=== PATIENT | female | born 1960 | race Caucasian/White ===

== ENCOUNTER 2017-02-28 20:16 | Emergency (ER) | payer OTHER ==
[~2017-02-28] VITALS: Ht 160 cm; Wt 78.0 kg
[2017-02-28 20:20] VITALS: Ht 160 cm; Wt 78.0 kg
--- NOTE | 2017-02-28 20:38 | ERD ---
ER Documentation Chief Complaint Date/Time DATE: 02/28/17 TIME: 20:37 Chief Complaint sudden back pain since last night HPI 56-year-old female presents here in emergency department for complaints of left lower back pains and left hip pain started last night. Patient is currently being treated for breast cancer, on radiation therapy. Patient denies any trauma and affected area. Patient has a history of right hip replacement, is usually on a walker, patient states that she was walking without it the past couple of days. Patient discussed the pain as throbbing pain, 6/10 scale, is worse upon movement. Patient denies any numbness or tingling. At this time, patient denies any pain, patient states that the pain is on and off intermittent. Patient denies any fever or chills. ROS All systems reviewed and are negative except as per history of present illness. Medications Home Meds Reported Medications [none] Unknown Strength No Conflict Check 02/28/17 Allergies Allergies: Coded Allergies: No Known Allergy (Unverified , 02/28/17) PMhx/Soc History of Surgery: Yes (right hip) Anesthesia Reaction: No Hx Neurological Disorder: No Hx Respiratory Disorders: Yes (asthma) Hx Cardiac Disorders: Yes Hx Psychiatric Problems: No Hx Miscellaneous Medical Probl: Yes (breast CA) Hx Alcohol Use: No Hx Substance Use: No Hx Tobacco Use: No Smoking Status: Never smoker FmHx Family History: No coronary disease, No diabetes, No other Physical Exam Vitals Vital Signs Date Time Temp Pulse Resp B/P Pulse Ox O2 Delivery O2 Flow Rate FiO2 02/28/17 20:20 97.3 78 20 142/67 99 Physical Exam GENERAL: The patient is well developed and appropriate for usual state of health, in no apparent distress. CHEST: Clear to auscultation bilaterally. There are no rales, wheezes or rhonchi. HEART: Regular rate and rhythm. No murmurs, clicks, rubs or gallops. No S3 or S4. ABDOMEN: Soft, nontender and nondistended. Good bowel sounds. No rebound or guarding. No gross peritonitis. No gross organomegaly or masses. No Nelson sign or McBurney point tenderness. BACK: No midline or flank tenderness. No tenderness on palpation on the left lower back, positive straight leg test. Muscle spasms noted in the left paraspinal aspect of the lumbar spine. EXTREMITIES: Equal pulses bilaterally. There is no peripheral clubbing, cyanosis or edema. No focal swelling or erythema. Full range of motion. Grossly neurovascularly intact. NEURO: Alert and oriented. Cranial nerves 2-12 intact. Motor strength in all 4 extremities with 5/5 strength. Sensation grossly intact. Normal speech and gait. SKIN: There is no apparent rash or petechia. The skin is warm and dry. HEMATOLOGIC AND LYMPHATIC: There is no evidence of excessive bruising or lymphedema. No gross cervical, axillary, or inguinal lymphadenopathy. Results 24 hrs PROCEDURE: CT Lumbar Spine without contrast. CLINICAL INDICATION: Left low back pain. History of breast cancer. TECHNIQUE: CT of the lumbar spine without contrast was performed. Axial images were obtained through the lumbar spine and reformatted at 2.5 mm slice thickness. Coronal and sagittal images were reformatted. The CTDIvol = 22.06 mGy and DLP = 587.60 mGy-cm. COMPARISON: Bone scan 08/29/2016 FINDINGS: Vertebral bodies: Multiple lytic lesions are present within the vertebral bodies at every level, most conspicuous at L3, the largest lesion on the left in the L3 vertebral body measuring approximately 2.2 cm. There is no evidence of pathologic fracture, stature is preserved at every level. The lordosis is intact. A mixed blastic and lytic lesion in the L2 vertebral body on the right is present, a similar smaller lesion in the inferior anterior L5 vertebral body. Conus medularis region: Normal in attenuation and location estimated at the L1 level. T12-L1: No discogenic abnormality of significance is seen. There is no facet arthropathy. The central canal is patent. There is no evidence for foraminal stenosis. L1-L2: No discogenic abnormality of significance is seen. There is no facet arthropathy. The ligamentum flava are normal in thickness. The central canal is patent. There is no evidence for foraminal stenosis. L2-L3: No discogenic abnormality of significance is seen. There is no facet arthropathy. The ligamentum flava are normal in thickness. The central canal is patent. There is no evidence for foraminal stenosis. L3-L4:No discogenic abnormality of significance is seen. There is no facet arthropathy. The ligamentum flava are normal in thickness. The central canal is patent. There is no evidence for foraminal stenosis. L4-L5: No discogenic abnormality of significance is seen. There is no facet arthropathy. The ligamentum flava are normal in thickness. The central canal is patent. There is no evidence for foraminal stenosis. L5-S1: No discogenic abnormality of significance is seen. There is no facet arthropathy. The ligamentum flava are normal in thickness. The central canal is patent. There is no evidence for foraminal stenosis. Sacrum and sacroiliac joints: Lytic lesion involving the S1 level to the left is present. Additional lytic lesions of the visualized iliac bones near the sacroiliac joint are present. None spine related findings: Visualized liver demonstrates multiple hypodensities consistent with extensive metastatic disease. RPTAT:HJJR IMPRESSION: 1. Multiple lytic metastatic foci of the lumbar vertebral bodies, sacrum and visualized iliac bones. 2. No evidence of pathologic fracture or compromise of the central canal at any level, no discogenic abnormalities significance is seen. 3. Visualized liver demonstrates multiple hypodense masses consistent with additional foci of metastatic disease. Physician Daniela Date Time Electronically viewed and signed by Physician Daniela on 02/28/2017 21:20 JR/ CC: CHATO COYLE NP PROCEDURE: CT of the lower extremity without contrast CLINICAL INDICATION: Left hip pain. History of breast cancer. TECHNIQUE: CT of the left lower extremity is performed from the anterior superior iliac spine through the distal femoral shaft at 2.5 mm sections. Coronal and sagittal reformatted images are submitted. CTDI = 13.83 mGy; DLP = 4 /43.04 mGy-cm COMPARISON: Pelvis x-ray 08/31/2016 FINDINGS: Osseous structures: Increased 5 lytic areas within the left iliac bone are present the largest is in the center of the iliac bone, the finding measuring 3.2 cm in greatest dimension. There is no evidence of pathologic fracture. There is a mixed sclerotic and lytic lesion involving the left superior pubic bone near the pubic symphysis without pathologic fracture. The left femoral head is normal in contour and position without fracture or dislocation. There is no evidence of osteoarthrosis of the left hip joint. The visualize left femur is unremarkable for additional metastatic foci. Soft tissues: No soft tissue masses are identified. No muscular or subcutaneous tissue abnormalities are seen. There is no evidence of joint effusion. The visualized intrapelvic structures show diverticular disease of the colon. There is no obvious adenopathy. RPTAT:HJJR IMPRESSION: 1. Multiple lytic metastatic foci of the left iliac bone with a mixed sclerotic and lytic focus of metastasis involving the superior left pubic ramus near the symphysis. 2. No evidence of pathologic fracture. 3. Visualize left femur is unremarkable. 4. No soft tissue abnormalities are present. 5. Incidental diverticular disease of the visible colon. Physician Daniela Date Time Electronically viewed and signed by Physician Daniela on 02/28/2017 21:25 JR/ CC: CHATO COYLE PRODUCT DEVELOPMENT SCIENTIST I discussed this case with my attending physician, Dr. Ellison, discussed the incidental finding of possible diverticular disease in colon noted in the CT scan of the lower extremity, she recommended treating patient's back pain considering patient does not have any fever, nausea vomiting abdominal pain, low suspicion for diverticulitis, patient has an appointment with oncology technician tomorrow. No symptoms of sepsis at this time. Procedures/MDM Medical Decision Making: Patient's pain is nonspecific at this time, can be from the lytic lesions, possible metastatic disease, can be also musculoskeletal pain, back strain, hip strain. There is no suspicion for neurovascular compromise. Patient has intact sensation and circulation of the affected extremity. There is low suspicion for septic arthritis. Patient does not have any fever. Radiology exams of the affected area does not show any fracture or dislocation. Disposition: Home. Patient is given prescription for Percocet for severe pain. Patient was advised to rest, talk to oncologist regarding CT scan report. Patient was advised that if symptoms are worse, numbness, tingling, high fever, unable to move joint, worsening symptoms, to return to emergency department immediately. Otherwise, patient is advised to follow up with the primary care doctor/oncologist tomorrow , brings results of CT scan report and discuss options. Departure Diagnosis: Primary Impression: Back pain Back pain location: low back pain Chronicity: acute Back pain laterality: left Sciatica presence: without sciatica Qualified Code: M54.5 - Acute left- sided low back pain without sciatica Additional Impressions: Metastatic cancer Hip pain Laterality: left Qualified Code: M25.552 - Pain of left hip joint Condition: Stable Patient Instructions: Back Pain (Acute Or Chronic) Additional Instructions: Patient is given prescription for ibuprofen for pain, [place] for severe pain. Patient was advised to rest, talk to oncologist regarding CT scan report. Patient was advised that if symptoms are worse, numbness, tingling, high fever, unable to move joint, worsening symptoms, to return to emergency department immediately. Otherwise, patient is advised to follow up with the primary care doctor in 5-7 days for reevaluation of symptoms. CHATO COYLE NP February 28, 2017 20:38
--- NOTE | 2017-02-28 21:20 | RADRPT ---
PROCEDURE: CT Lumbar Spine without contrast. CLINICAL INDICATION: Left low back pain. History of breast cancer. TECHNIQUE: CT of the lumbar spine without contrast was performed. Axial images were obtained thro [facility] the lumbar spine and reformatted at 2.5 mm slice thickness. Coronal and sagittal images were ref ormatted. The CTDIvol = 22.06 mGy and DLP = 587.60 mGy-cm. COMPARISON: Bone scan 08/29/2016 FINDINGS: Vertebral bodies: Multiple lytic lesions are present within the vertebral bodies at every level, mos t conspicuous at L3, the largest lesion on the left in the L3 vertebral body measuring approximately 2.2 cm. There is no evidence of pathologic fracture, stature is preserved at every level. The mateo dosis is intact. A mixed blastic and lytic lesion in the L2 vertebral body on the right is present, a similar smaller lesion in the inferior anterior L5 vertebral body. Conus medularis region: Normal in attenuation and location estimated at the L1 level. T12-L1: No discogenic abnormality of significance is seen. There is no facet arthropathy. The centr al canal is patent. There is no evidence for foraminal stenosis. L1-L2: No discogenic abnormality of significance is seen. There is no facet arthropathy. The ligamen mega flava are normal in thickness. The central canal is patent. There is no evidence for foraminal stenosis. L2-L3: No discogenic abnormality of significance is seen. There is no facet arthropathy. The ligamen mega flava are normal in thickness. The central canal is patent. There is no evidence for foraminal stenosis. L3-L4:No discogenic abnormality of significance is seen. There is no facet arthropathy. The ligament um flava are normal in thickness. The central canal is patent. There is no evidence for foraminal stenosis. L4-L5: No discogenic abnormality of significance is seen. There is no facet arthropathy. The ligamen mega flava are normal in thickness. The central canal is patent. There is no evidence for foraminal stenosis. L5-S1: No discogenic abnormality of significance is seen. There is no facet arthropathy. The ligamen mega flava are normal in thickness. The central canal is patent. There is no evidence for foraminal stenosis. Sacrum and sacroiliac joints: Lytic lesion involving the S1 level to the left is present. Additiona l lytic lesions of the visualized iliac bones near the sacroiliac joint are present. None spine related findings: Visualized liver demonstrates multiple hypodensities consistent with ex tensive metastatic disease. RPTAT:HJJR IMPRESSION: 1. Multiple lytic metastatic foci of the lumbar vertebral bodies, sacrum and visualized iliac bones . 2. No evidence of pathologic fracture or compromise of the central canal at any level, no discogeni c abnormalities significance is seen. 3. Visualized liver demonstrates multiple hypodense masses consistent with additional foci of metas tatic disease. Physician Daniela Date Time Electronically viewed and signed by Physician Daniela on 02/28/2017 21:20 /
--- NOTE | 2017-02-28 21:25 | RADRPT ---
PROCEDURE: CT of the lower extremity without contrast CLINICAL INDICATION: Left hip pain. History of breast cancer. TECHNIQUE: CT of the left lower extremity is performed from the anterior superior iliac spine thro ugh the distal femoral shaft at 2.5 mm sections. Coronal and sagittal reformatted images are submit norbert. CTDI = 13.83 mGy; DLP = 4/43.04 mGy-cm COMPARISON: Pelvis x-ray 08/31/2016 FINDINGS: Osseous structures: Increased 5 lytic areas within the left iliac bone are present the largest is i n the center of the iliac bone, the finding measuring 3.2 cm in greatest dimension. There is no milli dence of pathologic fracture. There is a mixed sclerotic and lytic lesion involving the left superi or pubic bone near the pubic symphysis without pathologic fracture. The left femoral head is normal in contour and position without fracture or dislocation. There is no evidence of osteoarthrosis of the left hip joint. The visualize left femur is unremarkable for additional metastatic foci. Soft tissues: No soft tissue masses are identified. No muscular or subcutaneous tissue abnormaliti es are seen. There is no evidence of joint effusion. The visualized intrapelvic structures show di verticular disease of the colon. There is no obvious adenopathy. RPTAT:HJJR IMPRESSION: 1. Multiple lytic metastatic foci of the left iliac bone with a mixed sclerotic and lytic focus of m etastasis involving the superior left pubic ramus near the symphysis. 2. No evidence of pathologic fracture. 3. Visualize left femur is unremarkable. 4. No soft tissue abnormalities are present. 5. Incidental diverticular disease of the visible colon. Physician Daniela Date Time Electronically viewed and signed by Physician Daniela on 02/28/2017 21:25 /
[2017-02-28] MEDS ORDERED: OXYC-279 PO (21:43)
== END 2017-02-28 21:52 | disposition home or self-care (01) ==
LOC: FTE 20:16
DX: M54.5 Low back pain (principal); M25.552 Pain in left hip; C79.81 Secondary malignant neoplasm of breast; J45.909 Unspecified asthma, uncomplicated
CPT/HCPCS: 72131; 73700; Z7502

== ENCOUNTER 2017-04-04 19:14 | Inpatient (IN) | payer OTHER ==
[~2017-04-04] VITALS: Ht 157.5 cm; Wt 57.8 kg
[~2017-04-04 19:14] MED LIST: OXYC-279 PO
[2017-04-04] MEDS ORDERED: HYDROmorphONE 1 MG/ML SYG IV STA (19:57)
[2017-04-04] MEDS ORDERED: SOD CHLORIDE 0.9% 1,000 ML IV STA ×2 (19:57→21:14)
[2017-04-04] MEDS ORDERED: HYDR-906 PO (19:59)
[2017-04-04] MEDS ORDERED: ANAS1TAB PO (19:59)
[2017-04-04] MEDS ORDERED: ONDANSETRON 4 MG INJ IV STA (20:21)
[2017-04-04 20:23] LABS: ADD SCAN DIFF NO
[2017-04-04 20:25] LABS: BASOPHILS % 0.1 % (0.0-2.0); EOSINOPHILS % 0.1 % (0.0-7.0); HEMOGLOBIN 11.3 g/dl (12.0-16.0); LYMPHOCYTES # 1.3 10^3/ul (0.8-2.9); MEAN CORPUSCULAR HEMOGLOBIN 25.5 pg (29.0-33.0); MEAN CORPUSCULAR HGB CONC 33.2 g/dl (32.0-37.0); MEAN CORPUSCULAR VOLUME 76.6 fl (82.0-101.0); MEAN PLATELET VOLUME 9.8 fl (7.4-10.4); MONOCYTE # 0.7 10^3/ul (0.3-0.9); MONOCYTES % 6.8 % (0.0-11.0); NEUTROPHIL # 7.7 10^3/ul (1.6-7.5); NEUTROPHILS % 79.4 % (39.0-77.0); PLATELET COUNT 263 10^3/UL (140-415); RED BLOOD COUNT 4.44 10^6/ul (4.20-5.40); RED CELL DISTRIBUTION WIDTH 14.7 % (11.5-14.5); WHITE BLOOD COUNT 9.7 10^3/ul (4.8-10.8)
[2017-04-04 20:38] LABS: ADD UMIC YES; UR BILIRUBIN (Dip) NEGATIVE (NEGATIVE); UR BLOOD (Dip) 2+ (NEGATIVE); UR CLARITY SLIGHTLY CLOUDY (CLEAR); UR COLOR LT. YELLOW (YELLOW); UR GLUCOSE (Dip) NEGATIVE (NEGATIVE); UR KETONES (Dip) NEGATIVE (NEGATIVE); UR LEUKOCYTE ESTERASE (Dip) 3+ (NEGATIVE); UR NITRITE (Dip) NEGATIVE (NEGATIVE); UR TOTAL PROTEIN (Dip) TRACE (NEGATIVE); UR UROBILINOGEN (Dip) 0.2 E.U./dL (0.1-1.0)
[2017-04-04 20:40] LABS: INR 0.93; PROTIME 12.5 Sec (12.2-14.2)
[2017-04-04 20:41] LABS: PARTIAL THROMBOPLASTIN TIME 24.1 Sec (25.0-35.0)
[2017-04-04 20:46] LABS: ALBUMIN 3.8 g/dl (3.3-4.9); ALBUMIN/GLOBULIN RATIO 1.08; BILIRUBIN,INDIRECT 0.3 mg/dl (0-1.1); BILIRUBIN,TOTAL 0.3 mg/dl (0.2-1.3); CREATININE 1.44 mg/dl (0.44-1.00); TOTAL PROTEIN 7.3 g/dl (6.1-8.1)
--- NOTE | 2017-04-04 20:47 | RADRPT ---
PROCEDURE: XR Chest. CLINICAL INDICATION: Altered Mental Status TECHNIQUE: Single frontal view of the chest COMPARISON: CT examination of the chest dated 08/27/2016. FINDINGS: Cardiomegaly. Large right pleural effusion with atelectasis versus airspace disease in right mid tash ng and lung base. Mild left lung base atelectasis. No signs of pleural fluid or pneumothorax are se en. The osseous structures and soft tissues are unremarkable. Edema in the right breast. IMPRESSION: Large right pleural effusion, with atelectasis versus airspace disease in right mid lung and lung ba se. RPTAT: [facility] Physician Prakash Date Time Electronically viewed and signed by Physician Prakash on 04/04/2017 20:46 RS/
[2017-04-04 20:56] LABS: TROPONIN-I 0.046 ng/ml (0.00-0.12)
[2017-04-04 21:08] LABS: BARBITURATES NEGATIVE (NEGATIVE); BENZODIAZEPINES NEGATIVE (NEGATIVE)
[2017-04-04 21:09] LABS: CANNABINOIDS NEGATIVE (NEGATIVE); COCAINE NEGATIVE (NEGATIVE); OPIATES NEGATIVE (NEGATIVE)
[2017-04-04 21:12] LABS: UR BACTERIA MODERATE; UR RENAL EPITHELIAL CELL FEW
[2017-04-04] MEDS ORDERED: D5W-0.45 NACL + KCL 20 MEQ 1,000 ML IV STA ×2 (21:14→22:44)
[2017-04-04] MEDS ORDERED: POTASSIUM CHLORIDE (SR) 20 MEQ TAB PO STA (21:14)
[2017-04-04] MEDS ORDERED: CEFTRIAXONE 1 GM/50 ML (PMX) 50 ML IVPB ONE (21:30)
--- NOTE | 2017-04-04 22:16 | ERA ---
ER Documentation Chief Complaint Date/Time DATE: 04/04/17 TIME: 22:08 Chief Complaint pain r/t cancer w/ bone mets; pain uncontrolled HPI 57-year-old female with a history of metastatic breast cancer with bony metastases presenting to the ER for generalized weakness, decreased appetite, and confusion per her daughter. Per her daughter, she has been worsening over the past week with increasing confusion and difficulty getting out of bed. She has also had some constipation. No fevers, chills, dysuria, chest pain, shortness of breath, headache, or dizziness. She complains of uncontrolled generalized pain. Daughter states that she is unable to take care of her in this condition. Her oncologist is Dr. Navas. She is reportedly scheduled for mastectomy next week. ROS All systems reviewed and are negative except as per history of present illness. Medications Home Meds Active Scripts Oxycodone HCl/Acetaminophen (Percocet 5-325 mg Tablet) 1 Each Tablet, 1 EACH PO Q6, #20 TAB Prov:CHATO COYLE SUPERVISOR CORRESPONDENCE SECTION 02/28/17 Reported Medications Hydrocodone/Acetaminophen ([place] 5-325 Tablet) 1 Each Tablet, 1 EACH PO TID, TAB 04/04/17 Anastrozole* (Arimidex*) 1 Mg Tablet, 1 MG PO DAILY, #30 TAB 04/04/17 Discontinued Reported Medications [none] Unknown Strength No Conflict Check 02/28/17 Allergies Allergies: Coded Allergies: No Known Allergy (Unverified , 04/04/17) PMhx/Soc History of Surgery: Yes (right hip) Anesthesia Reaction: No Hx Neurological Disorder: No Hx Respiratory Disorders: Yes (asthma) Hx Cardiac Disorders: Yes Hx Psychiatric Problems: No Hx Miscellaneous Medical Probl: Yes (breast CA) Hx Alcohol Use: No Hx Substance Use: No Hx Tobacco Use: No Smoking Status: Never smoker FmHx Family History: No diabetes Physical Exam Vitals Vital Signs Date Time Temp Pulse Resp B/P Pulse Ox O2 Delivery O2 Flow Rate FiO2 04/04/17 20:00 Nasal Cannula 2 04/04/17 19:18 98.8 100 20 169/87 95 Physical Exam Const: Ill-appearing, nontoxic Head: Atraumatic Eyes: Normal Conjunctiva ENT: Dry mucous membranes, no lesions Neck: Full range of motion..~ No meningismus. Resp: Clear to auscultation bilaterally Cardio: Regular rate and rhythm, no murmurs. 2+ distal pulses Abd: Soft, non tender, non distended. Normal bowel sounds Skin: No petechiae or rashes Back: No midline or flank tenderness Ext: No cyanosis, or edema Neur: Awake, alert, oriented 3, cranial nerves are intact, strength and sensations are intact in all 4 extremities. Unable to test gait secondary to severe back pain Psych: Depressed mood and Affect Result Diagram: 04/04/17200904/04/172009 Results 24 hrs Laboratory Tests Test 04/04/17 20:10 04/04/17 20:30 White Blood Count 9.710^3/ul Red Blood Count 4.4410^6/ul Hemoglobin 11.3g/dl Hematocrit 34.0% Mean Corpuscular Volume 76.6fl Mean Corpuscular Hemoglobin 25.5pg Mean Corpuscular Hemoglobin Concent 33.2g/dl Red Cell Distribution Width 14.7% Platelet Count 39531^3/UL Mean Platelet Volume 9.8fl Neutrophils % 79.4% Lymphocytes % 13.0% Monocytes % 6.8% Eosinophils % 0.1% Basophils % 0.1% Nucleated Red Blood Cells % 0.0/100WBC Neutrophils # 7.710^3/ul Lymphocytes # 1.310^3/ul Monocytes # 0.710^3/ul Eosinophils # 0.010^3/ul Basophils # 0.010^3/ul Nucleated Red Blood Cells # 0.010^3/ul Prothrombin Time 12.5Sec Prothrombin Time Ratio 1.0 INR International Normalized Ratio 0.93 Activated Partial Thromboplast Time 24.1Sec Sodium Level 130mmol/L Potassium Level 3.0mmol/L Chloride Level 94mmol/L Carbon Dioxide Level 29mmol/L Anion Gap 10 Blood Urea Nitrogen 43mg/dl Creatinine 1.44mg/dl Glucose Level 107mg/dl Calcium Level 17.3mg/dl Total Bilirubin 0.3mg/dl Direct Bilirubin 0.00mg/dl Indirect Bilirubin 0.3mg/dl Aspartate Amino Transf (AST/SGOT) 426IU/L Alanine Aminotransferase (ALT/SGPT) 89IU/L Alkaline Phosphatase 778IU/L Ammonia 19umol/l Troponin I 0.046ng/ml Total Protein 7.3g/dl Albumin 3.8g/dl Globulin 3.50g/dl Albumin/Globulin Ratio 1.08 Urine Color LT. YELLOW Urine Clarity SLIGHTLY CLOUDY Urine pH 7.0 Urine Specific [place] 1.010 Urine Ketones NEGATIVE Urine Nitrite NEGATIVE Urine Bilirubin NEGATIVE Urine Urobilinogen 0.2 E.U./dL Urine Leukocyte Esterase 3+ Urine Microscopic RBC 2-5/HPF Urine WBC Clumps MODERATE Urine Microscopic WBC >50/HPF Urine Renal Epithelial Cells FEW Urine Bacteria MODERATE Urine Hemoglobin 2+ Urine Glucose NEGATIVE% Urine Total Protein TRACE Urine Opiates Screen NEGATIVE Urine Barbiturates NEGATIVE Urine Amphetamines Screen NEGATIVE Urine Benzodiazepines Screen NEGATIVE Urine Cocaine Screen NEGATIVE Urine Cannabinoids NEGATIVE Current Medications Medications (Trade) Dose Ordered Sig/Chanel Route PRN Reason Start Time Stop Time Status Last Admin Dose Admin Sodium Chloride (NS) 1,000 ml @ 1,000 mls/hr Q1H STAT IV 04/04/17 19:57 04/04/17 20:56 DC 04/04/17 20:12 Hydromorphone HCl (Dilaudid) 1 mg ONCE STAT IV 04/04/17 19:57 04/04/17 19:59 DC 04/04/17 20:12 Ondansetron HCl 4 mg 4 mg ONCE STAT IV 04/04/17 20:21 04/04/17 20:22 DC 04/04/17 20:33 Ceftriaxone Sodium (Rocephin) 50 ml @ 100 mls/hr ONCE ONCE IVPB 04/04/17 21:30 04/04/17 21:59 DC 04/04/17 21:36 Potassium Chloride 40 meq 40 meq ONCE STAT PO 04/04/17 21:14 04/04/17 21:16 DC 04/04/17 21:36 Sodium Chloride 1,000 ml @ 1,000 mls/hr Q1H STAT IV 04/04/17 21:14 04/04/17 22:13 DC 04/04/17 21:36 Potassium Chloride/Dextrose/ Sod Cl (D5-1/2ns + KCl 20 Meq) 1,000 ml @ 125 mls/hr Q8H STAT IV 04/04/17 21:14 04/04/17 22:45 DC Ondansetron HCl (Zofran Inj) 4 mg BRIDGE ORDER PRN IV NAUSEA AND/OR VOMITING 04/04/17 22:30 04/05/17 22:29 Calcitonin [place] 300 units 300 units BID ONCE SC 04/04/17 22:30 04/04/17 22:31 DC 04/04/17 23:15 Potassium Chloride/Dextrose/ Sod Cl (D5-1/2ns + KCl 20 Meq) 1,000 ml @ 125 mls/hr Q8H STAT IV 04/04/17 22:44 04/05/17 06:43 04/04/17 23:12 Procedures/MDM EKG: Rate/Rhythm: Normal sinus rhythm, QRS, ST, T-waves: No changes consistent w/ acute ischemia, V2 with nonspecific T-wave abnormality, QTC 484 Impression: No evidence of ischemia or arrhythmia Chest x-ray: No acute abnormalities CT head shows no acute abnormalities Labs: Urinalysis shows UTI, BMP shows prerenal azotemia, hypokalemia, hyponatremia, hypercalcemia MDM: Patient is presenting with generalized weakness and pain. Vitals are stable and she is afebrile. Labs were notable for UTI for which she was given Rocephin. There is no evidence of sepsis at this time. IV fluids were started for prerenal azotemia and hypercalcemia. Potassium supplementation was given for her hypokalemia. Dilaudid was given for pain with improvement in her pain. Patient's presentation is likely secondary to her metastatic cancer and her hypercalcemia is likely secondary to her bony metastases. On my exam, there is no evidence of cord compression so repeat imaging of her spine was not done. I suspect her EKG changes are secondary to hypercalcemia. IV fluid 2 L boluses were given and she was started on maintenance fluids. Calcitonin subcutaneously was given as well. Patient will be admitted for further workup and treatment. Critical Care Time: 35 minutes Treatments/Evaluations: Close monitoring and treatment of unstable vital signs, cardiorespiratory, and neurologic status, while maintaining tight balance of fluid, respiratory, and cardiac interventions. This time includes discussing the case with the patient and the patients family. This time does not include all procedures stated elsewhere in this record. This time also includes reviewing old records, labs and radiological studies. This time includes examining and re-examining the patient. Additionally, this time also includes arranging care with admitting and consulting physicians. Accepting Care Team: Current data and ongoing care discussed. Time: Time of admission Primary Provider: Johnathon Consulting: none Outstanding Data: none Departure Diagnosis: Primary Impression: Prerenal azotemia Additional Impressions: Dehydration with hyponatremia Hypokalemia Chronic generalized pain Transaminitis Metastatic breast cancer Condition: Critical JOHN VERMA MD Apr 04, 2017 22:16
[2017-04-04 22:17] LABS: CALCIUM 17.3 mg/dl (8.4-10.2)
[2017-04-04] MEDS ORDERED: CALCITONIN SALMON 400 UNITS INJ SC ONE (22:30)
[2017-04-04] MEDS ORDERED: ONDANSETRON 4 MG INJ IV PRN (22:30)
--- NOTE | 2017-04-04 23:10 | RADRPT ---
PROCEDURE: CT head, without contrast. CLINICAL INDICATION: Altered level of consciousness. TECHNIQUE: Noncontrast CT examination of the head, with axial, sagittal and coronal reformatted im ages. Automated dose exposure control was employed. CTDI: 41.59 and DLP: 720.23. COMPARISON: None. FINDINGS: Chronic changes of atrophy and small vessel disease white matter. No acute hemorrhage. Subarachnoid spaces are substantially preserved and symmetric. Ventricles ar e unremarkable. No mass effect. Hernandez-white matter distinction is preserved without evident decreased attenuation t o suggest acute or recent infarct. Sinuses and osseous structures are unremarkable. IMPRESSION: 1. Chronic changes of atrophy and small vessel disease white matter are greater than expected for p atient age. 2. Otherwise, no acute process in the head. RPTAT: [facility] Physician Prakash Date Time Electronically viewed and signed by Physician Prakash on 04/04/2017 23:10 RS/
[2017-04-05] VITALS (12 sets, daily range): BP systolic 134–165; BP diastolic 62–82; PULSE 69–94; RESP 16–18; Ht 157.5 cm; Wt 57.8 kg
[2017-04-05] MEDS ORDERED: NACL 0.9% 3 ML SYG IV SCH (02:30)
[2017-04-05] MEDS ORDERED: LORAZEPAM 2 MG INJ IV PRN (02:30)
[2017-04-05] MEDS: SOD CHLORIDE 0.9% 1,000 ML IV SCH ×2 (05:16→14:46)
[2017-04-05] MEDS: PANTOPRAZOLE 40 MG INJ IV SCH (05:16)
--- NOTE | 2017-04-05 05:32 | HP ---
Date/Time of Note Date/Time of Note DATE: 04/05/17 TIME: 05:15 Assessment/Plan VTE Prophylaxis VTE Prophylaxis Intervention: LMWH Lines/Catheters IV C[facility]ter Type ([facility] Peripheral IV Urinary Cath still in place: No Assessment/Plan Chief Complaint/Hosp Course This is a 57-year-old female being admitted to the telemetry floor for: #1 Failure to thrive: Is likely secondary to multifactorial causes such as underlying metastatic breast cancer as well as underlying infectious etiology. Patient is not tolerating p.o. at this time. Will treat the underlying infection with antibiotics. Patient also has hypercalcemia with a level of 17. Will provide aggressive fluid hydration as well as calcitonin. Goals of care were discussed with the patient the daughter Liudmila with the power of sustainability executive director and at the current time she does wish to keep the patient on full code. Daughter is also requesting patient's Dr. Vásquez be also consulted. #2 severe hypercalcemia: Calcium level of 17. Will provide aggressive IV fluid hydration with normal saline at 200 cc an hour, calcitonin. Will consider pamidronate. Consult hematology. Recheck calcium. #3 urinary tract infection: IV antibiotics #4 acute kidney injury: Likely secondary to dehydration. Will provide IV fluid hydration at this time. #5anemia: Hemoglobin currently 7. This likely secondary to patient's underlying clinical condition or cancer. Will continue to monitor H&H. #6: Large right pleural effusion: Patient currently sating at 90% on 2 L nasal cannula. Will continue to monitor this and consider therapeutic thoracentesis when patient is improving with her clinical status and mental status.. This likely is secondary to patient underlying malignancy. #7 Transaminitis: Likely secondary to patient's underlying metastatic breast cancer. Daughter does state that they are aware of the metastasis to liver. Will defer any further imaging or studies to regarding the liver to hematology. #8 Metastatic breast cancer: followed by dr. vásquez her breast surgeon, consult placed. Will also consult hematology for further recommendations. #9 DVT and GI prophylaxis: Lovenox, Protonix Further treatment strategy will be implemented as per the clinical course. Problems: HPI/ROS Admit Date/Time Admit Date/Time Apr 04, 2017 at 22:07 Hx of Present Illness Chief complaint: Generalized weakness decreased appetite and confusion 57-year-old female with a history of metastatic breast cancer with bony metastases presenting to the ER for generalized weakness, decreased appetite, and confusion per her daughter. Per her daughter, she has been worsening over the past week with increasing confusion and difficulty getting out of bed. She has also had some constipation. No fevers, chills, dysuria, chest pain, shortness of breath, headache, or dizziness. She complains of uncontrolled generalized pain. Daughter states that she is unable to take care of her in this condition. Her oncologist is Dr. Vásquez. She is reportedly scheduled for mastectomy next week. As per the daughter patient was diagnosed with breast cancer approximately 7 months ago. She has received radiation therapy. Allergies: NKDA Medications: See MAR ROS Subjective hx not possible: other (Secondary to clinical condition, confusion) PMH/Family/Social Past Medical History Breast cancer Past Surgical History Right hip surgery Family History Significant Family History: diabetes, hypertension (Family) Social History Alcohol Use: none Smoking Status: Never smoker Drug Use: none Exam/Review of Systems Vital Signs Vitals Vital Signs Date Time Temp Pulse Resp B/P Pulse Ox O2 Delivery O2 Flow Rate FiO2 04/05/17 04:24 69 04/05/17 04:04 97.6 18 165/77 96 04/05/17 03:00 Nasal Cannula 2.0 Exam Exam General: Patient is awake and alert, denies any current pain slightly confused. No acute distress. HEENT: Atraumatic, normocephalic. The pupils are equal, round and reactive. Extraocular motor are intact Neck: Supple with full range of motion. No rigidity or meningismus Chest: Nontender Lungs: Clear to auscultation bilaterally no crackles rales or wheezing Heart: Normal S1-S2, Regular rhythm and rate. Abdomen: Soft, nondistended, mild tenderness to palpation of the right upper quadrant.(chronic) Extremities: Normal to inspection, no edema no cyanosis Neurologic: Awake and alert, patient is slightly confused. Unable to complete neurological exam secondary to patient's clinical status. Additional Comments EKG: Rate/Rhythm: Normal sinus rhythm, QRS, ST, T-waves: No changes consistent w/ acute ischemia, V2 with nonspecific T-wave abnormality, QTC 484 As per ED physician documentation PROCEDURE: CT head, without contrast. CLINICAL INDICATION: Altered level of consciousness. TECHNIQUE: Noncontrast CT examination of the head, with axial, sagittal and coronal reformatted images. Automated dose exposure control was employed. CTDI: 41.59 and DLP: 720.23. COMPARISON: None. FINDINGS: Chronic changes of atrophy and small vessel disease white matter. No acute hemorrhage. Subarachnoid spaces are substantially preserved and symmetric. Ventricles are unremarkable. No mass effect. Hernandez-white matter distinction is preserved without evident decreased attenuation to suggest acute or recent infarct. Sinuses and osseous structures are unremarkable. IMPRESSION: 1. Chronic changes of atrophy and small vessel disease white matter are greater than expected for patient age. 2. Otherwise, no acute process in the head. RPTAT: [facility]U Physician Prakash Date Time Electronically viewed and signed by Physician Prakash on 04/04/2017 23:10 PROCEDURE: XR Chest. CLINICAL INDICATION: Altered Mental Status TECHNIQUE: Single frontal view of the chest COMPARISON: CT examination of the chest dated 08/27/2016. FINDINGS: Cardiomegaly. Large right pleural effusion with atelectasis versus airspace disease in right mid lung and lung base. Mild left lung base atelectasis. No signs of pleural fluid or pneumothorax are seen. The osseous structures and soft tissues are unremarkable. Edema in the right breast. IMPRESSION: Large right pleural effusion, with atelectasis versus airspace disease in right mid lung and lung base. RPTAT: [facility]U Physician Prakash Date Time Electronically viewed and signed by Physician Prakash on 04/04/2017 20:46 Labs Result Diagram: 04/04/17200904/04/172009 Medications Medications Current Medications Sodium Chloride (NS) 1,000 ml @ 80 mls/hr [id number] IV ; Start 04/05/17 at 02:16 Lorazepam (Ativan) 0.5 mg Q6H PRN IV ANXIETY; Start 04/05/17 at 02:30 Morphine Sulfate (morphine) 2 mg Q4H PRN IV PAIN LEVEL 7-10; Start 04/05/17 at 02:30 Pantoprazole (Protonix Iv) 40 mg DAILY@06 IV ; Start 04/05/17 at 06:00 Enoxaparin Sodium (Lovenox) 40 mg DAILY SC ; Start 04/05/17 at 09:00 Anastrozole (Arimidex) 1 mg DAILY PO ; Start 04/05/17 at 09:00 BETTY MEDRANO Apr 05, 2017 05:26
[2017-04-05] MEDS: ENOXAPARIN 40 MG/0.4 ML SYG SC SCH (09:37)
[2017-04-05] MEDS: ANASTROZOLE 1 MG TAB PO SCH (10:14)
[2017-04-05] MEDS: morphine 2 MG INJ IV PRN ×2 (11:22→22:56)
--- NOTE | 2017-04-05 11:25 | RADRPT ---
PROCEDURE: US Abdomen CLINICAL INDICATION: elevated lfts, history of metatastatic ca//READY @ 1000 TECHNIQUE: Multiple real-time images were acquired of the patient's abdomen and retroperitoneum ut ilizing a high resolution transducer. COMPARISON: None FINDINGS: The liver measures 20.4 cm and demonstrates increased echogenicity and coarsened echotexture. There is no intrahepatic biliary ductal dilatation. The extrahepatic common bile duct measures 3 mm. The m ain portal vein is patent with proper directional flow. Innumerable likely metastatic lesions are identified in the liver measuring up to 2.7 cm in the righ t lobe and 6.6 cm in the left lobe. These are largely hypoechoic with foci of hyper echogenicity wi thin the. There is trace perihepatic ascites. A right pleural effusion is incidentally noted. No shadowing calculi are identified. Echogenic material without posterior acoustic shadowing are id entified in the gallbladder which is likely due to 6 sludge. The gallbladder wall is thickened to 7 mm although this is likely at least in part reactive to the ascites. No pericholecystic fluid is i dentified. The visualized pancreas is unremarkable. The right kidney measures 11.2 x 4.2 x 5.1 cm. There are no renal calculi or hydronephrosis. The visualized abdominal aorta and IVC are grossly unremarkable. IMPRESSION: The liver is enlarged and contains numerous and confluent lesions, likely metastases, measuring up t o 6.6 cm in the left lobe. The liver demonstrates increased echogenicity and coarsened echotexture which are nonspecific and suggest fatty infiltration as well as early chronic liver disease. The ma in portal vein is patent with proper directional flow. Trace perihepatic ascites. The gallbladder wall is thickened which is likely at least in part reactive to the ascites. No chol elithiasis or definite acute cholecystitis is identified. If clinical suspicion for acute cholecyst itis persists, a HIDA scan or MRCP can be obtained for further evaluation. Normal CBD. Incidentally noted right pleural effusion. RPTAT: EE Physician Latanya Date Time Electronically viewed and signed by Elmo Vo Physician on 04/05/2017 11:25 RA/
[2017-04-05] MEDS: CEFTRIAXONE 2 GM/50 ML (PMX) 50 ML IVPB SCH ×2 (12:30→14:35)
[2017-04-05 14:39] LABS: ALBUMIN 3.6 g/dl (3.3-4.9); ALBUMIN/GLOBULIN RATIO 1.09; BILIRUBIN,INDIRECT 0.2 mg/dl (0-1.1); BILIRUBIN,TOTAL 0.2 mg/dl (0.2-1.3); CREATININE 1.19 mg/dl (0.44-1.00); MAGNESIUM 1.7 mg/dl (1.7-2.5); POTASSIUM 3.3 mmol/L (3.5-5.1); TOTAL PROTEIN 6.9 g/dl (6.1-8.1)
[2017-04-05 14:54] LABS: CALCIUM 13.8 mg/dl (8.4-10.2)
--- NOTE | 2017-04-05 16:05 | CONS ---
Date/Time of Note Date/Time of Note DATE: 04/05/17 TIME: 15:47 Assessment/Plan Assessment/Plan Chief Complaint/Hosp Course The patient is a 57 year old female with a history of right breast cancer who had previously been seen by Dr. Vásquez and planned for surgery but was lost to follow-up 6-8 months ago, now presenting to the ER for generalized weakness, decreased appetite, and confusion per her daughter and found to have hypercalcemia with calcium of 17, acute renal failure, and elevated liver enzymes with US concerning for liver metastases, as well as failure to thrive and UTI. # Metastatic breast cancer. Dr. áVsquez had previously seen and planned for right mastectomy but was lost to follow-up and is now scheduled for right mastectomy next week, but found to have probable liver mets on ultrasound. - US liver shows that the liver is enlarged and contains numerous and confluent lesions, likely metastases, measuring up to 6.6 cm in the left lobe. The liver demonstrates increased echogenicity and coarsened echotexture which are nonspecific and suggest fatty infiltration as well as early chronic liver disease. The main portal vein is patent with proper directional flow. Trace perihepatic ascites. - CXR shows large right pleural effusion, likely malignant, consider diagnostic and therapeutic thoracentesis if symptomatic - Awaiting path report and records from Dr. Vásquez regarding receptor status - Will obtain CT CAP with contrast once renal function improves - Will discuss further with Dr. Vásquez, however mastectomy unlikely to be beneficial at this point - Will send CA 27-29 and CA 15-3 # Severe hypercalcemia, with calcium level of 17.3, improved to 13.8 - s/p calcitonin, aggressive hydration - will give pamidronate 60 mg IV - likely related to breast cancer, will send PTH and PTHrP, Vit D level # Confusion and constipation, likely related to hypercalcemia, CT non-contrast head negative. # Acute renal failure, likely related to dehydration and hypercalcemia, improved with IV fluids. # Anemia, microcytic, Hgb 11.3 with MCV 76.6, will send iron panel, ferritin, B12/folate, TSH, LDH, haptoglobin, reticulocyte count Problems: Consultation Date/Type/Reason Admit Date/Time Apr 04, 2017 at 22:07 Date of Consultation: Apr 05, 2017 Type of Consultation: Oncology Reason for Consultation Metastatic breast cancer Hx of Present Illness The patient is a 57 year old female with a history of right breast cancer who had previously been seen by Dr. Vásquez and planned for surgery but was lost to follow-up 6-8 months ago, now presenting to the ER for generalized weakness, decreased appetite, and confusion per her daughter. Per chart review, she has been worsening over the past week with increasing confusion and difficulty getting out of bed. She has also had some constipation. No fevers, chills, dysuria, chest pain, shortness of breath, headache, or dizziness. She complains of uncontrolled generalized pain. She is reportedly scheduled for mastectomy next week. Further records are being requested from Dr. Vásquez' office. The patient states that she does not feel well and complains of abdominal pain and constipation. Past Medical History Breast cancer Past Surgical History Right hip surgery Family History Significant Family History: no pertinent family hx Social History Alcohol Use: none Smoking Status: Never smoker Drug Use: none Exam/Review of Systems Vital Signs Vitals Vital Signs Date Time Temp Pulse Resp B/P Pulse Ox O2 Delivery O2 Flow Rate FiO2 04/05/17 15:23 98.5 92 18 144/65 96 04/05/17 08:00 Nasal Cannula 2.0 Intake and Output 04/04/17 04/04/17 04/05/17 15:00 23:00 07:00 Intake Total 1000 ml Output Total 400 ml Balance 600 ml Exam Constitutional: oriented Psych: no complaints Head: normocephalic Eyes: nl conjunctiva Neck: supple Respiratory: clear to auscultation Cardiovascular: regular rate and rhythm Gastrointestinal: non-tender, soft Musculoskeletal: nl extremities to inspection Neurological: [employer] COLLECTION SPECIALIST II-XII intact Results Result Diagram: 04/04/17200904/05/17 1350 Results 24 hrs Laboratory Tests Test 04/04/17 20:10 04/04/17 20:30 04/05/17 13:50 White Blood Count 9.7 # Red Blood Count 4.44 # Hemoglobin 11.3 #L Hematocrit 34.0 #L Mean Corpuscular Volume 76.6 L Mean Corpuscular Hemoglobin 25.5 L Mean Corpuscular Hemoglobin Concent 33.2 Red Cell Distribution Width 14.7 H Platelet Count 263 Mean Platelet Volume 9.8 # Neutrophils % 79.4 H Lymphocytes % 13.0 L Monocytes % 6.8 Eosinophils % 0.1 Basophils % 0.1 Nucleated Red Blood Cells % 0.0 Neutrophils # 7.7 H Lymphocytes # 1.3 Monocytes # 0.7 Eosinophils # 0.0 Basophils # 0.0 Nucleated Red Blood Cells # 0.0 Prothrombin Time 12.5 Prothrombin Time Ratio 1.0 INR International Normalized Ratio 0.93 Activated Partial Thromboplast Time 24.1 L Sodium Level 130 L 136 Potassium Level 3.0 L 3.3 L Chloride Level 94 L 105 # Carbon Dioxide Level 29 27 Anion Gap 10 7 L Blood Urea Nitrogen 43 H 31 #H Creatinine 1.44 H 1.19 H Glucose Level 107 106 Calcium Level 17.3 *H 13.8 #*H Total Bilirubin 0.3 0.2 Direct Bilirubin 0.00 0.00 Indirect Bilirubin 0.3 0.2 Aspartate Amino Transf (AST/SGOT) 426 H 347 H Alanine Aminotransferase (ALT/SGPT) 89 H 84 H Alkaline Phosphatase 778 H 657 H Ammonia 19 Troponin I 0.046 Total Protein 7.3 6.9 Albumin 3.8 3.6 Globulin 3.50 H 3.30 H Albumin/Globulin Ratio 1.08 1.09 Urine Color LT. YELLOW Urine Clarity SLIGHTLY CLOUDY Urine pH 7.0 Urine Specific [place] 1.010 Urine Ketones NEGATIVE Urine Nitrite NEGATIVE Urine Bilirubin NEGATIVE Urine Urobilinogen 0.2 E.U./dL Urine Leukocyte Esterase 3+ H Urine Microscopic RBC 2-5 Urine WBC Clumps MODERATE Urine Microscopic WBC >50 Urine Renal Epithelial Cells FEW Urine Bacteria MODERATE Urine Hemoglobin 2+ H Urine Glucose NEGATIVE Urine Total Protein TRACE Urine Opiates Screen NEGATIVE Urine Barbiturates NEGATIVE Urine Amphetamines Screen NEGATIVE Urine Benzodiazepines Screen NEGATIVE Urine Cocaine Screen NEGATIVE Urine Cannabinoids NEGATIVE Magnesium Level 1.7 Lactate Dehydrogenase 4509 H Medications Medications Current Medications Sodium Chloride (NS) 1,000 ml @ 80 mls/hr [id number] IV Last administered on 04/05 05:16; Admin Dose 80 MLS/HR; Start 04/05/17 at 02:16 Lorazepam (Ativan) 0.5 mg Q6H PRN IV ANXIETY; Start 04/05/17 at 02:30 Morphine Sulfate (morphine) 2 mg Q4H PRN IV PAIN LEVEL 7-10 Last administered on 04/05/17 11:22; Admin Dose 2 MG; Start 04/05/17 at 02:30 Pantoprazole (Protonix Iv) 40 mg DAILY@06 IV Last administered on 04/05/17 05: 16; Admin Dose 40 MG; Start 04/05/17 at 06:00 Enoxaparin Sodium (Lovenox) 40 mg DAILY SC Last administered on 04/05/17 09:37 ; Admin Dose 40 MG; Start 04/05/17 at 09:00 Anastrozole 1 mg 1 mg DAILY PO Last administered on 04/05/17 10:14; Admin Dose 1 MG; Start 04/05/17 at 09:00 Ceftriaxone Sodium 50 ml @ 100 mls/hr Q24H IVPB Last administered on 14:35; Admin Dose 100 MLS/HR; Start 04/05/17 at 12:00 Pamidronate Disodium/Sodium Chloride ([place]/NS) 520 ml @ 83.333 mls/ hr Q6H15M ONCE IV ; Start 04/05/17 at 17:00; Stop 04/05/17 at 23:14 TOJUAN MD Apr 05, 2017 15:57
[2017-04-05] MEDS ORDERED: PAMIDRONATE 60 MG in SOD CHLORIDE 0.9% 500 ML IV ONE (17:00)
[2017-04-05] MEDS ORDERED: POTASSIUM CHLORIDE (SR) 10 MEQ TAB PO ONE (17:00)
[2017-04-06] VITALS (11 sets, daily range): BP systolic 154–175; BP diastolic 76–86; PULSE 90–110; RESP 16–20
[2017-04-06] MEDS: SOD CHLORIDE 0.9% 1,000 ML IV SCH ×3 (01:32→17:54)
[2017-04-06 06:02] LABS: ADD SCAN DIFF NO
[2017-04-06 06:12] LABS: RETICULOCYTE COUNT % 2.7 % (0.5-1.5)
[2017-04-06 06:13] LABS: BASOPHILS % 0.1 % (0.0-2.0); EOSINOPHILS % 0.2 % (0.0-7.0); HEMATOCRIT 33.3 % (37.0-47.0); LYMPHOCYTES % 10.4 % (15.0-51.0); MEAN CORPUSCULAR HEMOGLOBIN 25.9 pg (29.0-33.0); MEAN CORPUSCULAR VOLUME 78.4 fl (82.0-101.0); MEAN PLATELET VOLUME 9.7 fl (7.4-10.4); MONOCYTE # 0.5 10^3/ul (0.3-0.9); MONOCYTES % 4.7 % (0.0-11.0); NEUTROPHIL # 8.2 10^3/ul (1.6-7.5); PLATELET COUNT 270 10^3/UL (140-415); RED BLOOD COUNT 4.25 10^6/ul (4.20-5.40); RED CELL DISTRIBUTION WIDTH 15.5 % (11.5-14.5); WHITE BLOOD COUNT 9.8 10^3/ul (4.8-10.8)
[2017-04-06] MEDS: PANTOPRAZOLE 40 MG INJ IV SCH (06:24)
[2017-04-06 06:45] LABS: ALBUMIN 3.7 g/dl (3.3-4.9); ALBUMIN/GLOBULIN RATIO 1.15; BILIRUBIN,INDIRECT 0.2 mg/dl (0-1.1); BILIRUBIN,TOTAL 0.2 mg/dl (0.2-1.3); CREATININE 1.19 mg/dl (0.44-1.00); POTASSIUM 3.2 mmol/L (3.5-5.1); TOTAL PROTEIN 6.9 g/dl (6.1-8.1)
[2017-04-06 06:53] LABS: IRON 42 ug/dl (35-150)
[2017-04-06 06:56] LABS: CHOL/HDL RATIO 4.2 RATIO
[2017-04-06 06:57] LABS: MAGNESIUM 1.6 mg/dl (1.7-2.5); PHOSPHORUS 2.7 mg/dl (2.5-4.9)
[2017-04-06 07:03] LABS: TOTAL IRON BINDING CAPACITY 211 ug/dl (241-421)
--- NOTE | 2017-04-06 09:18 | CONS ---
Date/Time of Note Date/Time of Note DATE: 04/06/17 TIME: : Assessment/Plan Assessment/Plan Chief Complaint/Hosp Course The patient is a 57 year old female with a history of right breast cancer who had previously been seen by Dr. Vásquez and planned for surgery but was lost to follow-up 6-8 months ago, now presenting to the ER for generalized weakness, decreased appetite, and confusion per her daughter and found to have hypercalcemia with calcium of 17, acute renal failure, and elevated liver enzymes with US concerning for liver metastases, as well as failure to thrive and UTI. # Metastatic breast cancer. Dr. Vásquez had previously seen and planned for right mastectomy but was lost to follow-up and is now scheduled for right mastectomy next week, but found to have probable liver mets on ultrasound. - US liver shows that the liver is enlarged and contains numerous and confluent lesions, likely metastases, measuring up to 6.6 cm in the left lobe. The liver demonstrates increased echogenicity and coarsened echotexture which are nonspecific and suggest fatty infiltration as well as early chronic liver disease. The main portal vein is patent with proper directional flow. Trace perihepatic ascites. - CXR shows large right pleural effusion, likely malignant, consider diagnostic and therapeutic thoracentesis if symptomatic - Awaiting path report and records from Dr. Vásquez regarding receptor status - Will obtain CT CAP with contrast once renal function improves - Will discuss further with Dr. Vásquez, however mastectomy unlikely to be beneficial at this point - Will send CA 27-29 and CA 15-3, pending - Awaiting call back from patient's daughter Liudmila # Severe hypercalcemia, with calcium level of 17.3, improved to 13.8. Calcium pending from today. - s/p calcitonin, aggressive hydration - s/p pamidronate 60 mg IV - likely related to breast cancer, will send PTH and PTHrP, Vit D level - pending # Confusion and constipation, likely related to hypercalcemia, CT non-contrast head negative. # Acute renal failure, likely related to dehydration and hypercalcemia, improved with IV fluids. Cr now 1.19. # Anemia, microcytic, Hgb 11.3 with MCV 76.6, will send ferritin, B12/folate, TSH, LDH, haptoglobin - pending. Iron panel suggests AOCD, pending ferritin. Retic 116K which is inappropriately low. Problems: Consultation Date/Type/Reason Admit Date/Time Apr 04, 2017 at 22:07 Initial Consult Date 04/05/17 Type of Consultation: Oncology 24 HR Interval Summary Free Text/Dictation The patient complaints of constipation and wants to go home. Exam/Review of Systems Vital Signs Vitals Vital Signs Date Time Temp Pulse Resp B/P Pulse Ox O2 Delivery O2 Flow Rate FiO2 04/06/17 09:09 95 04/06/17 07:37 98.0 20 166/76 96 04/05/17 20:00 Nasal Cannula 2.0 Intake and Output 04/05/17 04/05/17 04/06/17 15:00 23:00 07:00 Intake Total 1300 ml 1240 ml Output Total 400 ml 2 ml 3 ml Balance -400 ml 1298 ml 1237 ml Exam Constitutional: oriented Psych: no complaints Head: normocephalic Eyes: nl conjunctiva Neck: supple Respiratory: clear to auscultation Cardiovascular: regular rate and rhythm Gastrointestinal: non-tender, soft Musculoskeletal: nl extremities to inspection Neurological: RIVETER HELPER II-XII intact Results Result Diagram: 04/06/17 0537 04/06/17 0537 Results 24 hrs Laboratory Tests Test 04/05/17 13:50 04/06/17 05:37 Sodium Level 136 143 Potassium Level 3.3 L 3.2 L Chloride Level 105 # 110 Carbon Dioxide Level 27 26 Anion Gap 7 L 10 Blood Urea Nitrogen 31 #H 29 H Creatinine 1.19 H 1.19 H Glucose Level 106 96 Hemoglobin A1c 5.6 Calcium Level 13.8 #*H Ionized Calcium (Measured) 2.0 H Magnesium Level 1.7 1.6 L Total Bilirubin 0.2 0.2 Direct Bilirubin 0.00 0.00 Indirect Bilirubin 0.2 0.2 Aspartate Amino Transf (AST/SGOT) 347 H 336 H Alanine Aminotransferase (ALT/SGPT) 84 H 76 H Alkaline Phosphatase 657 H 624 H Lactate Dehydrogenase 4509 H Total Protein 6.9 6.9 Albumin 3.6 3.7 Globulin 3.30 H 3.20 Albumin/Globulin Ratio 1.09 1.15 Parathyroid Hormone (Intact) White Blood Count 9.8 Red Blood Count 4.25 Hemoglobin 11.0 L Hematocrit 33.3 L Mean Corpuscular Volume 78.4 L Mean Corpuscular Hemoglobin 25.9 L Mean Corpuscular Hemoglobin Concent 33.0 Red Cell Distribution Width 15.5 H Platelet Count 270 Mean Platelet Volume 9.7 Neutrophils % 84.0 H Lymphocytes % 10.4 L Monocytes % 4.7 Eosinophils % 0.2 Basophils % 0.1 Nucleated Red Blood Cells % 0.0 Neutrophils # 8.2 H Lymphocytes # 1.0 Monocytes # 0.5 Eosinophils # 0.0 Basophils # 0.0 Nucleated Red Blood Cells # 0.0 Absolute Reticulocyte Count 0.116 H Percent Reticulocyte Count 2.7 H Phosphorus Level 2.7 Iron Level 42 Total Iron Binding Capacity 211 L Percent Iron Saturation 20 L Triglycerides Level 155 H Cholesterol Level 152 LDL Cholesterol, Calculated 85 HDL Cholesterol 36 L Cholesterol/HDL Ratio 4.2 Medications Medications Current Medications Sodium Chloride (NS) 1,000 ml @ 80 mls/hr [id number] IV Last administered on 04/06 01:32; Admin Dose 80 MLS/HR; Start 04/05/17 at 02:16 Lorazepam (Ativan) 0.5 mg Q6H PRN IV ANXIETY; Start 04/05/17 at 02:30 Morphine Sulfate (morphine) 2 mg Q4H PRN IV PAIN LEVEL 7-10 Last administered on 04/05/17 22:56; Admin Dose 2 MG; Start 04/05/17 at 02:30 Pantoprazole (Protonix Iv) 40 mg DAILY@06 IV Last administered on 04/06/17 06: 24; Admin Dose 40 MG; Start 04/05/17 at 06:00 Enoxaparin Sodium (Lovenox) 40 mg DAILY SC Last administered on 04/05/17 09:37 ; Admin Dose 40 MG; Start 04/05/17 at 09:00 Anastrozole 1 mg 1 mg DAILY PO Last administered on 04/05/17 10:14; Admin Dose 1 MG; Start 04/05/17 at 09:00 Ceftriaxone Sodium (Rocephin) 50 ml @ 100 mls/hr Q24H IVPB Last administered on 04/05/17 14:35; Admin Dose 100 MLS/HR; Start 04/05/17 at 12:00 JUAN SHETH MD Apr 06, 2017 09:18
[2017-04-06] MEDS: ANASTROZOLE 1 MG TAB PO SCH (09:37)
[2017-04-06] MEDS: ENOXAPARIN 40 MG/0.4 ML SYG SC SCH (09:37)
[2017-04-06 10:17] LABS: CALCIUM 14.3 mg/dl (8.4-10.2)
[2017-04-06] MEDS: CEFTRIAXONE 2 GM/50 ML (PMX) 50 ML IVPB SCH (12:18)
[2017-04-06 13:32] LABS: FOLATE 5.2 ng/ml (2.8-20.0)
[2017-04-06 15:06] LABS: LACTATE DEHYDROGENASE 4616 IU/L (313-618)
[2017-04-06] MEDS ORDERED: POTASSIUM CHLORIDE (SR) 20 MEQ TAB PO STA (15:07)
[2017-04-06] MEDS ORDERED: MAGNESIUM SULFATE 2 GM/50 ML 50 ML IVPB ONE (15:30)
[2017-04-06] MEDS: morphine 2 MG INJ IV PRN ×2 (15:54→20:56)
[2017-04-06] MEDS ORDERED: hydrALAzine 20 MG INJ IV PRN (17:30)
--- NOTE | 2017-04-06 18:19 | PN ---
DATE: 04/06/2017 SUBJECTIVE DATA: The patient denies any pain. The patient has periods of confusion. OBJECTIVE DATA: VITAL SIGNS: Temperature 98.4, pulse rate 102, respiratory rate 18, blood pressure 164/78, oxygen saturation 94% on room air. GENERAL: This is a 57-year-old female patient lying in bed in no apparent distress. HEENT: Head normocephalic and atraumatic. Eyes: Anicteric sclerae. Conjunctivae clear. ENT: Nasal septum is midline. Oral mucosa is dry. NECK: Supple. No JVD noticed. RESPIRATORY: Bilaterally diminished breath sounds. No adventitious breath sounds heard. No use of accessory muscles of respiration. CARDIAC: Regular rate and rhythm. S1, S2 heard. ABDOMEN: Soft, nontender and nondistended. Bowel sounds positive in all 4 quadrants. GENITOURINARY: Deferred. EXTREMITIES: Minimal pretibial edema. Peripheral pulses are palpable. NEUROLOGIC: The patient is awake, alert, oriented x2 to 3. LABORATORY AND DIAGNOSTIC DATA: WBC 9.8, hemoglobin 11.0, hematocrit 33.3, platelet count 270. Sodium 143, potassium 3.2, chloride 110, carbon dioxide 26 , anion gap 10, BUN 29 and creatinine 1.19, glucose 96, calcium 14.3. Phosphorus 2.7, magnesium 1.6. AST 336, ALT 76, alkaline phosphatase 624. ASSESSMENT AND PLAN: 1. Metastatic breast cancer. Evidence of metastases to the liver and bones. The patient is being followed by oncology and breast surgery. Plan for a right radical mastectomy. Continue pain control. 2. Severe hypercalcemia. Most probably secondary to #1. Status post 1 dose of IV bisphosphonates. Continue telemetry monitoring. 3. Large right pleural effusion. 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 We will continue to monitor. If the patient has worsening respiratory distress , will consider right thoracentesis. 4. Essential hypertension. The patient was noticed to have elevated blood pressure. The patient was never diagnosed with any hypertension prior to this hospitalization. The patient will be started on routine antihypertensives. She will also be started on p.r.n. antihypertensives for any systolic blood pressure readings greater than 160 mmHg. 5. Microcytic hypochromic anemia. Most probably anemia secondary to underlying malignancy. Iron panel showing low TIBC and low iron saturation with a high ferritin level. 6. Acute encephalopathy. Most probably metabolic in origin. Brain CT scan negative for any acute changes. 7. Acute nonoliguric kidney injury. Etiology unclear. The patient will be adequately hydrated. Nephrotoxic drugs will be used with caution. 8. Fluid, electrolytes and nutrition. Regular diet as tolerated. 9. Deep venous thrombosis prophylaxis. Subcutaneous Lovenox. 10. Gastrointestinal prophylaxis. Proton pump inhibitors. PLAN: Continue management as per oncology and surgical oncology. Will obtain a nephrology consultation to optimize electrolyte levels. Case discussed with Dr. Augustine. SIDRA AUGUSTINE MD, AM/JORJE Conf#: [id number] DID#: [id number] MTDD
[2017-04-06] MEDS ORDERED: ZOLEDRONIC ACID IVPB ONE (18:30)
[2017-04-06] MEDS ORDERED: SOD CHLORIDE 0.9% IVPB ONE (18:30)
--- NOTE | 2017-04-06 18:51 | CONS ---
DATE OF ADMISSION: 04/04/2017 DATE OF CONSULTATION: 04/06/2017 TYPE OF CONSULTATION: Nephrology. REASON FOR CONSULTATION: Severe hypercalcemia. HISTORY OF PRESENT ILLNESS: This is a 57-year-old female has a past medical history of metastatic b reast cancer who presented with a complaint of failure to thrive noted to have severe hypercalcemia with calcium level up to 17. She also had a urinary tract infection and acute kidney injury seconda ry to prerenal azotemia. The patient is noted to have a large right-sided pleural effusion for whic h she had a recommendation to get a thoracentesis, but she continues to have hypercalcemia with the calcium remains up to 14.2. Initially, her calcium improved to 13.8, but then again it bumped up to 14.3, so the renal has been consulted for severe hypercalcemia, acute kidney injury secondary to pr erenal azotemia. REVIEW OF SYSTEMS: Positive for bone pain, back pain and shortness of breath. Other review of syst ems has been obtained and is negative except what is mentioned in the history of present illness. PAST MEDICAL HISTORY: History of metastatic breast cancer. PAST SURGICAL HISTORY: History of right hip surgery. FAMILY HISTORY: Positive for diabetes, hypertension. SOCIAL HISTORY: No smoking, alcohol or recreational drug use. PHYSICAL EXAMINATION: VITAL SIGNS: Temperature 97.6, heart rate 69, respiration 18, blood pressure 165/77, saturation is 96% on 2 liters nasal cannula. GENERAL: The patient is awake, alert. Denies any current pain, slightly confused, in no acute dist ress. HEENT: Atraumatic, normocephalic. Pupils equal, round, reactive to light and accommodation. Extra ocular muscles are intact. NECK: Supple, no JVD, no lymphadenopathy. LUNGS: Clear to auscultation. Decreased breath sounds at the right middle lobe and right lower lob e. HEART: S1, S2, with regular rhythm, no murmur. ABDOMEN: Soft, nontender, nondistended. Bowel sounds are present. EXTREMITIES: No clubbing, cyanosis, or edema. NEUROLOGICAL: Awake, alert, slightly confused. LABORATORY DATA/DIAGNOSTIC IMAGING: Sodium 143, potassium 3.2, chloride 110, bicarbonate 26, BUN 29 , creatinine 1.19, which improved from 1.44 on admission, calcium 14.3, magnesium 1.6, phosphorus 2. 7. Ferritin 5390, iron saturation 20%. WBC 9.8, hemoglobin 11, platelet count 270. Urinalysis p ositive for 3+ leukocyte esterase, 2+ hemoglobin. Urine toxicology is negative. IMPRESSION: This is a 57-year-old female who has been getting admitted for shortness of breath and right-sided pleural effusion. She is noted to have metastatic breast cancer with severe hypercalcem ia and acute kidney injury. Renal has been consulted for: 1. Severe hypercalcemia with calcium level of 17.3 on admission. 2. Acute kidney injury secondary to prerenal azotemia. 3. History of metastatic breast cancer, possible plan to do breast surgery tomorrow. 4. Hypokalemia. 5. Hypomagnesemia. PLAN: The patient is currently seen in the telemetry unit. The patient is currently getting IV flu ids at a rate of 75 mL per hour. I will increase the IV fluid rate to 100 mL per hour. The patient 's calcium has been improved from 17.3 on admission to 13.8, but again today bumped up to 14.7. The re is very limited IV fluid hydration due to the patient's moderate right-sided pleural effusions. The patient has hypokalemia for which she already received oral potassium replacement and she receiv ed IV magnesium replacement for hypomagnesemia. Due to the nature of her metastatic breast cancer an d severe hyperkalemia, to optimize her calcium. The patient is scheduled for surgery tomorrow. I w ill give the patient pamidronate 60 g IV x1 and will continue to monitor the patient's IV fluids and calcium level. Intravenous pamidronate is not available and it is okay to switch it to Zometa IV x1 dose and we ashley l monitor her calcium in a.m. labs. The patient is currently seen in the telemetry floor and she wi ll be followed up along with her course in the hospital. Once again, thank you for this consultation and I will continue to follow this patient along with kaden argueta. Hematology/Oncology is already on the case. Dictated By: HANNA KIRKLAND MD, KP/JORJE Conf#: [id number] DID#: [id number]
[2017-04-06] MEDS ORDERED: PAMIDRONATE 30 MG in SOD CHLORIDE 0.9% 500 ML IV ONE (20:00)
[2017-04-06] MEDS: METOPROLOL 25 MG TAB PO SCH (20:56)
[2017-04-07] VITALS (10 sets, daily range): BP systolic 122–156; BP diastolic 61–77; PULSE 75–101; RESP 16–22
[2017-04-07] MEDS: morphine 2 MG INJ IV PRN ×2 (02:17→05:30)
--- NOTE | 2017-04-07 03:23 | RADRPT ---
PROCEDURE: MR thoracic spine with and without contrast. CLINICAL INDICATION: Back pain, metastatic cancer. TECHNIQUE: The study was performed utilizing Signa HDxt 3 Jesika magnet. The following pulse seque nces were obtained: Axial T1, axial T2, sagittal T1, sagittal T2 and sagittal inversion recovery im ages. After the administration of 10 cc Magnevist intravenous contrast, axial and sagittal T1-weight ed images with fat saturation were obtained. Images were reviewed on a PACS workstation. COMPARISON: None. FINDINGS: There are innumerable osseous metastasis throughout the bony skeleton. There is extraosse ous soft tissue extension especially on the right from the levels of T3 through T10. There is a mil d pathologic compression fracture of the T8 vertebral body with up to 30% loss in vertebral body hei ght and a mild 3 mm AP diameter bony retropulsion. Thoracic vertebral body alignment remains within normal limits. The disk height and signals are within normal limits. There is no disk protrusion o r extrusion. There is no central canal stenosis. There is severe right-sided neural foraminal steno sis at T5-T6 and T6-T7 secondary to extraosseous soft tissue extension. The thoracic spinal cord is of normal caliber and signal. There are multiple ossific metastases within bilateral ribs with bony expansion and extraosseous sof t tissue extension. There is a large right-sided pleural effusion. IMPRESSION: Extensive osseous metastasis throughout the thoracic spine and bilateral ribs. There is extraosseous soft tissue extension especially on the right from T3 through T10. Mild pathologic compression fracture T8 with mild bony retropulsion. Large right-sided pleural effusion. .Jeremi Paz MD, MD Date Time Electronically viewed and signed by .Jeremi Paz MD, MD on 04/07/2017 03:23 .T/
--- NOTE | 2017-04-07 03:32 | RADRPT ---
AMENDMENT: 04/07/2017 3:42:46 AM Jeremi Paz M.D Correlation is made with the CT lumbar spine done 02/28/2017. Multiple osseous metastases are incre ased compared with the prior study and pathologic fractures at L1 and L2 are new compared with the p rior study. PROCEDURE: MR lumbar spine without and with contrast. CLINICAL INDICATION: Low back pain, metastatic cancer. TECHNIQUE: The study was performed utilizing Signa HDxt 3 Jesika magnet. The following pulse seque nces were obtained: Axial T1, axial T2, sagittal T1 and sagittal T2 with and without fat saturation images. After the administration of 10 cc Magnevist intravenous contrast, sagittal T1-weighted imag es with fat saturation and axial T1-weighted images without fat saturation were obtained. Images we re reviewed on a PACS workstation. COMPARISON: None. FINDINGS: The vertebral bodies were counted from the C2 level and the L5 level was determined to be sacralized. There are innumerable osseous metastasis throughout the bony skeleton. There is a mild pathologic compression fracture of the L1 with up to 20% loss in vertebral body height and mild 3 m m AP diameter bony retropulsion. There is a moderate to severe pathologic compression fracture of L2 with up to 80% loss in vertebral body height and moderate 4.5 mm AP diameter bony retropulsion with resultant moderate central canal stenosis. The disk heights and signals are within normal limits. T here is no neural foraminal stenosis. Lumbar vertebral body alignment remains within normal limits. The conus is at T12-L1, within normal limits. IMPRESSION: Extensive osseous metastases throughout the lumbar spine. Mild pathologic compression fracture of the L1 with mild bony retropulsion. Moderate to severe pathologic compression fracture of L2 with moderate bony retropulsion and resulta nt moderate central canal stenosis. Sacralized L5 vertebral body. .Jeremi Paz MD, MD Date Time Electronically viewed and signed by .Jeremi Paz MD, MD on 04/07/2017 03:42 .T/
--- NOTE | 2017-04-07 03:41 | RADRPT ---
PROCEDURE: MRI Brain with and without contrast. CLINICAL INDICATION: Headache, metastatic breast cancer. TECHNIQUE: An MRI of the brain was performed on a Signa HDxt 3 laura scanner utilizing the followi ng sequences: Axial T2 FLAIR, axial T2 PROP, coronal T2 gradient echo, sagittal T1 FLAIR, and axial diffusion-weighted (EPI technique, y=1014A) with ADC mapping. After the administration of 10 cc Mag nevist intravenous contrast, coronal and axial T1-weighted images with fat saturation were obtained. Images were viewed on a PACS workstation. COMPARISON: Correlation is made with the CT done 04/04/2017. FINDINGS: The ventricles and cortical sulci are prominent consistent with mild age-related volume loss. There are multiple small foci of increased T2/FLAIR signal intensity within the periventricular and subco rtical white matter consistent with mild chronic ischemic changes secondary to small vessel disease. There is a small focus of restricted diffusion within the central casi. There is no mass effect o r midline shift. There is no abnormal leptomeningeal or parenchymal enhancement. There is no acute intracranial hemorrhage or abnormal extra-axial collection. Normal signal voids are seen within th e bilateral cavernous carotids. Visualized paranasal sinuses and mastoid air cells are clear. There are multiple foci of abnormal si gnal and increased enhancement throughout the calvarium compatible with metastatic disease. There i s a focus of abnormal marrow signal and enhancement within the mid to left clivus measuring approxim ately 1.5 cm AP by 1.6 cm transverse by 1.8 cm sagittal. IMPRESSION: Multiple osseous metastases with the largest within the mid to left clivus. Small, acute lacunar infarct within the central casi. Mild age related volume loss and chronic ischemic white matter disease. .Jeremi Paz MD, MD Date Time Electronically viewed and signed by .Jeremi Paz MD, MD on 04/07/2017 03:40 .T/
[2017-04-07] MEDS: PANTOPRAZOLE (EC) 40 MG TAB PO SCH ×2 (05:33→09:20)
[2017-04-07 07:12] LABS: ADD SCAN DIFF NO
[2017-04-07 07:17] LABS: BASOPHILS % 0.3 % (0.0-2.0); EOSINOPHILS % 0.3 % (0.0-7.0); HEMOGLOBIN 10.2 g/dl (12.0-16.0); LYMPHOCYTES # 0.7 10^3/ul (0.8-2.9); LYMPHOCYTES % 10.3 % (15.0-51.0); MEAN CORPUSCULAR HEMOGLOBIN 25.4 pg (29.0-33.0); MEAN CORPUSCULAR HGB CONC 31.9 g/dl (32.0-37.0); MEAN CORPUSCULAR VOLUME 79.8 fl (82.0-101.0); MEAN PLATELET VOLUME 10.8 fl (7.4-10.4); MONOCYTE # 0.3 10^3/ul (0.3-0.9); MONOCYTES % 4.8 % (0.0-11.0); NEUTROPHIL # 5.9 10^3/ul (1.6-7.5); NEUTROPHILS % 83.2 % (39.0-77.0); PLATELET COUNT 215 10^3/UL (140-415); RED BLOOD COUNT 4.01 10^6/ul (4.20-5.40); WHITE BLOOD COUNT 7.1 10^3/ul (4.8-10.8)
--- NOTE | 2017-04-07 07:21 | PN ---
DATE: 04/06/2017 FOLLOWUP PROGRESS NOTE TIME: 5:20 p.m. I saw the patient along with Dr. Vásquez. The chart was again reviewed and the patient was complaining of right breast pain as well and there was obviously one of these metastases to the skin. It appears that the tumor is not attached to the chest wall inferiorly, though appears that it is occupying the whole breast completely. Dr. Vásquez decided to proceed with a modified radical mastectomy and axillary dissection. They are has going to keep the patient n.p.o. after midnight tonight, probably proceeding tomorrow if can be cleared from a medical point of view by other colleagues and primary care physician. I talked to Eugene, the nurse practitioner who follows the patient and he is going to correct_as needed for sodium, potassium and optimize the patient and tune her up for operation, possibly done tomorrow. As I understand she is supposed to have tomorrow also liver biopsy. If that interferes, we may have to postpone the operation for another day. Dictated By: DELLA REINOSO/NTS Conf#: [id number] DID#: [id number] MTDD
--- NOTE | 2017-04-07 07:27 | CONS ---
DATE OF ADMISSION: 04/04/2017 DATE OF CONSULTATION: 04/06/2017 TYPE OF CONSULTATION: Surgical. REQUESTING PHYSICIAN: Dr. Lundy This consultation was requested actually from Dr. Vásquez, and I am seeing this patient for Dr. Vásquez in consultation. Actually, this patient presented to the emergency room on 04/04/2017 in the evening because of generalized weakness, decreased appetite and some confusion, per her daughter. According to the emergency room physician's notes, she has been worsening over the past week, with increasing confusion and inability to get out of bed. She also has had some constipation. No fever, no chills, no dysuria, no chest pain, no shortness of breath, no headache, no dizziness. Also has been complaining of uncontrolled generalized pain. So in the emergency room the patient was evaluated and was found to have a WBC of 9,700, with 79% segmented, hemoglobin of 11.3, hematocrit of 34.0. Chemistry revealed sodium 130, potassium of 130, low. BUN of 23, high, creatinine was 1.44. Calcium was actually 17.3, very high. Liver enzymes: AST 426, ALT 89, alkaline phosphatase 778. Chest x-ray in the emergency room which revealed a large right pleural effusion with atelectasis versus air space disease, right mid lung and lung base. Due to confusion and agitation they did a brain CT scan that did show chronic changes of atrophy and small vessel disease, white matter increased for the patient's age. Otherwise no acute pathology. So after a complete evaluation of the patient in the emergency room, the patient was admitted with the following diagnoses: Severe hypercalcemia with calcium more than 17. This was caused due to, of course, metastatic cancer of the breast which is known for the patient to have . Urinary tract infection, acute kidney injury. Anemia, large right pleural effusion, increased liver enzymes, metastatic breast cancer. HISTORY OF PRESENT ILLNESS: Actually this patient first was diagnosed with cancer of the right breast in March of 2016, was seen by Dr. Vásquez in his office and planned for an operation, but the patient never showed up, apparently due to some insurance problem, but eventually on 08/26/2016 the patient presented to the emergency room because of right hip pain and inability to walk and at that time they found that the patient had a right hip fracture and right hip metastasis and some metastasis to the right femoris and also pelvic metastasis and so with a diagnosis of metastatic liver and right cancer of the breast, the patient was admitted, was seen by multiple specialists, including Dr. Lim, the orthopedic surgeon, who actually planned for an operation and did operate on the patient by excision of the metastatic cancer from the right femoral neck and by doing a hemiarthroplasty and postoperatively the patient gradually was mobilized and was able to walk with a walker. Meanwhile, the patient was seen by Dr. Akers, plumber cub, and she recommended chemotherapy considering positive HER-2, no further breast tissue, and also positive estrogen and positive progesterone, she recommended consultation with radiotherapists, oncologists and Dr. Paola Nielsen saw the patient and she recommended after surgery for the hip, the patient to be treated with radiation localized to the hip area and after that the oncologist recommended after the radiotherapy was finished to have the patient receive chemotherapy for the advanced metastatic breast cancer. I am not sure what happened after that. The patient was discharged to a SNF on 09/07/2016 and was supposed to be followed by all other facilities and drink and also get chemotherapy. Right now the patient does not know. She admits at least that she received some pills through some chemotherapies, but she does not know who they are and I have not found the family to explain to me who gave the chemotherapy. Also, I saw this patient myself on the 08/29/2016 with metastatic cancer of the breast, and at that time I found that the patient had an enlarged liver. There was metastasis to the liver on CT scan and the patient has a very large tumor almost occupying the whole area of the right breast and axillary area. Also this was positive and we are awaiting the recommendation of the oncologist to see if they recommend removal of the right breast as well, but there was no such recommendation made. They only recommended chemotherapy at that time. Eventually, as was mentioned, the patient was discharged on 09/07/2017 after having her fracture of the hip fixed and being able to ambulate. The patient is back because of the complication of the metastasis, mainly severe hypercalcemia and consequences secondary to dehydration and prerenal azotemia. PAST MEDICAL HISTORY: As mentioned in the history of present illness, a history of breast cancer since last year. PAST SURGICAL HISTORY: Right hip surgery, hemiarthroplasty due to pathologic fracture. FAMILY HISTORY: Positive for diabetes and hypertension in the family. SOCIAL HISTORY: The patient does not drink alcohol. No smoking, alcohol or drugs. PHYSICAL EXAMINATION: GENERAL: Today, 04/06/2017, I examined the patient in room 522. The patient is awake and alert, slightly confused. She is not well oriented to date and time. She states that she feels slightly better. One of her friends came in and we asked questions and she said she feels better. She is concerned if she can walk again or not. In any case: VITAL SIGNS: Temperature is 98.3, heart rate 97, respirations 20, blood pressure 154/78, saturations 98% on 2 liters nasal cannula. Labs today: Sodium is 143, normal electrolytes. Potassium is 303.2, BUN decreased to 29, creatinine decreased to 1.1, elevated. Calcium has decreased down to 14.3, still is high._AST is 336, ALT 76, alkaline phosphatase 624, the same. Iron is 42. HEAD: Normocephalic. EYES: Pupils equally round, reactive to light and accommodation. Extraocular muscles, full range of motion. NECK: Trachea is midline. No thyroid enlargement. No adenopathy in the neck area. CHEST: Symmetrical expansion of hemithoraces. Right side the breast shows what appears to be metastatic breast cancer to the skin of the chest wall on the right side anteriorly. The whole breast is occupied by the tumor, which is mainly centrally, and appears to be adherent to the chest wall. The right axilla shows matted lymph nodes. ABDOMEN: Examination shows evidence of an enlarged liver below the right costal margin. EXTREMITIES: Legs, there is no pitting edema. The scar of previous right hip operation has healed properly. The patient can use all the lower extremities and upper extremities. IMPRESSION: This is a 57-year-old female who presented to the emergency room 2 days ago because of generalized weakness, confusion and dehydration, and was found to have severe hypercalcemia, acute prerenal azotemia and dehydration. The patient was admitted, started on IV hydration and management for the hypercalcemia. Chest x-ray has shown a right pleural effusion. Consultation has been requested from Dr. Annalee Kraus, oncologist as well. At this time we know that this patient has extensive metastases to the liver, and a possibility to the right lung because of the pleural effusion and also into the left lobe of the liver and the breast examination shows locally very advanced breast cancer. I have to know what kind of chemotherapy, if any, the patient has received. The history is vague and nobody knows about it. I will talk to Dr. Vásquez about the plan of operation, if he has any plan. We will examine the patient again today with Dr. Vásquez. in August of 2016, the patient was supposed to receive chemotherapy, considering the estrogen positive progesterone and HER positive status of the main breast tissue at that time, but I am not sure if anybody has given the patient chemotherapy or not. I have to fid out about this matter as well, because it appears the patient has been followed by some physicians, But she does not know who.. In any case there is need for consultation with Haemotologist/Oncologist, and further work up at this stage before make a decision for treating the breast itself.. Dictated By: DELLA ALVAREZ MD PS/NTS Conf#: [id number] DID#: [id number] MTDD
[2017-04-07 07:33] LABS: INR 0.98
[2017-04-07 07:34] LABS: PARTIAL THROMBOPLASTIN TIME 34.5 Sec (25.0-35.0)
[2017-04-07 07:47] LABS: ALBUMIN 3.3 g/dl (3.3-4.9); BILIRUBIN,INDIRECT 0.1 mg/dl (0-1.1); BILIRUBIN,TOTAL 0.1 mg/dl (0.2-1.3); CREATININE 1.15 mg/dl (0.44-1.00); POTASSIUM 3.4 mmol/L (3.5-5.1); TOTAL PROTEIN 6.6 g/dl (6.1-8.1)
[2017-04-07 07:53] LABS: MAGNESIUM 2.2 mg/dl (1.7-2.5); PHOSPHORUS 2.8 mg/dl (2.5-4.9)
[2017-04-07] MEDS: METOPROLOL 25 MG TAB PO SCH ×2 (09:20→21:03)
[2017-04-07] MEDS: ANASTROZOLE 1 MG TAB PO SCH (09:25)
--- NOTE | 2017-04-07 10:29 | RADRPT ---
PROCEDURE: XR Chest 1 View. CLINICAL INDICATION: Shortness of breath. TECHNIQUE: AP view of the chest was obtained. COMPARISON: April 04, 2017 FINDINGS: The heart size is within normal limits. Calcified atherosclerosis is noted in the aorta. Patchy inf iltrates throughout the right lung combined with moderate pleural effusion are unchanged. Diffuse m ild interstitial prominence in both lungs appears stable. Atelectasis is noted in the left lower lo be. Fractures of the posterior lateral right fifth through seventh ribs are grossly unchanged. Part ially visualized proximal right humerus fracture is seen. Diffuse osteopenia is noted. IMPRESSION: Calcified atherosclerosis in the aorta. Stable patchy infiltrates throughout the right lung, combined with moderate pleural effusion. Stable diffuse interstitial prominence in both lungs. Interstitial prominence could be chronic. Subsegmental atelectasis in the left lower lobe. Stable right-sided rib fractures. Partially visualized proximal right humerus fracture. If further characterization is needed a dedic ated right humerus series is recommended. RPTAT: AA .Jarrell Valencia MD, Date Time Electronically viewed and signed by .Jarrell Valencia MD, on 04/07/2017 10:28 .P/
--- NOTE | 2017-04-07 11:30 | CONS ---
Date/Time of Note Date/Time of Note DATE: 04/07/17 TIME: 11:26 Assessment/Plan Assessment/Plan Chief Complaint/Hosp Course The patient is a 57 year old female with a history of right breast cancer who had previously been seen by Dr. Vásquez and planned for surgery but was lost to follow-up 6-8 months ago, now presenting to the ER for generalized weakness, decreased appetite, and confusion per her daughter and found to have hypercalcemia with calcium of 17, acute renal failure, and elevated liver enzymes with US concerning for liver metastases, as well as failure to thrive and UTI. Records reviewed from Dr. Vásquez' office. Patient had been seen by Dr. Vásquez in March 2016 and also on 06/21/16 and at that time had an approximately 8 month history of a large right breast mass. Biopsy of both the mass and her axilla revealed invasive cancer, ER positive 99%, RI positive 4%, HER2/gail positive by IHC 3+ based on 04/13/17 right breast mass biopsy at 9 o' clock, but right enlarged axillary lymph node was 99% ER, 25% RI, HER2 equivocal by IHC 2+ and equicoval by FISH but negative by equivocal panel. Per Aniket Whittington, patient was lost to follow-up since then and needed right MRM, which was finally scheduled as of 03/22/17. Case discussed with patient's daughter Liudmila [phone], patient had been seen by Dr. Mickey Akers in August 2016 in the hospital when she was admitted but per the patient was unable to be seen as an outpatient due to insurance reasons. At that time, patient was admitted after a fall and severe pain in the right hip. Imaging demonstrated a pathologic fracture of the right hip. An MRI of the hip showed acute displaced and angulated basicervical/ intertrochanteric fracture of the right proximal femur, likely a pathologic fracture as there was a concern for a 2.7 x 2.3 cm bone lesion at this location , and several other scattered sub centimeter lesions throughout the pelvis and right femur concerning for additional, potentially metastatic bone lesions. During her admission, a CT of the chest showed the right breast mass, axillary, hilar and mediastinal adenopathy, multiple hepatic masses and pathologic right femoral neck fracture, consistent with metastatic cancer. On 09/01/2016 she underwent excision of metastatic cancer from femoral neck and intertrochanteric area of the right hip and hemiarthroplasty of the right hip. She was seen by Dr. Paola Nielsen for post-op radiation to the right hip which the patient states that she received for 2 weeks. Path from 09/01/16 right hip surgery showed metastatic breast carcinoma, ER positive, RI negative, HER2 positive disease by IHC and FISH. She was started on arimidex 1 mg daily but per patient, only received 1 month worth of medication and then was unable to follow-up with Dr. Akers due to insurance reasons. The plan was for systemic chemo including trastuzumab plus taxane plus pertuzumab after local radiation, however it does not appear that patient had oncologic follow up per her daughter. Per her daughter, she did see a surgeon in [facility] to her knowledge. She lives with her daughter, who is her caregiver and her son, however the patient was in charge of her own appointments until a recent decline. She has become forgetful, weak, and recently stopped walking as of late February, within the last 2 weeks. # Metastatic breast cancer. - US liver shows that the liver is enlarged and contains numerous and confluent lesions, likely metastases, measuring up to 6.6 cm in the left lobe. The liver demonstrates increased echogenicity and coarsened echotexture which are nonspecific and suggest fatty infiltration as well as early chronic liver disease. The main portal vein is patent with proper directional flow. Trace perihepatic ascites. - CXR shows large right pleural effusion, likely malignant, consider diagnostic and therapeutic thoracentesis if symptomatic - Will obtain CT CAP with contrast once renal function improves further, consider bone scan or outpatient PET/CT. - Will send CA 27-29 and CA 15-3, pending - CT of the lumbar spine from 02/28/17 showed multiple lytic metastatic foci of the lumbar vertebral bodies, sacrum and visualized iliac bones. MRI C/T/L spine was ordered to r/o cord compression given her new onset weakness and inability to walk of 2 weeks duration, as well as MRI brain given HER2 positive status. - MRI brain 04/06/17 showed multiple osseous metastases with the largest within the mid to left clivus. Small, acute lacunar infarct within the central casi. Mild age related volume loss and chronic ischemic white matter disease. - MRI spine 04/06/17 showed extensive osseous metastases throughout the lumbar spine. Mild pathologic compression fracture of the L1 with mild bony retropulsion. Moderate to severe pathologic compression fracture of L2 with moderate bony retropulsion and resultant moderate central canal stenosis. Sacralized L5 vertebral body. Extensive osseous metastasis throughout the thoracic spine and bilateral ribs. There is extraosseous soft tissue extension especially on the right from T3 through T10. Mild pathologic compression fracture T8 with mild bony retropulsion. Large right-sided pleural effusion. Pending call-back from radiologist, but does not appear to have evidence of cord compression. Consider palliative radiation or kyphoplasty if patient is symptomatic with back pain. She currently complains of right shoulder intermittent pain but no back pain. - Discussed with Dr. Vásquez, he had discussed possible palliative mastectomy with the patient, however at this point we think that chemotherapy is of utmost importance and that we would not want to delay due to wound healing after mastectomy. Chemotherapy may also help with pain. Patient currently NPO for port placement today, prophylactic lovenox held today (ok to restart tomorrow after port placement or if procedure not able to be performed today). Chemo orders to be written for taxotere plus herceptin and pertuzumab. Patient needs to be transferred to fourth floor oncology [facility] for chemo. - MUGA ordered for baseline Ef due to herceptin/pertuzumab Chemo regimen Docetaxel 75 mg/m2 x 0.75 = 56 mg/m2 IV over 1 hour (25% dose reduction due to elevated LFTs) Trastuzumab 8 mg/kg IV over 90 minutes cycle 1 Pertuzumab 840 mg IV over 60 minutes cycle 1 - Case management order placed to arrange for auth for follow-up with me or Dr. Argenis Cruz upon discharge # Severe hypercalcemia, with calcium level of 17.3, improved to 13.8. Calcium pending from today. - s/p calcitonin, aggressive hydration - s/p pamidronate 60 mg IV - likely related to breast cancer, will send PTH and PTHrP, Vit D level - pending - appreciate nephrology recs # Confusion and constipation, likely related to hypercalcemia, CT non-contrast head negative. MRI brain 04/06/17 showed multiple osseous metastases with the largest within the mid to left clivus. Small, acute lacunar infarct within the central casi. Mild age related volume loss and chronic ischemic white matter disease. Mental status now much improved. # Acute renal failure, likely related to dehydration and hypercalcemia, improved with IV fluids. Cr now 1.15. Appreciate nephrology recs. # Anemia, microcytic, Hgb 11.3 with MCV 76.6, iron panel consistent with anemia of chronic inflammation with low TIBC and ferritin 5390, B12/folate within normal limits, TSH 2.490, LDH elevated but may be related to disease, but retic inappropriately low, haptoglobin - pending. Problems: Consultation Date/Type/Reason Admit Date/Time Apr 04, 2017 at 22:07 Initial Consult Date 04/05/17 Type of Consultation: Oncology 24 HR Interval Summary Free Text/Dictation Patient improved today, more alert and lucid. Complaining of right lower arm pain and right axillary pain, no pain in her breast. Exam/Review of Systems Vital Signs Vitals Vital Signs Date Time Temp Pulse Resp B/P Pulse Ox O2 Delivery O2 Flow Rate FiO2 04/07/17 11:16 98.2 74 18 122/68 95 04/07/17 04:00 Nasal Cannula 04/06/17 20:00 2.0 Intake and Output 04/06/17 04/06/17 04/07/17 15:00 23:00 07:00 Intake Total 1310 ml 120 ml Output Total 7 ml Balance 1303 ml 120 ml Exam Constitutional: alert, oriented Psych: no complaints Head: normocephalic Neck: supple Respiratory: clear to auscultation Cardiovascular: regular rate and rhythm Gastrointestinal: non-tender, soft Musculoskeletal: nl extremities to inspection Neurological: POLYSOMNOGRAPHER II-XII intact, other (generalized weakness but no focal deficits, no saddle anesthesia) Lymph: other (tender right axillary lymph node, and multiple right breast masses) Results Result Diagram: 04/07/17 0604/07/17 0605 Results 24 hrs Laboratory Tests Test 04/07/17 06:05 White Blood Count 7.1 # Red Blood Count 4.01 L Hemoglobin 10.2 L Hematocrit 32.0 L Mean Corpuscular Volume 79.8 L Mean Corpuscular Hemoglobin 25.4 L Mean Corpuscular Hemoglobin Concent 31.9 L Red Cell Distribution Width 16.0 H Platelet Count 215 # Mean Platelet Volume 10.8 H Neutrophils % 83.2 H Lymphocytes % 10.3 L Monocytes % 4.8 Eosinophils % 0.3 Basophils % 0.3 Nucleated Red Blood Cells % 0.0 Neutrophils # 5.9 Lymphocytes # 0.7 L Monocytes # 0.3 Eosinophils # 0.0 Basophils # 0.0 Nucleated Red Blood Cells # 0.0 Prothrombin Time 13.0 Prothrombin Time Ratio 1.0 INR International Normalized Ratio 0.98 Activated Partial Thromboplast Time 34.5 Sodium Level 142 Potassium Level 3.4 L Chloride Level 111 H Carbon Dioxide Level 22 Anion Gap 12 Blood Urea Nitrogen 28 H Creatinine 1.15 H Glucose Level 104 Calcium Level Phosphorus Level 2.8 Magnesium Level 2.2 Total Bilirubin 0.1 L Direct Bilirubin 0.00 Indirect Bilirubin 0.1 Aspartate Amino Transf (AST/SGOT) 319 H Alanine Aminotransferase (ALT/SGPT) 76 H Alkaline Phosphatase 583 H Total Protein 6.6 Albumin 3.3 Globulin 3.30 H Albumin/Globulin Ratio 1.00 Medications Medications Current Medications Sodium Chloride (NS) 1,000 ml @ 125 mls/hr Q8H IV Last administered on 17:54; Admin Dose 125 MLS/HR; Start 04/05/17 at 02:16 Morphine Sulfate (morphine) 2 mg Q4H PRN IV PAIN LEVEL 7-10 Last administered on 04/07/17 05:30; Admin Dose 2 MG; Start 04/05/17 at 02:30 Anastrozole 1 mg 1 mg DAILY PO Last administered on 04/07/17 09:25; Admin Dose 1 MG; Start 04/05/17 at 09:00 Ceftriaxone Sodium (Rocephin) 50 ml @ 100 mls/hr Q24H IVPB Last administered on 04/06/17 12:18; Admin Dose 100 MLS/HR; Start 04/05/17 at 12:00 Pantoprazole (Protonix Tab) 40 mg DAILY@06 PO Last administered on 04/07/17 09 :20; Admin Dose 40 MG; Start 04/07/17 at 06:00 Lorazepam (Ativan) 0.5 mg Q6H PRN PO ANXIETY; Start 04/06/17 at 16:00 Metoprolol Tartrate (Lopressor) 25 mg BID PO Last administered on 04/07/17 09: 20; Admin Dose 25 MG; Start 04/06/17 at 21:00 Hydralazine HCl (Apresoline) 10 mg Q6H PRN IV SBP>160; Start 04/06/17 at 17:30 JUAN SHETH MD Apr 07, 2017 11:30
--- NOTE | 2017-04-07 11:34 | RADRPT ---
PROCEDURE: MR Cervical Spine with and without contrast. CLINICAL INDICATION: Breast cancer. Metastases. TECHNIQUE: Multiplanar multisequence MRI of the cervical spine was performed before and following t he intravenous administration of 10 cc of Magnevist. COMPARISON: There are no similar studies submitted for comparison. FINDINGS: There are multilevel osseous metastases with associated bone marrow edema as well as enhancement. T here is a mild associated pathologic compression fracture of the C6 vertebral body. There is also a mild T1 vertebral body pathologic compression fracture. There is mild to moderate right lateral ep idural and right subarticular tumor within this region without spinal canal stenosis. This mildly e xtends into the right C7-T1 foramen with moderate right foraminal effacement. There is also minimal left T1 ventral epidural tumor. There is a right C2 facet epidural extension of tumor moderately effacing the right C2-C3 foramina. There is minimal left ventral epidural tumor at the C4 level. There is normal cervical lordosis. There is normal alignment. There is disk desiccation from C2-C3 to C6-C7. The spinal cord is normal in caliber. The spinal cord is normal in signal. There is no abnormal spin al cord enhancement. C2-C3 : There is mild disk space narrowing. There is a 1 mm circumferential disk osteophyte complex without spinal canal stenosis. There is no left spinal canal stenosis. There is moderate right for aminal effacement from epidural tumor. C3-C4 : There is mild disk space narrowing. There is a 1 mm circumferential disk osteophyte complex without spinal canal stenosis. There is no bilateral foraminal stenosis. C4-C5 : There is a 1 mm circumferential disk osteophyte complex without spinal canal stenosis. Ther e is no bilateral foraminal stenosis. C5-C6 : There is a 2 mm right paracentral disk/osteophyte protrusion without spinal canal stenosis. There is mild left facet arthropathy and bilateral uncovertebral hypertrophy with mild right withou t left foraminal stenosis. C6-C7 : There is a 1 mm circumferential disk osteophyte complex without spinal canal stenosis. Ther e is no left foraminal stenosis. There is right-sided uncovertebral hypertrophy as well as right-si ded C7 facet tumor causing severe right foraminal effacement. This likely affects the exiting right C7 nerve root. C7-T1 : There is no disc herniation, spinal canal, or foraminal stenosis. There is mild left facet a rthropathy. The paravertebral musculature are within normal limits. There is a right pleural effusion incomplete ly imaged. IMPRESSION: 1. Multilevel osseous metastases. 2. Mild pathologic compression fracture of the C6 vertebral body without epidural extension of tumo r. 3. Mild pathologic T1 vertebral body compression fracture with mild to moderate right lateral epidu ral and right subarticular tumor and minimal left ventral epidural tumor without spinal canal stenos is. This mildly extends into the right C7-T1 foramen with moderate right foraminal effacement. 4. Mild left ventral epidural tumor at the C4 level without spinal canal stenosis. 5. Right C2 facet tumor causing moderate right C2-C3 foraminal effacement. 6. Right C7 facet tumor causing severe right C6-C7 foraminal effacement affecting the exiting right C7 nerve root. 7. No abnormal spinal cord enhancement. 8. Multilevel degenerative changes as detailed above. 9. Right pleural effusion. Further findings as detailed above. RPTAT: PP .Dante Dillard MD, MD Date Time Electronically viewed and signed by .Dante Dillard MD, MD on 04/07/2017 11:34 .F/
[2017-04-07 12:07] LABS: CALCIUM 13.9 mg/dl (8.4-10.2)
--- NOTE | 2017-04-07 13:22 | PN ---
DATE: 04/07/2017 SUBJECTIVE: No new complaints. OBJECTIVE: VITAL SIGNS: Temperature 98.2, heart rate 74, respirations 18, blood pressure 122/68, saturation 95% room air. The patient also complaining of pain in the right arm, she cannot raise her right arm without help from the left hand. Acutely on the MRI of the brain, they have seen partially fracture of the right humerus, so we are requesting complete humeral x-ray today to assess the fracture of the right humerus. MRIs of the cervical spine, thoracic spine and lumbar spine have revealed multiple metastases to different levels and especially in the lumbar area has shown moderate to severe pathologic compression fracture of L2 with moderate bony retropulsion and resultant moderate central canal stenosis. Also, there is mild pathologic compression fracture of L1 with mild bony retropulsion. Extensive osseous metastases throughout the lumbar spine. According to Dr. Genevieve Kraus, the weeder thinner/oncologist, it is better to hold on operation for right mastectomy because they want to start the patient as soon as possible on chemotherapy before her operation for the breast cancer. We will continue to follow up the patient along with other colleagues. Dictated By: DELLA ALVAREZ MD PS/NTS Conf#: [id number] DID#: [id number] QAMAR
[2017-04-07] MEDS: CEFTRIAXONE 2 GM/50 ML (PMX) 50 ML IVPB SCH (13:31)
[2017-04-07] MEDS: SOD CHLORIDE 0.9% 1,000 ML IV SCH ×2 (13:32→18:59)
--- NOTE | 2017-04-07 14:33 | RADRPT ---
Vent Rate: 88 bpm RR Interval: 0 msec [place] Interval: 130 msec QRS Duration: 90 msec QT Interval: 298 msec QTC Interval: 360 msec P-R-T [place]: 25 - 1 - 41 degrees Normal sinus rhythm Nonspecific T wave abnormality Abnormal ECG Electronically Signed By: Gregor Cuveas [id number]
--- NOTE | 2017-04-07 16:08 | RADRPT ---
PROCEDURE: MUGA scan CLINICAL INDICATION: 57 -year-old patient with breast cancer, for the evaluation of the left ventr icle ejection fraction. TECHNIQUE: Following the intravenous injection of 20.4 mCi of Tc-99m labeled red blood cells, rest ing gaited blood pool cardiac scintigraphic study was obtained. COMPARISON: No prior MUGA scans. FINDINGS: Resting gaited blood pool cardiac scintigraphic study demonstrates a normal ejection fraction of the left ventricle calculated to be 69 % (normal is greater than 50%). There is no evidence of wall motion abnormalities. IMPRESSION: 1. Normal ejection fraction of the left ventricle of 69 %. 2. No wall motion abnormalities. RPTAT: HH .Deneen Solitario MD, Date Time Electronically viewed and signed by .Deneen Solitario MD, on 04/07/2017 16:08 .L/
--- NOTE | 2017-04-07 16:35 | RADRPT ---
PROCEDURE: XR Right Humerus. CLINICAL INDICATION: Right arm pain. History of metastatic breast cancer. TECHNIQUE: AP and lateral views of the right humerus were performed. COMPARISON: None. FINDINGS: There is a large lytic lesion in the proximal shaft of the right humerus measuring approximately 4.5 x 2.7 cm. There is associated pathologic fracture at this site. There is no other fracture or lyt ic lesion. There is mild soft tissue swelling overlying the lytic lesion in the proximal shaft of the right hum erus. Articular surfaces are intact. There is no lytic or blastic lesion. There is no radiopaque foreign body. IMPRESSION: 1. Large lytic lesion of the proximal shaft of the right humerus with associated pathologic fractur e. 2. Otherwise unremarkable study. RPTAT: QQ .Levar Henriquez MD, Date Time Electronically viewed and signed by .Levar Henriquez MD, on 04/07/2017 16:35 .R/
--- NOTE | 2017-04-07 17:51 | PN ---
Date/Time of Note Date/Time of Note DATE: 04/07/17 TIME: 17:47 Assessment/Plan VTE Prophylaxis VTE Prophylaxis Intervention: LMWH Lines/Catheters IV [facility]ter Type (from [facility]): Peripheral IV Urinary Cath still in place: No Assessment/Plan Chief Complaint/Hosp Course 1. Metastatic breast cancer. Evidence of metastases to the liver and bones. The patient is being followed by oncology and breast surgery. Plan is to start the patient on chemotherapy after placement of a Port-A-Cath. 2. Severe hypercalcemia. Most probably secondary to #1. Continue bisphosphonates as per oncology. Continue telemetry monitoring. 3. Large right pleural effusion. 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 We will continue to monitor. If the patient has worsening respiratory distress , will consider right thoracentesis. 4. Essential hypertension. Continue antihypertensives. 5. Microcytic hypochromic anemia. Most probably anemia secondary to underlying malignancy. Iron panel showing low TIBC and low iron saturation with a high ferritin level. 6. Acute encephalopathy. Most probably metabolic in origin. Brain CT scan negative for any acute changes. Patient is more awake and alert today. Brain MRI showing small, acute lacunar infarct within the central casi with multiple bone metastases. 7. Acute nonoliguric kidney injury. Etiology unclear. The patient will be adequately hydrated. Nephrotoxic drugs will be used with caution. The patient being followed by nephrology. 8. MRI spine showing soft tissue component at the T6 level causing moderate narrowing of the spinal canal. Neurosurgery consult has been obtained. 9. Fluid, electrolytes and nutrition. Regular diet as tolerated. 10. Deep venous thrombosis prophylaxis. Subcutaneous Lovenox. 11. Gastrointestinal prophylaxis. Proton pump inhibitors. 12. Plan. Continue pain control. Continue IV hydration. Call neurosurgery consult. Await Port-A-Cath placement. The patient to be moved to oncology floor. Case discussed with . Problems: Subjective 24 Hr Interval Summary Free Text/Dictation The patient more awake and alert today. Exam/Review of Systems Vital Signs Vitals Vital Signs Date Time Temp Pulse Resp B/P Pulse Ox O2 Delivery O2 Flow Rate FiO2 04/07/17 17:08 88 04/07/17 15:29 99.3 18 139/74 94 04/07/17 08:00 Nasal Cannula 2.0 Intake and Output 04/06/17 04/06/17 04/07/17 15:00 23:00 07:00 Intake Total 1310 ml 120 ml Output Total 7 ml Balance 1303 ml 120 ml Exam GENERAL: This is a 57-year-old female patient lying in bed in no apparent distress. HEENT: Head normocephalic and atraumatic. Eyes: Anicteric sclerae. Conjunctivae clear. ENT: Nasal septum is midline. Oral mucosa is dry. NECK: Supple. No JVD noticed. RESPIRATORY: Bilaterally diminished breath sounds. No adventitious breath sounds heard. No use of accessory muscles of respiration. CARDIAC: Regular rate and rhythm. S1, S2 heard. ABDOMEN: Soft, nontender and nondistended. Bowel sounds positive in all 4 quadrants. GENITOURINARY: Deferred. EXTREMITIES: Minimal pretibial edema. Peripheral pulses are palpable. NEUROLOGIC: The patient is awake, alert, oriented x2 to 3. Results Result Diagram: 04/07/17 0605 04/07/17 0605 Results 24 hrs Laboratory Tests Test 04/07/17 06:05 04/07/17 10:45 White Blood Count 7.1 # Red Blood Count 4.01 L Hemoglobin 10.2 L Hematocrit 32.0 L Mean Corpuscular Volume 79.8 L Mean Corpuscular Hemoglobin 25.4 L Mean Corpuscular Hemoglobin Concent 31.9 L Red Cell Distribution Width 16.0 H Platelet Count 215 # Mean Platelet Volume 10.8 H Neutrophils % 83.2 H Lymphocytes % 10.3 L Monocytes % 4.8 Eosinophils % 0.3 Basophils % 0.3 Nucleated Red Blood Cells % 0.0 Neutrophils # 5.9 Lymphocytes # 0.7 L Monocytes # 0.3 Eosinophils # 0.0 Basophils # 0.0 Nucleated Red Blood Cells # 0.0 Prothrombin Time 13.0 Prothrombin Time Ratio 1.0 INR International Normalized Ratio 0.98 Activated Partial Thromboplast Time 34.5 Sodium Level 142 Potassium Level 3.4 L Chloride Level 111 H Carbon Dioxide Level 22 Anion Gap 12 Blood Urea Nitrogen 28 H Creatinine 1.15 H Glucose Level 104 Calcium Level 13.9 *H Phosphorus Level 2.8 Magnesium Level 2.2 Total Bilirubin 0.1 L Direct Bilirubin 0.00 Indirect Bilirubin 0.1 Aspartate Amino Transf (AST/SGOT) 319 H Alanine Aminotransferase (ALT/SGPT) 76 H Alkaline Phosphatase 583 H Total Protein 6.6 Albumin 3.3 Globulin 3.30 H Albumin/Globulin Ratio 1.00 Ionized Calcium (Measured) 1.9 H Medications Medications Current Medications Sodium Chloride (NS) 1,000 ml @ 125 mls/hr Q8H IV Last administered on 13:32; Admin Dose 125 MLS/HR; Start 04/05/17 at 02:16 Morphine Sulfate (morphine) 2 mg Q4H PRN IV PAIN LEVEL 7-10 Last administered on 04/07/17 05:30; Admin Dose 2 MG; Start 04/05/17 at 02:30 Anastrozole 1 mg 1 mg DAILY PO Last administered on 04/07/17 09:25; Admin Dose 1 MG; Start 04/05/17 at 09:00 Ceftriaxone Sodium (Rocephin) 50 ml @ 100 mls/hr Q24H IVPB Last administered on 04/07/17 13:31; Admin Dose 100 MLS/HR; Start 04/05/17 at 12:00 Pantoprazole (Protonix Tab) 40 mg DAILY@06 PO Last administered on 04/07/17 09 :20; Admin Dose 40 MG; Start 04/07/17 at 06:00 Lorazepam (Ativan) 0.5 mg Q6H PRN PO ANXIETY; Start 04/06/17 at 16:00 Metoprolol Tartrate (Lopressor) 25 mg BID PO Last administered on 04/07/17 09: 20; Admin Dose 25 MG; Start 04/06/17 at 21:00 Hydralazine HCl (Apresoline) 10 mg Q6H PRN IV SBP>160; Start 04/06/17 at 17:30 Enoxaparin Sodium (Lovenox) 40 mg DAILY SC ; Start 04/07/17 at 14:30 SIDRA NAJERA NP Apr 07, 2017 17:51
[2017-04-07] MEDS: ENOXAPARIN 40 MG/0.4 ML SYG SC SCH (19:07)
--- NOTE | 2017-04-07 19:44 | CONS ---
Date/Time of Note Date/Time of Note DATE: 04/07/17 TIME: 19:40 Assessment/Plan Assessment/Plan Additional Assessment/Plan 1. Severe hypercalcemia with calcium level of 17.3 on admission. 2. Acute kidney injury secondary to prerenal azotemia. 3. History of metastatic breast cancer, possible plan to do breast surgery tomorrow. 4. Hypokalemia. 5. Hypomagnesemia. Plan: No plan for surgery now S/p Zometa on 04/06/17 for hypercalcemia, now Ca slightly improved today Cr 1.15 BP stable will follow up Consultation Date/Type/Reason Admit Date/Time Apr 04, 2017 at 22:07 Initial Consult Date 04/06/17 Type of Consultation: NEPHROLOGY Reason for Consultation acute kidney injury, Severe hypercalemia, metastatic Referring Provider: LEISA LANGSTON 24 HR Interval Summary Free Text/Dictation Cr 1.15, Ca slightly improved to 13.9, BP stable, afebrile Exam/Review of Systems Vital Signs Vitals Vital Signs Date Time Temp Pulse Resp B/P Pulse Ox O2 Delivery O2 Flow Rate FiO2 04/07/17 17:08 88 04/07/17 15:29 99.3 18 139/74 94 04/07/17 08:00 Nasal Cannula 2.0 Intake and Output 04/06/17 04/06/17 04/07/17 15:00 23:00 07:00 Intake Total 1310 ml 120 ml Output Total 7 ml Balance 1303 ml 120 ml Exam GENERAL: The patient is awake, alert. Denies any current pain, slightly confused, in no acute distress. HEENT: Atraumatic, normocephalic. Pupils equal, round, reactive to light and accommodation. Extraocular muscles are intact. NECK: Supple, no JVD, no lymphadenopathy. LUNGS: Clear to auscultation. Decreased breath sounds at the right middle lobe and right lower lobe. HEART: S1, S2, with regular rhythm, no murmur. ABDOMEN: Soft, nontender, nondistended. Bowel sounds are present. EXTREMITIES: No clubbing, cyanosis, or edema. NEUROLOGICAL: Awake, alert, slightly confused. Results Result Diagram: 04/07/17 0605 04/07/17 0605 Results 24 hrs Laboratory Tests Test 04/07/17 06:05 04/07/17 10:45 White Blood Count 7.1 # Red Blood Count 4.01 L Hemoglobin 10.2 L Hematocrit 32.0 L Mean Corpuscular Volume 79.8 L Mean Corpuscular Hemoglobin 25.4 L Mean Corpuscular Hemoglobin Concent 31.9 L Red Cell Distribution Width 16.0 H Platelet Count 215 # Mean Platelet Volume 10.8 H Neutrophils % 83.2 H Lymphocytes % 10.3 L Monocytes % 4.8 Eosinophils % 0.3 Basophils % 0.3 Nucleated Red Blood Cells % 0.0 Neutrophils # 5.9 Lymphocytes # 0.7 L Monocytes # 0.3 Eosinophils # 0.0 Basophils # 0.0 Nucleated Red Blood Cells # 0.0 Prothrombin Time 13.0 Prothrombin Time Ratio 1.0 INR International Normalized Ratio 0.98 Activated Partial Thromboplast Time 34.5 Sodium Level 142 Potassium Level 3.4 L Chloride Level 111 H Carbon Dioxide Level 22 Anion Gap 12 Blood Urea Nitrogen 28 H Creatinine 1.15 H Glucose Level 104 Calcium Level 13.9 *H Phosphorus Level 2.8 Magnesium Level 2.2 Total Bilirubin 0.1 L Direct Bilirubin 0.00 Indirect Bilirubin 0.1 Aspartate Amino Transf (AST/SGOT) 319 H Alanine Aminotransferase (ALT/SGPT) 76 H Alkaline Phosphatase 583 H Total Protein 6.6 Albumin 3.3 Globulin 3.30 H Albumin/Globulin Ratio 1.00 Ionized Calcium (Measured) 1.9 H Medications Medications Current Medications Sodium Chloride (NS) 1,000 ml @ 125 mls/hr Q8H IV Last administered on 18:59; Admin Dose 125 MLS/HR; Start 04/05/17 at 02:16 Morphine Sulfate (morphine) 2 mg Q4H PRN IV PAIN LEVEL 7-10 Last administered on 04/07/17 05:30; Admin Dose 2 MG; Start 04/05/17 at 02:30 Anastrozole 1 mg 1 mg DAILY PO Last administered on 04/07/17 09:25; Admin Dose 1 MG; Start 04/05/17 at 09:00 Ceftriaxone Sodium (Rocephin) 50 ml @ 100 mls/hr Q24H IVPB Last administered on 04/07/17 13:31; Admin Dose 100 MLS/HR; Start 04/05/17 at 12:00 Pantoprazole (Protonix Tab) 40 mg DAILY@06 PO Last administered on 04/07/17 09 :20; Admin Dose 40 MG; Start 04/07/17 at 06:00 Lorazepam (Ativan) 0.5 mg Q6H PRN PO ANXIETY; Start 04/06/17 at 16:00 Metoprolol Tartrate (Lopressor) 25 mg BID PO Last administered on 04/07/17 09: 20; Admin Dose 25 MG; Start 04/06/17 at 21:00 Hydralazine HCl (Apresoline) 10 mg Q6H PRN IV SBP>160; Start 04/06/17 at 17:30 Enoxaparin Sodium (Lovenox) 40 mg DAILY SC Last administered on 04/07/17 19:07 ; Admin Dose 40 MG; Start 04/07/17 at 14:30 HANNA KIRKLAND MD Apr 07, 2017 19:44
--- NOTE | 2017-04-07 20:54 | CONS ---
Date/Time of Note Date/Time of Note DATE: 04/07/17 TIME: 20:47 Assessment/Plan Assessment/Plan Problems: (1) Metastatic breast cancer Status: Acute Additional Assessment/Plan The patient has widespread spinal metastases, including some with ventral epidural extension into the spinal canal. However, the patient is neurologically intact. There is no role for surgical intervention whatsoever given the widespread and diffuse nature of her metastatic disease burden. Radiation oncology consultation is recommended. Thank you. Consultation Date/Type/Reason Admit Date/Time Apr 04, 2017 at 22:07 Date of Consultation: Apr 07, 2017 Type of Consultation: neurological surgery Reason for Consultation thoracic metastasis Hx of Present Illness Patient is 57 year odl female with breast CA with widespread metastatic disease. MRI of the thoracic spine was obtained which shows diffuse metastases throughout the spine. There is from T1 to T7 some epidural extension and mass effect on thecal sac. The patient denies any weakness or numbness. She has no axial back pain. She is very confused however. Psychological: no complaints Social History Alcohol Use: none Smoking Status: Never smoker Drug Use: none Exam/Review of Systems Vital Signs Vitals Vital Signs Date Time Temp Pulse Resp B/P Pulse Ox O2 Delivery O2 Flow Rate FiO2 04/07/17 17:08 88 04/07/17 15:29 99.3 18 139/74 94 04/07/17 08:00 Nasal Cannula 2.0 Intake and Output 04/06/17 04/06/17 04/07/17 14:59 22:59 06:59 Intake Total 1310 ml 120 ml Output Total 7 ml Balance 1303 ml 120 ml Exam The patient is awake and alert and oriented to self and place. She is able to move all extremities with full power. She denies any hypoesthesia. She denies any bowel or bladder complaints. Results MRI thoracic spine: "There are innumerable osseous metastasis throughout the bony skeleton. There is extraosseous soft tissue extension especially on the right from the levels of T3 through T10. There is a mild pathologic compression fracture of the T8 vertebral body with up to 30% loss in vertebral body height and a mild 3 mm AP diameter bony retropulsion. Thoracic vertebral body alignment remains within normal limits. The disk height and signals are within normal limits. There is no disk protrusion or extrusion. There is no central canal stenosis. There is severe right-sided neural foraminal stenosis at T5-T6 and T6-T7 secondary to extraosseous soft tissue extension. The thoracic spinal cord is of normal caliber and signal. " Result Diagram: 04/07/1760404/07/17604 Results 24 hrs Laboratory Tests Test 04/07/17 06:05 04/07/17 10:45 White Blood Count 7.1 # Red Blood Count 4.01 L Hemoglobin 10.2 L Hematocrit 32.0 L Mean Corpuscular Volume 79.8 L Mean Corpuscular Hemoglobin 25.4 L Mean Corpuscular Hemoglobin Concent 31.9 L Red Cell Distribution Width 16.0 H Platelet Count 215 # Mean Platelet Volume 10.8 H Neutrophils % 83.2 H Lymphocytes % 10.3 L Monocytes % 4.8 Eosinophils % 0.3 Basophils % 0.3 Nucleated Red Blood Cells % 0.0 Neutrophils # 5.9 Lymphocytes # 0.7 L Monocytes # 0.3 Eosinophils # 0.0 Basophils # 0.0 Nucleated Red Blood Cells # 0.0 Prothrombin Time 13.0 Prothrombin Time Ratio 1.0 INR International Normalized Ratio 0.98 Activated Partial Thromboplast Time 34.5 Sodium Level 142 Potassium Level 3.4 L Chloride Level 111 H Carbon Dioxide Level 22 Anion Gap 12 Blood Urea Nitrogen 28 H Creatinine 1.15 H Glucose Level 104 Calcium Level 13.9 *H Phosphorus Level 2.8 Magnesium Level 2.2 Total Bilirubin 0.1 L Direct Bilirubin 0.00 Indirect Bilirubin 0.1 Aspartate Amino Transf (AST/SGOT) 319 H Alanine Aminotransferase (ALT/SGPT) 76 H Alkaline Phosphatase 583 H Total Protein 6.6 Albumin 3.3 Globulin 3.30 H Albumin/Globulin Ratio 1.00 Ionized Calcium (Measured) 1.9 H Medications Medications Current Medications Sodium Chloride (NS) 1,000 ml @ 125 mls/hr Q8H IV Last administered on 18:59; Admin Dose 125 MLS/HR; Start 04/05/17 at 02:16 Morphine Sulfate (morphine) 2 mg Q4H PRN IV PAIN LEVEL 7-10 Last administered on 04/07/17 05:30; Admin Dose 2 MG; Start 04/05/17 at 02:30 Anastrozole 1 mg 1 mg DAILY PO Last administered on 04/07/17 09:25; Admin Dose 1 MG; Start 04/05/17 at 09:00 Ceftriaxone Sodium (Rocephin) 50 ml @ 100 mls/hr Q24H IVPB Last administered on 04/07/17 13:31; Admin Dose 100 MLS/HR; Start 04/05/17 at 12:00 Pantoprazole (Protonix Tab) 40 mg DAILY@06 PO Last administered on 04/07/17 09 :20; Admin Dose 40 MG; Start 04/07/17 at 06:00 Lorazepam (Ativan) 0.5 mg Q6H PRN PO ANXIETY; Start 04/06/17 at 16:00 Metoprolol Tartrate (Lopressor) 25 mg BID PO Last administered on 04/07/17 09: 20; Admin Dose 25 MG; Start 04/06/17 at 21:00 Hydralazine HCl (Apresoline) 10 mg Q6H PRN IV SBP>160; Start 04/06/17 at 17:30 Enoxaparin Sodium (Lovenox) 40 mg DAILY SC Last administered on 04/07/17 19:07 ; Admin Dose 40 MG; Start 04/07/17 at 14:30 DONNA DEMARCO MD Apr 07, 2017 20:53
[2017-04-08] MEDS: SOD CHLORIDE 0.9% 1,000 ML IV SCH ×4 (00:16→21:39)
[2017-04-08] MEDS: morphine 2 MG INJ IV PRN ×2 (00:17→12:01)
[2017-04-08 06:11] LABS: ADD SCAN DIFF NO
[2017-04-08 06:14] LABS: BASOPHILS % 0.4 % (0.0-2.0); EOSINOPHILS # 0.1 10^3/ul (0.0-0.5); HEMATOCRIT 28.8 % (37.0-47.0); HEMOGLOBIN 9.3 g/dl (12.0-16.0); LYMPHOCYTES # 1.2 10^3/ul (0.8-2.9); LYMPHOCYTES % 17.9 % (15.0-51.0); MEAN CORPUSCULAR HEMOGLOBIN 25.3 pg (29.0-33.0); MEAN CORPUSCULAR HGB CONC 32.3 g/dl (32.0-37.0); MEAN CORPUSCULAR VOLUME 78.5 fl (82.0-101.0); MEAN PLATELET VOLUME 10.2 fl (7.4-10.4); MONOCYTE # 0.4 10^3/ul (0.3-0.9); MONOCYTES % 5.3 % (0.0-11.0); NEUTROPHIL # 5.2 10^3/ul (1.6-7.5); NEUTROPHILS % 74.5 % (39.0-77.0); PLATELET COUNT 195 10^3/UL (140-415); RED BLOOD COUNT 3.67 10^6/ul (4.20-5.40); RED CELL DISTRIBUTION WIDTH 15.9 % (11.5-14.5); WHITE BLOOD COUNT 6.9 10^3/ul (4.8-10.8)
[2017-04-08 07:11] LABS: CREATININE 1.09 mg/dl (0.44-1.00)
[2017-04-08 07:19] LABS: MAGNESIUM 1.8 mg/dl (1.7-2.5); PHOSPHORUS 2.1 mg/dl (2.5-4.9)
[2017-04-08 08:19] VITALS: BP 143/66; RESP 22
[2017-04-08] MEDS: METOPROLOL 25 MG TAB PO SCH ×2 (09:11→21:40)
[2017-04-08] MEDS: ANASTROZOLE 1 MG TAB PO SCH (09:15)
[2017-04-08] MEDS: ENOXAPARIN 40 MG/0.4 ML SYG SC SCH (09:21)
--- NOTE | 2017-04-08 10:12 | PN ---
Date/Time of Note Date/Time of Note DATE: 04/08/17 TIME: 10:05 Assessment/Plan VTE Prophylaxis VTE Prophylaxis Intervention: LMWH Lines/Catheters IV Catheter Type (from [facility]): Peripheral IV Urinary Cath still in place: No Assessment/Plan Chief Complaint/Hosp Course 1. Metastatic breast cancer. Evidence of metastases to the liver and bones. The patient is being followed by oncology and breast surgery. Plan is to start the patient on chemotherapy after placement of a Port-A-Cath. 2. Severe hypercalcemia. Most probably secondary to #1. Continue bisphosphonates as per oncology. Continue telemetry monitoring. 3. Large right pleural effusion. 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 We will continue to monitor. If the patient has worsening respiratory distress , will consider right thoracentesis. 4. Essential hypertension. Continue antihypertensives. 5. Microcytic hypochromic anemia. Most probably anemia secondary to underlying malignancy. Iron panel showing low TIBC and low iron saturation with a high ferritin level. 6. Acute encephalopathy. Most probably metabolic in origin. Brain CT scan negative for any acute changes. Patient is more awake and alert today. Brain MRI showing small, acute lacunar infarct within the central casi with multiple bone metastases. 7. Acute nonoliguric kidney injury. Etiology unclear. The patient will be adequately hydrated. Nephrotoxic drugs will be used with caution. The patient being followed by nephrology. 8. MRI spine showing soft tissue component at the T6 level causing moderate narrowing of the spinal canal. Neurosurgery consult has been obtained. Conservative management as per Neurosurgery. Radiation Oncology to evaluate the patient. 9. Right humerus pathology fracture. Will involve orthopedic surgery on the case. 10. Fluid, electrolytes and nutrition. Regular diet as tolerated. 11. Deep venous thrombosis prophylaxis. Subcutaneous Lovenox. 12. Gastrointestinal prophylaxis. Proton pump inhibitors. 13. Plan. Continue pain control. Continue IV hydration. Call neurosurgery consult. Await Port-A-Cath placement. Replete phosphorous and potassium. DC antibiotics as the urine culture is inconclusive and she has no evidence of infection. Call orthopedic Surgery consult. PREOPERATIVE RISK STRATIFICATION: The patient is a 57-year-old female with no significant past medical history other than recently diagnosed breast cancer. However, the patient currently has hypertension and also has a moderate right- sided pleural effusion. The patient also has some underlying renal insufficiency and electrolyte imbalances. Provided these comorbidities, the patient is at a mild to moderate risk for perioperative medical complications. Given that, the benefits of the surgery (right humerus fracture repair) could outweigh the risks of the surgery. Case discussed with . Problems: Subjective 24 Hr Interval Summary Free Text/Dictation The patient denies any pain. Exam/Review of Systems Vital Signs Vitals Vital Signs Date Time Temp Pulse Resp B/P Pulse Ox O2 Delivery O2 Flow Rate FiO2 04/08/17 08:19 98.5 93 22 143/66 93 04/07/17 08:00 Nasal Cannula 2.0 Intake and Output 04/07/17 04/07/17 04/08/17 15:00 23:00 07:00 Intake Total 1140 ml 625 ml Output Total 950 ml Balance 190 ml 625 ml Exam GENERAL: This is a 57-year-old female patient lying in bed in no apparent distress. HEENT: Head normocephalic and atraumatic. Eyes: Anicteric sclerae. Conjunctivae clear. ENT: Nasal septum is midline. Oral mucosa is dry. NECK: Supple. No JVD noticed. RESPIRATORY: Bilaterally diminished breath sounds. No adventitious breath sounds heard. No use of accessory muscles of respiration. CARDIAC: Regular rate and rhythm. S1, S2 heard. ABDOMEN: Soft, nontender and nondistended. Bowel sounds positive in all 4 quadrants. GENITOURINARY: Deferred. EXTREMITIES: Minimal pretibial edema. Peripheral pulses are palpable. NEUROLOGIC: The patient is awake, alert, oriented x2 to 3. Results Result Diagram: 04/08/17 0445 04/08/17 0445 Results 24 hrs Laboratory Tests Test 04/07/17 10:45 04/08/17 04:45 Ionized Calcium (Measured) 1.9 H White Blood Count 6.9 Red Blood Count 3.67 L Hemoglobin 9.3 L Hematocrit 28.8 L Mean Corpuscular Volume 78.5 L Mean Corpuscular Hemoglobin 25.3 L Mean Corpuscular Hemoglobin Concent 32.3 Red Cell Distribution Width 15.9 H Platelet Count 195 Mean Platelet Volume 10.2 Neutrophils % 74.5 Lymphocytes % 17.9 Monocytes % 5.3 Eosinophils % 1.0 Basophils % 0.4 Nucleated Red Blood Cells % 0.0 Neutrophils # 5.2 Lymphocytes # 1.2 Monocytes # 0.4 Eosinophils # 0.1 Basophils # 0.0 Nucleated Red Blood Cells # 0.0 Sodium Level 135 Potassium Level 3.0 L Chloride Level 107 Carbon Dioxide Level 23 Anion Gap 8 Blood Urea Nitrogen 28 H Creatinine 1.09 H Glucose Level 80 Calcium Level 12.0 H Phosphorus Level 2.1 L Magnesium Level 1.8 Medications Medications Current Medications Sodium Chloride (NS) 1,000 ml @ 125 mls/hr Q8H IV Last administered on 09:17; Admin Dose 125 MLS/HR; Start 04/05/17 at 02:16 Morphine Sulfate (morphine) 2 mg Q4H PRN IV PAIN LEVEL 7-10 Last administered on 04/08/17 00:17; Admin Dose 2 MG; Start 04/05/17 at 02:30 Anastrozole 1 mg 1 mg DAILY PO Last administered on 04/08/17 09:15; Admin Dose 1 MG; Start 04/05/17 at 09:00 Ceftriaxone Sodium (Rocephin) 50 ml @ 100 mls/hr Q24H IVPB Last administered on 04/07/17 13:31; Admin Dose 100 MLS/HR; Start 04/05/17 at 12:00 Pantoprazole (Protonix Tab) 40 mg DAILY@06 PO Last administered on 04/07/17 09 :20; Admin Dose 40 MG; Start 04/07/17 at 06:00 Lorazepam (Ativan) 0.5 mg Q6H PRN PO ANXIETY; Start 04/06/17 at 16:00 Metoprolol Tartrate (Lopressor) 25 mg BID PO Last administered on 04/08/17 09: 11; Admin Dose 25 MG; Start 04/06/17 at 21:00 Hydralazine HCl (Apresoline) 10 mg Q6H PRN IV SBP>160; Start 04/06/17 at 17:30 Enoxaparin Sodium (Lovenox) 40 mg DAILY SC Last administered on 04/08/17 09:21 ; Admin Dose 40 MG; Start 04/07/17 at 14:30 SIDRA NAJERA NP Apr 08, 2017 10:12
[2017-04-08] MEDS ORDERED: BISACODYL 10 MG SUPP PR PRN (10:30)
[2017-04-08] MEDS ORDERED: BISACODYL (EC) 5 MG TAB PO PRN (10:30)
[2017-04-08] MEDS ORDERED: POTASSIUM PHOSPHATE 30 MM in SOD CHLORIDE 0.9% 250 ML IVPB ONE (12:00)
--- NOTE | 2017-04-08 12:07 | CONS ---
Date/Time of Note Date/Time of Note DATE: 04/08/17 TIME: 12:01 Assessment/Plan Assessment/Plan Additional Assessment/Plan 1. Severe hypercalcemia with calcium level of 17.3 on admission. 2. Acute kidney injury secondary to prerenal azotemia. 3. History of metastatic breast cancer, 4. Hypokalemia with hypophosphatemia 5. Hypomagnesemia. Plan: No plan for surgery now S/p Zometa on 04/06/17 for hypercalcemia, now Ca slightly improved to 12 today Cr improved to 1.09 K and PO4 low, Potassium phosphate 30mmol IV x 1 has been ordered BP stable will follow up Consultation Date/Type/Reason Admit Date/Time Apr 04, 2017 at 22:07 Initial Consult Date Type of Consultation: NEPHROLOGY Referring Provider: LEISA LANGSTON 24 HR Interval Summary Free Text/Dictation K low, PO4 low, Ca improved to 12.0 Exam/Review of Systems Vital Signs Vitals Vital Signs Date Time Temp Pulse Resp B/P Pulse Ox O2 Delivery O2 Flow Rate FiO2 04/08/17 08:19 98.5 93 22 143/66 93 04/07/17 08:00 Nasal Cannula 2.0 Intake and Output 04/07/17 04/07/17 04/08/17 15:00 23:00 07:00 Intake Total 1140 ml 625 ml Output Total 950 ml Balance 190 ml 625 ml Exam GENERAL: The patient is awake, alert HEENT: Atraumatic, normocephalic. Pupils equal, round, reactive to light and accommodation. Extraocular muscles are intact. NECK: Supple, no JVD, no lymphadenopathy. LUNGS: Clear to auscultation. Decreased breath sounds at the right middle lobe and right lower lobe. HEART: S1, S2, with regular rhythm, no murmur. ABDOMEN: Soft, nontender, nondistended. Bowel sounds are present. EXTREMITIES: No clubbing, cyanosis, or edema. NEUROLOGICAL: Awake, alert, slightly confused. Results Result Diagram: 04/08/17 0445 04/08/17 0445 Results 24 hrs Laboratory Tests Test 04/08/17 04:45 White Blood Count 6.9 Red Blood Count 3.67 L Hemoglobin 9.3 L Hematocrit 28.8 L Mean Corpuscular Volume 78.5 L Mean Corpuscular Hemoglobin 25.3 L Mean Corpuscular Hemoglobin Concent 32.3 Red Cell Distribution Width 15.9 H Platelet Count 195 Mean Platelet Volume 10.2 Neutrophils % 74.5 Lymphocytes % 17.9 Monocytes % 5.3 Eosinophils % 1.0 Basophils % 0.4 Nucleated Red Blood Cells % 0.0 Neutrophils # 5.2 Lymphocytes # 1.2 Monocytes # 0.4 Eosinophils # 0.1 Basophils # 0.0 Nucleated Red Blood Cells # 0.0 Sodium Level 135 Potassium Level 3.0 L Chloride Level 107 Carbon Dioxide Level 23 Anion Gap 8 Blood Urea Nitrogen 28 H Creatinine 1.09 H Glucose Level 80 Calcium Level 12.0 H Phosphorus Level 2.1 L Magnesium Level 1.8 Medications Medications Current Medications Sodium Chloride (NS) 1,000 ml @ 125 mls/hr Q8H IV Last administered on 09:17; Admin Dose 125 MLS/HR; Start 04/05/17 at 02:16 Morphine Sulfate (morphine) 2 mg Q4H PRN IV PAIN LEVEL 7-10 Last administered on 04/08/17 00:17; Admin Dose 2 MG; Start 04/05/17 at 02:30 Anastrozole (Arimidex) 1 mg DAILY PO Last administered on 04/08/17 09:15; Admin Dose 1 MG; Start 04/05/17 at 09:00 Pantoprazole (Protonix Tab) 40 mg DAILY@06 PO Last administered on 04/07/17 09 :20; Admin Dose 40 MG; Start 04/07/17 at 06:00 Lorazepam (Ativan) 0.5 mg Q6H PRN PO ANXIETY; Start 04/06/17 at 16:00 Metoprolol Tartrate (Lopressor) 25 mg BID PO Last administered on 04/08/17 09: 11; Admin Dose 25 MG; Start 04/06/17 at 21:00 Hydralazine HCl (Apresoline) 10 mg Q6H PRN IV SBP>160; Start 04/06/17 at 17:30 Enoxaparin Sodium 40 mg 40 mg DAILY SC Last administered on 04/08/17 09:21; Admin Dose 40 MG; Start 04/07/17 at 14:30 Potassium Phosphate/Sodium Chloride (K Phos (Mm)/NS) 260 ml @ 65 mls/hr ONCE ONCE IVPB Last administered on 04/08/17 11:31; Admin Dose 65 MLS/HR; Start at 12:00; Stop 04/08/17 at 15:59 Polyethylene Glycol (Miralax) 17 gm BID PO ; Start 04/08/17 at 21:00 Bisacodyl (Dulcolax) 10 mg DAILY PRN PO CONSTIPATION; Start 04/08/17 at 10:30 Bisacodyl (Dulcolax Supp) 10 mg DAILY PRN [place] CONSTIPATION Last administered on 04/08/17 11:25; Admin Dose 10 MG; Start 04/08/17 at 10:30 HANNA KIRKLAND MD Apr 08, 2017 12:07
[2017-04-08 19:35] VITALS: BP 115/59; RESP 18
--- NOTE | 2017-04-08 20:45 | PN ---
Date/Time of Note Date/Time of Note DATE: 04/08/17 TIME: 17:52 Assessment/Plan VTE Prophylaxis VTE Prophylaxis Intervention: ambulation Lines/Catheters IV [facility] (from [facility] Peripheral IV Urinary Cath still in place: No Assessment/Plan Assessment/Plan 57 year old female with a history of right breast cancer admitted for generalized weakness, decreased appetite, and confusion per her daughter and found to have hypercalcemia with calcium of 17, acute renal failure, failure to thrive ER positive 99%, MI positive 4%, HER2/gail positive by IHC 3+ based on 04/13/17 right breast mass biopsy and right axillary lymph node was 99% ER, 25% MI, HER2 equivocal by IHC 2+ and equicoval by FISH but negative by equivocal panel. During her admission, a CT of the chest showed the right breast mass, axillary, hilar and mediastinal adenopathy, multiple hepatic masses and pathologic right femoral neck fracture, consistent with metastatic cancer. On 09/01/2016 she underwent excision of metastatic cancer from femoral neck and intertrochanteric area of the right hip and hemiarthroplasty of the right hip. She was seen by Dr. Paola Nielsen for post-op radiation to the right hip which she received for 2 weeks. Path from 09/01/16 right hip surgery showed metastatic breast carcinoma, ER positive, MI negative, HER2 positive disease by IHC and FISH. She was started on arimidex 1 mg daily but per patient, only received 1 month worth of medication and then was to be treated with trastuzumab taxane pertuzumab after local radiation. # Metastatic breast cancer. - US liver shows that the liver is enlarged and contains numerous and confluent lesions, likely metastases, measuring up to 6.6 cm in the left lobe. The liver demonstrates increased echogenicity and coarsened echotexture which are nonspecific and suggest fatty infiltration as well as early chronic liver disease. The main portal vein is patent with proper directional flow. Trace perihepatic ascites. - CXR shows large right pleural effusion, likely malignant, consider diagnostic and therapeutic thoracentesis if symptomatic - Will obtain CT CAP with contrast once renal function improves further, consider bone scan or outpatient PET/CT. - CA 27-29 high - CT of the lumbar spine from 02/28/17 showed multiple lytic metastatic foci of the lumbar vertebral bodies, sacrum and visualized iliac bones. MRI C/T/L spine was ordered to r/o cord compression given her new onset weakness and inability to walk of 2 weeks duration, as well as MRI brain given HER2 positive status. - MRI brain 04/06/17 showed multiple osseous metastases - MRI spine 04/06/17 showed extensive osseous metastases throughout the lumbar spine. Mild pathologic compression fracture of the L1 with mild bony retropulsion. Moderate to severe pathologic compression fracture of L2 with moderate bony retropulsion and resultant moderate central canal stenosis. Chemo orders to be written for taxotere plus herceptin and pertuzumab. - MUGA 69% wnl. Chemo regimen Docetaxel 75 mg/m2 x 0.75 = 56 mg/m2 IV over 1 hour (25% dose reduction due to elevated LFTs) Trastuzumab 8 mg/kg IV over 90 minutes cycle 1 Pertuzumab 840 mg IV over 60 minutes cycle 1 # Severe hypercalcemia, with calcium level of 17.3, improved to 12 - s/p calcitonin, aggressive hydration - s/p pamidronate 60 mg IV # Confusion and constipation, likely related to hypercalcemia, now down to 12 from 17 # Acute renal failure, likely related to dehydration and hypercalcemia, improved # Anemia: hgb low sec to malignancy with adequate b12 and ferritin Subjective 24 Hr Interval Summary Subjective hx not possible: pt critical ENT: congestion Musculoskeletal: back pain Exam/Review of Systems Vital Signs Vitals Vital Signs Date Time Temp Pulse Resp B/P Pulse Ox O2 Delivery O2 Flow Rate FiO2 04/08/17 08:19 98.5 93 22 143/66 93 04/07/17 08:00 Nasal Cannula 2.0 Intake and Output 04/07/17 04/07/17 04/08/17 15:00 23:00 07:00 Intake Total 1140 ml 625 ml Output Total 950 ml Balance 190 ml 625 ml Exam Constitutional: alert, oriented Psych: depression Eyes: nl conjunctiva Respiratory: normal air movement Musculoskeletal: nl extremities to inspection Results Result Diagram: 04/08/17 0445 04/08/17 0445 Results 24 hrs Laboratory Tests Test 04/08/17 04:45 White Blood Count 6.9 Red Blood Count 3.67 L Hemoglobin 9.3 L Hematocrit 28.8 L Mean Corpuscular Volume 78.5 L Mean Corpuscular Hemoglobin 25.3 L Mean Corpuscular Hemoglobin Concent 32.3 Red Cell Distribution Width 15.9 H Platelet Count 195 Mean Platelet Volume 10.2 Neutrophils % 74.5 Lymphocytes % 17.9 Monocytes % 5.3 Eosinophils % 1.0 Basophils % 0.4 Nucleated Red Blood Cells % 0.0 Neutrophils # 5.2 Lymphocytes # 1.2 Monocytes # 0.4 Eosinophils # 0.1 Basophils # 0.0 Nucleated Red Blood Cells # 0.0 Sodium Level 135 Potassium Level 3.0 L Chloride Level 107 Carbon Dioxide Level 23 Anion Gap 8 Blood Urea Nitrogen 28 H Creatinine 1.09 H Glucose Level 80 Calcium Level 12.0 H Phosphorus Level 2.1 L Magnesium Level 1.8 Medications Medications Current Medications Sodium Chloride (NS) 1,000 ml @ 125 mls/hr Q8H IV Last administered on 09:17; Admin Dose 125 MLS/HR; Start 04/05/17 at 02:16 Morphine Sulfate (morphine) 2 mg Q4H PRN IV PAIN LEVEL 7-10 Last administered on 04/08/17 12:01; Admin Dose 2 MG; Start 04/05/17 at 02:30 Anastrozole (Arimidex) 1 mg DAILY PO Last administered on 04/08/17 09:15; Admin Dose 1 MG; Start 04/05/17 at 09:00 Pantoprazole (Protonix Tab) 40 mg DAILY@06 PO Last administered on 04/07/17 09 :20; Admin Dose 40 MG; Start 04/07/17 at 06:00 Lorazepam (Ativan) 0.5 mg Q6H PRN PO ANXIETY; Start 04/06/17 at 16:00 Metoprolol Tartrate (Lopressor) 25 mg BID PO Last administered on 04/08/17 09: 11; Admin Dose 25 MG; Start 04/06/17 at 21:00 Hydralazine HCl (Apresoline) 10 mg Q6H PRN IV SBP>160; Start 04/06/17 at 17:30 Enoxaparin Sodium (Lovenox) 40 mg DAILY SC Last administered on 04/08/17 09:21 ; Admin Dose 40 MG; Start 04/07/17 at 14:30 Polyethylene Glycol (Miralax) 17 gm BID PO ; Start 04/08/17 at 21:00 Bisacodyl (Dulcolax) 10 mg DAILY PRN PO CONSTIPATION; Start 04/08/17 at 10:30 Bisacodyl (Dulcolax Supp) 10 mg DAILY PRN [place] CONSTIPATION Last administered on 04/08/17t 11:25; Admin Dose 10 MG; Start 04/08/17 at 10:30 MAT SALGADO MD Apr 08, 2017 18:02
[2017-04-08] MEDS: POLYETHYLENE GLYCOL 17 GM PACKET PO SCH (21:39)
[2017-04-09] MEDS: SOD CHLORIDE 0.9% 1,000 ML IV SCH ×5 (00:31→23:46)
[2017-04-09 05:08] LABS: ADD SCAN DIFF NO
[2017-04-09 05:12] LABS: BASOPHILS % 0.2 % (0.0-2.0); EOSINOPHILS # 0.1 10^3/ul (0.0-0.5); EOSINOPHILS % 0.8 % (0.0-7.0); HEMATOCRIT 28.6 % (37.0-47.0); HEMOGLOBIN 9.3 g/dl (12.0-16.0); LYMPHOCYTES # 1.3 10^3/ul (0.8-2.9); LYMPHOCYTES % 19.3 % (15.0-51.0); MEAN CORPUSCULAR HEMOGLOBIN 25.7 pg (29.0-33.0); MEAN CORPUSCULAR HGB CONC 32.5 g/dl (32.0-37.0); MONOCYTE # 0.5 10^3/ul (0.3-0.9); MONOCYTES % 7.4 % (0.0-11.0); NEUTROPHIL # 4.7 10^3/ul (1.6-7.5); NEUTROPHILS % 71.1 % (39.0-77.0); PLATELET COUNT 185 10^3/UL (140-415); RED BLOOD COUNT 3.62 10^6/ul (4.20-5.40); RED CELL DISTRIBUTION WIDTH 16.5 % (11.5-14.5); WHITE BLOOD COUNT 6.6 10^3/ul (4.8-10.8)
[2017-04-09 05:44] LABS: MAGNESIUM 1.6 mg/dl (1.7-2.5); PHOSPHORUS 2.6 mg/dl (2.5-4.9)
[2017-04-09] MEDS: PANTOPRAZOLE (EC) 40 MG TAB PO SCH (05:47)
[2017-04-09 05:53] LABS: ALBUMIN 2.8 g/dl (3.3-4.9); ALBUMIN/GLOBULIN RATIO 0.9; BILIRUBIN,INDIRECT 0.1 mg/dl (0-1.1); BILIRUBIN,TOTAL 0.1 mg/dl (0.2-1.3); CALCIUM 10.5 mg/dl (8.4-10.2); CREATININE 0.98 mg/dl (0.44-1.00); POTASSIUM 3.3 mmol/L (3.5-5.1); TOTAL PROTEIN 5.9 g/dl (6.1-8.1)
[2017-04-09 08:44] VITALS: BP 121/64; RESP 20
[2017-04-09] MEDS: METOPROLOL 25 MG TAB PO SCH ×2 (08:45→20:56)
[2017-04-09] MEDS: ANASTROZOLE 1 MG TAB PO SCH (08:46)
[2017-04-09] MEDS: ENOXAPARIN 40 MG/0.4 ML SYG SC SCH (08:47)
[2017-04-09] MEDS: POLYETHYLENE GLYCOL 17 GM PACKET PO SCH ×2 (09:00→20:56)
--- NOTE | 2017-04-09 09:19 | PN ---
Date/Time of Note Date/Time of Note DATE: 04/09/17 TIME: 09:17 Assessment/Plan VTE Prophylaxis VTE Prophylaxis Intervention: LMWH Lines/Catheters IV C[facility]ter Type (from [facility]): Peripheral IV Urinary Cath still in place: No Assessment/Plan Chief Complaint/Hosp Course 1. Metastatic breast cancer. Evidence of metastases to the liver and bones. The patient is being followed by oncology and breast surgery. Plan is to start the patient on chemotherapy after placement of a Port-A-Cath. 2. Severe hypercalcemia. Most probably secondary to #1. Continue bisphosphonates as per oncology. Continue telemetry monitoring. 3. Large right pleural effusion. 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 We will continue to monitor. If the patient has worsening respiratory distress , will consider right thoracentesis. 4. Essential hypertension. Continue antihypertensives. 5. Microcytic hypochromic anemia. Most probably anemia secondary to underlying malignancy. Iron panel showing low TIBC and low iron saturation with a high ferritin level. 6. Acute encephalopathy. Most probably metabolic in origin. Brain CT scan negative for any acute changes. Patient is more awake and alert today. Brain MRI showing small, acute lacunar infarct within the central casi with multiple bone metastases. 7. Acute nonoliguric kidney injury. Etiology unclear. The patient will be adequately hydrated. Nephrotoxic drugs will be used with caution. The patient being followed by nephrology. 8. MRI spine showing soft tissue component at the T6 level causing moderate narrowing of the spinal canal. Neurosurgery consult has been obtained. Conservative management as per Neurosurgery. Status post evaluation by Radiation Oncology. 9. Right humerus pathology fracture. Will involve orthopedic surgery on the case. 10. Fluid, electrolytes and nutrition. Regular diet as tolerated. 11. Deep venous thrombosis prophylaxis. Subcutaneous Lovenox. 12. Gastrointestinal prophylaxis. Proton pump inhibitors. 13. Plan. Continue pain control. Continue IV hydration. Await Port-A-Cath placement. Replete magnesium and potassium. Await orthopedic surgery evaluation. PREOPERATIVE RISK STRATIFICATION: The patient is a 57-year-old female with no significant past medical history other than recently diagnosed breast cancer. However, the patient currently has hypertension and also has a moderate right- sided pleural effusion. The patient also has some underlying renal insufficiency and electrolyte imbalances. Provided these comorbidities, the patient is at a mild to moderate risk for perioperative medical complications. Given that, the benefits of the surgery (right humerus fracture repair) could outweigh the risks of the surgery. Case discussed with . Problems: Subjective 24 Hr Interval Summary Free Text/Dictation Complains of right upper extremity pain. Had 3 bowel movements last night. Exam/Review of Systems Vital Signs Vitals Vital Signs Date Time Temp Pulse Resp B/P Pulse Ox O2 Delivery O2 Flow Rate FiO2 04/09/17 08:44 98.1 91 20 121/64 98 04/07/17 08:00 Nasal Cannula 2.0 Intake and Output 04/08/17 04/08/17 04/09/17 15:00 23:00 07:00 Intake Total 600 ml 1622 ml 1617 ml Output Total 600 ml Balance 0 ml 1622 ml 1617 ml Exam GENERAL: This is a 57-year-old female patient lying in bed in no apparent distress. HEENT: Head normocephalic and atraumatic. Eyes: Anicteric sclerae. Conjunctivae clear. ENT: Nasal septum is midline. Oral mucosa is dry. NECK: Supple. No JVD noticed. RESPIRATORY: Bilaterally diminished breath sounds. No adventitious breath sounds heard. No use of accessory muscles of respiration. CARDIAC: Regular rate and rhythm. S1, S2 heard. ABDOMEN: Soft, nontender and nondistended. Bowel sounds positive in all 4 quadrants. GENITOURINARY: Deferred. EXTREMITIES: Minimal pretibial edema. Peripheral pulses are palpable. NEUROLOGIC: The patient is awake, alert, oriented x2 to 3. Results Result Diagram: 04/09/17 0430 04/09/17 0430 Results 24 hrs Laboratory Tests Test 04/09/17 04:30 White Blood Count 6.6 Red Blood Count 3.62 L Hemoglobin 9.3 L Hematocrit 28.6 L Mean Corpuscular Volume 79.0 L Mean Corpuscular Hemoglobin 25.7 L Mean Corpuscular Hemoglobin Concent 32.5 Red Cell Distribution Width 16.5 H Platelet Count 185 Mean Platelet Volume 10.0 Neutrophils % 71.1 Lymphocytes % 19.3 Monocytes % 7.4 Eosinophils % 0.8 Basophils % 0.2 Nucleated Red Blood Cells % 0.0 Neutrophils # 4.7 Lymphocytes # 1.3 Monocytes # 0.5 Eosinophils # 0.1 Basophils # 0.0 Nucleated Red Blood Cells # 0.0 Sodium Level 143 Potassium Level 3.3 L Chloride Level 114 H Carbon Dioxide Level 20 L Anion Gap 12 Blood Urea Nitrogen 23 H Creatinine 0.98 Glucose Level 84 Calcium Level 10.5 H Phosphorus Level 2.6 Magnesium Level 1.6 L Total Bilirubin 0.1 L Direct Bilirubin 0.00 Indirect Bilirubin 0.1 Aspartate Amino Transf (AST/SGOT) 330 H Alanine Aminotransferase (ALT/SGPT) 80 H Alkaline Phosphatase 706 H Total Protein 5.9 L Albumin 2.8 L Globulin 3.10 Albumin/Globulin Ratio 0.90 Medications Medications Current Medications Sodium Chloride (NS) 1,000 ml @ 125 mls/hr Q8H IV Last administered on 05:47; Admin Dose 125 MLS/HR; Start 04/05/17 at 02:16 Morphine Sulfate (morphine) 2 mg Q4H PRN IV PAIN LEVEL 7-10 Last administered on 04/08/17 12:01; Admin Dose 2 MG; Start 04/05/17 at 02:30 Anastrozole (Arimidex) 1 mg DAILY PO Last administered on 04/09/17 08:46; Admin Dose 1 MG; Start 04/05/17 at 09:00 Pantoprazole (Protonix Tab) 40 mg DAILY@06 PO Last administered on 04/09/17 05 :47; Admin Dose 40 MG; Start 04/07/17 at 06:00 Lorazepam (Ativan) 0.5 mg Q6H PRN PO ANXIETY; Start 04/06/17 at 16:00 Metoprolol Tartrate (Lopressor) 25 mg BID PO Last administered on 04/09/17 08: 45; Admin Dose 25 MG; Start 04/06/17 at 21:00 Hydralazine HCl (Apresoline) 10 mg Q6H PRN IV SBP>160; Start 04/06/17 at 17:30 Enoxaparin Sodium (Lovenox) 40 mg DAILY SC Last administered on 04/09/17 08:47 ; Admin Dose 40 MG; Start 04/07/17 at 14:30 Polyethylene Glycol (Miralax) 17 gm BID PO Last administered on 04/08/17 21:39 ; Admin Dose 17 GM; Start 04/08/17 at 21:00 Bisacodyl (Dulcolax) 10 mg DAILY PRN PO CONSTIPATION; Start 04/08/17 at 10:30 Bisacodyl (Dulcolax Supp) 10 mg DAILY PRN [place] CONSTIPATION Last administered on 6/17/17at 11:25; Admin Dose 10 MG; Start 04/08/17 at 10:30 SIDRA NAJERA NP Apr 09, 2017 09:19
[2017-04-09] MEDS ORDERED: POTASSIUM CHLORIDE (SR) 10 MEQ TAB PO ONE (09:30)
[2017-04-09] MEDS ORDERED: MAGNESIUM SULFATE 2 GM/50 ML 50 ML IVPB ONE (09:30)
--- NOTE | 2017-04-09 13:56 | CONS ---
DATE OF ADMISSION: 04/04/2017 DATE OF CONSULTATION: 04/09/2017 TYPE OF CONSULTATION: Orthopedic surgical. HISTORY OF PRESENT ILLNESS: The patient is a 57-year-old female with a known history of breast canc er with known bony metastasis who was admitted on 04/04/2017 when she was brought into the emergency room by the family members because of the generalized weakness along with the decreased appetite an d mental confusion and failure to thrive. She obviously was found to have a breast cancer with bony metastases at initial evaluation at the beginning of her hospitalization, that revealed multiple pr oblems including severe hypercalcemia, probably because of the bony metastases, urinary tract infect ion, acute kidney injury, anemia, and pleural effusions and transaminitis. She already underwent radiotherapy and she was scheduled to have a mastectomy by general surgery. She was complaining of pain involving her right and x-rays of the right humerus revealed an obvious metastatic lesion involving the proximal shaft of the right humerus with the fractures and orthopedi c surgery was called in. PHYSICAL EXAMINATION: My examination revealed a 57-year-old female who was somewhat confused. Ther e was tenderness and swelling involving the upper portion of the right arm and the range of motion o f the right shoulder is somewhat limited. There was no evidence of acute neurovascular compromise i nvolving the right lower extremity. DIAGNOSTIC STUDIES: X-rays of the right arm revealed the presence of large lytic lesion involving t he proximal shaft of the right humerus with the obvious signs of pathologic fracture. DIAGNOSTIC IMPRESSION: Of the orthopedic surgical problem is metastatic fracture of the proximal sh aft of the right humerus. RECOMMENDATIONS: For management will be stabilization of the pathologic fracture involving the righ t humerus by intramedullary nailing. This intramedullary nailing can be done as soon as the patient can be medically cleared for surgery and probably it should be done prior to any breast surgery. Dictated By: YOUSIF STEVENSON/JORJE Conf#: [id number] DID#: [id number]
--- NOTE | 2017-04-09 14:55 | PN ---
DATE: 04/09/2017 SUBJECTIVE: No complaint. OBJECTIVE: VITAL SIGNS: 98.1, 91, 20, blood pressure 121/64, saturation 98% on room air. HEART: Regular. ABDOMEN: Soft. LABORATORY DATA: BUN down to 23, creatinine 0.98. Normal electrolytes. Calcium is down to 10.5. PLAN AND ASSESSMENT: A 57-year-old with metastatic cancer of the right breast with locally advanced right breast cancer as well with pathologic fracture of the shaft of the right humerus and metastasis to the liver at least. The patient has been evaluated by orthopedic surgeon, planning to do open reduction and internal fixation with intramedullary cathi on the right humerus, also the chemotherapist has seen the patient and scheduled for starting chemotherapy as soon as possible. From a general surgery point of view, we are not going to proceed with mastectomy at this time .,Other problems like fixation of fracture of the right humerus and also starting the chemotherapy as soon as possible finds priority. We will follow and we will proceed with mastectomy at earliest acceptable time. Dictated By: DELLA REINOSO/JORJE Conf#: [id number] DID#: [id number] MTDD
[2017-04-09 20:08] VITALS: BP 123/62; RESP 20
--- NOTE | 2017-04-09 20:54 | CONS ---
Date/Time of Note Date/Time of Note DATE: 04/09/17 TIME: 20:52 Assessment/Plan Assessment/Plan Additional Assessment/Plan 1. Severe hypercalcemia with calcium level of 17.3 on admission. 2. Acute kidney injury secondary to prerenal azotemia. 3. History of metastatic breast cancer, 4. Hypokalemia with hypophosphatemia 5. Hypomagnesemia. Plan: No plan for surgery now S/p Zometa on 04/06/17 for hypercalcemia, now Ca slightly improved to 10.5 today Cr improved to normal K low S/p PO KCl replacement, Mag low s/p Mag sulfate IV x 1 dose today BP stable will follow up Consultation Date/Type/Reason Admit Date/Time Apr 04, 2017 at 22:07 Initial Consult Date Type of Consultation: NEPHROLOGY Referring Provider: LEISA LANGSTON 24 HR Interval Summary Free Text/Dictation Ca improved to 10.5 after zometa, K low, s/p replacement today Exam/Review of Systems Vital Signs Vitals Vital Signs Date Time Temp Pulse Resp B/P Pulse Ox O2 Delivery O2 Flow Rate FiO2 04/09/17 20:08 98.4 100 20 123/62 95 04/07/17 08:00 Nasal Cannula 2.0 Intake and Output 04/08/17 04/08/17 04/09/17 15:00 23:00 07:00 Intake Total 600 ml 1622 ml 1617 ml Output Total 600 ml Balance 0 ml 1622 ml 1617 ml Exam GENERAL: The patient is awake, alert HEENT: Atraumatic, normocephalic. Pupils equal, round, reactive to light and accommodation. Extraocular muscles are intact. NECK: Supple, no JVD, no lymphadenopathy. LUNGS: Clear to auscultation. Decreased breath sounds at the right middle lobe and right lower lobe. HEART: S1, S2, with regular rhythm, no murmur. ABDOMEN: Soft, nontender, nondistended. Bowel sounds are present. EXTREMITIES: No clubbing, cyanosis, or edema. NEUROLOGICAL: Awake, alert, slightly confused. Results Result Diagram: 04/09/17 0430 04/09/17 0430 Results 24 hrs Laboratory Tests Test 04/09/17 04:30 White Blood Count 6.6 Red Blood Count 3.62 L Hemoglobin 9.3 L Hematocrit 28.6 L Mean Corpuscular Volume 79.0 L Mean Corpuscular Hemoglobin 25.7 L Mean Corpuscular Hemoglobin Concent 32.5 Red Cell Distribution Width 16.5 H Platelet Count 185 Mean Platelet Volume 10.0 Neutrophils % 71.1 Lymphocytes % 19.3 Monocytes % 7.4 Eosinophils % 0.8 Basophils % 0.2 Nucleated Red Blood Cells % 0.0 Neutrophils # 4.7 Lymphocytes # 1.3 Monocytes # 0.5 Eosinophils # 0.1 Basophils # 0.0 Nucleated Red Blood Cells # 0.0 Sodium Level 143 Potassium Level 3.3 L Chloride Level 114 H Carbon Dioxide Level 20 L Anion Gap 12 Blood Urea Nitrogen 23 H Creatinine 0.98 Glucose Level 84 Calcium Level 10.5 H Phosphorus Level 2.6 Magnesium Level 1.6 L Total Bilirubin 0.1 L Direct Bilirubin 0.00 Indirect Bilirubin 0.1 Aspartate Amino Transf (AST/SGOT) 330 H Alanine Aminotransferase (ALT/SGPT) 80 H Alkaline Phosphatase 706 H Total Protein 5.9 L Albumin 2.8 L Globulin 3.10 Albumin/Globulin Ratio 0.90 Medications Medications Current Medications Sodium Chloride (NS) 1,000 ml @ 125 mls/hr Q8H IV Last administered on 15:30; Admin Dose 125 MLS/HR; Start 04/05/17 at 02:16 Morphine Sulfate (morphine) 2 mg Q4H PRN IV PAIN LEVEL 7-10 Last administered on 04/08/17 12:01; Admin Dose 2 MG; Start 04/05/17 at 02:30 Anastrozole (Arimidex) 1 mg DAILY PO Last administered on 04/09/17 08:46; Admin Dose 1 MG; Start 04/05/17 at 09:00 Pantoprazole (Protonix Tab) 40 mg DAILY@06 PO Last administered on 04/09/17 05 :47; Admin Dose 40 MG; Start 04/07/17 at 06:00 Lorazepam (Ativan) 0.5 mg Q6H PRN PO ANXIETY; Start 04/06/17 at 16:00 Metoprolol Tartrate (Lopressor) 25 mg BID PO Last administered on 04/09/17 08: 45; Admin Dose 25 MG; Start 04/06/17 at 21:00 Hydralazine HCl (Apresoline) 10 mg Q6H PRN IV SBP>160; Start 04/06/17 at 17:30 Enoxaparin Sodium (Lovenox) 40 mg DAILY SC Last administered on 04/09/17 08:47 ; Admin Dose 40 MG; Start 04/07/17 at 14:30 Polyethylene Glycol (Miralax) 17 gm BID PO Last administered on 04/08/17 21:39 ; Admin Dose 17 GM; Start 04/08/17 at 21:00 Bisacodyl (Dulcolax) 10 mg DAILY PRN PO CONSTIPATION; Start 04/08/17 at 10:30 Bisacodyl (Dulcolax Supp) 10 mg DAILY PRN [place] CONSTIPATION Last administered on 04/08/17 11:25; Admin Dose 10 MG; Start 04/08/17 at 10:30 HANNA KIRKLAND MD Apr 09, 2017 20:54
[2017-04-10] VITALS (15 sets, daily range): BP systolic 98–139; BP diastolic 53–75; PULSE 74–99; RESP 16–20
[2017-04-10 05:06] LABS: ADD SCAN DIFF NO
[2017-04-10 05:08] LABS: BASOPHILS % 0.3 % (0.0-2.0); EOSINOPHILS % 0.5 % (0.0-7.0); HEMATOCRIT 29.2 % (37.0-47.0); HEMOGLOBIN 9.5 g/dl (12.0-16.0); LYMPHOCYTES # 1.5 10^3/ul (0.8-2.9); LYMPHOCYTES % 19.4 % (15.0-51.0); MEAN CORPUSCULAR HEMOGLOBIN 25.8 pg (29.0-33.0); MEAN CORPUSCULAR HGB CONC 32.5 g/dl (32.0-37.0); MEAN CORPUSCULAR VOLUME 79.3 fl (82.0-101.0); MEAN PLATELET VOLUME 9.9 fl (7.4-10.4); MONOCYTE # 0.6 10^3/ul (0.3-0.9); MONOCYTES % 7.2 % (0.0-11.0); NEUTROPHIL # 5.5 10^3/ul (1.6-7.5); NEUTROPHILS % 71.3 % (39.0-77.0); PLATELET COUNT 184 10^3/UL (140-415); RED BLOOD COUNT 3.68 10^6/ul (4.20-5.40); WHITE BLOOD COUNT 7.7 10^3/ul (4.8-10.8)
[2017-04-10 05:29] LABS: INR 0.93; PROTIME 12.5 Sec (12.2-14.2)
[2017-04-10 05:30] LABS: PARTIAL THROMBOPLASTIN TIME 33.1 Sec (25.0-35.0)
[2017-04-10] MEDS: PANTOPRAZOLE (EC) 40 MG TAB PO SCH (05:34)
[2017-04-10 05:35] LABS: ALBUMIN 2.8 g/dl (3.3-4.9); ALBUMIN/GLOBULIN RATIO 0.9; BILIRUBIN,INDIRECT 0.1 mg/dl (0-1.1); BILIRUBIN,TOTAL 0.1 mg/dl (0.2-1.3); CALCIUM 9.8 mg/dl (8.4-10.2); CREATININE 0.95 mg/dl (0.44-1.00); POTASSIUM 3.3 mmol/L (3.5-5.1); TOTAL PROTEIN 5.9 g/dl (6.1-8.1)
[2017-04-10 05:38] LABS: MAGNESIUM 2.1 mg/dl (1.7-2.5); PHOSPHORUS 1.6 mg/dl (2.5-4.9)
--- NOTE | 2017-04-10 08:51 | PN ---
DATE: 04/08/2017 SUBJECTIVE: No new complaints. OBJECTIVE: VITAL SIGNS: Temperature 98.5, heart rate 93, respirations 22, blood pressure _ ___/60, saturation 93% _. LABORATORY DATA: WBC today is 6900, hemoglobin 9.3, hematocrit 28.8. Platelets 195. , BUN 28, creatinine is coming down to 1.09. Calcium is a little bit lower than before. The x-ray of the humerus was taken yesterday afternoon. It was reported that has larger lytic lesion of the proximal shaft of the right humerus with associated pathology fracture. ASSESSMENT AND PLAN: Patient with advanced breast cancer with metastatic lesions to the spine, to the humerus and to the liver. The patient is going to be started on chemotherapy in a couple of days and she has fractures of the right humerus proven by the x-ray. I talked to the nurse practitioner, Eugene , who is following the patient. He is going to get a consultation from the orthopedic surgeon most probably Dr. Lim, who operated on this patient before, for another metastatic lesion in the right hip area a few months ago. Other management including hypercalcemia and other problems is going to be done by the medical service. We will continue to follow the patient. Dictated By: DELLA REINOSO/JORJE Conf#: [id number] DID#: [id number] MTDD
[2017-04-10] MEDS: POLYETHYLENE GLYCOL 17 GM PACKET PO SCH ×2 (09:00→20:46)
[2017-04-10] MEDS: ENOXAPARIN 40 MG/0.4 ML SYG SC SCH (09:00)
--- NOTE | 2017-04-10 09:09 | PN ---
Date/Time of Note Date/Time of Note DATE: 04/10/17 TIME: 09:07 Assessment/Plan VTE Prophylaxis VTE Prophylaxis Intervention: LMWH Lines/Catheters IV C[facility]ter Type (from [facility]): Peripheral IV Urinary Cath still in place: No Assessment/Plan Chief Complaint/Hosp Course 1. Metastatic breast cancer. Evidence of metastases to the liver and bones. The patient is being followed by oncology and breast surgery. Plan is to start the patient on chemotherapy after placement of a Port-A-Cath. 2. Severe hypercalcemia. Most probably secondary to #1. Continue bisphosphonates as per oncology. Continue telemetry monitoring. 3. Large right pleural effusion. 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 We will continue to monitor. If the patient has worsening respiratory distress , will consider right thoracentesis. 4. Essential hypertension. Continue antihypertensives. 5. Microcytic hypochromic anemia. Most probably anemia secondary to underlying malignancy. Iron panel showing low TIBC and low iron saturation with a high ferritin level. 6. Acute encephalopathy. Most probably metabolic in origin. Brain CT scan negative for any acute changes. Patient is more awake and alert today. Brain MRI showing small, acute lacunar infarct within the central casi with multiple bone metastases. 7. Acute nonoliguric kidney injury. Etiology unclear. The patient will be adequately hydrated. Nephrotoxic drugs will be used with caution. The patient being followed by nephrology. 8. MRI spine showing soft tissue component at the T6 level causing moderate narrowing of the spinal canal. Neurosurgery consult has been obtained. Conservative management as per Neurosurgery. Status post evaluation by Radiation Oncology. 9. Right humerus pathology fracture. Will involve orthopedic surgery on the case. 10. Fluid, electrolytes and nutrition. Regular diet as tolerated. 11. Deep venous thrombosis prophylaxis. Subcutaneous Lovenox. 12. Gastrointestinal prophylaxis. Proton pump inhibitors. 13. Plan. Continue pain control. Continue IV hydration. Await Port-A-Cath placement. Replete phosphorus and potassium. Await orthopedic surgery intervention. Poor prognosis. PREOPERATIVE RISK STRATIFICATION: The patient is a 57-year-old female with no significant past medical history other than recently diagnosed breast cancer. However, the patient currently has hypertension and also has a moderate right- sided pleural effusion. The patient also has some underlying renal insufficiency and electrolyte imbalances. Provided these comorbidities, the patient is at a mild to moderate risk for perioperative medical complications. Given that, the benefits of the surgery (right humerus fracture repair) could outweigh the risks of the surgery. Case discussed with Dr. Goldberg. Problems: Subjective 24 Hr Interval Summary Free Text/Dictation Patient remains afebrile. Complains of minimal right upper extremity pain. The patient is scheduled for Port-A-Cath placement today. Exam/Review of Systems Vital Signs Vitals Vital Signs Date Time Temp Pulse Resp B/P Pulse Ox O2 Delivery O2 Flow Rate FiO2 04/10/17 08:08 97.7 88 18 126/68 96 04/07/17 08:00 Nasal Cannula 2.0 Intake and Output 04/09/17 04/09/17 04/10/17 15:00 23:00 07:00 Intake Total 1900 ml 800 ml 2030 ml Balance 1900 ml 800 ml 2030 ml Exam GENERAL: This is a 57-year-old female patient lying in bed in no apparent distress. HEENT: Head normocephalic and atraumatic. Eyes: Anicteric sclerae. Conjunctivae clear. ENT: Nasal septum is midline. Oral mucosa is dry. NECK: Supple. No JVD noticed. RESPIRATORY: Bilaterally diminished breath sounds. No adventitious breath sounds heard. No use of accessory muscles of respiration. CARDIAC: Regular rate and rhythm. S1, S2 heard. ABDOMEN: Soft, nontender and nondistended. Bowel sounds positive in all 4 quadrants. GENITOURINARY: Deferred. EXTREMITIES: Minimal pretibial edema. Peripheral pulses are palpable. NEUROLOGIC: The patient is awake, alert, oriented x2 to 3. Results Result Diagram: 04/10/17 0410 04/10/17 0410 Results 24 hrs Laboratory Tests Test 04/10/17 04:10 White Blood Count 7.7 Red Blood Count 3.68 L Hemoglobin 9.5 L Hematocrit 29.2 L Mean Corpuscular Volume 79.3 L Mean Corpuscular Hemoglobin 25.8 L Mean Corpuscular Hemoglobin Concent 32.5 Red Cell Distribution Width 17.0 H Platelet Count 184 Mean Platelet Volume 9.9 Neutrophils % 71.3 Lymphocytes % 19.4 Monocytes % 7.2 Eosinophils % 0.5 Basophils % 0.3 Nucleated Red Blood Cells % 0.0 Neutrophils # 5.5 Lymphocytes # 1.5 Monocytes # 0.6 Eosinophils # 0.0 Basophils # 0.0 Nucleated Red Blood Cells # 0.0 Prothrombin Time 12.5 Prothrombin Time Ratio 1.0 INR International Normalized Ratio 0.93 Activated Partial Thromboplast Time 33.1 Sodium Level 145 H Potassium Level 3.3 L Chloride Level 118 H Carbon Dioxide Level 19 L Anion Gap 11 Blood Urea Nitrogen 18 Creatinine 0.95 Glucose Level 95 Calcium Level 9.8 Phosphorus Level 1.6 #L Magnesium Level 2.1 Total Bilirubin 0.1 L Direct Bilirubin 0.00 Indirect Bilirubin 0.1 Aspartate Amino Transf (AST/SGOT) 332 H Alanine Aminotransferase (ALT/SGPT) 78 H Alkaline Phosphatase 913 H Total Protein 5.9 L Albumin 2.8 L Globulin 3.10 Albumin/Globulin Ratio 0.90 Medications Medications Current Medications Sodium Chloride (NS) 1,000 ml @ 125 mls/hr Q8H IV Last administered on 23:46; Admin Dose 125 MLS/HR; Start 04/05/17 at 02:16 Morphine Sulfate (morphine) 2 mg Q4H PRN IV PAIN LEVEL 7-10 Last administered on 04/08/17 12:01; Admin Dose 2 MG; Start 04/05/17 at 02:30 Anastrozole (Arimidex) 1 mg DAILY PO Last administered on 04/09/17 08:46; Admin Dose 1 MG; Start 04/05/17 at 09:00 Pantoprazole (Protonix Tab) 40 mg DAILY@06 PO Last administered on 04/09/17 05 :47; Admin Dose 40 MG; Start 04/07/17 at 06:00 Lorazepam (Ativan) 0.5 mg Q6H PRN PO ANXIETY; Start 04/06/17 at 16:00 Metoprolol Tartrate (Lopressor) 25 mg BID PO Last administered on 04/09/17 20: 56; Admin Dose 25 MG; Start 04/06/17 at 21:00 Hydralazine HCl (Apresoline) 10 mg Q6H PRN IV SBP>160; Start 04/06/17 at 17:30 Enoxaparin Sodium (Lovenox) 40 mg DAILY SC Last administered on 04/09/17 08:47 ; Admin Dose 40 MG; Start 04/07/17 at 14:30 Polyethylene Glycol (Miralax) 17 gm BID PO Last administered on 04/08/17 21:39 ; Admin Dose 17 GM; Start 04/08/17 at 21:00 Bisacodyl (Dulcolax) 10 mg DAILY PRN PO CONSTIPATION; Start 04/08/17 at 10:30 Bisacodyl (Dulcolax Supp) 10 mg DAILY PRN [place] CONSTIPATION Last administered on 04/08/17t 11:25; Admin Dose 10 MG; Start 04/08/17 at 10:30 SIDRA NAJERA NP Apr 10, 2017 09:08
[2017-04-10] MEDS ORDERED: HEPARIN 1000 UNITS/ML 10 ML INJ ONE (09:29)
[2017-04-10] MEDS ORDERED: LIDOCAINE 2%/EPI 30 ML INJ ONE (09:29)
[2017-04-10] MEDS ORDERED: POTASSIUM PHOSPHATE 30 MM in SOD CHLORIDE 0.9% 250 ML IVPB ONE (09:30)
--- NOTE | 2017-04-10 10:09 | CONS ---
Date/Time of Note Date/Time of Note DATE: 04/10/17 TIME: 10:02 Assessment/Plan Assessment/Plan Chief Complaint/Hosp Course 57 year old female with a history of right breast cancer admitted for generalized weakness, decreased appetite, and confusion per her daughter and found to have hypercalcemia with calcium of 17, acute renal failure, failure to thrive ER positive 99%, UT positive 4%, HER2/gail positive by IHC 3+ based on 04/13/17 right breast mass biopsy and right axillary lymph node was 99% ER, 25% UT, HER2 equivocal by IHC 2+ and equicoval by FISH but negative by equivocal panel. During her admission, a CT of the chest showed the right breast mass, axillary, hilar and mediastinal adenopathy, multiple hepatic masses and pathologic right femoral neck fracture, consistent with metastatic cancer. On 09/01/2016 she underwent excision of metastatic cancer from femoral neck and intertrochanteric area of the right hip and hemiarthroplasty of the right hip. She was seen by Dr. Paola Nielsen for post-op radiation to the right hip which she received for 2 weeks. Path from 09/01/16 right hip surgery showed metastatic breast carcinoma, ER positive, UT negative, HER2 positive disease by IHC and FISH. She was started on arimidex 1 mg daily but per patient, only received 1 month worth of medication and then was to be treated with trastuzumab taxane pertuzumab after local radiation. # Metastatic breast cancer. - US liver shows that the liver is enlarged and contains numerous and confluent lesions, likely metastases, measuring up to 6.6 cm in the left lobe. The liver demonstrates increased echogenicity and coarsened echotexture which are nonspecific and suggest fatty infiltration as well as early chronic liver disease. The main portal vein is patent with proper directional flow. Trace perihepatic ascites. - CXR shows large right pleural effusion, likely malignant, consider diagnostic and therapeutic thoracentesis if symptomatic - Will obtain CT CAP with contrast today now that Cr improved, consider bone scan or outpatient PET/CT. - CA 27-[address] - [address] of the lumbar spine from 02/28/17 showed multiple lytic metastatic foci of the lumbar vertebral bodies, sacrum and visualized iliac bones. MRI C/T/L spine was ordered to r/o cord compression given her new onset weakness and inability to walk of 2 weeks duration, as well as MRI brain given HER2 positive status. - MRI brain 04/06/17 showed multiple osseous metastases - MRI spine 04/06/17 showed extensive osseous metastases throughout the lumbar spine. Mild pathologic compression fracture of the L1 with mild bony retropulsion. Moderate to severe pathologic compression fracture of L2 with moderate bony retropulsion and resultant moderate central canal stenosis. - Per neurosurgery, The patient has widespread spinal metastases, including some with ventral epidural extension into the spinal canal. However, the patient is neurologically intact. There is no role for surgical intervention whatsoever given the widespread and diffuse nature of her metastatic disease burden. - Per rad onc (Pavan Beal) agree with systemic therapy, no plan for radiation for now, given no sensory issues or neurologic deficits. May need radiation to right humerus if has surgery for humerus due to high risk of fracture. - Per ortho, for metastatic fracture of the proximal shaft of the right humerus , plan for stabilization of the pathologic fracture involving the right humerus by intramedullary nailing. This intramedullary nailing can be done as soon as the patient can be medically cleared for surgery and probably it should be done prior to any breast surgery. Discussed with Dr. Lim, will plan for herceptin and pertuzumab only as would not interfere with wound healing and right humerus fx is urgent given unstable pathologic fracture. Chemo orders to be written for herceptin and pertuzumab. Plan for port placement today. - MUGA 69% wnl. Chemo regimen -O-r-t-a-s-k-x-e-l- -7-5- -m-g--/--m-2- -x- -0-.-7-5- -=- -5-6- -m-g--/--m-2- -I-V- -o-v-e-r- -1- -h-o-u-r- -(--2-5--%- -d-o-s-e- -k-a-k-c-o-l-i-o-n- -d-u-e- -t-o- -y-d-t-v-a-t-e-d- -L-F-T-s--)- Trastuzumab 8 mg/kg IV over 90 minutes cycle 1 Pertuzumab 840 mg IV over 60 minutes cycle 1 # Severe hypercalcemia, with calcium level of 17.3, improved to 9.8 today. - s/p calcitonin, aggressive hydration - s/p pamidronate 60 mg IV # Confusion and constipation, likely related to hypercalcemia, now resolved. # Acute renal failure, likely related to dehydration and hypercalcemia, improved to 0.95 today. # Anemia: hgb low sec to malignancy with adequate B12 and ferritin Problems: Consultation Date/Type/Reason Admit Date/Time Apr 04, 2017 at 22:07 Initial Consult Date 04/05/17 Type of Consultation: Oncology Referring Provider: LEISA LANGSTON 24 HR Interval Summary Free Text/Dictation Patient much improved today, alert and oriented. Denies pain. Awaiting port placement. Exam/Review of Systems Vital Signs Vitals Vital Signs Date Time Temp Pulse Resp B/P Pulse Ox O2 Delivery O2 Flow Rate FiO2 04/10/17 08:08 97.7 88 18 126/68 96 04/07/17 08:00 Nasal Cannula 2.0 Intake and Output 04/09/17 04/09/17 04/10/17 15:00 23:00 07:00 Intake Total 1900 ml 800 ml 2030 ml Balance 1900 ml 800 ml 2030 ml Exam Constitutional: alert, oriented Psych: depression Eyes: nl conjunctiva Respiratory: normal air movement Musculoskeletal: nl extremities to inspection Results Result Diagram: 04/10/1740904/10/17 0410 Results 24 hrs Laboratory Tests Test 04/10/17 04:10 White Blood Count 7.7 Red Blood Count 3.68 L Hemoglobin 9.5 L Hematocrit 29.2 L Mean Corpuscular Volume 79.3 L Mean Corpuscular Hemoglobin 25.8 L Mean Corpuscular Hemoglobin Concent 32.5 Red Cell Distribution Width 17.0 H Platelet Count 184 Mean Platelet Volume 9.9 Neutrophils % 71.3 Lymphocytes % 19.4 Monocytes % 7.2 Eosinophils % 0.5 Basophils % 0.3 Nucleated Red Blood Cells % 0.0 Neutrophils # 5.5 Lymphocytes # 1.5 Monocytes # 0.6 Eosinophils # 0.0 Basophils # 0.0 Nucleated Red Blood Cells # 0.0 Prothrombin Time 12.5 Prothrombin Time Ratio 1.0 INR International Normalized Ratio 0.93 Activated Partial Thromboplast Time 33.1 Sodium Level 145 H Potassium Level 3.3 L Chloride Level 118 H Carbon Dioxide Level 19 L Anion Gap 11 Blood Urea Nitrogen 18 Creatinine 0.95 Glucose Level 95 Calcium Level 9.8 Phosphorus Level 1.6 #L Magnesium Level 2.1 Total Bilirubin 0.1 L Direct Bilirubin 0.00 Indirect Bilirubin 0.1 Aspartate Amino Transf (AST/SGOT) 332 H Alanine Aminotransferase (ALT/SGPT) 78 H Alkaline Phosphatase 913 H Total Protein 5.9 L Albumin 2.8 L Globulin 3.10 Albumin/Globulin Ratio 0.90 Medications Medications Current Medications Sodium Chloride (NS) 1,000 ml @ 125 mls/hr Q8H IV Last administered on 23:46; Admin Dose 125 MLS/HR; Start 04/05/17 at 02:16 Morphine Sulfate (morphine) 2 mg Q4H PRN IV PAIN LEVEL 7-10 Last administered on 04/08/17 12:01; Admin Dose 2 MG; Start 04/05/17 at 02:30 Anastrozole (Arimidex) 1 mg DAILY PO Last administered on 04/09/17 08:46; Admin Dose 1 MG; Start 04/05/17 at 09:00 Pantoprazole (Protonix Tab) 40 mg DAILY@06 PO Last administered on 04/09/17 05 :47; Admin Dose 40 MG; Start 04/07/17 at 06:00 Lorazepam (Ativan) 0.5 mg Q6H PRN PO ANXIETY; Start 04/06/17 at 16:00 Metoprolol Tartrate (Lopressor) 25 mg BID PO Last administered on 04/09/17 20: 56; Admin Dose 25 MG; Start 04/06/17 at 21:00 Hydralazine HCl (Apresoline) 10 mg Q6H PRN IV SBP>160; Start 04/06/17 at 17:30 Enoxaparin Sodium (Lovenox) 40 mg DAILY SC Last administered on 04/09/17 08:47 ; Admin Dose 40 MG; Start 04/07/17 at 14:30 Polyethylene Glycol (Miralax) 17 gm BID PO Last administered on 04/08/17 21:39 ; Admin Dose 17 GM; Start 04/08/17 at 21:00 Bisacodyl (Dulcolax) 10 mg DAILY PRN PO CONSTIPATION; Start 04/08/17 at 10:30 Bisacodyl 10 mg 10 mg DAILY PRN [place] CONSTIPATION Last administered on 04/08/17 11:25; Admin Dose 10 MG; Start 04/08/17 at 10:30 Potassium Phosphate/Sodium Chloride (K Phos (Mm)/NS) 260 ml @ 65 mls/hr ONCE ONCE IVPB ; Start 04/10/17 at 09:30; Stop 04/10/17 at 13:29 JUAN SHETH MD Apr 10, 2017 10:09
[2017-04-10] MEDS: METOPROLOL 25 MG TAB PO SCH ×2 (10:10→20:45)
[2017-04-10] MEDS: ANASTROZOLE 1 MG TAB PO SCH (10:11)
[2017-04-10] MEDS: SOD CHLORIDE 0.9% 1,000 ML IV SCH ×2 (10:40→15:47)
[2017-04-10] MEDS ORDERED: SOD CHLORIDE 0.9% 500 ML ONE (11:43)
[2017-04-10] MEDS ORDERED: MIDAZOLAM 1 MG/ML 2 ML INJ ONE (11:43)
[2017-04-10] MEDS ORDERED: FENTAnyl 50 MCG/ML VIAL ONE (11:43)
[2017-04-10] MEDS ORDERED: CEFAZOLIN 1 GM/50 ML (PMX) 50 ML IVPB ONE ×2 (11:53→12:00)
[2017-04-10] MEDS ORDERED: POLYMYXIN/BACITRACIN 1L IRRIG IRR ONE (12:00)
--- NOTE | 2017-04-10 13:48 | RADRPT ---
PROCEDURE: FLUOROSCOPIC AND ULTRASONOGRAPHIC-GUIDED PLACEMENT OF LEFT CHEST PORT. CLINICAL INDICATION: History of breast cancer. Venous access for chemotherapy. TECHNIQUE: INTRAPROCEDURE MEDICATIONS: PB antibiotic solution 40 cc applied topically. 1 gram Ancef intravenous ly, intra-op. IV Versed and Fentanyl per protocol. TECHNIQUE: Informed consent was obtained. The procedure, risks, benefits, complications and alternat amberly were explained to the patient. Risks including bleeding, infection, and pneumothorax were expl ained. The patient understood and was willing to proceed. A procedural pause was performed. The patient's name, date of , and procedure to be performed w ere verified. The central line was inserted with all elements of maximal sterile barrier technique. All of the fol lowing were used: head covering, facial mask, sterile gown, sterile gloves, a large sterile sheet, h and hygiene, and 2% chlorhexidine for cutaneous antisepsis. The left neck and anterior/superior chest wall were prepped and draped in usual sterile fashion. Limited sonography of the left neck was then performed. Noted is a patent left internal jugular vein . Following the local injection of 1% lidocaine, the left internal jugular vein was punctured under so nographic guidance with a 20-gauge needle through which a 0.018 inch floppy tip guidewire was advanc ed into the superior vena cava with fluoroscopic guidance. The tract was dilated to 5 Nepalese and t he wire was then replaced with a 0.035 in Glidewire. Serial dilatation was then performed and a 7 F rench peel away sheath was introduced. A site just inferior to the clavicle in the superior anterior left chest wall was localized. One per cent lidocaine was used as local anesthesia. A transverse 3 cm incision was made utilizing a 15 blad e scalpel. Utilizing blunt dissection a subcutaneous pocket was created inferior to the incision. Th e cavity was flushed with approximately 40 cc of PB antibiotic solution. The catheter was tunneled underneath the skin from the newly created pocket to the puncture site in the neck. The central line catheter was pulled through the tract. The catheter was then advanced thr ough the sheath until the tip was positioned in the right atrium. The peel-away sheath was removed. The catheter was flushed and clamped. The catheter was then connected to the 6.6 Nepalese [employer] power port. The port was then placed into the pocket. Prior to closing the instrument and sponge count was verified and was correct. The subcutaneous tissue was closed with 3-0 Vicryl interrupted suture. The skin at the site of the pock et and in the neck was closed with 4-0 Vicryl suture in a running subcuticular technique. The port w as flushed with 2000 units of heparin in 2 cc utilizing a Elias needle. The needle was removed. A dr essing was applied. The patient tolerated procedure well. COMPARISON: None. FINDINGS: Ultrasound images were recorded and stored in the patient's medical record. Final radiographic images demonstrate the tip of the catheter in the upper right atrium. A total of 0.3 minutes of fluoroscopy time was used. 5 images of the chest were obtained with image intensifi er. The ultrasound images demonstrate the needle entering the jugular vein. IMPRESSION: 1. Successful ultrasonographic and fluoroscopic guided placement of left chest port. RPTAT: QQ .Levar Henriquez MD, MD Date Time Electronically viewed and signed by .Levar Henriquez MD, on 04/10/2017 13:48 .R/
[2017-04-10] MEDS ORDERED: SOD CHLORIDE 0.9% 100 ML ONE (14:08)
[2017-04-10] MEDS ORDERED: IOHEXOL 300MG/ML 150 ML BTL ONE ×2 (14:08→15:11)
--- NOTE | 2017-04-10 15:05 | PN ---
DATE: 04/10/2017 SUBJECTIVE: The patient is a 57-year-old who was admitted because of weakness and anemia and was found to have metastatic disease of the breast, to liver and to the spine and to the right humerus causing humeral shaft fracture. Plan was to proceed with right breast mastectomy as original site of the tumor. Because the tumor has metastasized to the skin over the breast as well, but since the urgency came for the humerus fracture nailing and also for the fact that metastasis to the spine and multiple areas, therefore by suggestion of chemotherapy decision was made to proceed with chemotherapy and possibly perform mastectomy at the end of the course. PHYSICAL EXAMINATION: GENERAL: Today condition is stable. GENERAL: Alert, awake, oriented, as much as could be as before. VITAL SIGNS: Temperature 97.7, pulse 88, respiratory rate 18, blood pressure 126/68, saturation 96% on room air. LABORATORY DATA: Total protein is 5.9, albumin is 2.8. The patient is malnourished. Sodium is 145, potassium 3.3 low. BUN 18, creatinine 0.95. PLAN: The patient will go to radiology for placement of Port-A-Cath. I assume as soon as Port-A-Cath is inserted the patient is going for operation on the right humerus by Dr. Lim during future days. We are holding operation on Rt. Breast as pt. is supposed to be started on Chemotherapy soon. Dictated By: DELLA ALVAREZ MD PS/NTS Conf#: [id number] DID#: [id number] MTDD
[2017-04-10] MEDS: morphine 2 MG INJ IV PRN (15:48)
--- NOTE | 2017-04-10 17:03 | RADRPT ---
PROCEDURE: CT Chest, Abdomen, and Pelvis with contrast. CLINICAL INDICATION: Cancer, restaging. TECHNIQUE: Volumetrically-acquired images of the chest, abdomen, and pelvis were obtained following the administration of 100 cc of Omnipaque 300 intravenous contrast. CTDIvol = 11.3, 12.1 mGy; DLP = 909, 781 mGy-cm. One or more of the following dose reduction technique were used: Automatic exposure control, adjustm ent of the mA and/or kV according to patient size, and use of iterative reconstruction technique. COMPARISON: CT scan from 08/27/2016. FINDINGS: Again demonstrated is the right breast mass with significant interval progression of metastasis seen throughout the body. ONCOLOGIC FINDINGS Measurable disease (as per RECIST 1.1) with target lesions as follows: 1. Right breast mass 6.6 x 3.7 cm (series 3 image 60) 2. Right segment 6 hepatic mass 7.7 x 5.5 cm (series 3 image 145) 3. Right segment 8 hepatic mass 7.2 x 7.3 cm (series 3 image 111) 4. Left iliac wing 5.4 x 4.1 cm (series 3 image 188) 5. Right T6 Paravertebral lesion which destroys and traverses several vertebral bodies and invades into the spinal canal, measuring 4.7 x 4.2 centimeter (series 3 image 58) Nonmeasurable disease: 1. Large right and trace left pleural effusions are seen. 2. Small perilymphatic micronodules are seen throughout both lungs suggestive of lymphangitic carci nomatosis Additional comments: Enlarged mediastinal and right axillary lymph nodes are seen scattered through out the paratracheal space. Scattered soft tissue and lytic osseous metastases are seen throughout the osseous skeleton. Diffuse osseous metastasis are seen with the 2 largest lesions as dictated ab ove. Interval right total hip replacement. NON-ONCOLOGIC FINDINGS Normal heart size without pericardial effusion. There is a left chest wall port catheter with the t ip in the right atrium. The gallbladder wall is thickened, nonspecific. No intra- or extra-hepatic biliary dilatation. Spleen, adrenal glands, and pancreas are unremarkable. The kidneys are unremarkable. No hydronephr osis. Bowel is normal in caliber without mural thickening. The bladder is unremarkable. Small amount of pelvic fluid is seen.. IMPRESSION: 1. Significant progression of diffuse metastatic disease with target lesions as listed above. Larg e right breast mass is again demonstrated with severe worsening of right axillary and mediastinal ly mphadenopathy. There is development of large right and trace left pleural effusions with evidence of pulmonary lymphangitic carcinomatosis. Significant worsening of diffuse hepatic and osseous meta stasis seen throughout the body. There is interval right hip replacement. 2. The T6 vertebral body lesion traverses over several vertebral body levels and invades the spinal canal. 3. Nonspecific gallbladder wall thickening. 4. Trace pelvic fluid. RPTAT:PP .Delfino Lafleur MD, Date Time Electronically viewed and signed by .Delfino Lafleur MD, MD on 04/10/2017 17:03 .V/
--- NOTE | 2017-04-10 17:44 | CONS ---
Date/Time of Note Date/Time of Note DATE: 04/10/17 TIME: 17:42 Assessment/Plan Assessment/Plan Additional Assessment/Plan 1. Severe hypercalcemia with calcium level of 17.3 on admission. 2. Acute kidney injury secondary to prerenal azotemia. 3. History of metastatic breast cancer, 4. Hypokalemia with hypophosphatemia 5. Hypomagnesemia. Hypokalemia, Hypophosphatemia Plan: No plan for surgery now S/p Zometa on 04/06/17 for hypercalcemia, now Ca mproved to 9.8 today , Po4 1.6- will give Potassium phosphate 30mmOL iV x 1 dose now Cr improved to normal BP stable will follow up Consultation Date/Type/Reason Admit Date/Time Apr 04, 2017 at 22:07 Initial Consult Date Type of Consultation: NEPHROLOGY Referring Provider: LEISA LANGSTON Exam/Review of Systems Vital Signs Vitals Vital Signs Date Time Temp Pulse Resp B/P Pulse Ox O2 Delivery O2 Flow Rate FiO2 04/10/17 15:09 98.3 100 16 137/75 96 04/10/17 13:10 Nasal Cannula 3 Intake and Output 04/09/17 04/09/17 04/10/17 15:00 23:00 07:00 Intake Total 1900 ml 800 ml 2030 ml Balance 1900 ml 800 ml 2030 ml Exam GENERAL: The patient is awake, alert HEENT: Atraumatic, normocephalic. Pupils equal, round, reactive to light and accommodation. Extraocular muscles are intact. NECK: Supple, no JVD, no lymphadenopathy. LUNGS: Clear to auscultation. Decreased breath sounds at the right middle lobe and right lower lobe. HEART: S1, S2, with regular rhythm, no murmur. ABDOMEN: Soft, nontender, nondistended. Bowel sounds are present. EXTREMITIES: No clubbing, cyanosis, or edema. NEUROLOGICAL: Awake, alert, slightly confused. Results Result Diagram: 04/10/17 0410 04/10/17409 Results 24 hrs Laboratory Tests Test 04/10/17 04:10 White Blood Count 7.7 Red Blood Count 3.68 L Hemoglobin 9.5 L Hematocrit 29.2 L Mean Corpuscular Volume 79.3 L Mean Corpuscular Hemoglobin 25.8 L Mean Corpuscular Hemoglobin Concent 32.5 Red Cell Distribution Width 17.0 H Platelet Count 184 Mean Platelet Volume 9.9 Neutrophils % 71.3 Lymphocytes % 19.4 Monocytes % 7.2 Eosinophils % 0.5 Basophils % 0.3 Nucleated Red Blood Cells % 0.0 Neutrophils # 5.5 Lymphocytes # 1.5 Monocytes # 0.6 Eosinophils # 0.0 Basophils # 0.0 Nucleated Red Blood Cells # 0.0 Prothrombin Time 12.5 Prothrombin Time Ratio 1.0 INR International Normalized Ratio 0.93 Activated Partial Thromboplast Time 33.1 Sodium Level 145 H Potassium Level 3.3 L Chloride Level 118 H Carbon Dioxide Level 19 L Anion Gap 11 Blood Urea Nitrogen 18 Creatinine 0.95 Glucose Level 95 Calcium Level 9.8 Phosphorus Level 1.6 #L Magnesium Level 2.1 Total Bilirubin 0.1 L Direct Bilirubin 0.00 Indirect Bilirubin 0.1 Aspartate Amino Transf (AST/SGOT) 332 H Alanine Aminotransferase (ALT/SGPT) 78 H Alkaline Phosphatase 913 H Total Protein 5.9 L Albumin 2.8 L Globulin 3.10 Albumin/Globulin Ratio 0.90 Medications Medications Current Medications Morphine Sulfate (morphine) 2 mg Q4H PRN IV PAIN LEVEL 7-10 Last administered on 04/10/17 15:48; Admin Dose 2 MG; Start 04/05/17 at 02:30 Anastrozole (Arimidex) 1 mg DAILY PO Last administered on 04/10/17 10:11; Admin Dose 1 MG; Start 04/05/17 at 09:00 Pantoprazole (Protonix Tab) 40 mg DAILY@06 PO Last administered on 04/09/17 05 :47; Admin Dose 40 MG; Start 04/07/17 at 06:00 Lorazepam (Ativan) 0.5 mg Q6H PRN PO ANXIETY; Start 04/06/17 at 16:00 Metoprolol Tartrate (Lopressor) 25 mg BID PO Last administered on 04/10/17 10: 10; Admin Dose 25 MG; Start 04/06/17 at 21:00 Hydralazine HCl (Apresoline) 10 mg Q6H PRN IV SBP>160; Start 04/06/17 at 17:30 Enoxaparin Sodium (Lovenox) 40 mg DAILY SC Last administered on 04/09/17 08:47 ; Admin Dose 40 MG; Start 04/07/17 at 14:30 Polyethylene Glycol (Miralax) 17 gm BID PO Last administered on 04/08/17 21:39 ; Admin Dose 17 GM; Start 04/08/17 at 21:00 Bisacodyl (Dulcolax) 10 mg DAILY PRN PO CONSTIPATION; Start 04/08/17 at 10:30 Bisacodyl (Dulcolax Supp) 10 mg DAILY PRN [place] CONSTIPATION Last administered on 04/08/17 11:25; Admin Dose 10 MG; Start 04/08/17 at 10:30 HANNA KIRKLAND MD Apr 10, 2017 17:44
[2017-04-10] MEDS: DEXAMETHASONE 4 MG TAB PO SCH (23:59)
[2017-04-11] VITALS (21 sets, daily range): BP systolic 99–149; BP diastolic 52–82; PULSE 88–115; RESP 12–21
[2017-04-11] MEDS: PANTOPRAZOLE (EC) 40 MG TAB PO SCH ×2 (05:11→06:00)
[2017-04-11 06:02] LABS: ALBUMIN/GLOBULIN RATIO 1.03; BILIRUBIN,INDIRECT 0.2 mg/dl (0-1.1); BILIRUBIN,TOTAL 0.2 mg/dl (0.2-1.3); CALCIUM 9.2 mg/dl (8.4-10.2); CREATININE 0.93 mg/dl (0.44-1.00); POTASSIUM 4.2 mmol/L (3.5-5.1); TOTAL PROTEIN 5.9 g/dl (6.1-8.1)
[2017-04-11 06:06] LABS: MAGNESIUM 1.7 mg/dl (1.7-2.5); PHOSPHORUS 2.6 mg/dl (2.5-4.9)
[2017-04-11 06:20] LABS: ADD SCAN DIFF NO
[2017-04-11 07:45] LABS: BASOPHILS % 0.3 % (0.0-2.0); EOSINOPHILS % 0.1 % (0.0-7.0); LYMPHOCYTES % 12.9 % (15.0-51.0); MEAN CORPUSCULAR HEMOGLOBIN 26.6 pg (29.0-33.0); MEAN CORPUSCULAR HGB CONC 33.3 g/dl (32.0-37.0); MEAN CORPUSCULAR VOLUME 79.9 fl (82.0-101.0); MEAN PLATELET VOLUME 10.7 fl (7.4-10.4); MONOCYTE # 0.2 10^3/ul (0.3-0.9); NEUTROPHIL # 6.7 10^3/ul (1.6-7.5); NEUTROPHILS % 83.2 % (39.0-77.0); PLATELET COUNT 188 10^3/UL (140-415); RED BLOOD COUNT 4.13 10^6/ul (4.20-5.40)
[2017-04-11] MEDS: METOPROLOL 25 MG TAB PO SCH ×2 (09:00→20:36)
[2017-04-11] MEDS: ANASTROZOLE 1 MG TAB PO SCH (09:00)
[2017-04-11] MEDS: POLYETHYLENE GLYCOL 17 GM PACKET PO SCH ×2 (09:00→20:36)
[2017-04-11] MEDS: ENOXAPARIN 40 MG/0.4 ML SYG SC SCH (09:00)
[2017-04-11] MEDS: DEXAMETHASONE 4 MG TAB PO SCH ×2 (09:00→20:35)
--- NOTE | 2017-04-11 10:40 | CONS ---
Date/Time of Note Date/Time of Note DATE: 04/11/17 TIME: 10:35 Assessment/Plan Assessment/Plan Chief Complaint/Hosp Course 57 year old female with a history of right breast cancer admitted for generalized weakness, decreased appetite, and confusion per her daughter and found to have hypercalcemia with calcium of 17, acute renal failure, failure to thrive ER positive 99%, UT positive 4%, HER2/gail positive by IHC 3+ based on 04/13/17 right breast mass biopsy and right axillary lymph node was 99% ER, 25% UT, HER2 equivocal by IHC 2+ and equicoval by FISH but negative by equivocal panel. During her admission, a CT of the chest showed the right breast mass, axillary, hilar and mediastinal adenopathy, multiple hepatic masses and pathologic right femoral neck fracture, consistent with metastatic cancer. On 09/01/2016 she underwent excision of metastatic cancer from femoral neck and intertrochanteric area of the right hip and hemiarthroplasty of the right hip. She was seen by Dr. Paola Nielsen for post-op radiation to the right hip which she received for 2 weeks. Path from 09/01/16 right hip surgery showed metastatic breast carcinoma, ER positive, UT negative, HER2 positive disease by IHC and FISH. She was started on arimidex 1 mg daily but per patient, only received 1 month worth of medication and then was to be treated with trastuzumab taxane pertuzumab after local radiation. # Metastatic breast cancer. - US liver shows that the liver is enlarged and contains numerous and confluent lesions, likely metastases, measuring up to 6.6 cm in the left lobe. The liver demonstrates increased echogenicity and coarsened echotexture which are nonspecific and suggest fatty infiltration as well as early chronic liver disease. The main portal vein is patent with proper directional flow. Trace perihepatic ascites. - CXR shows large right pleural effusion, likely malignant, consider diagnostic and therapeutic thoracentesis if symptomatic - CT CAP with contrast 04/10/17 shows 1. Significant progression of diffuse metastatic disease with target lesions as listed above. Large right breast mass is again demonstrated with severe worsening of right axillary and mediastinal lymphadenopathy. There is development of large right and trace left pleural effusions with evidence of pulmonary lymphangitic carcinomatosis. Significant worsening of diffuse hepatic and osseous metastasis seen throughout the body. There is interval right hip replacement. 2. The T6 vertebral body lesion traverses over several vertebral body levels and invades the spinal canal., consider bone scan or outpatient PET/CT. - CA 27-29 > 450, CA 15-3 607 - CT of the lumbar spine from 02/28/17 showed multiple lytic metastatic foci of the lumbar vertebral bodies, sacrum and visualized iliac bones. - MRI brain 04/06/17 showed multiple osseous metastases - MRI spine 04/06/17 showed extensive osseous metastases throughout the spine with compression fractures, at the T6 level on the right there is a soft tissue component that is causing moderate narrowing of the canal at least touching the cord, no clear cord compression. - Per neurosurgery, The patient has widespread spinal metastases, including some with ventral epidural extension into the spinal canal. However, the patient is neurologically intact. There is no role for surgical intervention whatsoever given the widespread and diffuse nature of her metastatic disease burden. - Per rad onc (Pavan Beal) agree with systemic therapy, no plan for radiation for now, given no sensory issues or neurologic deficits. May need radiation to right humerus if has surgery for humerus due to high risk of fracture. - Per ortho, for metastatic fracture of the proximal shaft of the right humerus , plan for stabilization of the pathologic fracture involving the right humerus by intramedullary nailing. This intramedullary nailing can be done as soon as the patient can be medically cleared for surgery and probably it should be done prior to any breast surgery. Discussed with Dr. Lim, will plan for herceptin and pertuzumab only as would not interfere with wound healing and right humerus fx is urgent given unstable pathologic fracture. Plan for surgery today per Dr. Lim, will give herceptin and pertuzumab once arrives. Chemo orders to be written for herceptin and pertuzumab, no premeds needed. s/ p port 04/10/17. - MUGA 69% wnl. Chemo regimen -E-z-y-z-t-t-x-e-l- -7-5- -m-g--/--m-2- -x- -0-.-7-5- -=- -5-6- -m-g--/--m-2- -I-V- -o-v-e-r- -1- -h-o-u-r- -(--2-5--%- -d-o-s-e- -i-r-o-h-j-z-i-o-n- -d-u-e- -t-o- -c-c-l-v-a-t-e-d- -L-F-T-s--)- Trastuzumab 8 mg/kg IV over 90 minutes cycle 1 Pertuzumab 840 mg IV over 60 minutes cycle 1 # Severe hypercalcemia, with calcium level of 17.3, improved to 9.2 today. - s/p calcitonin, aggressive hydration - s/p pamidronate 60 mg IV # Confusion and constipation, likely related to hypercalcemia, now resolved. # Acute renal failure, likely related to dehydration and hypercalcemia, improved to Cr 0.93 today. # Anemia: hgb low sec to malignancy with adequate B12 and ferritin Problems: Consultation Date/Type/Reason Admit Date/Time Apr 04, 2017 at 22:07 Initial Consult Date 04/05/17 Type of Consultation: Oncology Referring Provider: LEISA LANGSTON 24 HR Interval Summary Free Text/Dictation Patient doing well, no complaints, alert and oriented. Exam/Review of Systems Vital Signs Vitals Vital Signs Date Time Temp Pulse Resp B/P Pulse Ox O2 Delivery O2 Flow Rate FiO2 04/11/17 07:00 98.8 98 18 143/77 97 04/10/17 16:40 Room Air 04/10/17 13:10 3 Intake and Output 04/10/17 04/10/17 04/11/17 15:00 23:00 07:00 Intake Total 250 ml 510 ml 765 ml Balance 250 ml 510 ml 765 ml Exam Constitutional: alert, oriented Psych: depression Eyes: nl conjunctiva Respiratory: normal air movement Musculoskeletal: nl extremities to inspection Results Result Diagram: 04/11/17 0443 04/11/17 0500 Results 24 hrs Laboratory Tests Test 04/11/17 04:43 04/11/17 05:00 04/11/17 06:11 White Blood Count 8.0 Red Blood Count 4.13 L Hemoglobin 11.0 L Hematocrit 33.0 L Mean Corpuscular Volume 79.9 L Mean Corpuscular Hemoglobin 26.6 L Mean Corpuscular Hemoglobin Concent 33.3 Red Cell Distribution Width 17.0 H Platelet Count 188 Mean Platelet Volume 10.7 H Neutrophils % 83.2 H Lymphocytes % 12.9 L Monocytes % 2.0 Eosinophils % 0.1 Basophils % 0.3 Nucleated Red Blood Cells % 0.0 Neutrophils # 6.7 Lymphocytes # 1.0 Monocytes # 0.2 L Eosinophils # 0.0 Basophils # 0.0 Nucleated Red Blood Cells # 0.0 Sodium Level 139 Potassium Level 4.2 Chloride Level 112 H Carbon Dioxide Level 21 Anion Gap 10 Blood Urea Nitrogen 19 Creatinine 0.93 Glucose Level 141 # Calcium Level 9.2 Phosphorus Level 2.6 Magnesium Level 1.7 Total Bilirubin 0.2 Direct Bilirubin 0.00 Indirect Bilirubin 0.2 Aspartate Amino Transf (AST/SGOT) 354 H Alanine Aminotransferase (ALT/SGPT) 81 H Alkaline Phosphatase 985 H Total Protein 5.9 L Albumin 3.0 L Globulin 2.90 Albumin/Globulin Ratio 1.03 Lab Scanned Report BLOOD TRANSFUSION Medications Medications Current Medications Morphine Sulfate (morphine) 2 mg Q4H PRN IV PAIN LEVEL 7-10 Last administered on 04/10/17 15:48; Admin Dose 2 MG; Start 04/05/17 at 02:30 Anastrozole (Arimidex) 1 mg DAILY PO Last administered on 04/10/17 10:11; Admin Dose 1 MG; Start 04/05/17 at 09:00 Pantoprazole (Protonix Tab) 40 mg DAILY@06 PO Last administered on 04/09/17 05 :47; Admin Dose 40 MG; Start 04/07/17 at 06:00 Lorazepam (Ativan) 0.5 mg Q6H PRN PO ANXIETY; Start 04/06/17 at 16:00 Metoprolol Tartrate (Lopressor) 25 mg BID PO Last administered on 04/10/17 20: 45; Admin Dose 25 MG; Start 04/06/17 at 21:00 Hydralazine HCl (Apresoline) 10 mg Q6H PRN IV SBP>160; Start 04/06/17 at 17:30 Enoxaparin Sodium (Lovenox) 40 mg DAILY SC Last administered on 04/09/17 08:47 ; Admin Dose 40 MG; Start 04/07/17 at 14:30 Polyethylene Glycol (Miralax) 17 gm BID PO Last administered on 04/08/17 21:39 ; Admin Dose 17 GM; Start 04/08/17 at 21:00 Bisacodyl (Dulcolax) 10 mg DAILY PRN PO CONSTIPATION; Start 04/08/17 at 10:30 Bisacodyl (Dulcolax Supp) 10 mg DAILY PRN [place] CONSTIPATION Last administered on 04/08/17 11:25; Admin Dose 10 MG; Start 04/08/17 at 10:30 Dexamethasone (Decadron) 8 mg BID PO Last administered on 04/10/17 23:59; Admin Dose 8 MG; Start 04/10/17 at 22:00; Stop 04/13/17 at 09:01 JUAN SHETH MD Apr 11, 2017 10:40
[2017-04-11] MEDS: morphine 2 MG INJ IV PRN ×3 (12:44→20:24)
--- NOTE | 2017-04-11 13:52 | PN ---
Date/Time of Note Date/Time of Note DATE: 04/11/17 TIME: 13:47 Assessment/Plan VTE Prophylaxis VTE Prophylaxis Intervention: LMWH Lines/Catheters IV [facility]atheter Type (from [facility] Portacath Urinary Cath still in place: No Assessment/Plan Assessment/Plan 1. Metastatic breast cancer. Evidence of metastases to the liver and bones. The patient is being followed by oncology and breast surgery. Plan is to start the patient on chemotherapy, once surgery completed for humeral fx. 2. Right humerus pathology fracture. Ortho for surgical intervention today - as per ortho recs 3. Severe hypercalcemia. Most probably secondary to #1. Continue bisphosphonates as per oncology. Continue telemetry monitoring. 4. Large right pleural effusion. 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 We will continue to monitor. If the patient has worsening respiratory distress , will consider right thoracentesis. - will pulm consultation 5. Essential hypertension. Continue antihypertensives. 6. Microcytic hypochromic anemia - anemia of CA. Iron panel showing low TIBC and low iron saturation with a high ferritin level. 7. Acute encephalopathy. Most probably metabolic in origin. Brain CT scan negative for any acute changes. Patient is more awake and alert today. Brain MRI showing small, acute lacunar infarct within the central casi with multiple bone metastases. 8. Acute nonoliguric kidney injury. Etiology unclear. The patient will be adequately hydrated. Nephrotoxic drugs will be used with caution. The patient being followed by nephrology. 9. MRI spine showing soft tissue component at the T6 level causing moderate narrowing of the spinal canal. Neurosurgery consult has been obtained. Conservative management as per Neurosurgery. Status post evaluation by Radiation Oncology. 10. Fluid, electrolytes and nutrition. Regular diet as tolerated. 11. Deep venous thrombosis prophylaxis. Subcutaneous Lovenox. 12. Gastrointestinal prophylaxis. Proton pump inhibitors. Plan. Continue pain control. port-a-cath placed, needs right humeral fx repair today - in OR - overall poor prognosis - as per clinical course. PREOPERATIVE RISK STRATIFICATION: mild to moderate risk for surgery, medically cleared. this progress note took greater than 40 minutes to complete Subjective 24 Hr Interval Summary Free Text/Dictation Patient had no overnight events. Pain is under good controlled. Scheduled for surgery around 2 pm. Spoke to her in regards to the care plan. 15 minutes spent. Exam/Review of Systems Vital Signs Vitals Vital Signs Date Time Temp Pulse Resp B/P Pulse Ox O2 Delivery O2 Flow Rate FiO2 04/11/17 07:00 98.8 98 18 143/77 97 04/10/17 16:40 Room Air 04/10/17 13:10 3 Intake and Output 04/10/17 04/10/17 04/11/17 15:00 23:00 07:00 Intake Total 250 ml 510 ml 765 ml Balance 250 ml 510 ml 765 ml Exam Gen Veronica: mild distress 2/2 to right arm pain, AAOx4 HEENT: NC/AT, PERRLA, EOMI, no pharyngeal erythema, no tonsillar exudates, no lymphadenopathy, no JVD, no carotid bruits NECK: supple, no thyromegaly THORAX: symmetrical, no obvious deformities CV: S1S2, RRR, no M/G/R Lungs: CTAB no W/C/R/R Abd: soft, NT/ND, +BS, no rebound, no guarding, neg HSM EXT: decreased range of motion 2/2 to fracture right upper extremity, normal movement all other extremities Neuro: CN II-XII grossly intact, no focal deficits Psych: fair mood and affect Skin: C/D/I Results Result Diagram: 04/11/17 0443 04/11/17 0500 Results 24 hrs Laboratory Tests Test 04/11/17 04:43 04/11/17 05:00 04/11/17 06:11 White Blood Count 8.0 Red Blood Count 4.13 L Hemoglobin 11.0 L Hematocrit 33.0 L Mean Corpuscular Volume 79.9 L Mean Corpuscular Hemoglobin 26.6 L Mean Corpuscular Hemoglobin Concent 33.3 Red Cell Distribution Width 17.0 H Platelet Count 188 Mean Platelet Volume 10.7 H Neutrophils % 83.2 H Lymphocytes % 12.9 L Monocytes % 2.0 Eosinophils % 0.1 Basophils % 0.3 Nucleated Red Blood Cells % 0.0 Neutrophils # 6.7 Lymphocytes # 1.0 Monocytes # 0.2 L Eosinophils # 0.0 Basophils # 0.0 Nucleated Red Blood Cells # 0.0 Sodium Level 139 Potassium Level 4.2 Chloride Level 112 H Carbon Dioxide Level 21 Anion Gap 10 Blood Urea Nitrogen 19 Creatinine 0.93 Glucose Level 141 # Calcium Level 9.2 Phosphorus Level 2.6 Magnesium Level 1.7 Total Bilirubin 0.2 Direct Bilirubin 0.00 Indirect Bilirubin 0.2 Aspartate Amino Transf (AST/SGOT) 354 H Alanine Aminotransferase (ALT/SGPT) 81 H Alkaline Phosphatase 985 H Total Protein 5.9 L Albumin 3.0 L Globulin 2.90 Albumin/Globulin Ratio 1.03 Lab Scanned Report BLOOD TRANSFUSION Medications Medications Current Medications Morphine Sulfate (morphine) 2 mg Q4H PRN IV PAIN LEVEL 7-10 Last administered on 04/11/17 12:44; Admin Dose 2 MG; Start 04/05/17 at 02:30 Anastrozole (Arimidex) 1 mg DAILY PO Last administered on 04/10/17 10:11; Admin Dose 1 MG; Start 04/05/17 at 09:00 Pantoprazole (Protonix Tab) 40 mg DAILY@06 PO Last administered on 04/09/17 05 :47; Admin Dose 40 MG; Start 04/07/17 at 06:00 Lorazepam (Ativan) 0.5 mg Q6H PRN PO ANXIETY; Start 04/06/17 at 16:00 Metoprolol Tartrate (Lopressor) 25 mg BID PO Last administered on 04/10/17 20: 45; Admin Dose 25 MG; Start 04/06/17 at 21:00 Hydralazine HCl (Apresoline) 10 mg Q6H PRN IV SBP>160; Start 04/06/17 at 17:30 Enoxaparin Sodium (Lovenox) 40 mg DAILY SC Last administered on 04/09/17 08:47 ; Admin Dose 40 MG; Start 04/07/17 at 14:30 Polyethylene Glycol (Miralax) 17 gm BID PO Last administered on 04/08/17 21:39 ; Admin Dose 17 GM; Start 04/08/17 at 21:00 Bisacodyl (Dulcolax) 10 mg DAILY PRN PO CONSTIPATION; Start 04/08/17 at 10:30 Bisacodyl (Dulcolax Supp) 10 mg DAILY PRN [place] CONSTIPATION Last administered on 04/08/17 11:25; Admin Dose 10 MG; Start 04/08/17 at 10:30 Dexamethasone (Decadron) 8 mg BID PO Last administered on 04/10/17 23:59; Admin Dose 8 MG; Start 04/10/17 at 22:00; Stop 04/13/17 at 09:01 IVANIA YI MD Apr 11, 2017 13:52
[2017-04-11] MEDS ORDERED: PROPOFOL 20 ML ONE (14:48)
[2017-04-11] MEDS ORDERED: FENTAnyl 50 MCG/ML VIAL ONE ×2 (14:48→15:40)
[2017-04-11] MEDS ORDERED: LIDOCAINE 2% (SDV) 5 ML INJ ONE (14:48)
[2017-04-11] MEDS ORDERED: MIDAZOLAM 1 MG/ML 2 ML INJ ONE (14:48)
[2017-04-11] MEDS ORDERED: ROCURONIUM 50 MG INJ ONE (14:48)
--- NOTE | 2017-04-11 14:51 | HPN ---
Date/Time of Note Date/Time of Note DATE: 04/11/17 TIME: 14:50 Interval H&P Admission Note Pt. seen H&P reviewed: No system changes ERLINDA MICHAUD MD Apr 11, 2017 14:51
[2017-04-11] MEDS ORDERED: PHENYLephrine (100 MCG/ML) 5ML SYG ONE ×2 (15:18→16:35)
[2017-04-11] MEDS ORDERED: KETAMINE 500 MG INJ ONE (15:40)
[2017-04-11] MEDS ORDERED: METOCLOPRAMIDE 10 MG INJ ONE (15:55)
[2017-04-11] MEDS ORDERED: ONDANSETRON 4 MG INJ ONE (15:55)
[2017-04-11] MEDS ORDERED: POLYMYXIN/BACITRACIN 1L IRRIG ONE (16:20)
[2017-04-11] MEDS ORDERED: ESMOLOL 10 ML ONE (16:50)
[2017-04-11] MEDS ORDERED: ONDANSETRON 4 MG INJ IV PRN (17:30)
[2017-04-11] MEDS ORDERED: ALBUMIN HUMAN 5% 250 ML IV PRN (17:30)
[2017-04-11] MEDS ORDERED: DIPHENHYDRAMINE 50 MG INJ IV PRN (17:30)
[2017-04-11] MEDS ORDERED: ACETAMINOPHEN 1000MG/100ML IV 100 ML IVPB PRN (17:30)
[2017-04-11] MEDS ORDERED: NACL 0.9% 3 ML SYG IV SCH (17:30)
[2017-04-11] MEDS ORDERED: LABETALOL HCL 20MG INJ IV PRN (17:30)
[2017-04-11] MEDS ORDERED: HYDROmorphONE (0.2 MG/ML) 10ML SYG IV PRN ×2 (17:30)
[2017-04-11] MEDS ORDERED: PROCHLORPERAZINE 10 MG INJ IV PRN (17:30)
[2017-04-11] MEDS ORDERED: FENTAnyl 50 MCG/ML VIAL IV PRN (17:30)
[2017-04-11] MEDS ORDERED: MEPERIDINE 25 MG INJ IV PRN (17:30)
[2017-04-11] MEDS ORDERED: hydrALAzine 20 MG INJ IV PRN (17:30)
[2017-04-11] MEDS ORDERED: EPHEDrine SULFATE 50 MG/5 ML SYG IV PRN (17:30)
--- NOTE | 2017-04-11 18:08 | PN ---
DATE: 04/11/2017 SUBJECTIVE: The patient actually is downstairs in the operating room to undergo operation for the right humerus fracture and metastasis. OBJECTIVE: VITAL SIGNS: Today has been stable. Recorded in the computer: Temperature 98.8, heart rate 88 to 98, respirations 18, blood pressure fluctuating 143/77, saturation 97% on room air. LABORATORY DATA: WBC 8000, hemoglobin 11, hematocrit 33. Chemistry: Sodium and potassium normal. BUN 19, creatinine 0.93. AST, ALT, and alkaline phosphatase remain elevated, as before. Of course, the patient has metastasis to the liver. ASSESSMENT AND PLAN: The patient with metastatic carcinoma of the right breast with metastases to the spine, to the bones, to the liver, and also to the lungs . The patient has a fracture of the right humerus, is being treated for the pathology fracture today at this time. PLAN: From surgical point of view, we will observe and follow. Dictated By: DELLA ALVAREZ MD PS/NTS Conf#: [id number] DID#: [id number] CC: BETTY MEDRANO MD;*EndCC* MTDD
[2017-04-11 18:13] LABS: ADD SCAN DIFF NO
[2017-04-11 18:17] LABS: BASOPHILS % 0.2 % (0.0-2.0); HEMATOCRIT 30.9 % (37.0-47.0); HEMOGLOBIN 10.2 g/dl (12.0-16.0); LYMPHOCYTES # 1.7 10^3/ul (0.8-2.9); LYMPHOCYTES % 15.1 % (15.0-51.0); MEAN CORPUSCULAR HEMOGLOBIN 26.2 pg (29.0-33.0); MEAN CORPUSCULAR VOLUME 79.2 fl (82.0-101.0); MEAN PLATELET VOLUME 9.9 fl (7.4-10.4); MONOCYTE # 0.8 10^3/ul (0.3-0.9); MONOCYTES % 7.6 % (0.0-11.0); NEUTROPHIL # 8.3 10^3/ul (1.6-7.5); NEUTROPHILS % 75.3 % (39.0-77.0); PLATELET COUNT 183 10^3/UL (140-415); RED CELL DISTRIBUTION WIDTH 17.2 % (11.5-14.5)
--- NOTE | 2017-04-11 18:26 | RADRPT ---
PROCEDURE: Intraoperative imaging of the right humerus with fluoroscopy. CLINICAL INDICATION: Right arm pain. Lytic lesion with pathologic fracture. Intraoperative. TECHNIQUE: 14 images of the right humerus were obtained in the operating room with an image intens ifier. No radiologist was in attendance. 309 seconds of fluoroscopy time was used. COMPARISON: 04/07/2017. FINDINGS: Images demonstrate open reduction and internal fixation with a cathi in the shaft of the humerus, a lo cking screw proximally, and a locking screw distally. The lytic lesion with pathologic fracture of the proximal shaft of the humerus is noted. IMPRESSION: 1. Intraoperative imaging of the right humerus. RPTAT: QQ .Lvear Henriquez MD, MD Date Time Electronically viewed and signed by .Levar Henriquez MD, MD on 04/11/2017 18:25 .R/
--- NOTE | 2017-04-11 18:32 | RADRPT ---
PROCEDURE: XR Right Humerus. CLINICAL INDICATION: Right arm pain. Postop. TECHNIQUE: AP and lateral views of the right humerus were performed. COMPARISON: 04/07/2017. FINDINGS: There is a cathi in the shaft of the humerus with a locking screw proximally and a locking screw dista lly. Overlying skin rubens are noted. There is a large lytic lesion in the proximal shaft of the humerus with associated pathologic fractu re. Articular surfaces are intact. IMPRESSION: 1. Satisfactory postoperative appearance of the right humerus. RPTAT: QQ .Levar Henriquez MD, MD Date Time Electronically viewed and signed by .Levar Henriquez MD, MD on 04/11/2017 18:32 .R/
--- NOTE | 2017-04-11 19:38 | CONS ---
Date/Time of Note Date/Time of Note DATE: 04/11/17 TIME: 19:36 Assessment/Plan Assessment/Plan Additional Assessment/Plan 1. Severe hypercalcemia with calcium level of 17.3 on admission. 2. Acute kidney injury secondary to prerenal azotemia. 3. History of metastatic breast cancer, 4. Hypokalemia with hypophosphatemia 5. Hypomagnesemia. Hypokalemia, Hypophosphatemia Plan: No plan for surgery now S/p Zometa on 04/06/17 for hypercalcemia, now Ca mproved to normal today , Monitor electrolytes Cr improved to normal BP stable will follow up Consultation Date/Type/Reason Admit Date/Time Apr 04, 2017 at 22:07 Initial Consult Date Type of Consultation: NEPHROLOGY Referring Provider: LEISA LANGSTON 24 HR Interval Summary Free Text/Dictation Ca normal, Cr normal, other electrolytes stable Exam/Review of Systems Vital Signs Vitals Vital Signs Date Time Temp Pulse Resp B/P Pulse Ox O2 Delivery O2 Flow Rate FiO2 04/11/17 18:23 98.2 108 14 112/65 95 Nasal Cannula 2.0 Intake and Output 04/10/17 04/10/17 04/11/17 15:00 23:00 07:00 Intake Total 250 ml 510 ml 765 ml Balance 250 ml 510 ml 765 ml Results Result Diagram: 04/11/17 1800 04/11/17 0500 Results 24 hrs Laboratory Tests Test 04/11/17 04:43 04/11/17 05:00 04/11/17 06:11 04/11/17 18:00 White Blood Count 8.0 11.0 #H Red Blood Count 4.13 L 3.90 L Hemoglobin 11.0 L 10.2 L Hematocrit 33.0 L 30.9 L Mean Corpuscular Volume 79.9 L 79.2 L Mean Corpuscular Hemoglobin 26.6 L 26.2 L Mean Corpuscular Hemoglobin Concent 33.3 33.0 Red Cell Distribution Width 17.0 H 17.2 H Platelet Count 188 183 Mean Platelet Volume 10.7 H 9.9 Neutrophils % 83.2 H 75.3 Lymphocytes % 12.9 L 15.1 Monocytes % 2.0 7.6 Eosinophils % 0.1 0.0 Basophils % 0.3 0.2 Nucleated Red Blood Cells % 0.0 0.0 Neutrophils # 6.7 8.3 H Lymphocytes # 1.0 1.7 Monocytes # 0.2 L 0.8 Eosinophils # 0.0 0.0 Basophils # 0.0 0.0 Nucleated Red Blood Cells # 0.0 0.0 Sodium Level 139 Potassium Level 4.2 Chloride Level 112 H Carbon Dioxide Level 21 Anion Gap 10 Blood Urea Nitrogen 19 Creatinine 0.93 Glucose Level 141 # Calcium Level 9.2 Phosphorus Level 2.6 Magnesium Level 1.7 Total Bilirubin 0.2 Direct Bilirubin 0.00 Indirect Bilirubin 0.2 Aspartate Amino Transf (AST/SGOT) 354 H Alanine Aminotransferase (ALT/SGPT) 81 H Alkaline Phosphatase 985 H Total Protein 5.9 L Albumin 3.0 L Globulin 2.90 Albumin/Globulin Ratio 1.03 Lab Scanned Report BLOOD TRANSFUSION Medications Medications Current Medications Anastrozole (Arimidex) 1 mg DAILY PO Last administered on 04/10/17 10:11; Admin Dose 1 MG; Start 04/05/17 at 09:00 Pantoprazole (Protonix Tab) 40 mg DAILY@06 PO Last administered on 04/09/17 05 :47; Admin Dose 40 MG; Start 04/07/17 at 06:00 Lorazepam (Ativan) 0.5 mg Q6H PRN PO ANXIETY; Start 04/06/17 at 16:00 Metoprolol Tartrate (Lopressor) 25 mg BID PO Last administered on 04/10/17 20: 45; Admin Dose 25 MG; Start 04/06/17 at 21:00 Hydralazine HCl (Apresoline) 10 mg Q6H PRN IV SBP>160; Start 04/06/17 at 17:30 Enoxaparin Sodium (Lovenox) 40 mg DAILY SC Last administered on 04/09/17 08:47 ; Admin Dose 40 MG; Start 04/07/17 at 14:30 Polyethylene Glycol (Miralax) 17 gm BID PO Last administered on 04/08/17 21:39 ; Admin Dose 17 GM; Start 04/08/17 at 21:00 Bisacodyl (Dulcolax) 10 mg DAILY PRN PO CONSTIPATION; Start 04/08/17 at 10:30 Bisacodyl (Dulcolax Supp) 10 mg DAILY PRN [place] CONSTIPATION Last administered on 04/08/17 11:25; Admin Dose 10 MG; Start 04/08/17 at 10:30 Dexamethasone 8 mg 8 mg BID PO Last administered on 04/10/17 23:59; Admin Dose 8 MG; Start 04/10/17 at 22:00; Stop 04/13/17 at 09:01 Cefazolin Sodium 50 ml @ 100 mls/hr Q8H IVPB ; Start 04/11/17 at 17:30; Stop at 09:59 Sodium Chloride (NS) 1,000 ml @ 100 mls/hr Q10H IV ; Start 04/11/17 at 17:11 Morphine Sulfate (morphine) 2 mg Q2H PRN IV PAIN Last administered on 17:44; Admin Dose 2 MG; Start 04/11/17 at 17:30 Acetaminophen/ Hydrocodone Bitart 1 tab 1 tab Q3H PRN PO PAIN; Start 04/11/17 at 17:30 Acetaminophen (Ofirmev 1000mg/ 100ml Iv) 100 ml @ 400 mls/hr ONCE PRN IVPB PAIN AND OR ELEVATED TEMP; Start 04/11/17 at 17:30; Stop 04/11/17 at 23:00 HANNA KIRKLAND MD Apr 11, 2017 19:38
[2017-04-11] MEDS: SOD CHLORIDE 0.9% 1,000 ML IV SCH (20:24)
[2017-04-11] MEDS: CEFAZOLIN 1 GM/50 ML (PMX) 50 ML IVPB SCH (20:28)
[2017-04-12] MEDS: CEFAZOLIN 1 GM/50 ML (PMX) 50 ML IVPB SCH ×2 (02:48→10:29)
[2017-04-12] MEDS: SOD CHLORIDE 0.9% 1,000 ML IV SCH ×3 (03:11→22:42)
[2017-04-12] MEDS: morphine 2 MG INJ IV PRN (05:47)
[2017-04-12] MEDS: PANTOPRAZOLE (EC) 40 MG TAB PO SCH (05:50)
[2017-04-12 06:04] LABS: ADD SCAN DIFF NO
[2017-04-12 06:20] LABS: BASOPHILS % 0.1 % (0.0-2.0); HEMATOCRIT 28.2 % (37.0-47.0); HEMOGLOBIN 9.1 g/dl (12.0-16.0); LYMPHOCYTES # 1.1 10^3/ul (0.8-2.9); LYMPHOCYTES % 13.6 % (15.0-51.0); MEAN CORPUSCULAR HEMOGLOBIN 26.1 pg (29.0-33.0); MEAN CORPUSCULAR HGB CONC 32.3 g/dl (32.0-37.0); MEAN CORPUSCULAR VOLUME 80.8 fl (82.0-101.0); MEAN PLATELET VOLUME 10.5 fl (7.4-10.4); MONOCYTE # 0.4 10^3/ul (0.3-0.9); MONOCYTES % 4.4 % (0.0-11.0); NEUTROPHIL # 6.6 10^3/ul (1.6-7.5); NEUTROPHILS % 80.3 % (39.0-77.0); PLATELET COUNT 173 10^3/UL (140-415); RED BLOOD COUNT 3.49 10^6/ul (4.20-5.40); RED CELL DISTRIBUTION WIDTH 17.5 % (11.5-14.5); WHITE BLOOD COUNT 8.2 10^3/ul (4.8-10.8)
[2017-04-12 06:39] LABS: MAGNESIUM 1.6 mg/dl (1.7-2.5); PHOSPHORUS 2.1 mg/dl (2.5-4.9)
[2017-04-12 07:11] LABS: ALBUMIN 2.8 g/dl (3.3-4.9); ALBUMIN/GLOBULIN RATIO 1.03; CALCIUM 8.6 mg/dl (8.4-10.2); CREATININE 1.02 mg/dl (0.44-1.00); POTASSIUM 3.8 mmol/L (3.5-5.1); TOTAL PROTEIN 5.5 g/dl (6.1-8.1)
[2017-04-12 07:24] VITALS: BP 139/71; RESP 18
--- NOTE | 2017-04-12 09:29 | CONS ---
Date/Time of Note Date/Time of Note DATE: 04/12/17 TIME: 09:27 Assessment/Plan Assessment/Plan Chief Complaint/Hosp Course 57 year old female with a history of right breast cancer admitted for generalized weakness, decreased appetite, and confusion per her daughter and found to have hypercalcemia with calcium of 17, acute renal failure, failure to thrive ER positive 99%, NV positive 4%, HER2/gail positive by IHC 3+ based on 04/13/17 right breast mass biopsy and right axillary lymph node was 99% ER, 25% NV, HER2 equivocal by IHC 2+ and equicoval by FISH but negative by equivocal panel. During her admission, a CT of the chest showed the right breast mass, axillary, hilar and mediastinal adenopathy, multiple hepatic masses and pathologic right femoral neck fracture, consistent with metastatic cancer. On 09/01/2016 she underwent excision of metastatic cancer from femoral neck and intertrochanteric area of the right hip and hemiarthroplasty of the right hip. She was seen by Dr. Paola Nielsen for post-op radiation to the right hip which she received for 2 weeks. Path from 09/01/16 right hip surgery showed metastatic breast carcinoma, ER positive, NV negative, HER2 positive disease by IHC and FISH. She was started on arimidex 1 mg daily but per patient, only received 1 month worth of medication and then was to be treated with trastuzumab taxane pertuzumab after local radiation. # Metastatic breast cancer. - US liver shows that the liver is enlarged and contains numerous and confluent lesions, likely metastases, measuring up to 6.6 cm in the left lobe. The liver demonstrates increased echogenicity and coarsened echotexture which are nonspecific and suggest fatty infiltration as well as early chronic liver disease. The main portal vein is patent with proper directional flow. Trace perihepatic ascites. - CXR shows large right pleural effusion, likely malignant, consider diagnostic and therapeutic thoracentesis if symptomatic - CT CAP with contrast 04/10/17 shows 1. Significant progression of diffuse metastatic disease with target lesions as listed above. Large right breast mass is again demonstrated with severe worsening of right axillary and mediastinal lymphadenopathy. There is development of large right and trace left pleural effusions with evidence of pulmonary lymphangitic carcinomatosis. Significant worsening of diffuse hepatic and osseous metastasis seen throughout the body. There is interval right hip replacement. 2. The T6 vertebral body lesion traverses over several vertebral body levels and invades the spinal canal., consider bone scan or outpatient PET/CT. - CA 27-29 > 450, CA 15-3 607 - CT of the lumbar spine from 02/28/17 showed multiple lytic metastatic foci of the lumbar vertebral bodies, sacrum and visualized iliac bones. - MRI brain 04/06/17 showed multiple osseous metastases - MRI spine 04/06/17 showed extensive osseous metastases throughout the spine with compression fractures, at the T6 level on the right there is a soft tissue component that is causing moderate narrowing of the canal at least touching the cord, no clear cord compression. - Per neurosurgery, The patient has widespread spinal metastases, including some with ventral epidural extension into the spinal canal. However, the patient is neurologically intact. There is no role for surgical intervention whatsoever given the widespread and diffuse nature of her metastatic disease burden. - Per rad onc (Pavan Beal) agree with systemic therapy, no plan for radiation for now, given no sensory issues or neurologic deficits. May need radiation to right humerus if has surgery for humerus due to high risk of fracture. - Per ortho, for metastatic fracture of the proximal shaft of the right humerus , plan for stabilization of the pathologic fracture involving the right humerus by intramedullary nailing. This intramedullary nailing can be done as soon as the patient can be medically cleared for surgery and probably it should be done prior to any breast surgery. Now status post surgery on 04/11/17. Discussed with Dr. Lim, will plan for herceptin and pertuzumab only as would not interfere with wound healing and right humerus fx is urgent given unstable pathologic fracture. Plan for herceptin and pertuzumab today once nursing staffing allows. Chemo orders written for herceptin and pertuzumab, no premeds needed. s/p port 04/10/17. - MUGA 69% wnl. Chemo regimen -B-z-a-a-n-i-x-e-l- -7-5- -m-g--/--m-2- -x- -0-.-7-5- -=- -5-6- -m-g--/--m-2- -I-V- -o-v-e-r- -1- -h-o-u-r- -(--2-5--%- -d-o-s-e- -a-q-m-z-h-c-i-o-n- -d-u-e- -t-o- -m-n-e-v-a-t-e-d- -L-F-T-s--)- Trastuzumab 8 mg/kg IV over 90 minutes cycle 1 Pertuzumab 840 mg IV over 60 minutes cycle 1 # Severe hypercalcemia, with calcium level of 17.3, improved to 8.6 today. - s/p calcitonin, aggressive hydration - s/p pamidronate 60 mg IV # Confusion and constipation, likely related to hypercalcemia, now resolved. # Acute renal failure, likely related to dehydration and hypercalcemia, Cr 1.02 today, continue to monitor. # Anemia: hgb low sec to malignancy with adequate B12 and ferritin Problems: Consultation Date/Type/Reason Admit Date/Time Apr 04, 2017 at 22:07 Initial Consult Date 04/05/17 Type of Consultation: Oncology Referring Provider: LEISA LANGSTON 24 HR Interval Summary Free Text/Dictation Patient status post right humerus surgery, complained of pain in arm overnight, however overall doing well. Exam/Review of Systems Vital Signs Vitals Vital Signs Date Time Temp Pulse Resp B/P Pulse Ox O2 Delivery O2 Flow Rate FiO2 04/12/17 07:24 98.5 95 18 139/71 100 04/11/17 21:00 Nasal Cannula 2.0 Intake and Output 04/11/17 04/11/17 04/12/17 15:00 23:00 07:00 Intake Total 700 ml 1150 ml Output Total 150 ml 450 ml Balance 550 ml 700 ml Exam Constitutional: alert, oriented Psych: depression Eyes: nl conjunctiva Respiratory: normal air movement Musculoskeletal: nl extremities to inspection, s/p right humerus surgery, dressings c/d/i Results Result Diagram: 04/12/17 0445 04/12/17 0445 Results 24 hrs Laboratory Tests Test 04/11/17 18:00 04/12/17 04:45 White Blood Count 11.0 #H 8.2 # Red Blood Count 3.90 L 3.49 L Hemoglobin 10.2 L 9.1 L Hematocrit 30.9 L 28.2 L Mean Corpuscular Volume 79.2 L 80.8 L Mean Corpuscular Hemoglobin 26.2 L 26.1 L Mean Corpuscular Hemoglobin Concent 33.0 32.3 Red Cell Distribution Width 17.2 H 17.5 H Platelet Count 183 173 Mean Platelet Volume 9.9 10.5 H Neutrophils % 75.3 80.3 H Lymphocytes % 15.1 13.6 L Monocytes % 7.6 4.4 Eosinophils % 0.0 0.0 Basophils % 0.2 0.1 Nucleated Red Blood Cells % 0.0 0.0 Neutrophils # 8.3 H 6.6 Lymphocytes # 1.7 1.1 Monocytes # 0.8 0.4 Eosinophils # 0.0 0.0 Basophils # 0.0 0.0 Nucleated Red Blood Cells # 0.0 0.0 Sodium Level 140 Potassium Level 3.8 Chloride Level 112 H Carbon Dioxide Level 19 L Anion Gap 13 Blood Urea Nitrogen 24 H Creatinine 1.02 H Glucose Level 138 Calcium Level 8.6 Phosphorus Level 2.1 L Magnesium Level 1.6 L Total Bilirubin 0.0 L Direct Bilirubin 0.00 Indirect Bilirubin 0.0 Aspartate Amino Transf (AST/SGOT) 310 H Alanine Aminotransferase (ALT/SGPT) 57 Alkaline Phosphatase 757 H Total Protein 5.5 L Albumin 2.8 L Globulin 2.70 Albumin/Globulin Ratio 1.03 Medications Medications Current Medications Anastrozole (Arimidex) 1 mg DAILY PO Last administered on 04/10/17 10:11; Admin Dose 1 MG; Start 04/05/17 at 09:00 Pantoprazole (Protonix Tab) 40 mg DAILY@06 PO Last administered on 04/12/17 05 :50; Admin Dose 40 MG; Start 04/07/17 at 06:00 Lorazepam (Ativan) 0.5 mg Q6H PRN PO ANXIETY; Start 04/06/17 at 16:00 Metoprolol Tartrate (Lopressor) 25 mg BID PO Last administered on 04/11/17 20: 36; Admin Dose 25 MG; Start 04/06/17 at 21:00 Hydralazine HCl (Apresoline) 10 mg Q6H PRN IV SBP>160; Start 04/06/17 at 17:30 Enoxaparin Sodium (Lovenox) 40 mg DAILY SC Last administered on 04/09/17 08:47 ; Admin Dose 40 MG; Start 04/07/17 at 14:30 Polyethylene Glycol (Miralax) 17 gm BID PO Last administered on 04/11/17 20:36 ; Admin Dose 17 GM; Start 04/08/17 at 21:00 Bisacodyl (Dulcolax) 10 mg DAILY PRN PO CONSTIPATION; Start 04/08/17 at 10:30 Bisacodyl (Dulcolax Supp) 10 mg DAILY PRN [place] CONSTIPATION Last administered on 04/08/17 11:25; Admin Dose 10 MG; Start 04/08/17 at 10:30 Dexamethasone 8 mg 8 mg BID PO Last administered on 04/11/17 20:35; Admin Dose 8 MG; Start 04/10/17 at 22:00; Stop 04/13/17 at 09:01 Cefazolin Sodium 50 ml @ 100 mls/hr Q8H IVPB Last administered on 04/12/17 02 :48; Admin Dose 100 MLS/HR; Start 04/11/17 at 17:30; Stop 04/12/17 at 09:59 Sodium Chloride (NS) 1,000 ml @ 100 mls/hr Q10H IV Last administered on 06:48; Admin Dose 100 MLS/HR; Start 04/11/17 at 17:11 Morphine Sulfate (morphine) 2 mg Q2H PRN IV PAIN Last administered on 05:47; Admin Dose 2 MG; Start 04/11/17 at 17:30 Acetaminophen/ Hydrocodone Bitart ([place] (5/325)) 1 tab Q3H PRN PO PAIN; Start 04/11/17 at 17:30 JUAN SHETH MD Apr 12, 2017 09:28
[2017-04-12] MEDS: DEXAMETHASONE 4 MG TAB PO SCH ×2 (10:29→21:11)
[2017-04-12] MEDS: ENOXAPARIN 40 MG/0.4 ML SYG SC SCH (10:34)
--- NOTE | 2017-04-12 10:34 | PN ---
Date/Time of Note Date/Time of Note DATE: 04/12/17 TIME: 10:32 Assessment/Plan VTE Prophylaxis VTE Prophylaxis Intervention: SCD's Lines/Catheters IV Catheter Type (from Nrsg): port a cath Urinary Cath still in place: No Assessment/Plan Assessment/Plan 57 yo F with stage 4 breast Ca with mets to liver, bones admitted for R arm pain 2/2 pathologic humeral fracture. sp surgical repair (nail) 6.20 #R humeral frx: f/u as per ortho change dilaudid from q3PRN to q2PRN #stage 4 breast Ca: onc following, chemo as per onc #brain and spine mets seen on MR imaging-->rad onc and neurosurg following--> no intervention at thist min #hypercalcemia 2/2 metastatic ca: as per onc #Large right pleural effusion. 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 If the patient has worsening respiratory distress, will consider right thoracentesis. - #HTN: cont home meds defer code status discussions to oncology dispo: OT/PT for arm Subjective 24 Hr Interval Summary Free Text/Dictation Pain control not adequate Exam/Review of Systems Vital Signs Vitals Vital Signs Date Time Temp Pulse Resp B/P Pulse Ox O2 Delivery O2 Flow Rate FiO2 04/12/17 07:24 98.5 95 18 139/71 100 04/11/17 21:00 Nasal Cannula 2.0 Intake and Output 04/11/17 04/11/17 04/12/17 15:00 23:00 07:00 Intake Total 700 ml 1150 ml Output Total 150 ml 450 ml Balance 550 ml 700 ml Exam nad, sitting up in bed +port in L chest R arm with surgical dressings c/d/i no mrg lungs clear abd soft no rashes Results Result Diagram: 04/12/17 0445 04/12/17444 Results 24 hrs Laboratory Tests Test 04/11/17 18:00 04/12/17 04:45 White Blood Count 11.0 #H 8.2 # Red Blood Count 3.90 L 3.49 L Hemoglobin 10.2 L 9.1 L Hematocrit 30.9 L 28.2 L Mean Corpuscular Volume 79.2 L 80.8 L Mean Corpuscular Hemoglobin 26.2 L 26.1 L Mean Corpuscular Hemoglobin Concent 33.0 32.3 Red Cell Distribution Width 17.2 H 17.5 H Platelet Count 183 173 Mean Platelet Volume 9.9 10.5 H Neutrophils % 75.3 80.3 H Lymphocytes % 15.1 13.6 L Monocytes % 7.6 4.4 Eosinophils % 0.0 0.0 Basophils % 0.2 0.1 Nucleated Red Blood Cells % 0.0 0.0 Neutrophils # 8.3 H 6.6 Lymphocytes # 1.7 1.1 Monocytes # 0.8 0.4 Eosinophils # 0.0 0.0 Basophils # 0.0 0.0 Nucleated Red Blood Cells # 0.0 0.0 Sodium Level 140 Potassium Level 3.8 Chloride Level 112 H Carbon Dioxide Level 19 L Anion Gap 13 Blood Urea Nitrogen 24 H Creatinine 1.02 H Glucose Level 138 Calcium Level 8.6 Phosphorus Level 2.1 L Magnesium Level 1.6 L Total Bilirubin 0.0 L Direct Bilirubin 0.00 Indirect Bilirubin 0.0 Aspartate Amino Transf (AST/SGOT) 310 H Alanine Aminotransferase (ALT/SGPT) 57 Alkaline Phosphatase 757 H Total Protein 5.5 L Albumin 2.8 L Globulin 2.70 Albumin/Globulin Ratio 1.03 Medications Medications Current Medications Anastrozole (Arimidex) 1 mg DAILY PO Last administered on 04/10/17 10:11; Admin Dose 1 MG; Start 04/05/17 at 09:00 Pantoprazole (Protonix Tab) 40 mg DAILY@06 PO Last administered on 04/12/17 05 :50; Admin Dose 40 MG; Start 04/07/17 at 06:00 Lorazepam (Ativan) 0.5 mg Q6H PRN PO ANXIETY; Start 04/06/17 at 16:00 Metoprolol Tartrate (Lopressor) 25 mg BID PO Last administered on 04/11/17 20: 36; Admin Dose 25 MG; Start 04/06/17 at 21:00 Hydralazine HCl (Apresoline) 10 mg Q6H PRN IV SBP>160; Start 04/06/17 at 17:30 Enoxaparin Sodium (Lovenox) 40 mg DAILY SC Last administered on 04/09/17 08:47 ; Admin Dose 40 MG; Start 04/07/17 at 14:30 Polyethylene Glycol (Miralax) 17 gm BID PO Last administered on 04/11/17 20:36 ; Admin Dose 17 GM; Start 04/08/17 at 21:00 Bisacodyl (Dulcolax) 10 mg DAILY PRN PO CONSTIPATION; Start 04/08/17 at 10:30 Bisacodyl (Dulcolax Supp) 10 mg DAILY PRN [place] CONSTIPATION Last administered on 04/08/17 11:25; Admin Dose 10 MG; Start 04/08/17 at 10:30 Dexamethasone 8 mg 8 mg BID PO Last administered on 04/11/17 20:35; Admin Dose 8 MG; Start 04/10/17 at 22:00; Stop 04/13/17 at 09:01 Sodium Chloride (NS) 1,000 ml @ 100 mls/hr Q10H IV Last administered on 06:48; Admin Dose 100 MLS/HR; Start 04/11/17 at 17:11 Morphine Sulfate (morphine) 2 mg Q2H PRN IV PAIN Last administered on 05:47; Admin Dose 2 MG; Start 04/11/17 at 17:30 Acetaminophen/ Hydrocodone Bitart ([place] (5/325)) 1 tab Q3H PRN PO PAIN; Start 04/11/17 at 17:30 IKE SAM MD Apr 12, 2017 10:34 Dose 8 MG; Start 04/10/17 at 22:00; Stop 04/13/17 at 09:01 Sodium Chloride (NS) 1,000 ml @ 100 mls/hr Q10H IV Last administered on 06:48; Admin Dose 100 MLS/HR; Start 04/11/17 at 17:11 Morphine Sulfate (morphine) 2 mg Q2H PRN IV PAIN Last administered on 05:47; Admin Dose 2 MG; Start 04/11/17 at 17:30 Acetaminophen/ Hydrocodone Bitart ([place] (5/325)) 1 tab Q3H PRN PO PAIN; Start 04/11/17 at 17:30 IKE SMA MD Apr 12, 2017 10:34
[2017-04-12] MEDS: POLYETHYLENE GLYCOL 17 GM PACKET PO SCH ×2 (10:36→21:11)
[2017-04-12] MEDS: METOPROLOL 25 MG TAB PO SCH ×2 (10:37→21:11)
[2017-04-12] MEDS: ANASTROZOLE 1 MG TAB PO SCH (10:39)
--- NOTE | 2017-04-12 13:23 | PN ---
DATE: 04/12/2017 SUBJECTIVE: No complaint at this time. She states that last night she had a lot of pain in her righ t arm operation site, but now is better. OBJECTIVE: VITAL SIGNS: Temperature 98.5, heart rate 95, respiration 18, blood pressure 139/71, saturation 100 % on 2 liters nasal cannula. LABORATORY DATA: Sodium 140, potassium 3.8, BUN 24, creatinine 1.02. Status post open reduction and internal fixation of the pathology fraction of the right arm was done yesterday. The patient moves all the fingers on the right side. ABDOMEN: Soft, bowel sounds present. Patient has had bowel movement, tolerating diet very well. Right breast pathology is there, no gross change since admission. ASSESSMENT AND PLAN: A 57-year-old female with extensive metastatic breast cancer to the bone, the spine, liver with pathologic fracture of the right humerus. The patient had the humeral fracture fi xed yesterday. The patient is going to be started on chemotherapy as soon as everything is availabl e and ready. In regards to the right breast pathology will continue to follow the patient. Dictated By: DELLA REINOSO/NTS Conf#: [id number] DID#: [id number]
[2017-04-12] MEDS ORDERED: CITRIC ACID/SODIUM CITRATE 15 ML CUP PO ONE (13:30)
[2017-04-12] MEDS ORDERED: MAGNESIUM SULFATE 2 GM/50 ML 50 ML IVPB ONE (14:00)
[2017-04-12] MEDS ORDERED: POTASSIUM PHOSPHATE 20 MEQ in SOD CHLORIDE 0.9% 250 ML IVPB ONE (15:30)
--- NOTE | 2017-04-12 16:25 | CONS ---
Date/Time of Note Date/Time of Note DATE: 04/12/17 TIME: 16:21 Assessment/Plan Assessment/Plan Additional Assessment/Plan 1. Severe hypercalcemia with calcium level of 17.3 on admission. 2. Acute kidney injury secondary to prerenal azotemia. 3. History of metastatic breast cancer, 4. Hypokalemia with hypophosphatemia 5. Hypomagnesemia. Hypokalemia, Hypophosphatemia Plan: No plan for surgery now S/p Zometa on 04/06/17 for hypercalcemia, now Ca mproved to normal today Mag low, Magnesium sulfate 2 gram IV x 1 now Po4 low, =- potassium phosphate 30mMOl Iv x 1 dose will start bicitra for metabolic acidosis will follow up Consultation Date/Type/Reason Admit Date/Time Apr 04, 2017 at 22:07 Initial Consult Date Type of Consultation: NEPHROLOGY Referring Provider: LEISA LANGSTON 24 HR Interval Summary Free Text/Dictation cr stable, Ca improving, Po4 low, mag low Exam/Review of Systems Vital Signs Vitals Vital Signs Date Time Temp Pulse Resp B/P Pulse Ox O2 Delivery O2 Flow Rate FiO2 04/12/17 07:24 98.5 95 18 139/71 100 04/11/17 21:00 Nasal Cannula 2.0 Intake and Output 04/11/17 04/11/17 04/12/17 15:00 23:00 07:00 Intake Total 700 ml 1150 ml Output Total 150 ml 450 ml Balance 550 ml 700 ml Exam GENERAL: The patient is awake, alert HEENT: Atraumatic, normocephalic. Pupils equal, round, reactive to light and accommodation. Extraocular muscles are intact. NECK: Supple, no JVD, no lymphadenopathy. LUNGS: Clear to auscultation. Decreased breath sounds at the right middle lobe and right lower lobe. HEART: S1, S2, with regular rhythm, no murmur. ABDOMEN: Soft, nontender, nondistended. Bowel sounds are present. EXTREMITIES: No clubbing, cyanosis, or edema. NEUROLOGICAL: Awake, alert, slightly confused. Results Result Diagram: 04/12/17 0445 04/12/17 0445 Results 24 hrs Laboratory Tests Test 04/11/17 18:00 04/12/17 04:45 White Blood Count 11.0 #H 8.2 # Red Blood Count 3.90 L 3.49 L Hemoglobin 10.2 L 9.1 L Hematocrit 30.9 L 28.2 L Mean Corpuscular Volume 79.2 L 80.8 L Mean Corpuscular Hemoglobin 26.2 L 26.1 L Mean Corpuscular Hemoglobin Concent 33.0 32.3 Red Cell Distribution Width 17.2 H 17.5 H Platelet Count 183 173 Mean Platelet Volume 9.9 10.5 H Neutrophils % 75.3 80.3 H Lymphocytes % 15.1 13.6 L Monocytes % 7.6 4.4 Eosinophils % 0.0 0.0 Basophils % 0.2 0.1 Nucleated Red Blood Cells % 0.0 0.0 Neutrophils # 8.3 H 6.6 Lymphocytes # 1.7 1.1 Monocytes # 0.8 0.4 Eosinophils # 0.0 0.0 Basophils # 0.0 0.0 Nucleated Red Blood Cells # 0.0 0.0 Sodium Level 140 Potassium Level 3.8 Chloride Level 112 H Carbon Dioxide Level 19 L Anion Gap 13 Blood Urea Nitrogen 24 H Creatinine 1.02 H Glucose Level 138 Calcium Level 8.6 Phosphorus Level 2.1 L Magnesium Level 1.6 L Total Bilirubin 0.0 L Direct Bilirubin 0.00 Indirect Bilirubin 0.0 Aspartate Amino Transf (AST/SGOT) 310 H Alanine Aminotransferase (ALT/SGPT) 57 Alkaline Phosphatase 757 H Total Protein 5.5 L Albumin 2.8 L Globulin 2.70 Albumin/Globulin Ratio 1.03 Medications Medications Current Medications Anastrozole (Arimidex) 1 mg DAILY PO Last administered on 04/12/17 10:39; Admin Dose 1 MG; Start 04/05/17 at 09:00 Lorazepam (Ativan) 0.5 mg Q6H PRN PO ANXIETY; Start 04/06/17 at 16:00 Metoprolol Tartrate (Lopressor) 25 mg BID PO Last administered on 04/12/17 10: 37; Admin Dose 25 MG; Start 04/06/17 at 21:00 Enoxaparin Sodium (Lovenox) 40 mg DAILY SC Last administered on 04/12/17 10:34 ; Admin Dose 40 MG; Start 04/07/17 at 14:30 Polyethylene Glycol (Miralax) 17 gm BID PO Last administered on 04/12/17 10:36 ; Admin Dose 17 GM; Start 04/08/17 at 21:00 Bisacodyl (Dulcolax) 10 mg DAILY PRN PO CONSTIPATION; Start 04/08/17 at 10:30 Bisacodyl (Dulcolax Supp) 10 mg DAILY PRN [place] CONSTIPATION Last administered on 04/08/17 11:25; Admin Dose 10 MG; Start 04/08/17 at 10:30 Dexamethasone (Decadron) 8 mg BID PO Last administered on 04/12/17 10:29; Admin Dose 8 MG; Start 04/10/17 at 22:00; Stop 04/13/17 at 09:01 Morphine Sulfate (morphine) 2 mg Q2H PRN IV PAIN Last administered on 05:47; Admin Dose 2 MG; Start 04/11/17 at 17:30 Acetaminophen/ Hydrocodone Bitart 1 tab 1 tab Q3H PRN PO PAIN; Start 04/11/17 at 17:30 Potassium Phosphate/Sodium Chloride (K Phos (Meq)/NS) 254.5455 ml @ 63.636 m... ONCE ONCE IVPB ; Start 04/12/17 at 15:30; Stop 04/12/17 at 19:29 Citric Acid/ Sodium Citrate (Bicitra) 30 ml BID PO ; Start 04/12/17 at 21:00 HANNA KIRKLAND MD Apr 12, 2017 16:25
[2017-04-12] MEDS ORDERED: ONDANSETRON INJ 8 MG in SOD CHLORIDE 0.9% 50 ML IV PRN (16:30)
--- NOTE | 2017-04-12 17:07 | OPR ---
DATE OF OPERATION: 04/11/2017 PREOPERATIVE DIAGNOSIS: Pathologic fracture of the proximal shaft of the right humerus with metasta tic lesion from breast cancer. POSTOPERATIVE DIAGNOSIS: Pathologic fracture of the proximal shaft of the right humerus with metast atic lesion from breast cancer. PROCEDURE PERFORMED: Open reduction and internal fixation of the pathologic fracture of the proxima l shaft of the right humerus utilizing intramedullary nailing technique. SURGEON: Yousif Lim MD ANESTHESIA: General anesthesia. PROCEDURE AND FINDINGS: Under general anesthesia, the patient was placed in a semi-reclining beach chair position. C-arm was positioned in such a way that the entire right humerus could be visible t hroughout the entire surgical procedure. The proximal end of the right humerus was approached by the radial incision made lateral to the matthew in of the acromion. After splitting the deltoid muscle and opening up the rotator cuff at the level of supraspinatus, proximal end of the right humerus was approached. Using a guide drill through th e medial portion of the humeral head, intramedullary canal was entered with some struggle. The guid e pin was threaded into the distal segment through the metastatic lesion. The opening was enlarged with the cannulated drill. At this point, the reamer guide was properly positioned and the measure ent revealed that the proper length of the intramedullary cathi should be about 20 cm in length. Heather use of her age and size and also osteoporotic nature of the skeletal structures, it was decided to a lso use a 20 cm long 8/7 intramedullary cathi should be used. Using insertion guide, the selected emperatriz l in the size of 20 cm long, intramedullary cathi was inserted into the intramedullary space. After c onfirming satisfactory position of the intramedullary cathi, the insertion guides were utilized insert ing proximal locking screws. Finally, after removing the insertion guide, the distal locking screw was inserted freehand style. At the end of the procedure, the alignment of the fracture was satisfa ctory and the position of the fixation device was proper. After irrigation and hemostasis, closure of the incision was carried out using 0 Vicryl for muscle a nd fascia and 2-0 Vicryl for subcutaneous tissues. Final skin closure was carried out with skin sta ples. Usual sterile pressure dressings were applied. The patient tolerated the entire procedure very well and was sent to the recovery room in excellent condition. Dictated By: YOUSIF STEVENSON/JORJE Conf#: [id number] DID#: [id number]
--- NOTE | 2017-04-12 17:12 | PN ---
DATE: 04/12/2017 First postoperative day. Stable vital signs. Postoperative x-ray shows satisfactory alignment of t he fracture along with the proper position of the fixation device. No signs of neurovascular compro mise. Postop H and H was 9.1/28.2. Dictated By: YOUSIF STEVENSON/JORJE Conf#: [id number] DID#: [id number]
[2017-04-12 19:43] VITALS: BP 122/60; RESP 18
[2017-04-12] MEDS ORDERED: TRASTUZUMAB IV SCH (21:00)
[2017-04-12] MEDS ORDERED: SOD CHLORIDE 0.9% IV SCH ×2 (21:00→23:00)
[2017-04-12] MEDS: CITRIC ACID/SODIUM CITRATE 15 ML CUP PO SCH (21:11)
[2017-04-12] MEDS ORDERED: HYDROCORTISONE 100 MG INJ IV PRN (21:41)
[2017-04-12] MEDS ORDERED: DIPHENHYDRAMINE 50 MG INJ IV PRN (21:42)
[2017-04-12 22:55] VITALS: BP 115/55; PULSE 86; RESP 19
[2017-04-12] MEDS ORDERED: PERTUZUMAB IV SCH (23:00)
[2017-04-12 23:05] VITALS: BP 113/55; PULSE 84; RESP 19
[2017-04-12 23:30] VITALS: BP 118/58; PULSE 82; RESP 18
[2017-04-13] VITALS (8 sets, daily range): BP systolic 95–123; BP diastolic 53–70; PULSE 80–91; RESP 18–20
[2017-04-13] MEDS: morphine 2 MG INJ IV PRN (05:07)
[2017-04-13 06:02] LABS: ADD SCAN DIFF NO
[2017-04-13 06:10] LABS: ABNORMAL IP MESSAGE 1; HEMATOCRIT 27.1 % (37.0-47.0); HEMOGLOBIN 8.9 g/dl (12.0-16.0); MEAN CORPUSCULAR HEMOGLOBIN 26.6 pg (29.0-33.0); MEAN CORPUSCULAR HGB CONC 32.8 g/dl (32.0-37.0); MEAN CORPUSCULAR VOLUME 81.1 fl (82.0-101.0); MEAN PLATELET VOLUME 10.9 fl (7.4-10.4); PLATELET COUNT 149 10^3/UL (140-415); RED BLOOD COUNT 3.34 10^6/ul (4.20-5.40); RED CELL DISTRIBUTION WIDTH 17.5 % (11.5-14.5)
[2017-04-13 06:45] LABS: CALCIUM 7.8 mg/dl (8.4-10.2); CREATININE 0.76 mg/dl (0.44-1.00); MAGNESIUM 1.7 mg/dl (1.7-2.5)
[2017-04-13] MEDS: DEXAMETHASONE 4 MG TAB PO SCH (09:31)
[2017-04-13] MEDS: CITRIC ACID/SODIUM CITRATE 15 ML CUP PO SCH ×2 (09:31→20:23)
[2017-04-13] MEDS: METOPROLOL 25 MG TAB PO SCH ×2 (09:32→20:24)
[2017-04-13] MEDS: ANASTROZOLE 1 MG TAB PO SCH (09:33)
[2017-04-13] MEDS: ENOXAPARIN 40 MG/0.4 ML SYG SC SCH (09:34)
[2017-04-13] MEDS: POLYETHYLENE GLYCOL 17 GM PACKET PO SCH ×2 (09:35→20:35)
--- NOTE | 2017-04-13 09:56 | CONS ---
Date/Time of Note Date/Time of Note DATE: 04/13/17 TIME: 09:53 Assessment/Plan Assessment/Plan Chief Complaint/Hosp Course 57 year old female with a history of right breast cancer admitted for generalized weakness, decreased appetite, and confusion per her daughter and found to have hypercalcemia with calcium of 17, acute renal failure, failure to thrive ER positive 99%, NE positive 4%, HER2/gail positive by IHC 3+ based on 04/13/17 right breast mass biopsy and right axillary lymph node was 99% ER, 25% NE, HER2 equivocal by IHC 2+ and equicoval by FISH but negative by equivocal panel. During her admission, a CT of the chest showed the right breast mass, axillary, hilar and mediastinal adenopathy, multiple hepatic masses and pathologic right femoral neck fracture, consistent with metastatic cancer. On 09/01/2016 she underwent excision of metastatic cancer from femoral neck and intertrochanteric area of the right hip and hemiarthroplasty of the right hip. She was seen by Dr. Paola Nielsen for post-op radiation to the right hip which she received for 2 weeks. Path from 09/01/16 right hip surgery showed metastatic breast carcinoma, ER positive, NE negative, HER2 positive disease by IHC and FISH. She was started on arimidex 1 mg daily but per patient, only received 1 month worth of medication and then was to be treated with trastuzumab taxane pertuzumab after local radiation. # Metastatic breast cancer. - US liver shows that the liver is enlarged and contains numerous and confluent lesions, likely metastases, measuring up to 6.6 cm in the left lobe. The liver demonstrates increased echogenicity and coarsened echotexture which are nonspecific and suggest fatty infiltration as well as early chronic liver disease. The main portal vein is patent with proper directional flow. Trace perihepatic ascites. - CXR shows large right pleural effusion, likely malignant, consider diagnostic and therapeutic thoracentesis if symptomatic - CT CAP with contrast 04/10/17 shows 1. Significant progression of diffuse metastatic disease with target lesions as listed above. Large right breast mass is again demonstrated with severe worsening of right axillary and mediastinal lymphadenopathy. There is development of large right and trace left pleural effusions with evidence of pulmonary lymphangitic carcinomatosis. Significant worsening of diffuse hepatic and osseous metastasis seen throughout the body. There is interval right hip replacement. 2. The T6 vertebral body lesion traverses over several vertebral body levels and invades the spinal canal., consider bone scan or outpatient PET/CT. - CA 27-29 > 450, CA 15-3 607 - CT of the lumbar spine from 02/28/17 showed multiple lytic metastatic foci of the lumbar vertebral bodies, sacrum and visualized iliac bones. - MRI brain 04/06/17 showed multiple osseous metastases - MRI spine 04/06/17 showed extensive osseous metastases throughout the spine with compression fractures, at the T6 level on the right there is a soft tissue component that is causing moderate narrowing of the canal at least touching the cord, no clear cord compression. - Per neurosurgery, The patient has widespread spinal metastases, including some with ventral epidural extension into the spinal canal. However, the patient is neurologically intact. There is no role for surgical intervention whatsoever given the widespread and diffuse nature of her metastatic disease burden. - Per rad onc (Pavan Beal) agree with systemic therapy, no plan for radiation for now, given no sensory issues or neurologic deficits. May need radiation to right humerus if has surgery for humerus due to high risk of fracture. - Per ortho, for metastatic fracture of the proximal shaft of the right humerus , plan for stabilization of the pathologic fracture involving the right humerus by intramedullary nailing. This intramedullary nailing can be done as soon as the patient can be medically cleared for surgery and probably it should be done prior to any breast surgery. Now status post open reduction and internal fixation of the pathologic fracture of the proximal shaft of the right humerus utilizing intramedullary nailing technique on 04/11/17. F/U path. Discussed with Dr. Lim, will plan for herceptin and pertuzumab only as would not interfere with wound healing and right humerus fx is urgent given unstable pathologic fracture. s/p herceptin and pertuzumab 04/12/17. s/p port 04/10/17. - MUGA 69% wnl. Chemo regimen Q3 weeks -U-s-s-n-u-q-x-e-l- -7-5- -m-g--/--m-2- -x- -0-.-7-5- -=- -5-6- -m-g--/--m-2- -I-V- -o-v-e-r- -1- -h-o-u-r- -(--2-5--%- -d-o-s-e- -b-i-g-c-y-d-i-o-n- -d-u-e- -t-o- -f-m-f-v-a-t-e-d- -L-F-T-s--)- Trastuzumab 8 mg/kg IV over 90 minutes cycle 1 Pertuzumab 840 mg IV over 60 minutes cycle 1 Of note, patient prefers that I not speak with family directly, and direct family questions to the patient herself as she would like to inform her family of her case. # Severe hypercalcemia, with calcium level of 17.3, improved to 7.8 today. - s/p calcitonin, aggressive hydration - s/p pamidronate 60 mg IV # Confusion and constipation, likely related to hypercalcemia, now resolved. # Acute renal failure, likely related to dehydration and hypercalcemia, Cr 0.76 today, continue to monitor. # Anemia: hgb low sec to malignancy with adequate B12 and ferritin. Stable post -op. Problems: Consultation Date/Type/Reason Admit Date/Time Apr 04, 2017 at 22:07 Initial Consult Date 04/05/17 Type of Consultation: Oncology Referring Provider: LEISA LANGSTON 24 HR Interval Summary Free Text/Dictation Patient doing well, received herceptin and pertuzumab without difficulty yesterday evening. Exam/Review of Systems Vital Signs Vitals Vital Signs Date Time Temp Pulse Resp B/P Pulse Ox O2 Delivery O2 Flow Rate FiO2 04/13/17 07:56 98.0 92 19 120/58 93 04/13/17 02:15 Nasal Cannula 2.0 Intake and Output 04/12/17 04/12/17 04/13/17 15:00 23:00 07:00 Intake Total 450 ml 2064.5 ml 1428 ml Output Total 1100 ml 950 ml Balance 450 ml 964.5 ml 478 ml Exam Constitutional: alert, oriented Psych: depression Eyes: nl conjunctiva Respiratory: normal air movement Musculoskeletal: nl extremities to inspection, s/p right humerus surgery, dressings c/d/i Results Result Diagram: 04/13/17 0445 04/13/17 0445 Results 24 hrs Laboratory Tests Test 04/13/17 04:45 White Blood Count 9.0 Red Blood Count 3.34 L Hemoglobin 8.9 L Hematocrit 27.1 L Mean Corpuscular Volume 81.1 L Mean Corpuscular Hemoglobin 26.6 L Mean Corpuscular Hemoglobin Concent 32.8 Red Cell Distribution Width 17.5 H Platelet Count 149 Mean Platelet Volume 10.9 H Neutrophils % Eosinophils % Neutrophils # Eosinophils # Sodium Level 140 Potassium Level 3.0 L Chloride Level 110 Carbon Dioxide Level 24 Anion Gap 9 Blood Urea Nitrogen 18 Creatinine 0.76 Glucose Level 118 Calcium Level 7.8 L Magnesium Level 1.7 Medications Medications Current Medications Anastrozole (Arimidex) 1 mg DAILY PO Last administered on 04/13/17 09:33; Admin Dose 1 MG; Start 04/05/17 at 09:00 Lorazepam (Ativan) 0.5 mg Q6H PRN PO ANXIETY; Start 04/06/17 at 16:00 Metoprolol Tartrate (Lopressor) 25 mg BID PO Last administered on 04/13/17 09: 32; Admin Dose 25 MG; Start 04/06/17 at 21:00 Enoxaparin Sodium (Lovenox) 40 mg DAILY SC Last administered on 04/13/17 09:34 ; Admin Dose 40 MG; Start 04/07/17 at 14:30 Polyethylene Glycol (Miralax) 17 gm BID PO Last administered on 04/13/17 09:35 ; Admin Dose 17 GM; Start 04/08/17 at 21:00 Bisacodyl (Dulcolax) 10 mg DAILY PRN PO CONSTIPATION; Start 04/08/17 at 10:30 Bisacodyl (Dulcolax Supp) 10 mg DAILY PRN [place] CONSTIPATION Last administered on 04/08/17 11:25; Admin Dose 10 MG; Start 04/08/17 at 10:30 Morphine Sulfate (morphine) 2 mg Q2H PRN IV PAIN Last administered on 05:07; Admin Dose 2 MG; Start 04/11/17 at 17:30 Acetaminophen/ Hydrocodone Bitart ([place] (5/325)) 1 tab Q3H PRN PO PAIN; Start 04/11/17 at 17:30 Citric Acid/ Sodium Citrate 30 ml 30 ml BID PO Last administered on 04/13/17 09:31; Admin Dose 30 ML; Start 04/12/17 at 21:00 Sodium Chloride 1,000 ml @ 50 mls/hr Q20H IV Last administered on 04/12/17t 22 :42; Admin Dose 50 MLS/HR; Start 04/12/17 at 16:30 Ondansetron HCl/ Sodium Chloride (Zofran Inj/NS) 54 ml @ 216 mls/hr Q8H PRN IV NAUSEA AND/OR VOMITING; Start 04/12/17 at 16:30 Hydrocortisone (Solu-Cortef) 100 mg ONCE PRN IV REACTION TO CHEMO; Start at 21:41 Diphenhydramine HCl (Benadryl) 50 mg ONCE PRN IV REACTION TO CHEMO; Start at 21:42 TOJUAN MD Apr 13, 2017 09:56
[2017-04-13] MEDS: SOD CHLORIDE 0.9% 1,000 ML IV SCH ×2 (12:30→17:45)
[2017-04-13 12:39] LABS: LYMPHOCYTES # 0.4 10^3/ul (0.8-2.9); MONOCYTE # 0.3 10^3/ul (0.3-0.9); MYELOCYTES # 0.1; PLATELET ESTIMATE PLT APPEAR DECREASED; POLYCHROMASIA 3+
[2017-04-13] MEDS ORDERED: POTASSIUM CHLORIDE 20 MEQ in SOD CHLORIDE 0.9% 100 ML IVPB ONE (13:00)
--- NOTE | 2017-04-13 16:03 | PN ---
Date/Time of Note Date/Time of Note DATE: 04/13/17 TIME: 15:56 Assessment/Plan VTE Prophylaxis VTE Prophylaxis Intervention: LMWH Lines/Catheters IV [facility]from [facility] PORT A CATH Urinary Cath still in place: No Assessment/Plan Assessment/Plan 57 yo F with stage 4 breast Ca with mets to liver, bones admitted for R arm pain 2/2 pathologic humeral fracture. sp surgical repair (nail) 04.11 #R humeral frx: f/u as per ortho s/p ORIF 04/11/17 #stage 4 diffusely metastatic breast Ca: onc following, Started on chemo per hemeon #brain and spine mets seen on MR imaging #hypercalcemia 2/2 metastatic ca: as per onc #Large right pleural effusion. 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 If the patient has worsening respiratory distress, will consider right thoracentesis. #s/p RHip replacement for pathologic fracture 2/2 mets #HTN: cont home meds #transaminitis 2/2 liver mets Continue supportive care and pain control and await [facility] clearance for discharge. Exam/Review of Systems Vital Signs Vitals Vital Signs Date Time Temp Pulse Resp B/P Pulse Ox O2 Delivery O2 Flow Rate FiO2 04/13/17 07:56 98.0 92 19 120/58 93 04/13/17 02:15 Nasal Cannula 2.0 Intake and Output 04/12/17 04/12/17 04/13/17 15:00 23:00 07:00 Intake Total 450 ml 2064.5 ml 1428 ml Output Total 1100 ml 950 ml Balance 450 ml 964.5 ml 478 ml Results Result Diagram: 04/13/17 0445 04/13/17 0445 Results 24 hrs Laboratory Tests Test 04/13/17 04:45 04/13/17 11:47 04/13/17 11:48 White Blood Count 9.0 Red Blood Count 3.34 L Hemoglobin 8.9 L Hematocrit 27.1 L Mean Corpuscular Volume 81.1 L Mean Corpuscular Hemoglobin 26.6 L Mean Corpuscular Hemoglobin Concent 32.8 Red Cell Distribution Width 17.5 H Platelet Count 149 Mean Platelet Volume 10.9 H Neutrophils % 78.0 H Band Neutrophils % 14.0 H Lymphocytes % 4.0 L Monocytes % 3.0 Eosinophils % Myelocytes % 1.0 H Neutrophils # 7.0 Lymphocytes # 0.4 L Monocytes # 0.3 Eosinophils # Myelocytes # 0.1 Platelet Estimate PLT APPEAR DECREASED Polychromasia 3+ Sodium Level 140 Potassium Level 3.0 L Chloride Level 110 Carbon Dioxide Level 24 Anion Gap 9 Blood Urea Nitrogen 18 Creatinine 0.76 Glucose Level 118 Calcium Level 7.8 L Magnesium Level 1.7 Lab Scanned Report REFERENCE LAB REFERENCE LAB Medications Medications Current Medications Anastrozole (Arimidex) 1 mg DAILY PO Last administered on 04/13/17 09:33; Admin Dose 1 MG; Start 04/05/17 at 09:00 Lorazepam (Ativan) 0.5 mg Q6H PRN PO ANXIETY; Start 04/06/17 at 16:00 Metoprolol Tartrate (Lopressor) 25 mg BID PO Last administered on 04/13/17 09: 32; Admin Dose 25 MG; Start 04/06/17 at 21:00 Enoxaparin Sodium (Lovenox) 40 mg DAILY SC Last administered on 04/13/17 09:34 ; Admin Dose 40 MG; Start 04/07/17 at 14:30 Polyethylene Glycol (Miralax) 17 gm BID PO Last administered on 04/13/17 09:35 ; Admin Dose 17 GM; Start 04/08/17 at 21:00 Bisacodyl (Dulcolax) 10 mg DAILY PRN PO CONSTIPATION; Start 04/08/17 at 10:30 Bisacodyl (Dulcolax Supp) 10 mg DAILY PRN [place] CONSTIPATION Last administered on 04/08/17 11:25; Admin Dose 10 MG; Start 04/08/17 at 10:30 Morphine Sulfate (morphine) 2 mg Q2H PRN IV PAIN Last administered on 05:07; Admin Dose 2 MG; Start 04/11/17 at 17:30 Acetaminophen/ Hydrocodone Bitart ([place] (5/325)) 1 tab Q3H PRN PO PAIN; Start 04/11/17 at 17:30 Citric Acid/ Sodium Citrate 30 ml 30 ml BID PO Last administered on 04/13/17 09:31; Admin Dose 30 ML; Start 04/12/17 at 21:00 Sodium Chloride 1,000 ml @ 50 mls/hr Q20H IV Last administered on 04/12/17 22 :42; Admin Dose 50 MLS/HR; Start 04/12/17 at 16:30 Ondansetron HCl/ Sodium Chloride (Zofran Inj/NS) 54 ml @ 216 mls/hr Q8H PRN IV NAUSEA AND/OR VOMITING; Start 04/12/17 at 16:30 Hydrocortisone (Solu-Cortef) 100 mg ONCE PRN IV REACTION TO CHEMO; Start at 21:41 Diphenhydramine HCl (Benadryl) 50 mg ONCE PRN IV REACTION TO CHEMO; Start at 21:42 LEISA LANGSTON Apr 13, 2017 16:03
--- NOTE | 2017-04-13 19:00 | CONS ---
Date/Time of Note Date/Time of Note DATE: 04/13/17 TIME: 18:58 Assessment/Plan Assessment/Plan Additional Assessment/Plan 1. Severe hypercalcemia with calcium level of 17.3 on admission. 2. Acute kidney injury secondary to prerenal azotemia. 3. History of metastatic breast cancer, 4. Hypokalemia with hypophosphatemia 5. Hypomagnesemia. Hypokalemia, Hypophosphatemia Plan: No plan for surgery now S/p Zometa on 04/06/17 for hypercalcemia, now Ca mproved to normal K low, KCL 20mEQ IV X 1 now on bicitra for metabolic acidosis will follow up Consultation Date/Type/Reason Admit Date/Time Apr 04, 2017 at 22:07 Initial Consult Date Type of Consultation: NEPHROLOGY Referring Provider: LEISA LANGSTON 24 HR Interval Summary Free Text/Dictation no acute events overnight, BP stable,afebrile, Ca normal, K low Exam/Review of Systems Vital Signs Vitals Vital Signs Date Time Temp Pulse Resp B/P Pulse Ox O2 Delivery O2 Flow Rate FiO2 04/13/17 07:56 98.0 92 19 120/58 93 04/13/17 02:15 Nasal Cannula 2.0 Intake and Output 04/12/17 04/12/17 04/13/17 15:00 23:00 07:00 Intake Total 450 ml 2064.5 ml 1428 ml Output Total 1100 ml 950 ml Balance 450 ml 964.5 ml 478 ml Exam GENERAL: The patient is awake, alert HEENT: Atraumatic, normocephalic. Pupils equal, round, reactive to light and accommodation. Extraocular muscles are intact. NECK: Supple, no JVD, no lymphadenopathy. LUNGS: Clear to auscultation. Decreased breath sounds at the right middle lobe and right lower lobe. HEART: S1, S2, with regular rhythm, no murmur. ABDOMEN: Soft, nontender, nondistended. Bowel sounds are present. EXTREMITIES: No clubbing, cyanosis, or edema. NEUROLOGICAL: Awake, alert, Results Result Diagram: 04/13/17 0445 04/13/17 0445 Results 24 hrs Laboratory Tests Test 04/13/17 04:45 04/13/17 11:47 04/13/17 11:48 White Blood Count 9.0 Red Blood Count 3.34 L Hemoglobin 8.9 L Hematocrit 27.1 L Mean Corpuscular Volume 81.1 L Mean Corpuscular Hemoglobin 26.6 L Mean Corpuscular Hemoglobin Concent 32.8 Red Cell Distribution Width 17.5 H Platelet Count 149 Mean Platelet Volume 10.9 H Neutrophils % 78.0 H Band Neutrophils % 14.0 H Lymphocytes % 4.0 L Monocytes % 3.0 Eosinophils % Myelocytes % 1.0 H Neutrophils # 7.0 Lymphocytes # 0.4 L Monocytes # 0.3 Eosinophils # Myelocytes # 0.1 Platelet Estimate PLT APPEAR DECREASED Polychromasia 3+ Sodium Level 140 Potassium Level 3.0 L Chloride Level 110 Carbon Dioxide Level 24 Anion Gap 9 Blood Urea Nitrogen 18 Creatinine 0.76 Glucose Level 118 Calcium Level 7.8 L Magnesium Level 1.7 Lab Scanned Report REFERENCE LAB REFERENCE LAB Medications Medications Current Medications Anastrozole (Arimidex) 1 mg DAILY PO Last administered on 04/13/17 09:33; Admin Dose 1 MG; Start 04/05/17 at 09:00 Lorazepam (Ativan) 0.5 mg Q6H PRN PO ANXIETY; Start 04/06/17 at 16:00 Metoprolol Tartrate (Lopressor) 25 mg BID PO Last administered on 04/13/17 09: 32; Admin Dose 25 MG; Start 04/06/17 at 21:00 Enoxaparin Sodium (Lovenox) 40 mg DAILY SC Last administered on 04/13/17 09:34 ; Admin Dose 40 MG; Start 04/07/17 at 14:30 Polyethylene Glycol (Miralax) 17 gm BID PO Last administered on 04/13/17 09:35 ; Admin Dose 17 GM; Start 04/08/17 at 21:00 Bisacodyl (Dulcolax) 10 mg DAILY PRN PO CONSTIPATION; Start 04/08/17 at 10:30 Bisacodyl (Dulcolax Supp) 10 mg DAILY PRN [place] CONSTIPATION Last administered on 04/08/17 11:25; Admin Dose 10 MG; Start 04/08/17 at 10:30 Morphine Sulfate (morphine) 2 mg Q2H PRN IV PAIN Last administered on 05:07; Admin Dose 2 MG; Start 04/11/17 at 17:30 Acetaminophen/ Hydrocodone Bitart ([place] (5/325)) 1 tab Q3H PRN PO PAIN; Start 04/11/17 at 17:30 Citric Acid/ Sodium Citrate 30 ml 30 ml BID PO Last administered on 04/13/17 09:31; Admin Dose 30 ML; Start 04/12/17 at 21:00 Sodium Chloride 1,000 ml @ 50 mls/hr Q20H IV Last administered on 04/13/17 17 :45; Admin Dose 50 MLS/HR; Start 04/12/17 at 16:30 Ondansetron HCl/ Sodium Chloride (Zofran Inj/NS) 54 ml @ 216 mls/hr Q8H PRN IV NAUSEA AND/OR VOMITING; Start 04/12/17 at 16:30 Hydrocortisone (Solu-Cortef) 100 mg ONCE PRN IV REACTION TO CHEMO; Start at 21:41 Diphenhydramine HCl (Benadryl) 50 mg ONCE PRN IV REACTION TO CHEMO; Start at 21:42 HANNA KIRKLAND MD Apr 13, 2017 19:00
[2017-04-13] MEDS: LORAZEPAM 0.5 MG TAB PO PRN (21:55)
[2017-04-14 05:46] LABS: ADD SCAN DIFF NO
[2017-04-14 05:52] LABS: HEMATOCRIT 28.3 % (37.0-47.0); HEMOGLOBIN 9.4 g/dl (12.0-16.0); LYMPHOCYTES # 0.6 10^3/ul (0.8-2.9); LYMPHOCYTES % 8.9 % (15.0-51.0); MEAN CORPUSCULAR HEMOGLOBIN 26.9 pg (29.0-33.0); MEAN CORPUSCULAR HGB CONC 33.2 g/dl (32.0-37.0); MEAN CORPUSCULAR VOLUME 80.9 fl (82.0-101.0); MEAN PLATELET VOLUME 10.6 fl (7.4-10.4); MONOCYTE # 0.3 10^3/ul (0.3-0.9); MONOCYTES % 3.9 % (0.0-11.0); NEUTROPHIL # 5.9 10^3/ul (1.6-7.5); NEUTROPHILS % 85.7 % (39.0-77.0); PLATELET COUNT 137 10^3/UL (140-415); RED CELL DISTRIBUTION WIDTH 17.5 % (11.5-14.5); WHITE BLOOD COUNT 6.9 10^3/ul (4.8-10.8)
[2017-04-14 06:44] LABS: ALBUMIN 2.8 g/dl (3.3-4.9); BILIRUBIN,INDIRECT 0.1 mg/dl (0-1.1); BILIRUBIN,TOTAL 0.1 mg/dl (0.2-1.3); CALCIUM 7.7 mg/dl (8.4-10.2); CREATININE 0.64 mg/dl (0.44-1.00); MAGNESIUM 1.6 mg/dl (1.7-2.5); POTASSIUM 3.1 mmol/L (3.5-5.1); TOTAL PROTEIN 5.6 g/dl (6.1-8.1)
[2017-04-14 07:27] VITALS: BP 116/69; RESP 18
[2017-04-14] MEDS: METOPROLOL 25 MG TAB PO SCH ×2 (09:00→20:44)
[2017-04-14] MEDS: POLYETHYLENE GLYCOL 17 GM PACKET PO SCH ×3 (09:00→20:46)
[2017-04-14] MEDS ORDERED: POTASSIUM CHLORIDE (SR) 20 MEQ TAB PO STA (09:05)
--- NOTE | 2017-04-14 09:13 | DS ---
Date/Time of Note Date/Time of Note DATE: 04/14/17 TIME: 09:06 Discharge Summary Admission/Discharge Info Admit Date/Time Apr 04, 2017 at 22:07 Discharge Date/Time Hx of Present Illness Chief complaint: Generalized weakness decreased appetite and confusion 57-year-old female with a history of metastatic breast cancer with bony metastases presenting to the ER for generalized weakness, decreased appetite, and confusion per her daughter. Per her daughter, she has been worsening over the past week with increasing confusion and difficulty getting out of bed. She has also had some constipation. No fevers, chills, dysuria, chest pain, shortness of breath, headache, or dizziness. She complains of uncontrolled generalized pain. Daughter states that she is unable to take care of her in this condition. Her oncologist is Dr. Vásquez. She is reportedly scheduled for mastectomy next week. As per the daughter patient was diagnosed with breast cancer approximately 7 months ago. She has received radiation therapy. Allergies: NKDA Medications: See [facility] Hospital Course 57 year old female with a history of right breast cancer admitted for generalized weakness, decreased appetite, and confusion per her daughter and found to have hypercalcemia with calcium of 17, acute renal failure, failure to thrive ER positive 99%, [place] positive 4%, HER2/gail positive by IHC 3+ based on 04/13/17 right breast mass biopsy and right axillary lymph node was 99% ER, 25% [place], HER2 equivocal by IHC 2+ and equicoval by FISH but negative by equivocal panel. During her admission, a CT of the chest showed the right breast mass, axillary, hilar and mediastinal adenopathy, multiple hepatic masses and pathologic right femoral neck fracture, consistent with metastatic cancer. On 09/01/2016 she underwent excision of metastatic cancer from femoral neck and intertrochanteric area of the right hip and hemiarthroplasty of the right hip. She was seen by Dr. Paola Nielsen for post-op radiation to the right hip which she received for 2 weeks. Path from 09/01/16 right hip surgery showed metastatic breast carcinoma, ER positive, [place] negative, HER2 positive disease by IHC and FISH. She was started on arimidex 1 mg daily but per patient, only received 1 month worth of medication and then was to be treated with trastuzumab taxane pertuzumab after local radiation. # Metastatic breast cancer. - US liver shows that the liver is enlarged and contains numerous and confluent lesions, likely metastases, measuring up to 6.6 cm in the left lobe. The liver demonstrates increased echogenicity and coarsened echotexture which are nonspecific and suggest fatty infiltration as well as early chronic liver disease. The main portal vein is patent with proper directional flow. Trace perihepatic ascites. - CXR shows large right pleural effusion, likely malignant, consider diagnostic and therapeutic thoracentesis if symptomatic - CT CAP with contrast 04/10/17 shows 1. Significant progression of diffuse metastatic disease with target lesions as listed above. Large right breast mass is again demonstrated with severe worsening of right axillary and mediastinal lymphadenopathy. There is development of large right and trace left pleural effusions with evidence of pulmonary lymphangitic carcinomatosis. Significant worsening of diffuse hepatic and osseous metastasis seen throughout the body. There is interval right hip replacement. 2. The T6 vertebral body lesion traverses over several vertebral body levels and invades the spinal canal., consider bone scan or outpatient PET/CT. - CA 27-29 > 450, CA 15-3 607 - CT of the lumbar spine from 02/28/17 showed multiple lytic metastatic foci of the lumbar vertebral bodies, sacrum and visualized iliac bones. - MRI brain 04/06/17 showed multiple osseous metastases - MRI spine 04/06/17 showed extensive osseous metastases throughout the spine with compression fractures, at the T6 level on the right there is a soft tissue component that is causing moderate narrowing of the canal at least touching the cord, no clear cord compression. - Per neurosurgery, The patient has widespread spinal metastases, including some with ventral epidural extension into the spinal canal. However, the patient is neurologically intact. There is no role for surgical intervention whatsoever given the widespread and diffuse nature of her metastatic disease burden. - Per rad onc (Pavan Beal) agree with systemic therapy, no plan for radiation for now, given no sensory issues or neurologic deficits. May need radiation to right humerus if has surgery for humerus due to high risk of fracture. - Per ortho, for metastatic fracture of the proximal shaft of the right humerus , plan for stabilization of the pathologic fracture involving the right humerus by intramedullary nailing. This intramedullary nailing can be done as soon as the patient can be medically cleared for surgery and probably it should be done prior to any breast surgery. Now status post open reduction and internal fixation of the pathologic fracture of the proximal shaft of the right humerus utilizing intramedullary nailing technique on 04/11/17. F/U path. Discussed with Dr. Lim, will plan for herceptin and pertuzumab only as would not interfere with wound healing and right humerus fx is urgent given unstable pathologic fracture. s/p herceptin and pertuzumab 04/12/17. s/p port 04/10/17. - MUGA 69% wnl. Chemo regimen Q3 weeks -X-s-u-e-s-b-x-e-l- -7-5- -m-g--/--m-2- -x- -0-.-7-5- -=- -5-6- -m-g--/--m-2- -I-V- -o-v-e-r- -1- -h-o-u-r- -(--2-5--%- -d-o-s-e- -x-p-d-y-i-j-i-o-n- -d-u-e- -t-o- -h-e-m-v-a-t-e-d- -L-F-T-s--)- Trastuzumab 8 mg/kg IV over 90 minutes cycle 1 Pertuzumab 840 mg IV over 60 minutes cycle 1 Of note, patient prefers that I not speak with family directly, and direct family questions to the patient herself as she would like to inform her family of her case. # Severe hypercalcemia, with calcium level of 17.3, improved to 7.8 today. - s/p calcitonin, aggressive hydration - s/p pamidronate 60 mg IV # Confusion and constipation, likely related to hypercalcemia, now resolved. # Acute renal failure, likely related to dehydration and hypercalcemia, Cr 0.76 today, continue to monitor. # Anemia: hgb low sec to malignancy with adequate B12 and ferritin. Stable post -op. Home Meds Active Scripts Oxycodone HCl/Acetaminophen (Percocet 5-325 mg Tablet) 1 Each Tablet, 1 EACH PO Q6, #20 TAB Prov:CHATO COYLE NP 02/28/17 Reported Medications Hydrocodone/Acetaminophen ([place] 5-325 Tablet) 1 Each Tablet, 1 EACH PO TID, TAB 04/04/17 Anastrozole* (Arimidex*) 1 Mg Tablet, 1 MG PO DAILY, #30 TAB 04/04/17 Primary Care Provider Walter Gutierrez Pending Labs Laboratory Tests Test 04/13/17 11:47 04/13/17 11:48 04/14/17 04:35 04/14/17 04:50 Lab Scanned Report REFERENCE [id number] REFERENCE [id number] Sodium Level 138mmol/L (135-144) Potassium Level 3.1mmol/L (3.5-5.1) Chloride Level 108mmol/L (97-110) Carbon Dioxide Level 25mmol/L (21-31) Anion Gap 8 (8-16) Blood Urea Nitrogen 19mg/dl (7-20) Creatinine 0.64mg/dl (0.44-1.00) Glucose Level 97mg/dl (70-220) Calcium Level 7.7mg/dl (8.4-10.2) Magnesium Level 1.6mg/dl (1.7-2.5) Total Bilirubin 0.1mg/dl (0.2-1.3) Direct Bilirubin 0.00mg/dl (0.00-0.20) Indirect Bilirubin 0.1mg/dl (0-1.1) Aspartate Amino Transf (AST/SGOT) 275IU/L (15-46) Alanine Aminotransferase (ALT/SGPT) 57IU/L (13-69) Alkaline Phosphatase 685IU/L (42-121) Total Protein 5.6g/dl (6.1-8.1) Albumin 2.8g/dl (3.3-4.9) Globulin 2.80g/dl (1.3-3.2) Albumin/Globulin Ratio 1.00 White Blood Count 6.910^3/ul (4.8-10.8) Red Blood Count 3.5010^6/ul (4.20-5.40) Hemoglobin 9.4g/dl (12.0-16.0) Hematocrit 28.3% (37.0-47.0) Mean Corpuscular Volume 80.9fl (82.0-101.0) Mean Corpuscular Hemoglobin 26.9pg (29.0-33.0) Mean Corpuscular Hemoglobin Concent 33.2g/dl (32.0-37.0) Red Cell Distribution Width 17.5% (11.5-14.5) Platelet Count 81277^3/UL (140-415) Mean Platelet Volume 10.6fl (7.4-10.4) Neutrophils % 85.7% (39.0-77.0) Lymphocytes % 8.9% (15.0-51.0) Monocytes % 3.9% (0.0-11.0) Eosinophils % 0.0% (0.0-7.0) Basophils % 0.0% (0.0-2.0) Nucleated Red Blood Cells % 0.0/100WBC (0.0-0.0) Neutrophils # 5.910^3/ul (1.6-7.5) Lymphocytes # 0.610^3/ul (0.8-2.9) Monocytes # 0.310^3/ul (0.3-0.9) Eosinophils # 0.010^3/ul (0.0-0.5) Basophils # 0.010^3/ul (0.0-0.1) Nucleated Red Blood Cells # 0.010^3/ul (0.0-0.0) LEISA LANGSTON Apr 14, 2017 09:12
[2017-04-14] MEDS: ENOXAPARIN 40 MG/0.4 ML SYG SC SCH (09:31)
[2017-04-14] MEDS: ANASTROZOLE 1 MG TAB PO SCH (09:32)
[2017-04-14] MEDS: CITRIC ACID/SODIUM CITRATE 15 ML CUP PO SCH ×2 (09:32→20:44)
--- NOTE | 2017-04-14 09:56 | CONS ---
Date/Time of Note Date/Time of Note DATE: 04/14/17 TIME: 09:53 Assessment/Plan Assessment/Plan Chief Complaint/Hosp Course 57 year old female with a history of right breast cancer admitted for generalized weakness, decreased appetite, and confusion per her daughter and found to have hypercalcemia with calcium of 17, acute renal failure, failure to thrive ER positive 99%, [place] positive 4%, HER2/gail positive by IHC 3+ based on 04/13/17 right breast mass biopsy and right axillary lymph node was 99% ER, 25% [place], HER2 equivocal by IHC 2+ and equicoval by FISH but negative by equivocal panel. During her admission, a CT of the chest showed the right breast mass, axillary, hilar and mediastinal adenopathy, multiple hepatic masses and pathologic right femoral neck fracture, consistent with metastatic cancer. On 09/01/2016 she underwent excision of metastatic cancer from femoral neck and intertrochanteric area of the right hip and hemiarthroplasty of the right hip. She was seen by Dr. Paola Nielsen for post-op radiation to the right hip which she received for 2 weeks. Path from 09/01/16 right hip surgery showed metastatic breast carcinoma, ER positive, [place] negative, HER2 positive disease by IHC and FISH. She was started on arimidex 1 mg daily but per patient, only received 1 month worth of medication and then was to be treated with trastuzumab taxane pertuzumab after local radiation. # Metastatic breast cancer. - US liver shows that the liver is enlarged and contains numerous and confluent lesions, likely metastases, measuring up to 6.6 cm in the left lobe. The liver demonstrates increased echogenicity and coarsened echotexture which are nonspecific and suggest fatty infiltration as well as early chronic liver disease. The main portal vein is patent with proper directional flow. Trace perihepatic ascites. - CXR shows large right pleural effusion, likely malignant, consider diagnostic and therapeutic thoracentesis if symptomatic - CT CAP with contrast 04/10/17 shows 1. Significant progression of diffuse metastatic disease with target lesions as listed above. Large right breast mass is again demonstrated with severe worsening of right axillary and mediastinal lymphadenopathy. There is development of large right and trace left pleural effusions with evidence of pulmonary lymphangitic carcinomatosis. Significant worsening of diffuse hepatic and osseous metastasis seen throughout the body. There is interval right hip replacement. 2. The T6 vertebral body lesion traverses over several vertebral body levels and invades the spinal canal., consider bone scan or outpatient PET/CT. - CA 27-29 > 450, CA 15-3 607 - CT of the lumbar spine from 02/28/17 showed multiple lytic metastatic foci of the lumbar vertebral bodies, sacrum and visualized iliac bones. - MRI brain 04/06/17 showed multiple osseous metastases - MRI spine 04/06/17 showed extensive osseous metastases throughout the spine with compression fractures, at the T6 level on the right there is a soft tissue component that is causing moderate narrowing of the canal at least touching the cord, no clear cord compression. - Per neurosurgery, The patient has widespread spinal metastases, including some with ventral epidural extension into the spinal canal. However, the patient is neurologically intact. There is no role for surgical intervention whatsoever given the widespread and diffuse nature of her metastatic disease burden. - Per rad onc (Pavan Beal) agree with systemic therapy, no plan for radiation for now, given no sensory issues or neurologic deficits. May need radiation to right humerus if has surgery for humerus due to high risk of fracture. - Per ortho, for metastatic fracture of the proximal shaft of the right humerus , plan for stabilization of the pathologic fracture involving the right humerus by intramedullary nailing. This intramedullary nailing can be done as soon as the patient can be medically cleared for surgery and probably it should be done prior to any breast surgery. Now status post open reduction and internal fixation of the pathologic fracture of the proximal shaft of the right humerus utilizing intramedullary nailing technique on 04/11/17. F/U path. Discussed with Dr. Lim, will plan for herceptin and pertuzumab only as would not interfere with wound healing and right humerus fx is urgent given unstable pathologic fracture. s/p herceptin and pertuzumab 04/12/17. s/p port 04/10/17. - MUGA 69% wnl. Chemo regimen Q3 weeks -V-a-p-w-k-b-x-e-l- -7-5- -m-g--/--m-2- -x- -0-.-7-5- -=- -5-6- -m-g--/--m-2- -I-V- -o-v-e-r- -1- -h-o-u-r- -(--2-5--%- -d-o-s-e- -h-a-p-w-b-h-i-o-n- -d-u-e- -t-o- -c-k-m-v-a-t-e-d- -L-F-T-s--)- Trastuzumab 8 mg/kg IV over 90 minutes cycle 1 Pertuzumab 840 mg IV over 60 minutes cycle 1 Of note, patient prefers that I not speak with family directly, and direct family questions to the patient herself as she would like to inform her family of her case. # Severe hypercalcemia, with calcium level of 17.3, improved to 7.7 today. - s/p calcitonin, aggressive hydration - s/p pamidronate 60 mg IV - PTH suppressed at 4, PTHrP pending, Vitamin D low # Confusion and constipation, likely related to hypercalcemia, now resolved. # Acute renal failure, likely related to dehydration and hypercalcemia, Cr 0.64 today, continue to monitor. # Anemia: hgb low sec to malignancy with adequate B12 and ferritin. Stable post -op. # Thrombocytopenia, mild but progressive, will check HIT panel, fibrinogen and fibrin split products, HIV, hep panel, repeat platelet count. Monitor. No bleeding. Dispo: pending hip x ray and physical therapy eval per primary team Patient should follow up with me in clinic, case management to ensure auth Problems: Consultation Date/Type/Reason Admit Date/Time Apr 04, 2017 at 22:07 Initial Consult Date 04/05/17 Type of Consultation: Oncology Referring Provider: LEISA LANGSTON 24 HR Interval Summary Free Text/Dictation Patient doing well, no complaints. Exam/Review of Systems Vital Signs Vitals Vital Signs Date Time Temp Pulse Resp B/P Pulse Ox O2 Delivery O2 Flow Rate FiO2 04/14/17 07:27 98.0 59 18 116/69 98 04/13/17 20:20 Nasal Cannula 2.0 Intake and Output 04/13/17 04/13/17 04/14/17 14:59 22:59 06:59 Intake Total 1310 ml 950 ml Balance 1310 ml 950 ml Exam Constitutional: alert, oriented Psych: depression Eyes: nl conjunctiva Respiratory: normal air movement Musculoskeletal: nl extremities to inspection, s/p right humerus surgery, dressings c/d/i Results Result Diagram: 04/14/17 0450 04/14/17 0435 Results 24 hrs Laboratory Tests Test 04/13/17 11:47 04/13/17 11:48 04/14/17 04:35 04/14/17 04:50 Lab Scanned Report REFERENCE LAB REFERENCE LAB Sodium Level 138 Potassium Level 3.1 L Chloride Level 108 Carbon Dioxide Level 25 Anion Gap 8 Blood Urea Nitrogen 19 Creatinine 0.64 Glucose Level 97 Calcium Level 7.7 L Magnesium Level 1.6 L Total Bilirubin 0.1 L Direct Bilirubin 0.00 Indirect Bilirubin 0.1 Aspartate Amino Transf (AST/SGOT) 275 H Alanine Aminotransferase (ALT/SGPT) 57 Alkaline Phosphatase 685 H Total Protein 5.6 L Albumin 2.8 L Globulin 2.80 Albumin/Globulin Ratio 1.00 White Blood Count 6.9 # Red Blood Count 3.50 L Hemoglobin 9.4 L Hematocrit 28.3 L Mean Corpuscular Volume 80.9 L Mean Corpuscular Hemoglobin 26.9 L Mean Corpuscular Hemoglobin Concent 33.2 Red Cell Distribution Width 17.5 H Platelet Count 137 L Mean Platelet Volume 10.6 H Neutrophils % 85.7 H Lymphocytes % 8.9 L Monocytes % 3.9 Eosinophils % 0.0 Basophils % 0.0 Nucleated Red Blood Cells % 0.0 Neutrophils # 5.9 Lymphocytes # 0.6 L Monocytes # 0.3 Eosinophils # 0.0 Basophils # 0.0 Nucleated Red Blood Cells # 0.0 Medications Medications Current Medications Anastrozole (Arimidex) 1 mg DAILY PO Last administered on 04/14/17 09:32; Admin Dose 1 MG; Start 04/05/17 at 09:00 Lorazepam (Ativan) 0.5 mg Q6H PRN PO ANXIETY Last administered on 04/13/17 21: 55; Admin Dose 0.5 MG; Start 04/06/17 at 16:00 Metoprolol Tartrate (Lopressor) 25 mg BID PO Last administered on 04/13/17 20: 24; Admin Dose 25 MG; Start 04/06/17 at 21:00 Enoxaparin Sodium (Lovenox) 40 mg DAILY SC Last administered on 04/14/17 09:31 ; Admin Dose 40 MG; Start 04/07/17 at 14:30 Polyethylene Glycol (Miralax) 17 gm BID PO Last administered on 04/13/17 09:35 ; Admin Dose 17 GM; Start 04/08/17 at 21:00 Bisacodyl (Dulcolax) 10 mg DAILY PRN PO CONSTIPATION; Start 04/08/17 at 10:30 Bisacodyl (Dulcolax Supp) 10 mg DAILY PRN [place] CONSTIPATION Last administered on 04/08/17 11:25; Admin Dose 10 MG; Start 04/08/17 at 10:30 Morphine Sulfate (morphine) 2 mg Q2H PRN IV PAIN Last administered on 05:07; Admin Dose 2 MG; Start 04/11/17 at 17:30 Acetaminophen/ Hydrocodone Bitart ([place] (5/325)) 1 tab Q3H PRN PO PAIN; Start 04/11/17 at 17:30 Citric Acid/ Sodium Citrate 30 ml 30 ml BID PO Last administered on 04/14/17 09:32; Admin Dose 30 ML; Start 04/12/17 at 21:00 Sodium Chloride 1,000 ml @ 50 mls/hr Q20H IV Last administered on 04/13/17 17 :45; Admin Dose 50 MLS/HR; Start 04/12/17 at 16:30 Ondansetron HCl/ Sodium Chloride (Zofran Inj/NS) 54 ml @ 216 mls/hr Q8H PRN IV NAUSEA AND/OR VOMITING; Start 04/12/17 at 16:30 Hydrocortisone (Solu-Cortef) 100 mg ONCE PRN IV REACTION TO CHEMO; Start at 21:41 Diphenhydramine HCl 50 mg 50 mg ONCE PRN IV REACTION TO CHEMO; Start 04/12/17 at 21:42 Magnesium Sulfate 50 ml @ 25 mls/hr ONCE ONCE IVPB ; Start 04/14/17 at 10:00; Stop 04/14/17 at 11:59 Potassium Chloride (KCl 40 MEQ/250 ML NS) 250 ml @ 62.5 mls/hr ONCE ONCE IVPB ; Start 04/14/17 at 11:00; Stop 04/14/17 at 14:59 TOJUAN MD Apr 14, 2017 09:56
[2017-04-14] MEDS ORDERED: MAGNESIUM SULFATE 2 GM/50 ML 50 ML IVPB ONE (10:00)
[2017-04-14] MEDS ORDERED: POTASSIUM CHLORIDE 250 ML IVPB ONE (11:00)
[2017-04-14 11:20] LABS: HAAIG REFLEX REFLEX FILED
--- NOTE | 2017-04-14 11:34 | RADRPT ---
PROCEDURE: XR Pelvis. CLINICAL INDICATION: Pelvic pain. Postop. TECHNIQUE: Single frontal view. COMPARISON: 09/01/2016. FINDINGS: There is a right hip hemiarthroplasty. This appears satisfactory with no fracture, dislocation or l oosening. There is no lytic lesion. There are moderate degenerative changes of the left hip with joint space narrowing and osteophytes. There is diffuse osteopenia. IMPRESSION: 1. Satisfactory postoperative appearance of the right hip. 2. Moderate degenerative changes of the left hip. 3. Diffuse osteopenia. RPTAT: QQ .Levar Henriquez MD, MD Date Time Electronically viewed and signed by .Levar Henriquez MD, MD on 04/14/2017 11:34 .R/
[2017-04-14 12:04] LABS: FIBRIN SPLIT PRODUCT <10 ug/ml (<10)
[2017-04-14 12:34] LABS: HEPATITIS B CORE ANTIBODY NEGATIVE (NEGATIVE)
--- NOTE | 2017-04-14 13:50 | PN ---
DATE: 04/14/2017 SUBJECTIVE: No complaint. No new event overnight. OBJECTIVE: VITAL SIGNS: Temperature 98, heart rate 69, respirations 18, blood pressure 116/69, saturation 99% on 2 liters nasal cannula. LABORATORY DATA: Today's lab, sodium 138, potassium 3.10. BUN and creatinine normal. Calcium 7.7, low, magnesium 1.6, low. Liver function test is elevated as before. AST and alkaline phosphatase elevated. Bilirubin is 0.1. Albumin is 2.8, low. PHYSICAL EXAMINATION: HEART: Regular. ABDOMEN: Soft. BREASTS: Right breast pathology is there. ASSESSMENT AND PLAN: A 57-year-old female who presented with hypercalcemia due to metastatic cancer of the right breast. She has metastasis to the cervical spine, lumbar spine, as well as metastasis to the liver and to the right humerus and probably to the pulmonary. The patient also sustained pathologic fracture of the right humerus, which was treated by open reduction and internal fixation by Dr. Lim at this time. The patient has very large cancer of breast on the right side involving metastasis to the skin. Eventually may require resection of the cancer of the breast by mastectomy but, at this time, per recommendation of the oncologist, the patient should receive chemotherapy, which already has received 1 dose of chemotherapy, and they prefer to proceed with that one after chemotherapy is finished. Therefore, plan is that if the patient is going to be discharged, which the nurse told me that the plan is to discharge her pretty soon, then the patient should be followed by Dr. Vásquez in his office for evaluation of the progression of the disease or response of the main tumor in the breast to the chemotherapy. It should be mentioned that the marker on the right breast specimen before was estrogen and progesterone positive and HER2 positive as well. So, emphasizing again, the patient should keep in touch with Dr. Vásquez' office and was referred to Dr. Vásquez' office for followup. Dictated By: DELLA REINOSO/JORJE Conf#: [id number] DID#: [id number]
[2017-04-14] MEDS: SOD CHLORIDE 0.9% 1,000 ML IV SCH (16:01)
[2017-04-14] MEDS: HYDROCODONE/APAP (5/325) TAB PO PRN (16:01)
--- NOTE | 2017-04-14 16:51 | CONS ---
Date/Time of Note Date/Time of Note DATE: 04/14/17 TIME: 16:50 Assessment/Plan Assessment/Plan Additional Assessment/Plan 1. Severe hypercalcemia with calcium level of 17.3 on admission.s/p Zometa, now normal 2. Acute kidney injury secondary to prerenal azotemia. 3. History of metastatic breast cancer, 4. Hypokalemia with hypophosphatemia 5. Hypomagnesemia. Hypokalemia, Hypophosphatemia Plan: No plan for surgery now S/p Zometa on 04/06/17 for hypercalcemia, now Ca mproved to normal K replaced, Mag replaced, BP stable on bicitra for metabolic acidosis will follow up Consultation Date/Type/Reason Admit Date/Time Apr 04, 2017 at 22:07 Initial Consult Date Type of Consultation: NEPHROLOGY Referring Provider: LEISA LANGSTON 24 HR Interval Summary Free Text/Dictation K low, Magnesium low, BP stable Exam/Review of Systems Vital Signs Vitals Vital Signs Date Time Temp Pulse Resp B/P Pulse Ox O2 Delivery O2 Flow Rate FiO2 04/14/17 07:27 98.0 59 18 116/69 98 04/13/17 20:20 Nasal Cannula 2.0 Intake and Output 04/13/17 04/13/17 04/14/17 15:00 23:00 07:00 Intake Total 1310 ml 950 ml Balance 1310 ml 950 ml Exam GENERAL: The patient is awake, alert HEENT: Atraumatic, normocephalic. Pupils equal, round, reactive to light and accommodation. Extraocular muscles are intact. NECK: Supple, no JVD, no lymphadenopathy. LUNGS: Clear to auscultation. Decreased breath sounds at the right middle lobe and right lower lobe. HEART: S1, S2, with regular rhythm, no murmur. ABDOMEN: Soft, nontender, nondistended. Bowel sounds are present. EXTREMITIES: No clubbing, cyanosis, or edema. NEUROLOGICAL: Awake, alert, Results Result Diagram: 04/14/17 1055 04/14/17 0435 Results 24 hrs Laboratory Tests Test 04/14/17 04:35 04/14/17 04:50 04/14/17 10:55 Sodium Level 138 Potassium Level 3.1 L Chloride Level 108 Carbon Dioxide Level 25 Anion Gap 8 Blood Urea Nitrogen 19 Creatinine 0.64 Glucose Level 97 Calcium Level 7.7 L Magnesium Level 1.6 L Total Bilirubin 0.1 L Direct Bilirubin 0.00 Indirect Bilirubin 0.1 Aspartate Amino Transf (AST/SGOT) 275 H Alanine Aminotransferase (ALT/SGPT) 57 Alkaline Phosphatase 685 H Total Protein 5.6 L Albumin 2.8 L Globulin 2.80 Albumin/Globulin Ratio 1.00 White Blood Count 6.9 # Red Blood Count 3.50 L Hemoglobin 9.4 L Hematocrit 28.3 L Mean Corpuscular Volume 80.9 L Mean Corpuscular Hemoglobin 26.9 L Mean Corpuscular Hemoglobin Concent 33.2 Red Cell Distribution Width 17.5 H Platelet Count 137 L 168 # Mean Platelet Volume 10.6 H Neutrophils % 85.7 H Lymphocytes % 8.9 L Monocytes % 3.9 Eosinophils % 0.0 Basophils % 0.0 Nucleated Red Blood Cells % 0.0 Neutrophils # 5.9 Lymphocytes # 0.6 L Monocytes # 0.3 Eosinophils # 0.0 Basophils # 0.0 Nucleated Red Blood Cells # 0.0 Fibrinogen 483.0 H Plasma Fibrin Degradation Products <10 Hepatitis B Surface Antigen NEGATIVE Hepatitis B Core Total Antibody NEGATIVE Hepatitis C Antibody NEGATIVE HIV (1&2) Antibody NEGATIVE Medications Medications Current Medications Anastrozole (Arimidex) 1 mg DAILY PO Last administered on 04/14/17 09:32; Admin Dose 1 MG; Start 04/05/17 at 09:00 Lorazepam (Ativan) 0.5 mg Q6H PRN PO ANXIETY Last administered on 04/13/17 21: 55; Admin Dose 0.5 MG; Start 04/06/17 at 16:00 Metoprolol Tartrate (Lopressor) 25 mg BID PO Last administered on 04/13/17 20: 24; Admin Dose 25 MG; Start 04/06/17 at 21:00 Enoxaparin Sodium (Lovenox) 40 mg DAILY SC Last administered on 04/14/17 09:31 ; Admin Dose 40 MG; Start 04/07/17 at 14:30 Polyethylene Glycol (Miralax) 17 gm BID PO Last administered on 04/13/17 09:35 ; Admin Dose 17 GM; Start 04/08/17 at 21:00 Bisacodyl (Dulcolax) 10 mg DAILY PRN PO CONSTIPATION; Start 04/08/17 at 10:30 Bisacodyl (Dulcolax Supp) 10 mg DAILY PRN [place] CONSTIPATION Last administered on 04/08/17 11:25; Admin Dose 10 MG; Start 04/08/17 at 10:30 Morphine Sulfate (morphine) 2 mg Q2H PRN IV PAIN Last administered on 05:07; Admin Dose 2 MG; Start 04/11/17 at 17:30 Acetaminophen/ Hydrocodone Bitart ([place] (5/325)) 1 tab Q3H PRN PO PAIN Last administered on 04/14/17 16:01; Admin Dose 1 TAB; Start 04/11/17 at 17:30 Citric Acid/ Sodium Citrate 30 ml 30 ml BID PO Last administered on 04/14/17 09:32; Admin Dose 30 ML; Start 04/12/17 at 21:00 Sodium Chloride 1,000 ml @ 50 mls/hr Q20H IV Last administered on 04/14/17 16 :01; Admin Dose 50 MLS/HR; Start 04/12/17 at 16:30 Ondansetron HCl/ Sodium Chloride (Zofran Inj/NS) 54 ml @ 216 mls/hr Q8H PRN IV NAUSEA AND/OR VOMITING; Start 04/12/17 at 16:30 Hydrocortisone (Solu-Cortef) 100 mg ONCE PRN IV REACTION TO CHEMO; Start at 21:41 Diphenhydramine HCl (Benadryl) 50 mg ONCE PRN IV REACTION TO CHEMO; Start at 21:42 HANNA KIRKLAND MD Apr 14, 2017 16:51
--- NOTE | 2017-04-14 17:09 | PN ---
Date/Time of Note Date/Time of Note DATE: 04/14/17 TIME: 17:05 Assessment/Plan VTE Prophylaxis VTE Prophylaxis Intervention: LMWH Lines/Catheters IV [facility] Type (from [facility] [place] [facility] Urinary Cath still in place: No Assessment/Plan Assessment/Plan 57 yo F with stage 4 breast Ca with mets to liver, bones admitted for R arm pain 2/2 pathologic humeral fracture. sp surgical repair (nail) . #R humeral frx: f/u as per ortho s/p ORIF 04/11/17 #stage 4 diffusely metastatic breast Ca: onc following, Started on chemo per hemeonc #brain and spine mets seen on MR imaging #hypercalcemia 2/2 metastatic ca: as per onc #Large right pleural effusion. 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 If the patient has worsening respiratory distress, will consider right thoracentesis. #s/p RHip replacement for pathologic fracture 2/2 mets 12/2016 #HTN: cont home meds #transaminitis 2/2 liver mets Continue supportive care and pain control Cleared by hemon for discharge We will do a pelvic XR and order PT to determine d/c requirements. Subjective 24 Hr Interval Summary Free Text/Dictation we discussed discharge. Patient has not ambulated since fall that broke her R humerus and destiny her to ER. Exam/Review of Systems Vital Signs Vitals Vital Signs Date Time Temp Pulse Resp B/P Pulse Ox O2 Delivery O2 Flow Rate FiO2 04/14/17 07:27 98.0 59 18 116/69 98 04/13/17 20:20 Nasal Cannula 2.0 Intake and Output 04/13/17 04/13/17 04/14/17 15:00 23:00 07:00 Intake Total 1310 ml 950 ml Balance 1310 ml 950 ml Exam Constitutional: alert, frail Head: atraumatic, normocephalic Eyes: PERRL ENMT: mucosa pink and moist Respiratory: clear to auscultation, diminished breath sounds Cardiovascular: regular rate and rhythm, No murmurs/extra sounds Gastrointestinal: bowel sounds, non-tender, soft Extremities: other (RUE mildly swollen, with dressing over R shoulder, no LE edema) Results Result Diagram: 04/14/17 1055 04/14/17 0435 Results 24 hrs Laboratory Tests Test 04/14/17 04:35 04/14/17 04:50 04/14/17 10:55 Sodium Level 138 Potassium Level 3.1 L Chloride Level 108 Carbon Dioxide Level 25 Anion Gap 8 Blood Urea Nitrogen 19 Creatinine 0.64 Glucose Level 97 Calcium Level 7.7 L Magnesium Level 1.6 L Total Bilirubin 0.1 L Direct Bilirubin 0.00 Indirect Bilirubin 0.1 Aspartate Amino Transf (AST/SGOT) 275 H Alanine Aminotransferase (ALT/SGPT) 57 Alkaline Phosphatase 685 H Total Protein 5.6 L Albumin 2.8 L Globulin 2.80 Albumin/Globulin Ratio 1.00 White Blood Count 6.9 # Red Blood Count 3.50 L Hemoglobin 9.4 L Hematocrit 28.3 L Mean Corpuscular Volume 80.9 L Mean Corpuscular Hemoglobin 26.9 L Mean Corpuscular Hemoglobin Concent 33.2 Red Cell Distribution Width 17.5 H Platelet Count 137 L 168 # Mean Platelet Volume 10.6 H Neutrophils % 85.7 H Lymphocytes % 8.9 L Monocytes % 3.9 Eosinophils % 0.0 Basophils % 0.0 Nucleated Red Blood Cells % 0.0 Neutrophils # 5.9 Lymphocytes # 0.6 L Monocytes # 0.3 Eosinophils # 0.0 Basophils # 0.0 Nucleated Red Blood Cells # 0.0 Fibrinogen 483.0 H Plasma Fibrin Degradation Products <10 Hepatitis B Surface Antigen NEGATIVE Hepatitis B Core Total Antibody NEGATIVE Hepatitis C Antibody NEGATIVE HIV (1&2) Antibody NEGATIVE Medications Medications Current Medications Anastrozole (Arimidex) 1 mg DAILY PO Last administered on 04/14/17 09:32; Admin Dose 1 MG; Start 04/05/17 at 09:00 Lorazepam (Ativan) 0.5 mg Q6H PRN PO ANXIETY Last administered on 04/13/17 21: 55; Admin Dose 0.5 MG; Start 04/06/17 at 16:00 Metoprolol Tartrate (Lopressor) 25 mg BID PO Last administered on 04/13/17 20: 24; Admin Dose 25 MG; Start 04/06/17 at 21:00 Enoxaparin Sodium (Lovenox) 40 mg DAILY SC Last administered on 04/14/17 09:31 ; Admin Dose 40 MG; Start 04/07/17 at 14:30 Polyethylene Glycol (Miralax) 17 gm BID PO Last administered on 04/13/17 09:35 ; Admin Dose 17 GM; Start 04/08/17 at 21:00 Bisacodyl (Dulcolax) 10 mg DAILY PRN PO CONSTIPATION; Start 04/08/17 at 10:30 Bisacodyl (Dulcolax Supp) 10 mg DAILY PRN [place] CONSTIPATION Last administered on 04/08/17 11:25; Admin Dose 10 MG; Start 04/08/17 at 10:30 Morphine Sulfate (morphine) 2 mg Q2H PRN IV PAIN Last administered on 05:07; Admin Dose 2 MG; Start 04/11/17 at 17:30 Acetaminophen/ Hydrocodone Bitart ([place] (5/325)) 1 tab Q3H PRN PO PAIN Last administered on 04/14/17 16:01; Admin Dose 1 TAB; Start 04/11/17 at 17:30 Citric Acid/ Sodium Citrate 30 ml 30 ml BID PO Last administered on 04/14/17 09:32; Admin Dose 30 ML; Start 04/12/17 at 21:00 Sodium Chloride 1,000 ml @ 50 mls/hr Q20H IV Last administered on 04/14/17 16 :01; Admin Dose 50 MLS/HR; Start 04/12/17 at 16:30 Ondansetron HCl/ Sodium Chloride (Zofran Inj/NS) 54 ml @ 216 mls/hr Q8H PRN IV NAUSEA AND/OR VOMITING; Start 04/12/17 at 16:30 Hydrocortisone (Solu-Cortef) 100 mg ONCE PRN IV REACTION TO CHEMO; Start at 21:41 Diphenhydramine HCl (Benadryl) 50 mg ONCE PRN IV REACTION TO CHEMO; Start at 21:42 LEISA LANGSTON Apr 14, 2017 17:09
[2017-04-14 21:56] VITALS: BP 121/63; RESP 20
[2017-04-14] MEDS: LORAZEPAM 0.5 MG TAB PO PRN (22:21)
[2017-04-15 05:45] LABS: ADD SCAN DIFF NO
[2017-04-15 05:48] LABS: EOSINOPHILS # 0.1 10^3/ul (0.0-0.5); EOSINOPHILS % 0.9 % (0.0-7.0); HEMOGLOBIN 8.3 g/dl (12.0-16.0); LYMPHOCYTES # 0.7 10^3/ul (0.8-2.9); LYMPHOCYTES % 11.3 % (15.0-51.0); MEAN CORPUSCULAR HEMOGLOBIN 26.3 pg (29.0-33.0); MEAN CORPUSCULAR HGB CONC 31.9 g/dl (32.0-37.0); MEAN CORPUSCULAR VOLUME 82.5 fl (82.0-101.0); MEAN PLATELET VOLUME 11.1 fl (7.4-10.4); MONOCYTE # 0.3 10^3/ul (0.3-0.9); MONOCYTES % 4.1 % (0.0-11.0); NEUTROPHIL # 5.2 10^3/ul (1.6-7.5); NEUTROPHILS % 80.6 % (39.0-77.0); PLATELET COUNT 167 10^3/UL (140-415); RED BLOOD COUNT 3.15 10^6/ul (4.20-5.40); RED CELL DISTRIBUTION WIDTH 18.1 % (11.5-14.5); WHITE BLOOD COUNT 6.4 10^3/ul (4.8-10.8)
[2017-04-15 06:09] LABS: ALBUMIN 2.5 g/dl (3.3-4.9); ALBUMIN/GLOBULIN RATIO 0.83; BILIRUBIN,INDIRECT 0.2 mg/dl (0-1.1); BILIRUBIN,TOTAL 0.2 mg/dl (0.2-1.3); CALCIUM 7.9 mg/dl (8.4-10.2); CREATININE 0.6 mg/dl (0.44-1.00); POTASSIUM 4.1 mmol/L (3.5-5.1); TOTAL PROTEIN 5.5 g/dl (6.1-8.1)
[2017-04-15 08:00] VITALS: BP 105/57; RESP 16
[2017-04-15] MEDS: METOPROLOL 25 MG TAB PO SCH ×2 (08:36→22:26)
[2017-04-15] MEDS: CITRIC ACID/SODIUM CITRATE 15 ML CUP PO SCH ×2 (08:37→22:28)
[2017-04-15] MEDS: ANASTROZOLE 1 MG TAB PO SCH (08:39)
[2017-04-15] MEDS: ENOXAPARIN 40 MG/0.4 ML SYG SC SCH (08:39)
[2017-04-15] MEDS: POLYETHYLENE GLYCOL 17 GM PACKET PO SCH ×2 (08:40→22:28)
[2017-04-15] MEDS: HYDROCODONE/APAP (5/325) TAB PO PRN (11:03)
--- NOTE | 2017-04-15 12:45 | CONS ---
Date/Time of Note Date/Time of Note DATE: 04/15/17 TIME: 12:43 Assessment/Plan Assessment/Plan Additional Assessment/Plan 1. Severe hypercalcemia with calcium level of 17.3 on admission.s/p Zometa, now normal 2. Acute kidney injury secondary to prerenal azotemia. 3. History of metastatic breast cancer, 4. Hypokalemia with hypophosphatemia 5. Hypomagnesemia. Hypokalemia, Hypophosphatemia 6. Transaminitis, trending up LFTs Plan: LFTs are trending up S/p Zometa on 04/06/17 for hypercalcemia, now Ca mproved to normal Cr normal, electroltyes stable today on bicitra for metabolic acidosis will follow up Consultation Date/Type/Reason Admit Date/Time Apr 04, 2017 at 22:07 Initial Consult Date Type of Consultation: NEPHROLOGY Referring Provider: LEISA LANGSTON 24 HR Interval Summary Free Text/Dictation remains stable, Electrolytes stable, LFTs trending up Exam/Review of Systems Vital Signs Vitals Vital Signs Date Time Temp Pulse Resp B/P Pulse Ox O2 Delivery O2 Flow Rate FiO2 04/15/17 08:00 98.0 85 16 105/57 100 04/13/17 20:20 Nasal Cannula 2.0 Intake and Output 04/14/17 04/14/17 04/15/17 15:00 23:00 07:00 Intake Total 50 ml 812 ml Output Total 900 ml Balance 50 ml -88 ml Results Result Diagram: 04/15/17 0455 04/15/17 0455 Results 24 hrs Laboratory Tests Test 04/15/17 04:55 White Blood Count 6.4 Red Blood Count 3.15 L Hemoglobin 8.3 L Hematocrit 26.0 L Mean Corpuscular Volume 82.5 Mean Corpuscular Hemoglobin 26.3 L Mean Corpuscular Hemoglobin Concent 31.9 L Red Cell Distribution Width 18.1 H Platelet Count 167 Mean Platelet Volume 11.1 H Neutrophils % 80.6 H Lymphocytes % 11.3 L Monocytes % 4.1 Eosinophils % 0.9 Basophils % 0.0 Nucleated Red Blood Cells % 0.0 Neutrophils # 5.2 Lymphocytes # 0.7 L Monocytes # 0.3 Eosinophils # 0.1 Basophils # 0.0 Nucleated Red Blood Cells # 0.0 Sodium Level 140 Potassium Level 4.1 Chloride Level 110 Carbon Dioxide Level 25 Anion Gap 9 Blood Urea Nitrogen 17 Creatinine 0.60 Glucose Level 80 Calcium Level 7.9 L Total Bilirubin 0.2 Direct Bilirubin 0.00 Indirect Bilirubin 0.2 Aspartate Amino Transf (AST/SGOT) 346 H Alanine Aminotransferase (ALT/SGPT) 77 H Alkaline Phosphatase 891 H Total Protein 5.5 L Albumin 2.5 L Globulin 3.00 Albumin/Globulin Ratio 0.83 Medications Medications Current Medications Anastrozole (Arimidex) 1 mg DAILY PO Last administered on 04/15/17 08:39; Admin Dose 1 MG; Start 04/05/17 at 09:00 Lorazepam (Ativan) 0.5 mg Q6H PRN PO ANXIETY Last administered on 04/14/17 22: 21; Admin Dose 0.5 MG; Start 04/06/17 at 16:00 Metoprolol Tartrate (Lopressor) 25 mg BID PO Last administered on 04/15/17 08: 36; Admin Dose 25 MG; Start 04/06/17 at 21:00 Enoxaparin Sodium (Lovenox) 40 mg DAILY SC Last administered on 04/15/17 08:39 ; Admin Dose 40 MG; Start 04/07/17 at 14:30 Polyethylene Glycol (Miralax) 17 gm BID PO Last administered on 04/13/17 09:35 ; Admin Dose 17 GM; Start 04/08/17 at 21:00 Bisacodyl (Dulcolax) 10 mg DAILY PRN PO CONSTIPATION; Start 04/08/17 at 10:30 Bisacodyl (Dulcolax Supp) 10 mg DAILY PRN [place] CONSTIPATION Last administered on 04/08/17 11:25; Admin Dose 10 MG; Start 04/08/17 at 10:30 Morphine Sulfate (morphine) 2 mg Q2H PRN IV PAIN Last administered on 05:07; Admin Dose 2 MG; Start 04/11/17 at 17:30 Acetaminophen/ Hydrocodone Bitart ([place] (5/325)) 1 tab Q3H PRN PO PAIN Last administered on 04/15/17 11:03; Admin Dose 1 TAB; Start 04/11/17 at 17:30 Citric Acid/ Sodium Citrate 30 ml 30 ml BID PO Last administered on 04/15/17 08:37; Admin Dose 30 ML; Start 04/12/17 at 21:00 Sodium Chloride 1,000 ml @ 50 mls/hr Q20H IV Last administered on 04/14/17t 16 :01; Admin Dose 50 MLS/HR; Start 04/12/17 at 16:30 Ondansetron HCl/ Sodium Chloride (Zofran Inj/NS) 54 ml @ 216 mls/hr Q8H PRN IV NAUSEA AND/OR VOMITING; Start 04/12/17 at 16:30 Hydrocortisone (Solu-Cortef) 100 mg ONCE PRN IV REACTION TO CHEMO; Start at 21:41 Diphenhydramine HCl (Benadryl) 50 mg ONCE PRN IV REACTION TO CHEMO; Start at 21:42 HANNA KIRKLAND MD Apr 15, 2017 12:45
--- NOTE | 2017-04-15 12:50 | HKNOTE ---
DATE OF SERVICE: 04/15/2017 MEDICAL ONCOLOGY FOLLOWUP HISTORY OF PRESENT ILLNESS: Ms. Frances is a 57-year-old Jordanian-speaking lady with locally advan mona right breast cancer and had right arthroplasty for a pathologic fracture of the right hip on Aug. On 04/12/2017 she had surgery for a pathologic fracture of the right humerus. The p atient still has back pain. She is on physical therapy. She is eating good. PHYSICAL EXAMINATION: GENERAL: Shows a moderately built female, who is alert, oriented and cooperative. She has a sling for the right upper extremity. ENT, HEART, LUNGS: Normal. BREASTS: Left breast normal. The right breast is fixed to the chest wall, with multiple nodules an d a mass in the breast. ABDOMEN: Soft. No masses. GENITALIA: External genitalia normal. EXTREMITIES: The patient has a scar over the right hip. LYMPH NODES: No peripheral lymphadenopathy. CENTRAL NERVOUS SYSTEM: No focal defects, except the patient has difficulty in walking. LABORATORY DATA: Her CBC is unremarkable, except for a hemoglobin of 8.3. Her CEA is 607. Her ane maria teresa panel is unremarkable. Hepatitis panel is also unremarkable. IMPRESSION: 1. Carcinoma of the right breast, ER and HER-2 gail positive. Patient on Arimidex plus Herceptin an d pertuzumab. 1. Status post surgery for pathologic fracture of the right hip and right humerus. 2. Severe anemia, with a normal anemia panel. 3. Abnormal liver function tests, most likely secondary to liver metastasis. PLAN: I had a discussion with this patient that with 2 pathology fractures, liver metastasis and wid espread cancer. She is on treatment with pertuzumab and Herceptin. Soon docetaxel will be added. She is going to get physical therapy. We will also monitor her anemia, which is almost certainly an emia of chronic illness. Bone marrow metastasis also cannot be ruled out. She will need transfusio n on a p.r.n. basis. Dictated By: DARRIN AKERS MD PC/NTS Conf#: [id number] DID#: [id number]
--- NOTE | 2017-04-15 14:36 | PN ---
Date/Time of Note Date/Time of Note DATE: 04/15/17 TIME: 14:29 Assessment/Plan VTE Prophylaxis VTE Prophylaxis Intervention: LMWH Lines/Catheters IV [facility]from [facility] PORTACATH Urinary Cath still in place: No Assessment/Plan Chief Complaint/Hosp Course Assessment/Plan 57 yo F with stage 4 breast Ca with mets to liver, bones admitted for R arm pain 2/2 pathologic humeral fracture. sp surgical repair (nail) . #R humeral frx: f/u as per ortho s/p ORIF 04/11/17 #stage 4 diffusely metastatic breast Ca: onc following, Started on chemo per hemeonc #brain and spine mets seen on MR imaging #hypercalcemia 2/2 metastatic ca: as per onc #Large right pleural effusion. 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 If the patient has worsening respiratory distress, will consider right thoracentesis. #s/p RHip replacement for pathologic fracture 2/2 mets 12/2016 #HTN: cont home meds #transaminitis 2/2 liver mets Continue supportive care and pain control Cleared by hemon for discharge, but pt still requiring PT continue PT, and get ARU eval as well Problems: Subjective 24 Hr Interval Summary Free Text/Dictation Worked with PT. Still with some pain complaints. Exam/Review of Systems Vital Signs Vitals Vital Signs Date Time Temp Pulse Resp B/P Pulse Ox O2 Delivery O2 Flow Rate FiO2 04/15/17 08:00 98.0 85 16 105/57 100 04/13/17 20:20 Nasal Cannula 2.0 Intake and Output 04/14/17 04/14/17 04/15/17 15:00 23:00 07:00 Intake Total 50 ml 812 ml Output Total 900 ml Balance 50 ml -88 ml Exam Constitutional: alert, frail Head: atraumatic, normocephalic Eyes: PERRL ENMT: mucosa pink and moist Respiratory: clear to auscultation, diminished breath sounds Cardiovascular: regular rate and rhythm, No murmurs/extra sounds Gastrointestinal: bowel sounds, non-tender, soft Extremities: other (RUE mildly swollen, with dressing over R shoulder, no LE edema) Results Result Diagram: 04/15/17 0455 04/15/17 0455 Results 24 hrs Laboratory Tests Test 04/15/17 04:55 White Blood Count 6.4 Red Blood Count 3.15 L Hemoglobin 8.3 L Hematocrit 26.0 L Mean Corpuscular Volume 82.5 Mean Corpuscular Hemoglobin 26.3 L Mean Corpuscular Hemoglobin Concent 31.9 L Red Cell Distribution Width 18.1 H Platelet Count 167 Mean Platelet Volume 11.1 H Neutrophils % 80.6 H Lymphocytes % 11.3 L Monocytes % 4.1 Eosinophils % 0.9 Basophils % 0.0 Nucleated Red Blood Cells % 0.0 Neutrophils # 5.2 Lymphocytes # 0.7 L Monocytes # 0.3 Eosinophils # 0.1 Basophils # 0.0 Nucleated Red Blood Cells # 0.0 Sodium Level 140 Potassium Level 4.1 Chloride Level 110 Carbon Dioxide Level 25 Anion Gap 9 Blood Urea Nitrogen 17 Creatinine 0.60 Glucose Level 80 Calcium Level 7.9 L Total Bilirubin 0.2 Direct Bilirubin 0.00 Indirect Bilirubin 0.2 Aspartate Amino Transf (AST/SGOT) 346 H Alanine Aminotransferase (ALT/SGPT) 77 H Alkaline Phosphatase 891 H Total Protein 5.5 L Albumin 2.5 L Globulin 3.00 Albumin/Globulin Ratio 0.83 Medications Medications Current Medications Anastrozole (Arimidex) 1 mg DAILY PO Last administered on 04/15/17 08:39; Admin Dose 1 MG; Start 04/05/17 at 09:00 Lorazepam (Ativan) 0.5 mg Q6H PRN PO ANXIETY Last administered on 04/14/17 22: 21; Admin Dose 0.5 MG; Start 04/06/17 at 16:00 Metoprolol Tartrate (Lopressor) 25 mg BID PO Last administered on 04/15/17 08: 36; Admin Dose 25 MG; Start 04/06/17 at 21:00 Enoxaparin Sodium (Lovenox) 40 mg DAILY SC Last administered on 04/15/17 08:39 ; Admin Dose 40 MG; Start 04/07/17 at 14:30 Polyethylene Glycol (Miralax) 17 gm BID PO Last administered on 04/13/17 09:35 ; Admin Dose 17 GM; Start 04/08/17 at 21:00 Bisacodyl (Dulcolax) 10 mg DAILY PRN PO CONSTIPATION; Start 04/08/17 at 10:30 Bisacodyl (Dulcolax Supp) 10 mg DAILY PRN [place] CONSTIPATION Last administered on 04/08/17 11:25; Admin Dose 10 MG; Start 04/08/17 at 10:30 Morphine Sulfate (morphine) 2 mg Q2H PRN IV PAIN Last administered on 05:07; Admin Dose 2 MG; Start 04/11/17 at 17:30 Acetaminophen/ Hydrocodone Bitart ([place] (5/325)) 1 tab Q3H PRN PO PAIN Last administered on 04/15/17 11:03; Admin Dose 1 TAB; Start 04/11/17 at 17:30 Citric Acid/ Sodium Citrate 30 ml 30 ml BID PO Last administered on 04/15/17 08:37; Admin Dose 30 ML; Start 04/12/17 at 21:00 Sodium Chloride 1,000 ml @ 50 mls/hr Q20H IV Last administered on 04/14/17 16 :01; Admin Dose 50 MLS/HR; Start 04/12/17 at 16:30 Ondansetron HCl/ Sodium Chloride (Zofran Inj/NS) 54 ml @ 216 mls/hr Q8H PRN IV NAUSEA AND/OR VOMITING; Start 04/12/17 at 16:30 Hydrocortisone (Solu-Cortef) 100 mg ONCE PRN IV REACTION TO CHEMO; Start at 21:41 Diphenhydramine HCl (Benadryl) 50 mg ONCE PRN IV REACTION TO CHEMO; Start at 21:42 KIARA CHOE Apr 15, 2017 14:36
--- NOTE | 2017-04-15 16:17 | PN ---
DATE: 04/15/2017 FOLLOWUP SUBJECTIVE: No new complaints. OBJECTIVE: VITAL SIGNS: Temperature 98, heart rate 85, respirations 16, blood pressure 105/57, saturations on 2 liters nasal cannula of 100%. LABORATORY: WBC 6,400 today with 80% segmented, which is high. Hemoglobin 8.3, hematocrit 26. Rosalina huong: Sodium, potassium, BUN, creatinine are within normal limits. ASSESSMENT AND PLAN: This is a 57-year-old female with metastatic cancer of the right breast and a pathologic fracture of the right femur, which was taken of by open reduction internal fixation. The patient has received first course doses of chemotherapy for metastatic breast cancer. She has a la rge breast tumor as well. The patient today has been out of bed with an arm sling to support the [facility] upper extremity. PLAN: To send the patient to acute rehabilitation. They are waiting for a rehabilitation evaluation and then the other plan is that when the patient finishes her course of chemotherapy then the [facility] surgeon, Dr. Vásquez, is going to make a decision about a mastectomy. Will continue to follow the patient along with the other colleagues. Dictated By: DELLA ALVAREZ MD PS/NTS Conf#: [id number] DID#: [id number]
[2017-04-15 19:15] VITALS: BP 138/65; RESP 20
[2017-04-15] MEDS: SOD CHLORIDE 0.9% 1,000 ML IV SCH (22:24)
[2017-04-15] MEDS: LORAZEPAM 0.5 MG TAB PO PRN (22:27)
--- NOTE | 2017-04-16 02:31 | CONS ---
DATE OF ADMISSION: 04/04/2017 DATE OF CONSULTATION: 04/07/2017 REFERRING PHYSICIAN: Annalee Kraus MD REASON FOR CONSULTATION: Metastatic carcinoma of the breast. HISTORY OF PRESENT ILLNESS: The patient is a 57-year-old female, who was initially diagnosed with locally-advanced carcinoma of the right breast in 2015. At that time a biopsy of the breast and a right axillary lymph node showed evidence of moderately to poorly-differentiated invasive ductal carcinoma , ER positive, MS positive, and HER-2/gail positive for the breast lesion and HER -2 negative lymph node. She did not proceed with intervention at that time due to financial issues. She was subsequently admitted to [facility] in early 08/2016 with a pathologic fracture of the right hip. During that admission, a whole body bone scan on 08/26/2016 displayed evidence of increased activity in the right anterior 6th rib, as well as in the right hip. CT chest, abdomen, and pelvis was significant for a 7 x 6 cm central right breast mass with associated skin thickening, right axillary subcarinal and bilateral hilar adenopathy, and multiple hypodense masses measuring up to 2 cm in the liver. A lytic lesion in the right femoral neck with a pathologic fracture through the neck was also identified. The femoral head was within the acetabulum. An MRI of the right hip, also on 08/26/2016, confirmed the presence of an acutely moderately-displaced intertrochanteric pathologic fracture of the right proximal femur with significant surrounding adjacent tissue swelling and hematoma. At the site of the fracture, there was a concern for an osseous lesion measuring 27 x 24 mm. There was additional subcentimeter metastatic foci seen throughout the pelvis including the right iliac wing, left sacrum, right femoral head, and L5 vertebral body. On 09/02/2016, Dr. Horace Lim performed a right hip hemiarthroplasty and excision of metastatic carcinoma from the femoral neck and intertrochanteric region. Pathology was consistent with metastatic adenocarcinoma consistent with breast primary, ER positive, MS negative, HER-2/gail positive. The patient did go on to receive postoperative radiation therapy with Dr. Nielsen to a dose of 3000 cGy in 10 fractions, completed on 11/11/2016. At the time, she had been started on anastrozole, but only completed 1 month of such therapy, and then again was lost to followup due to insurance and financial reasons. She now presented to the Emergency Department at [facility] with complaints of generalized weakness, decreased appetite, confusion, and failure to thrive. She was found to have hypercalcemia with calcium of 17, acute renal failure, elevated liver enzymes, and a urinary tract infection. Ultrasound of the liver demonstrated hepatomegaly, as well as numerous and confluent lesions measuring up to 6.5 cm in the left lobe. Since the patient was complaining of diffuse body pain, MRI imaging was performed, and findings of the cervical spine include multilevel osseous metastases, as well as a mild pathologic compression fracture of the C6 vertebral body and the T1 vertebral body. There was mild to moderate right lateral epidural and right subarticular tumor within this region without spinal cord stenosis. This mildly extended into the right C7-T1 neural foramen with moderate right foraminal effacement. There was minimal left T1 ventral epidural tumor as well and right C2 facet epidural extension of tumor moderately effacing the right C2-C3 foramina. There was minimal left ventral epidural tumor at the C4 level. An MRI of the brain showed multiple foci of enhancement throughout the calvarium including an 18 x 15 mm focus in the mid to left clivus. An MRI of the thoracic spine confirmed innumerable osseous metastases with extraosseous soft tissue extension, especially on from the level of T3-T10. There was mild pathologic compression fracture of T8 with 30% loss of vertebral body height and 3 mm of AP diameter bony retropulsion. There was severe right-sided neural foraminal stenosis at T5-6 and T6-7 secondary to extraosseous soft tissue extension. Multiple lesions were observed within bilateral ribs with bony expansion and extraosseous soft tissue extension. A large right-sided pleural effusion was also noted. MRI of the lumbar spine was compared to a CT lumbar spine performed on 02/28/2017 and described multiple osseous metastases increased compared to the prior study, with pathologic fractures at L1 and L2, new compared to the CT scan. The compression fracture at L1 demonstrated 20% loss of vertebral body height with 3 mm AP diameter bony retropulsion; the compression fracture at L2 demonstrated 80% loss of vertebral body height with 4.5 mm of AP diameter bony retropulsion and resultant moderate central canal stenosis. An x-ray of the humerus on 04/07/2017, described a large lytic lesion at the proximal shaft of the right humerus with associated pathologic fracture. ASSESSMENT AND PLAN: The patient was assessed by Neurosurgery, Dr. Bowman, who upon reviewing the MRI of the thoracic spine, described epidural extension from T1-T7 with some mass effect on the thecal sac, but the patient was found to be neurologically intact. Her calcium had declined to 14, but her alkaline phosphatase was 583. Since the patient was neurologically intact, and with such a poor performance status, and with diffuse metastatic disease, Dr. Bowman felt there was no role for surgical intervention and recommended radiation therapy evaluation. According to the patient's family, the patient is doing much better at the current time. Her pain is controlled on the current medication regimen. PAST MEDICAL HISTORY: As above. SURGICAL HISTORY: Right hip hemiarthroplasty in 2016. ALLERGIES TO MEDICATIONS: None. SOCIAL HISTORY: The patient denies tobacco or alcohol use. FAMILY HISTORY: No family history of breast cancer. MEDICATIONS: 1. Morphine sulfate 2 mg q.4 hours p.r.n. 2. Anastrozole 1 mg. 3. Protonix 40 mg a day. 4. Ativan 0.5 mg q.6 h ours p.r.n. 4. Lopressor 25 mg b.i.d. 5. Hydralazine 10 mg q.6 hours p.r.n. 6. Lovenox. REVIEW OF SYSTEMS: GENERAL: Significant fatigue. No fevers, chills or sweats. ENT: No otalgia, dysphagia, or hoarseness. RESPIRATORY: Some dyspnea with exertion. No cough, hemoptysis, or wheezing. CARDIOVASCULAR: No chest pain. No history of heart disease or palpitations. GASTROINTESTINAL: Decreased appetite. No current nausea, vomiting, or diarrhea. She is constipated. GENITOURINARY: No dysuria, hematuria, or incontinence. ENDOCRINE: No history of diabetes or thyroid disease. SKIN: No history of lupus, scleroderma, or shingles. MUSCULOSKELETAL: No pain currently at rest. Pain generally limited to the mid to lower back without radiation anteriorly or down the lower extremities. NEUROLOGIC: She denies headaches, visual changes, numbness or tingling in the hands or legs, or focal weakness. PHYSICAL EXAMINATION: GENERAL: Frail-appearing female in no distress. HEENT: Normocephalic, atraumatic. Sclerae are icteric. Extraocular motions are intact. No facial asymmetry. No lid lag. Pupils myotic. Cranial nerves appear intact. NODES: Palpable right axillary adenopathy. No supraclavicular adenopathy. LUNGS: Decreased breath sounds on the right without wheezes or rhonchi. ABDOMEN: Soft, nontender, without rebound, guarding, or rigidity. EXTREMITIES: No cyanosis or edema. NEUROLOGIC: Grossly nonfocal, awake, and alert. She can move all extremities against gravity. No decreased sensation to soft touch or pinprick. Plantar reflexes are downgoing. IMPRESSION AND PLAN: The patient is a 57-year-old female who was initially diagnosed with locally-advanced carcinoma of the right breast in March 2016 and had already developed metastatic disease to bone and liver by 08/2016, at which time she underwent a right hemiarthroplasty for a pathologic fracture, which was then followed by adjuvant radiation therapy. She was managed initially with anastrozole, but only took 1 month and then this was not continued. She was not able to follow up with other treating physicians who had recommended systemic chemotherapy in conjunction with Herceptin and HER-2/gail targeting medications. She now presents with a significant progression of disease, essentially untreated, with complaints of diffuse body pain, hypercalcemia, and failure to thrive. She is improving in the hospital with better pain control. She is neurologically intact despite multiple sites of epidural disease throughout the cervical, thoracic, and lumbar spine. PLAN: Although it would not be unreasonable to consider radiation therapy to palliate some of the patient's pain and perhaps manage the epidural disease, which could questionably cause neurologic compromise, I do feel is more important that she proceed with systemic therapy. It is quite likely that she will respond significantly and quickly to such treatment. She is already scheduled for a Port-A-Cath and will likely start the regimen next week. Given the large volume that would need to be treated with radiation therapy, there will be a significant impact on her bone marrow and I would be reluctant to deliver such in conjunction with aggressive chemotherapy - this could lead to limiting the ability to deliver full-dose systemic therapy. Thus, I feel comfortable following the patient, and perhaps she should be reimaged after 2 or 3 cycles to assess response. If there was any question of disease progression and the development of neurologic issues, then I would urge that I be contacted sooner to reconsider treatment. Additionally, it is my understanding that Dr. Lim will be reassessing the patient's right humerus, given the pathologic fracture. She may require a stabilizing procedure. Subsequent to that, postoperative radiation therapy could be considered. I would be less concerned about treating the humeral region as there is minimal at risk normal tissue that would concern me with delivery of concurrent chemotherapy. I did spend approximately 20-30 minutes with the family, and reviewing within them the clinical picture. Greater than 50% of the time was spent on patient counseling. All of their questions were answered. Thus, for now, I do not recommend any radiation treatment, but do recommend radiographic reassessment if the patient remains stable after 2 or 3 cycles of treatment. If the patient should undergo surgery on the right humerus, postoperative radiation therapy would be reasonable and could be considered even concurrent with the systemic regimen. Dictated By: ALLIE WHALEN/JORJE Conf#: [id number] DID#: [id number] MTDD
[2017-04-16 05:38] LABS: ADD SCAN DIFF NO
[2017-04-16 05:54] LABS: BASOPHILS % 0.3 % (0.0-2.0); EOSINOPHILS % 0.4 % (0.0-7.0); HEMATOCRIT 26.9 % (37.0-47.0); HEMOGLOBIN 8.6 g/dl (12.0-16.0); MEAN CORPUSCULAR HEMOGLOBIN 26.9 pg (29.0-33.0); MEAN CORPUSCULAR VOLUME 84.1 fl (82.0-101.0); MEAN PLATELET VOLUME 10.7 fl (7.4-10.4); MONOCYTE # 0.3 10^3/ul (0.3-0.9); MONOCYTES % 4.5 % (0.0-11.0); NEUTROPHIL # 5.6 10^3/ul (1.6-7.5); NEUTROPHILS % 78.6 % (39.0-77.0); PLATELET COUNT 180 10^3/UL (140-415); RED CELL DISTRIBUTION WIDTH 18.2 % (11.5-14.5); WHITE BLOOD COUNT 7.2 10^3/ul (4.8-10.8)
[2017-04-16 06:36] LABS: ALBUMIN 2.6 g/dl (3.3-4.9); ALBUMIN/GLOBULIN RATIO 0.92; BILIRUBIN,INDIRECT 0.1 mg/dl (0-1.1); BILIRUBIN,TOTAL 0.1 mg/dl (0.2-1.3); CALCIUM 7.6 mg/dl (8.4-10.2); CREATININE 0.56 mg/dl (0.44-1.00); POTASSIUM 3.5 mmol/L (3.5-5.1); TOTAL PROTEIN 5.4 g/dl (6.1-8.1)
[2017-04-16 07:59] VITALS: BP 121/68; RESP 16
[2017-04-16] MEDS: CITRIC ACID/SODIUM CITRATE 15 ML CUP PO SCH ×2 (08:55→20:34)
[2017-04-16] MEDS: METOPROLOL 25 MG TAB PO SCH ×2 (08:55→20:34)
--- NOTE | 2017-04-16 08:55 | PN ---
Date/Time of Note Date/Time of Note DATE: 04/16/17 TIME: 08:50 Assessment/Plan VTE Prophylaxis VTE Prophylaxis Intervention: LMWH Lines/Catheters IV Catheter Type (from [facility] PORTACATH Urinary Cath still in place: No Assessment/Plan Chief Complaint/Hosp Course 1. Metastatic breast cancer. Evidence of metastases to the liver and bones. The patient was started on chemotherapy after Port-A-Cath placement. 2. Severe hypercalcemia. Most probably secondary to #1. Continue bisphosphonates as per oncology. 3. Large right pleural effusion. 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 We will continue to monitor. If the patient has worsening respiratory distress , will consider right thoracentesis. 4. Essential hypertension. Continue antihypertensives. 5. Microcytic hypochromic anemia. Most probably anemia secondary to underlying malignancy. Iron panel showing low TIBC and low iron saturation with a high ferritin level. 6. Acute encephalopathy. Most probably metabolic in origin. Brain CT scan negative for any acute changes. Patient is more awake and alert today. Brain MRI showing small, acute lacunar infarct within the central casi with multiple bone metastases. 7. Acute nonoliguric kidney injury. Etiology unclear. The patient will be adequately hydrated. Nephrotoxic drugs will be used with caution. The patient being followed by nephrology. 8. MRI spine showing soft tissue component at the T6 level causing moderate narrowing of the spinal canal. Neurosurgery consult has been obtained. Conservative management as per Neurosurgery. Status post evaluation by Radiation Oncology. 9. Right humerus pathology fracture. Status post surgical repair. 10. Debility. Status post evaluation by physical therapy. Physical therapy recommending subacute placement. The patient is not a a safe discharge home. Case management consult has been put in for acute rehabilitation evaluation. Else, the patient may need [facility] facility placement 11. Fluid, electrolytes and nutrition. Regular diet as tolerated. 12. Deep venous thrombosis prophylaxis. Subcutaneous Lovenox. 13. Gastrointestinal prophylaxis. Proton pump inhibitors. 14. Plan. Continue pain control. Await ARU evaluation. If not a candidate for ARU, the patient may need [facility] facility placement Case discussed with Dr. Goldberg. Problems: Subjective 24 Hr Interval Summary Free Text/Dictation Vital signs stable. Exam/Review of Systems Vital Signs Vitals Vital Signs Date Time Temp Pulse Resp B/P Pulse Ox O2 Delivery O2 Flow Rate FiO2 04/16/17 07:59 98.2 88 16 121/68 95 04/13/17 20:20 Nasal Cannula 2.0 Intake and Output 04/15/17 04/15/17 04/16/17 15:00 23:00 07:00 Intake Total 460 ml 1670 ml 830 ml Output Total 800 ml Balance -340 ml 1670 ml 830 ml Exam GENERAL: This is a 57-year-old female patient lying in bed in no apparent distress. HEENT: Head normocephalic and atraumatic. Eyes: Anicteric sclerae. Conjunctivae clear. ENT: Nasal septum is midline. Oral mucosa is dry. NECK: Supple. No JVD noticed. RESPIRATORY: Bilaterally diminished breath sounds. No adventitious breath sounds heard. No use of accessory muscles of respiration. CARDIAC: Regular rate and rhythm. S1, S2 heard. ABDOMEN: Soft, nontender and nondistended. Bowel sounds positive in all 4 quadrants. GENITOURINARY: Deferred. EXTREMITIES: Minimal pretibial edema. Peripheral pulses are palpable. Right arm sling in place. NEUROLOGIC: The patient is awake, alert, oriented x2 to 3. Results Result Diagram: 04/16/17 0445 04/16/17 0445 Results 24 hrs Laboratory Tests Test 04/16/17 04:45 White Blood Count 7.2 Red Blood Count 3.20 L Hemoglobin 8.6 L Hematocrit 26.9 L Mean Corpuscular Volume 84.1 Mean Corpuscular Hemoglobin 26.9 L Mean Corpuscular Hemoglobin Concent 32.0 Red Cell Distribution Width 18.2 H Platelet Count 180 Mean Platelet Volume 10.7 H Neutrophils % 78.6 H Lymphocytes % 14.0 L Monocytes % 4.5 Eosinophils % 0.4 Basophils % 0.3 Nucleated Red Blood Cells % 0.0 Neutrophils # 5.6 Lymphocytes # 1.0 Monocytes # 0.3 Eosinophils # 0.0 Basophils # 0.0 Nucleated Red Blood Cells # 0.0 Sodium Level 138 Potassium Level 3.5 Chloride Level 109 Carbon Dioxide Level 24 Anion Gap 9 Blood Urea Nitrogen 13 Creatinine 0.56 Glucose Level 103 Calcium Level 7.6 L Total Bilirubin 0.1 L Direct Bilirubin 0.00 Indirect Bilirubin 0.1 Aspartate Amino Transf (AST/SGOT) 301 H Alanine Aminotransferase (ALT/SGPT) 65 Alkaline Phosphatase 822 H Total Protein 5.4 L Albumin 2.6 L Globulin 2.80 Albumin/Globulin Ratio 0.92 Medications Medications Current Medications Anastrozole (Arimidex) 1 mg DAILY PO Last administered on 04/15/17 08:39; Admin Dose 1 MG; Start 04/05/17 at 09:00 Lorazepam (Ativan) 0.5 mg Q6H PRN PO ANXIETY Last administered on 04/15/17 22: 27; Admin Dose 0.5 MG; Start 04/06/17 at 16:00 Metoprolol Tartrate (Lopressor) 25 mg BID PO Last administered on 04/15/17 22: 26; Admin Dose 25 MG; Start 04/06/17 at 21:00 Enoxaparin Sodium (Lovenox) 40 mg DAILY SC Last administered on 04/15/17 08:39 ; Admin Dose 40 MG; Start 04/07/17 at 14:30 Polyethylene Glycol (Miralax) 17 gm BID PO Last administered on 04/15/17 22:28 ; Admin Dose 17 GM; Start 04/08/17 at 21:00 Bisacodyl (Dulcolax) 10 mg DAILY PRN PO CONSTIPATION; Start 04/08/17 at 10:30 Bisacodyl (Dulcolax Supp) 10 mg DAILY PRN HI CONSTIPATION Last administered on 04/08/17 11:25; Admin Dose 10 MG; Start 04/08/17 at 10:30 Morphine Sulfate (morphine) 2 mg Q2H PRN IV PAIN Last administered on 05:07; Admin Dose 2 MG; Start 04/11/17 at 17:30 Acetaminophen/ Hydrocodone Bitart ([place] (5/325)) 1 tab Q3H PRN PO PAIN Last administered on 04/15/17 11:03; Admin Dose 1 TAB; Start 04/11/17 at 17:30 Citric Acid/ Sodium Citrate 30 ml 30 ml BID PO Last administered on 04/15/17 22:28; Admin Dose 30 ML; Start 04/12/17 at 21:00 Sodium Chloride 1,000 ml @ 50 mls/hr Q20H IV Last administered on 04/15/17 22 :24; Admin Dose 50 MLS/HR; Start 04/12/17 at 16:30 Ondansetron HCl/ Sodium Chloride (Zofran Inj/NS) 54 ml @ 216 mls/hr Q8H PRN IV NAUSEA AND/OR VOMITING; Start 04/12/17 at 16:30 Hydrocortisone (Solu-Cortef) 100 mg ONCE PRN IV REACTION TO CHEMO; Start at 21:41 Diphenhydramine HCl (Benadryl) 50 mg ONCE PRN IV REACTION TO CHEMO; Start at 21:42 SIDRA NAJERA NP Apr 16, 2017 08:55
[2017-04-16] MEDS: ANASTROZOLE 1 MG TAB PO SCH (08:58)
[2017-04-16] MEDS: ENOXAPARIN 40 MG/0.4 ML SYG SC SCH (08:59)
[2017-04-16] MEDS: POLYETHYLENE GLYCOL 17 GM PACKET PO SCH (09:00)
[2017-04-16] MEDS: HYDROCODONE/APAP (5/325) TAB PO PRN (15:10)
[2017-04-16] MEDS ORDERED: KETOROLAC 30 MG INJ IV PRN (15:30)
--- NOTE | 2017-04-16 16:26 | CONS ---
Date/Time of Note Date/Time of Note DATE: 04/16/17 TIME: 16:11 Assessment/Plan Assessment/Plan Additional Assessment/Plan 1. Severe hypercalcemia with calcium level of 17.3 on admission.s/p Zometa, now Hypocalcemia 2. Acute kidney injury secondary to prerenal azotemia. 3. History of metastatic breast cancer, 4. Hypokalemia - resolved with hypophosphatemia 5. Hypomagnesemia. Hypokalemia, Hypophosphatemia 6. Hypomagnesium- no lab done today. will order Mag level- fu- dw staff 6. Transaminitis, trending up LFTs Plan: LFTs are trending up S/p Zometa on 04/06/17 for hypercalcemia, now Ca mproved to normal Cr normal, electrolytes stable today on Bicitra for metabolic acidosis For ARU eval today. will follow up Further recommendations depend upon patient's clinical course. Plan of care [facility]/staff/patient. Consultation Date/Type/Reason Admit Date/Time Apr 04, 2017 at 22:07 Initial Consult Date 04/07/17 Type of Consultation: NEPHROLOGY Referring Provider: LEISA LANGSTON 24 HR Interval Summary Constitutional: requiring IVF Exam/Review of Systems Vital Signs Vitals Vital Signs Date Time Temp Pulse Resp B/P Pulse Ox O2 Delivery O2 Flow Rate FiO2 04/16/17 07:59 98.2 88 16 121/68 95 04/13/17 20:20 Nasal Cannula 2.0 Intake and Output 04/15/17 04/15/17 04/16/17 15:00 23:00 07:00 Intake Total 460 ml 1670 ml 830 ml Output Total 800 ml Balance -340 ml 1670 ml 830 ml Exam Constitutional: alert, well developed Respiratory: clear to auscultation, normal air movement Cardiovascular: nl pulses, regular rate and rhythm Gastrointestinal: non-tender, soft Musculoskeletal: other ( Minimal pretibial edema noted. Peripheral pulses are palpable bilaterally. Right arm sling in place, INTACT.) Extremities: normal pulses Neurological: nl mental status, nl speech Results Result Diagram: 04/16/17 0445 04/16/17 0445 Results 24 hrs Laboratory Tests Test 04/16/17 04:45 White Blood Count 7.2 Red Blood Count 3.20 L Hemoglobin 8.6 L Hematocrit 26.9 L Mean Corpuscular Volume 84.1 Mean Corpuscular Hemoglobin 26.9 L Mean Corpuscular Hemoglobin Concent 32.0 Red Cell Distribution Width 18.2 H Platelet Count 180 Mean Platelet Volume 10.7 H Neutrophils % 78.6 H Lymphocytes % 14.0 L Monocytes % 4.5 Eosinophils % 0.4 Basophils % 0.3 Nucleated Red Blood Cells % 0.0 Neutrophils # 5.6 Lymphocytes # 1.0 Monocytes # 0.3 Eosinophils # 0.0 Basophils # 0.0 Nucleated Red Blood Cells # 0.0 Sodium Level 138 Potassium Level 3.5 Chloride Level 109 Carbon Dioxide Level 24 Anion Gap 9 Blood Urea Nitrogen 13 Creatinine 0.56 Glucose Level 103 Calcium Level 7.6 L Total Bilirubin 0.1 L Direct Bilirubin 0.00 Indirect Bilirubin 0.1 Aspartate Amino Transf (AST/SGOT) 301 H Alanine Aminotransferase (ALT/SGPT) 65 Alkaline Phosphatase 822 H Total Protein 5.4 L Albumin 2.6 L Globulin 2.80 Albumin/Globulin Ratio 0.92 Medications Medications Current Medications Anastrozole (Arimidex) 1 mg DAILY PO Last administered on 04/16/17 08:58; Admin Dose 1 MG; Start 04/05/17 at 09:00 Lorazepam (Ativan) 0.5 mg Q6H PRN PO ANXIETY Last administered on 04/15/17 22: 27; Admin Dose 0.5 MG; Start 04/06/17 at 16:00 Metoprolol Tartrate (Lopressor) 25 mg BID PO Last administered on 04/16/17 08: 55; Admin Dose 25 MG; Start 04/06/17 at 21:00 Enoxaparin Sodium (Lovenox) 40 mg DAILY SC Last administered on 04/16/17 08:59 ; Admin Dose 40 MG; Start 04/07/17 at 14:30 Bisacodyl (Dulcolax) 10 mg DAILY PRN PO CONSTIPATION; Start 04/08/17 at 10:30 Bisacodyl (Dulcolax Supp) 10 mg DAILY PRN ID CONSTIPATION Last administered on 04/08/17 11:25; Admin Dose 10 MG; Start 04/08/17 at 10:30 Morphine Sulfate (morphine) 2 mg Q2H PRN IV PAIN Last administered on 05:07; Admin Dose 2 MG; Start 04/11/17 at 17:30 Acetaminophen/ Hydrocodone Bitart ([place] (5/325)) 1 tab Q3H PRN PO PAIN Last administered on 04/16/17 15:10; Admin Dose 1 TAB; Start 04/11/17 at 17:30 Citric Acid/ Sodium Citrate 30 ml 30 ml BID PO Last administered on 04/16/17 08:55; Admin Dose 30 ML; Start 04/12/17 at 21:00 Sodium Chloride 1,000 ml @ 50 mls/hr Q20H IV Last administered on 04/15/17 22 :24; Admin Dose 50 MLS/HR; Start 04/12/17 at 16:30 Ondansetron HCl/ Sodium Chloride (Zofran Inj/NS) 54 ml @ 216 mls/hr Q8H PRN IV NAUSEA AND/OR VOMITING; Start 04/12/17 at 16:30 Hydrocortisone (Solu-Cortef) 100 mg ONCE PRN IV REACTION TO CHEMO; Start at 21:41 Diphenhydramine HCl (Benadryl) 50 mg ONCE PRN IV REACTION TO CHEMO; Start at 21:42 Polyethylene Glycol (Miralax) 17 gm DAILY PO ; Start 04/17/17 at 09:00 Ondansetron HCl (Zofran Inj) 4 mg Q6H PRN IV NAUSEA AND/OR VOMITING; Start at 15:30 ABRAHAM DONALD Apr 16, 2017 16:24
[2017-04-16] MEDS: ONDANSETRON 4 MG INJ IV PRN (16:53)
[2017-04-16] MEDS: morphine 2 MG INJ IV PRN (16:53)
[2017-04-16] MEDS: SOD CHLORIDE 0.9% 1,000 ML IV SCH (16:54)
[2017-04-16 19:02] VITALS: BP 132/70; RESP 16
--- NOTE | 2017-04-16 19:10 | HKNOTE ---
DATE OF SERVICE: 04/16/2017 TYPE OF CONSULTATION: Medical oncology followup visit. HISTORY OF PRESENT ILLNESS: Marilee is a 57-year-old Syriac speaking lady with HER-2 positive carcino ma of the right breast with widespread metastasis including the bones and liver. She had a patholog ic fracture of the right hip in August 2016 and surgery for pathologic fracture of the right humer us on 04/12/2017. She still has moderate back pain and is on physical therapy. She is eating good. PHYSICAL EXAMINATION: GENERAL: Shows a moderately built female who is alert, oriented, cooperative, she is afebrile. ENT: Normal. HEART: Normal. LUNGS: Normal. BREASTS: The left breast is normal. The right breast is fixed to the chest wall with multiple nodu les and mass. ABDOMEN: Soft, no masses. External genitalia normal. EXTREMITIES: Patient has a sling for the right upper extremity. She has a scar over the right hip from previous surgery. LYMPH NODES: No peripheral lymphadenopathy. LCPC: No focal defects. LABORATORY DATA: Her CBC is normal except hemoglobin 8.6. Her liver enzymes were elevated, probabl y secondary to liver metastasis. IMPRESSION: 1. Carcinoma of the right breast, ER and HER-2/gail positive. Patient on Arimidex plus Herceptin plu s pertuzumab. 2. Wide spread metastasis to the bone and liver, status post pathologic fracture of the right hip a nd right humerus. 3. Severe anemia with a normal anemia panel, abnormal liver function tests secondary to liver metas tasis. PLAN: The patient is doing clinically or better. She is eating better. She is on physical therapy . We need to monitor her anemia. She might need a blood transfusion. She is already on definitive treatment. The plan is to add docetaxel to the chemotherapy later. Dictated By: DARRIN AKERS MD PC/NTS Conf#: [id number] DID#: [id number]
[2017-04-16] MEDS: LORAZEPAM 0.5 MG TAB PO PRN (21:27)
[2017-04-17 05:23] LABS: ADD SCAN DIFF NO
[2017-04-17 05:30] LABS: BASOPHILS % 0.4 % (0.0-2.0); EOSINOPHILS % 0.5 % (0.0-7.0); HEMATOCRIT 27.3 % (37.0-47.0); HEMOGLOBIN 8.7 g/dl (12.0-16.0); LYMPHOCYTES # 1.4 10^3/ul (0.8-2.9); LYMPHOCYTES % 15.9 % (15.0-51.0); MEAN CORPUSCULAR HEMOGLOBIN 26.7 pg (29.0-33.0); MEAN CORPUSCULAR HGB CONC 31.9 g/dl (32.0-37.0); MEAN CORPUSCULAR VOLUME 83.7 fl (82.0-101.0); MEAN PLATELET VOLUME 10.8 fl (7.4-10.4); MONOCYTE # 0.4 10^3/ul (0.3-0.9); MONOCYTES % 5.2 % (0.0-11.0); NEUTROPHIL # 6.4 10^3/ul (1.6-7.5); NEUTROPHILS % 75.2 % (39.0-77.0); PLATELET COUNT 197 10^3/UL (140-415); RED BLOOD COUNT 3.26 10^6/ul (4.20-5.40); RED CELL DISTRIBUTION WIDTH 18.5 % (11.5-14.5); WHITE BLOOD COUNT 8.5 10^3/ul (4.8-10.8)
[2017-04-17 05:47] LABS: CREATININE 0.52 mg/dl (0.44-1.00); POTASSIUM 3.6 mmol/L (3.5-5.1)
[2017-04-17 06:10] LABS: MAGNESIUM 1.2 mg/dl (1.7-2.5); PHOSPHORUS 2.2 mg/dl (2.5-4.9)
[2017-04-17] MEDS ORDERED: POTASSIUM PHOSPHATE 20 MEQ in SOD CHLORIDE 0.9% 250 ML IVPB ONE (06:30)
[2017-04-17] MEDS ORDERED: MAGNESIUM SULFATE 4 GM/100 ML 100 ML IVPB ONE (06:30)
[2017-04-17 07:59] VITALS: BP 130/78; RESP 18
--- NOTE | 2017-04-17 08:39 | CONS ---
Date/Time of Note Date/Time of Note DATE: 04/17/17 TIME: 08:36 Assessment/Plan Assessment/Plan Chief Complaint/Hosp Course 57 year old female with a history of right breast cancer admitted for generalized weakness, decreased appetite, and confusion per her daughter and found to have hypercalcemia with calcium of 17, acute renal failure, failure to thrive ER positive 99%, HI positive 4%, HER2/gail positive by IHC 3+ based on 04/13/17 right breast mass biopsy and right axillary lymph node was 99% ER, 25% HI, HER2 equivocal by IHC 2+ and equicoval by FISH but negative by equivocal panel. During her admission, a CT of the chest showed the right breast mass, axillary, hilar and mediastinal adenopathy, multiple hepatic masses and pathologic right femoral neck fracture, consistent with metastatic cancer. On 09/01/2016 she underwent excision of metastatic cancer from femoral neck and intertrochanteric area of the right hip and hemiarthroplasty of the right hip. She was seen by Dr. Paola Nielsen for post-op radiation to the right hip which she received for 2 weeks. Path from 09/01/16 right hip surgery showed metastatic breast carcinoma, ER positive, HI negative, HER2 positive disease by IHC and FISH. She was started on arimidex 1 mg daily but per patient, only received 1 month worth of medication and then was to be treated with trastuzumab taxane pertuzumab after local radiation. # Metastatic breast cancer with elevated liver enzymes due to liver/bone mets - US liver shows that the liver is enlarged and contains numerous and confluent lesions, likely metastases, measuring up to 6.6 cm in the left lobe. The liver demonstrates increased echogenicity and coarsened echotexture which are nonspecific and suggest fatty infiltration as well as early chronic liver disease. The main portal vein is patent with proper directional flow. Trace perihepatic ascites. - CXR shows large right pleural effusion, likely malignant, consider diagnostic and therapeutic thoracentesis if symptomatic - CT CAP with contrast 04/10/17 shows 1. Significant progression of diffuse metastatic disease with target lesions as listed above. Large right breast mass is again demonstrated with severe worsening of right axillary and mediastinal lymphadenopathy. There is development of large right and trace left pleural effusions with evidence of pulmonary lymphangitic carcinomatosis. Significant worsening of diffuse hepatic and osseous metastasis seen throughout the body. There is interval right hip replacement. 2. The T6 vertebral body lesion traverses over several vertebral body levels and invades the spinal canal., consider bone scan or outpatient PET/CT. - CA 27-29 > 450, CA 15-3 607 - CT of the lumbar spine from 02/28/17 showed multiple lytic metastatic foci of the lumbar vertebral bodies, sacrum and visualized iliac bones. - MRI brain 04/06/17 showed multiple osseous metastases - MRI spine 04/06/17 showed extensive osseous metastases throughout the spine with compression fractures, at the T6 level on the right there is a soft tissue component that is causing moderate narrowing of the canal at least touching the cord, no clear cord compression. - Per neurosurgery, The patient has widespread spinal metastases, including some with ventral epidural extension into the spinal canal. However, the patient is neurologically intact. There is no role for surgical intervention whatsoever given the widespread and diffuse nature of her metastatic disease burden. - Per rad onc (Pavan Beal) agree with systemic therapy, no plan for radiation for now, given no sensory issues or neurologic deficits. May need radiation to right humerus if has surgery for humerus due to high risk of fracture. - Per ortho, for metastatic fracture of the proximal shaft of the right humerus , plan for stabilization of the pathologic fracture involving the right humerus by intramedullary nailing. This intramedullary nailing can be done as soon as the patient can be medically cleared for surgery and probably it should be done prior to any breast surgery. Now status post open reduction and internal fixation of the pathologic fracture of the proximal shaft of the right humerus utilizing intramedullary nailing technique on 04/11/17. F/U path. Discussed with Dr. Lim, will plan for herceptin and pertuzumab only as would not interfere with wound healing and right humerus fx is urgent given unstable pathologic fracture. s/p herceptin and pertuzumab 04/12/17. s/p port 04/10/17. Plan to add docetaxel later once healed from surgery. - MUGA 69% wnl. Chemo regimen Q3 weeks -M-r-r-o-o-f-x-e-l- -7-5- -m-g--/--m-2- -x- -0-.-7-5- -=- -5-6- -m-g--/--m-2- -I-V- -o-v-e-r- -1- -h-o-u-r- -(--2-5--%- -d-o-s-e- -u-y-t-y-e-k-i-o-n- -d-u-e- -t-o- -c-m-w-v-a-t-e-d- -L-F-T-s--)- Trastuzumab 8 mg/kg IV over 90 minutes cycle 1 Pertuzumab 840 mg IV over 60 minutes cycle 1 Of note, patient prefers that I not speak with family directly, and direct family questions to the patient herself as she would like to inform her family of her case. # Severe hypercalcemia, with calcium level of 17.3, resolved. - s/p calcitonin, aggressive hydration - s/p pamidronate 60 mg IV - PTH suppressed at 4, PTHrP pending, Vitamin D low # Confusion and constipation, likely related to hypercalcemia, now resolved. # Acute renal failure, likely related to dehydration and hypercalcemia, resolved , continue to monitor. # Anemia: hgb low sec to malignancy with adequate B12 and ferritin. Continue to monitor, may need transfusion if Hgb < 8. # Thrombocytopenia, resolved. HIT panel pending, not consistent with DIC, HIV and hep panel negative.. Dispo: pending ARU eval. Patient should follow up with me in clinic, case management to ensure auth Problems: Consultation Date/Type/Reason Admit Date/Time Apr 04, 2017 at 22:07 Initial Consult Date 04/05/17 Type of Consultation: Oncology Referring Provider: LEISA LANGSTON 24 HR Interval Summary Free Text/Dictation Doing well, no complaints. Exam/Review of Systems Vital Signs Vitals Vital Signs Date Time Temp Pulse Resp B/P Pulse Ox O2 Delivery O2 Flow Rate FiO2 04/17/17 07:59 97.6 97 18 130/78 92 04/13/17 20:20 Nasal Cannula 2.0 Intake and Output 04/16/17 04/16/17 04/17/17 15:00 23:00 07:00 Intake Total 1350 ml 1400 ml Output Total 900 ml 1200 ml Balance 450 ml 200 ml Exam Constitutional: alert, oriented Psych: depression Eyes: nl conjunctiva Respiratory: normal air movement Musculoskeletal: nl extremities to inspection, s/p right humerus surgery, dressings c/d/i Results Result Diagram: 04/17/17 0417 04/17/17 0417 Results 24 hrs Laboratory Tests Test 04/17/17 04:17 White Blood Count 8.5 Red Blood Count 3.26 L Hemoglobin 8.7 L Hematocrit 27.3 L Mean Corpuscular Volume 83.7 Mean Corpuscular Hemoglobin 26.7 L Mean Corpuscular Hemoglobin Concent 31.9 L Red Cell Distribution Width 18.5 H Platelet Count 197 Mean Platelet Volume 10.8 H Neutrophils % 75.2 Lymphocytes % 15.9 Monocytes % 5.2 Eosinophils % 0.5 Basophils % 0.4 Nucleated Red Blood Cells % 0.0 Neutrophils # 6.4 Lymphocytes # 1.4 Monocytes # 0.4 Eosinophils # 0.0 Basophils # 0.0 Nucleated Red Blood Cells # 0.0 Sodium Level 141 Potassium Level 3.6 Chloride Level 104 Carbon Dioxide Level 27 Anion Gap 14 Blood Urea Nitrogen 13 Creatinine 0.52 Glucose Level 87 Calcium Level 8.0 L Phosphorus Level 2.2 L Magnesium Level 1.2 L Medications Medications Current Medications Anastrozole (Arimidex) 1 mg DAILY PO Last administered on 04/16/17 08:58; Admin Dose 1 MG; Start 04/05/17 at 09:00 Lorazepam (Ativan) 0.5 mg Q6H PRN PO ANXIETY Last administered on 04/16/17 21: 27; Admin Dose 0.5 MG; Start 04/06/17 at 16:00 Metoprolol Tartrate (Lopressor) 25 mg BID PO Last administered on 04/16/17 20: 34; Admin Dose 25 MG; Start 04/06/17 at 21:00 Enoxaparin Sodium (Lovenox) 40 mg DAILY SC Last administered on 04/16/17 08:59 ; Admin Dose 40 MG; Start 04/07/17 at 14:30 Bisacodyl (Dulcolax) 10 mg DAILY PRN PO CONSTIPATION; Start 04/08/17 at 10:30 Bisacodyl (Dulcolax Supp) 10 mg DAILY PRN [place] CONSTIPATION Last administered on 04/08/17 11:25; Admin Dose 10 MG; Start 04/08/17 at 10:30 Morphine Sulfate (morphine) 2 mg Q2H PRN IV PAIN Last administered on 16:53; Admin Dose 2 MG; Start 04/11/17 at 17:30 Acetaminophen/ Hydrocodone Bitart ([place] (5/325)) 1 tab Q3H PRN PO PAIN Last administered on 04/16/17 15:10; Admin Dose 1 TAB; Start 04/11/17 at 17:30 Citric Acid/ Sodium Citrate 30 ml 30 ml BID PO Last administered on 04/16/17 20:34; Admin Dose 30 ML; Start 04/12/17 at 21:00 Sodium Chloride 1,000 ml @ 50 mls/hr Q20H IV Last administered on 04/16/17 16 :54; Admin Dose 50 MLS/HR; Start 04/12/17 at 16:30 Ondansetron HCl/ Sodium Chloride (Zofran Inj/NS) 54 ml @ 216 mls/hr Q8H PRN IV NAUSEA AND/OR VOMITING; Start 04/12/17 at 16:30 Hydrocortisone (Solu-Cortef) 100 mg ONCE PRN IV REACTION TO CHEMO; Start at 21:41 Diphenhydramine HCl (Benadryl) 50 mg ONCE PRN IV REACTION TO CHEMO; Start at 21:42 Polyethylene Glycol (Miralax) 17 gm DAILY PO ; Start 04/17/17 at 09:00 Ondansetron HCl 4 mg 4 mg Q6H PRN IV NAUSEA AND/OR VOMITING Last administered on 04/16/17 16:53; Admin Dose 4 MG; Start 04/16/17 at 15:30 Magnesium Sulfate 100 ml @ 25 mls/hr ONCE ONCE IVPB ; Start 04/17/17 at 06:30 ; Stop 04/17/17 at 10:29 Potassium Phosphate/Sodium Chloride (K Phos (Meq)/NS) 254.5455 ml @ 63.636 m... ONCE ONCE IVPB Last administered on 04/17/17 06:53; Admin Dose 63.636 MLS/HR; Start 04/17/17 at 06:30; Stop 04/17/17 at 10:29 JUAN SHETH MD Apr 17, 2017 08:39
[2017-04-17] MEDS: ANASTROZOLE 1 MG TAB PO SCH (10:12)
[2017-04-17] MEDS: CITRIC ACID/SODIUM CITRATE 15 ML CUP PO SCH (10:14)
[2017-04-17] MEDS: METOPROLOL 25 MG TAB PO SCH ×2 (10:15→20:19)
[2017-04-17] MEDS: POLYETHYLENE GLYCOL 17 GM PACKET PO SCH (10:16)
[2017-04-17] MEDS: HYDROCODONE/APAP (5/325) TAB PO PRN (10:17)
[2017-04-17] MEDS: ENOXAPARIN 40 MG/0.4 ML SYG SC SCH (10:25)
--- NOTE | 2017-04-17 11:56 | PN ---
Date/Time of Note Date/Time of Note DATE: 04/17/17 TIME: 11:54 Assessment/Plan VTE Prophylaxis VTE Prophylaxis Intervention: SCD's Lines/Catheters IV [facility]ter Type (from [facility] Port-a-cath Urinary Cath still in place: No Assessment/Plan Chief Complaint/Hosp Course Chief Complaint/Hosp Course Assessment/Plan 57 yo F with stage 4 breast Ca with mets to liver, bones admitted for R arm pain 2/2 pathologic humeral fracture. sp surgical repair (nail) . #R humeral frx: f/u as per ortho s/p ORIF 04/11/17 #stage 4 diffusely metastatic breast Ca: onc following, Started on chemo per hemeonc #brain and spine mets seen on MR imaging #hypercalcemia 2/2 metastatic ca: as per onc #Large right pleural effusion. 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 If the patient has worsening respiratory distress, will consider right thoracentesis. #s/p RHip replacement for pathologic fracture 2/2 mets 12/2016 #HTN: Well-controlled, cont home meds #transaminitis 2/2 liver mets, continue to monitor Continue supportive care and pain control Cleared by hemonc for discharge, but pt still requiring PT continue PT, and get ARU eval as well Problems: Subjective 24 Hr Interval Summary Free Text/Dictation Patient complains of having generalized weakness Consuming about 40-50% of her meals Moderate assist for ambulation Denies of having any chest pain or shortness of breath Exam/Review of Systems Vital Signs Vitals Vital Signs Date Time Temp Pulse Resp B/P Pulse Ox O2 Delivery O2 Flow Rate FiO2 04/17/17 07:59 97.6 97 18 130/78 92 04/13/17 20:20 Nasal Cannula 2.0 Intake and Output 04/16/17 04/16/17 04/17/17 15:00 23:00 07:00 Intake Total 1350 ml 1400 ml Output Total 900 ml 1200 ml Balance 450 ml 200 ml Exam General: The patient is well-developed, Not in acute distress. HEENT: Atraumatic, normocephalic. The pupils are equal and round . Neck: Supple with full range of motion. Chest: Normal expansion of the thorax during inspiration Lungs: Clear to auscultation bilaterally Heart: Normal S1-S2, Regular rhythm and rate. Abdomen: Soft , nontender, nondistended , bowel sounds are present. Extremities: Right upper extremity in shoulder sling, surgical site is dry and clean, no edema no cyanosis Neurologic: Normal mental status,The patient is awake, alert and oriented . Results Result Diagram: 04/17/1741604/17/17416 Results 24 hrs Laboratory Tests Test 04/17/17 04:17 White Blood Count 8.5 Red Blood Count 3.26 L Hemoglobin 8.7 L Hematocrit 27.3 L Mean Corpuscular Volume 83.7 Mean Corpuscular Hemoglobin 26.7 L Mean Corpuscular Hemoglobin Concent 31.9 L Red Cell Distribution Width 18.5 H Platelet Count 197 Mean Platelet Volume 10.8 H Neutrophils % 75.2 Lymphocytes % 15.9 Monocytes % 5.2 Eosinophils % 0.5 Basophils % 0.4 Nucleated Red Blood Cells % 0.0 Neutrophils # 6.4 Lymphocytes # 1.4 Monocytes # 0.4 Eosinophils # 0.0 Basophils # 0.0 Nucleated Red Blood Cells # 0.0 Sodium Level 141 Potassium Level 3.6 Chloride Level 104 Carbon Dioxide Level 27 Anion Gap 14 Blood Urea Nitrogen 13 Creatinine 0.52 Glucose Level 87 Calcium Level 8.0 L Phosphorus Level 2.2 L Magnesium Level 1.2 L Medications Medications Current Medications Anastrozole (Arimidex) 1 mg DAILY PO Last administered on 04/17/17 10:12; Admin Dose 1 MG; Start 04/05/17 at 09:00 Lorazepam (Ativan) 0.5 mg Q6H PRN PO ANXIETY Last administered on 04/16/17 21: 27; Admin Dose 0.5 MG; Start 04/06/17 at 16:00 Metoprolol Tartrate (Lopressor) 25 mg BID PO Last administered on 04/17/17 10: 15; Admin Dose 25 MG; Start 04/06/17 at 21:00 Enoxaparin Sodium (Lovenox) 40 mg DAILY SC Last administered on 04/17/17 10:25 ; Admin Dose 40 MG; Start 04/07/17 at 14:30 Bisacodyl (Dulcolax) 10 mg DAILY PRN PO CONSTIPATION; Start 04/08/17 at 10:30 Bisacodyl (Dulcolax Supp) 10 mg DAILY PRN [place] CONSTIPATION Last administered on 04/08/17 11:25; Admin Dose 10 MG; Start 04/08/17 at 10:30 Morphine Sulfate (morphine) 2 mg Q2H PRN IV PAIN Last administered on 16:53; Admin Dose 2 MG; Start 04/11/17 at 17:30 Acetaminophen/ Hydrocodone Bitart ([place] (5/325)) 1 tab Q3H PRN PO PAIN Last administered on 04/17/17 10:17; Admin Dose 1 TAB; Start 04/11/17 at 17:30 Citric Acid/ Sodium Citrate 30 ml 30 ml BID PO Last administered on 04/17/17 10:14; Admin Dose 30 ML; Start 04/12/17 at 21:00 Sodium Chloride 1,000 ml @ 50 mls/hr Q20H IV Last administered on 04/16/17 16 :54; Admin Dose 50 MLS/HR; Start 04/12/17 at 16:30 Ondansetron HCl/ Sodium Chloride (Zofran Inj/NS) 54 ml @ 216 mls/hr Q8H PRN IV NAUSEA AND/OR VOMITING; Start 04/12/17 at 16:30 Hydrocortisone (Solu-Cortef) 100 mg ONCE PRN IV REACTION TO CHEMO; Start at 21:41 Diphenhydramine HCl (Benadryl) 50 mg ONCE PRN IV REACTION TO CHEMO; Start at 21:42 Polyethylene Glycol (Miralax) 17 gm DAILY PO ; Start 04/17/17 at 09:00 Ondansetron HCl (Zofran Inj) 4 mg Q6H PRN IV NAUSEA AND/OR VOMITING Last administered on 04/16/17 16:53; Admin Dose 4 MG; Start 04/16/17 at 15:30 GREGG QUINONES MD Apr 17, 2017 11:56
[2017-04-17] MEDS: SOD CHLORIDE 0.9% 1,000 ML IV SCH (16:30)
--- NOTE | 2017-04-17 18:40 | CONS ---
Date/Time of Note Date/Time of Note DATE: 04/17/17 TIME: 18:39 Assessment/Plan Assessment/Plan Additional Assessment/Plan 1. Severe hypercalcemia with calcium level of 17.3 on admission.s/p Zometa, now normal 2. Acute kidney injury secondary to prerenal azotemia. 3. History of metastatic breast cancer, 4. Hypokalemia with hypophosphatemia 5. Hypomagnesemia. Hypokalemia, Hypophosphatemia 6. Transaminitis, trending up LFTs Plan: magnesium sulfate 4gram IV x 1 dose today S/p Zometa on 04/06/17 for hypercalcemia, now Ca mproved to normal Cr normal,mag low on bicitra for metabolic acidosis will follow up Consultation Date/Type/Reason Admit Date/Time Apr 04, 2017 at 22:07 Initial Consult Date Type of Consultation: NEPHROLOGY Referring Provider: LEISA LANGSTON Exam/Review of Systems Vital Signs Vitals Vital Signs Date Time Temp Pulse Resp B/P Pulse Ox O2 Delivery O2 Flow Rate FiO2 04/17/17 07:59 97.6 97 18 130/78 92 04/13/17 20:20 Nasal Cannula 2.0 Intake and Output 04/16/17 04/16/17 04/17/17 15:00 23:00 07:00 Intake Total 1350 ml 1400 ml Output Total 900 ml 1200 ml Balance 450 ml 200 ml Results Result Diagram: 04/17/17 0417 04/17/17 0417 Results 24 hrs Laboratory Tests Test 04/17/17 04:17 White Blood Count 8.5 Red Blood Count 3.26 L Hemoglobin 8.7 L Hematocrit 27.3 L Mean Corpuscular Volume 83.7 Mean Corpuscular Hemoglobin 26.7 L Mean Corpuscular Hemoglobin Concent 31.9 L Red Cell Distribution Width 18.5 H Platelet Count 197 Mean Platelet Volume 10.8 H Neutrophils % 75.2 Lymphocytes % 15.9 Monocytes % 5.2 Eosinophils % 0.5 Basophils % 0.4 Nucleated Red Blood Cells % 0.0 Neutrophils # 6.4 Lymphocytes # 1.4 Monocytes # 0.4 Eosinophils # 0.0 Basophils # 0.0 Nucleated Red Blood Cells # 0.0 Sodium Level 141 Potassium Level 3.6 Chloride Level 104 Carbon Dioxide Level 27 Anion Gap 14 Blood Urea Nitrogen 13 Creatinine 0.52 Glucose Level 87 Calcium Level 8.0 L Phosphorus Level 2.2 L Magnesium Level 1.2 L Medications Medications Current Medications Anastrozole (Arimidex) 1 mg DAILY PO Last administered on 04/17/17 10:12; Admin Dose 1 MG; Start 04/05/17 at 09:00 Lorazepam (Ativan) 0.5 mg Q6H PRN PO ANXIETY Last administered on 04/16/17 21: 27; Admin Dose 0.5 MG; Start 04/06/17 at 16:00 Metoprolol Tartrate (Lopressor) 25 mg BID PO Last administered on 04/17/17 10: 15; Admin Dose 25 MG; Start 04/06/17 at 21:00 Enoxaparin Sodium (Lovenox) 40 mg DAILY SC Last administered on 04/17/17 10:25 ; Admin Dose 40 MG; Start 04/07/17 at 14:30 Bisacodyl (Dulcolax) 10 mg DAILY PRN PO CONSTIPATION; Start 04/08/17 at 10:30 Bisacodyl (Dulcolax Supp) 10 mg DAILY PRN [place] CONSTIPATION Last administered on 04/08/17 11:25; Admin Dose 10 MG; Start 04/08/17 at 10:30 Morphine Sulfate (morphine) 2 mg Q2H PRN IV PAIN Last administered on 16:53; Admin Dose 2 MG; Start 04/11/17 at 17:30 Acetaminophen/ Hydrocodone Bitart ([place] (5/325)) 1 tab Q3H PRN PO PAIN Last administered on 04/17/17 10:17; Admin Dose 1 TAB; Start 04/11/17 at 17:30 Citric Acid/ Sodium Citrate 30 ml 30 ml BID PO Last administered on 04/17/17 10:14; Admin Dose 30 ML; Start 04/12/17 at 21:00 Sodium Chloride 1,000 ml @ 50 mls/hr Q20H IV Last administered on 04/16/17 16 :54; Admin Dose 50 MLS/HR; Start 04/12/17 at 16:30 Ondansetron HCl/ Sodium Chloride (Zofran Inj/NS) 54 ml @ 216 mls/hr Q8H PRN IV NAUSEA AND/OR VOMITING; Start 04/12/17 at 16:30 Hydrocortisone (Solu-Cortef) 100 mg ONCE PRN IV REACTION TO CHEMO; Start at 21:41 Diphenhydramine HCl (Benadryl) 50 mg ONCE PRN IV REACTION TO CHEMO; Start at 21:42 Polyethylene Glycol (Miralax) 17 gm DAILY PO ; Start 04/17/17 at 09:00 Ondansetron HCl (Zofran Inj) 4 mg Q6H PRN IV NAUSEA AND/OR VOMITING Last administered on 04/16/17t 16:53; Admin Dose 4 MG; Start 04/16/17 at 15:30 HANNA KIRKLAND MD Apr 17, 2017 18:40
[2017-04-17 19:11] VITALS: BP 128/63; RESP 16
[2017-04-17 20:51] LABS: HEPARIN INDUCED PLATELET AB NEGATIVE (NEGATIVE)
[2017-04-17] MEDS: CITRIC ACID/NA CITRATE 30 ML CUP PO SCH (22:30)
[2017-04-17] MEDS: LORAZEPAM 0.5 MG TAB PO PRN (22:30)
[2017-04-18 05:27] LABS: ADD SCAN DIFF NO
[2017-04-18 05:34] LABS: BASOPHILS % 0.4 % (0.0-2.0); EOSINOPHILS % 0.3 % (0.0-7.0); HEMATOCRIT 27.6 % (37.0-47.0); HEMOGLOBIN 8.8 g/dl (12.0-16.0); LYMPHOCYTES # 1.5 10^3/ul (0.8-2.9); LYMPHOCYTES % 20.2 % (15.0-51.0); MEAN CORPUSCULAR HEMOGLOBIN 26.8 pg (29.0-33.0); MEAN CORPUSCULAR HGB CONC 31.9 g/dl (32.0-37.0); MEAN CORPUSCULAR VOLUME 84.1 fl (82.0-101.0); MEAN PLATELET VOLUME 10.5 fl (7.4-10.4); MONOCYTE # 0.4 10^3/ul (0.3-0.9); MONOCYTES % 5.2 % (0.0-11.0); NEUTROPHIL # 5.5 10^3/ul (1.6-7.5); NEUTROPHILS % 71.7 % (39.0-77.0); PLATELET COUNT 213 10^3/UL (140-415); RED BLOOD COUNT 3.28 10^6/ul (4.20-5.40); RED CELL DISTRIBUTION WIDTH 18.7 % (11.5-14.5); WHITE BLOOD COUNT 7.6 10^3/ul (4.8-10.8)
[2017-04-18] MEDS: morphine 2 MG INJ IV PRN (05:36)
[2017-04-18 05:59] LABS: CALCIUM 7.9 mg/dl (8.4-10.2); CREATININE 0.58 mg/dl (0.44-1.00); MAGNESIUM 1.9 mg/dl (1.7-2.5); PHOSPHORUS 2.5 mg/dl (2.5-4.9); POTASSIUM 3.4 mmol/L (3.5-5.1)
[2017-04-18 07:18] VITALS: BP 138/75; RESP 19
[2017-04-18] MEDS ORDERED: CITRIC ACID/NA CITRATE 30 ML CUP PO SCH (09:00)
[2017-04-18] MEDS: POLYETHYLENE GLYCOL 17 GM PACKET PO SCH (09:00)
[2017-04-18] MEDS: METOPROLOL 25 MG TAB PO SCH ×2 (09:24→21:05)
[2017-04-18] MEDS: HYDROCODONE/APAP (5/325) TAB PO PRN ×3 (09:25→22:12)
[2017-04-18] MEDS: CITRIC ACID/NA CITRATE 30 ML CUP PO SCH (09:26)
[2017-04-18] MEDS: ANASTROZOLE 1 MG TAB PO SCH (09:29)
--- NOTE | 2017-04-18 09:43 | CONS ---
Date/Time of Note Date/Time of Note DATE: 04/18/17 TIME: 09:42 Assessment/Plan Assessment/Plan Chief Complaint/Hosp Course 57 year old female with a history of right breast cancer admitted for generalized weakness, decreased appetite, and confusion per her daughter and found to have hypercalcemia with calcium of 17, acute renal failure, failure to thrive ER positive 99%, AL positive 4%, HER2/gail positive by IHC 3+ based on 04/13/17 right breast mass biopsy and right axillary lymph node was 99% ER, 25% AL, HER2 equivocal by IHC 2+ and equicoval by FISH but negative by equivocal panel. During her admission, a CT of the chest showed the right breast mass, axillary, hilar and mediastinal adenopathy, multiple hepatic masses and pathologic right femoral neck fracture, consistent with metastatic cancer. On 09/01/2016 she underwent excision of metastatic cancer from femoral neck and intertrochanteric area of the right hip and hemiarthroplasty of the right hip. She was seen by Dr. Paola Nielsen for post-op radiation to the right hip which she received for 2 weeks. Path from 09/01/16 right hip surgery showed metastatic breast carcinoma, ER positive, AL negative, HER2 positive disease by IHC and FISH. She was started on arimidex 1 mg daily but per patient, only received 1 month worth of medication and then was to be treated with trastuzumab taxane pertuzumab after local radiation. # Metastatic breast cancer with elevated liver enzymes due to liver/bone mets - US liver shows that the liver is enlarged and contains numerous and confluent lesions, likely metastases, measuring up to 6.6 cm in the left lobe. The liver demonstrates increased echogenicity and coarsened echotexture which are nonspecific and suggest fatty infiltration as well as early chronic liver disease. The main portal vein is patent with proper directional flow. Trace perihepatic ascites. - CXR shows large right pleural effusion, likely malignant, consider diagnostic and therapeutic thoracentesis if symptomatic - CT CAP with contrast 04/10/17 shows 1. Significant progression of diffuse metastatic disease with target lesions as listed above. Large right breast mass is again demonstrated with severe worsening of right axillary and mediastinal lymphadenopathy. There is development of large right and trace left pleural effusions with evidence of pulmonary lymphangitic carcinomatosis. Significant worsening of diffuse hepatic and osseous metastasis seen throughout the body. There is interval right hip replacement. 2. The T6 vertebral body lesion traverses over several vertebral body levels and invades the spinal canal., consider bone scan or outpatient PET/CT. - CA 27-29 > 450, CA 15-3 607 - CT of the lumbar spine from 02/28/17 showed multiple lytic metastatic foci of the lumbar vertebral bodies, sacrum and visualized iliac bones. - MRI brain 04/06/17 showed multiple osseous metastases - MRI spine 04/06/17 showed extensive osseous metastases throughout the spine with compression fractures, at the T6 level on the right there is a soft tissue component that is causing moderate narrowing of the canal at least touching the cord, no clear cord compression. - Per neurosurgery, The patient has widespread spinal metastases, including some with ventral epidural extension into the spinal canal. However, the patient is neurologically intact. There is no role for surgical intervention whatsoever given the widespread and diffuse nature of her metastatic disease burden. - Per rad onc (Pavan Beal) agree with systemic therapy, no plan for radiation for now, given no sensory issues or neurologic deficits. May need radiation to right humerus if has surgery for humerus due to high risk of fracture. - Per ortho, for metastatic fracture of the proximal shaft of the right humerus , plan for stabilization of the pathologic fracture involving the right humerus by intramedullary nailing. This intramedullary nailing can be done as soon as the patient can be medically cleared for surgery and probably it should be done prior to any breast surgery. Now status post open reduction and internal fixation of the pathologic fracture of the proximal shaft of the right humerus utilizing intramedullary nailing technique on 04/11/17. F/U path. Discussed with Dr. Lim, will plan for herceptin and pertuzumab only as would not interfere with wound healing and right humerus fx is urgent given unstable pathologic fracture. s/p herceptin and pertuzumab 04/12/17. s/p port 04/10/17. Plan to add docetaxel later once healed from surgery. - MUGA 69% wnl. Chemo regimen Q3 weeks -H-h-o-l-i-k-x-e-l- -7-5- -m-g--/--m-2- -x- -0-.-7-5- -=- -5-6- -m-g--/--m-2- -I-V- -o-v-e-r- -1- -h-o-u-r- -(--2-5--%- -d-o-s-e- -a-z-o-p-z-v-i-o-n- -d-u-e- -t-o- -r-b-p-v-a-t-e-d- -L-F-T-s--)- Trastuzumab 8 mg/kg IV over 90 minutes cycle 1 Pertuzumab 840 mg IV over 60 minutes cycle 1 Of note, patient prefers that I not speak with family directly, and direct family questions to the patient herself as she would like to inform her family of her case. # Severe hypercalcemia, with calcium level of 17.3, resolved. - s/p calcitonin, aggressive hydration - s/p pamidronate 60 mg IV - PTH suppressed at 4, PTHrP normal at 26, Vitamin D low # Confusion and constipation, likely related to hypercalcemia, now resolved. # Acute renal failure, likely related to dehydration and hypercalcemia, resolved , continue to monitor. # Anemia: hgb low sec to malignancy with adequate B12 and ferritin. Continue to monitor, may need transfusion if Hgb < 8. # Thrombocytopenia, resolved. HIT panel negative, not consistent with DIC, HIV and hep panel negative.. Dispo: pending ARU eval. Patient should follow up with me in clinic, case management to ensure auth Problems: Consultation Date/Type/Reason Admit Date/Time Apr 04, 2017 at 22:07 Initial Consult Date 04/05/17 Type of Consultation: Oncology Referring Provider: LEISA LANGSTON 24 HR Interval Summary Free Text/Dictation Doing well, no complaints. Exam/Review of Systems Vital Signs Vitals Vital Signs Date Time Temp Pulse Resp B/P Pulse Ox O2 Delivery O2 Flow Rate FiO2 04/18/17 07:18 98.7 85 19 138/75 99 Intake and Output 04/17/17 04/17/17 04/18/17 15:00 23:00 07:00 Intake Total 1294.5455 ml 420 ml Output Total 1050 ml Balance 244.5455 ml 420 ml Exam Constitutional: alert, oriented Psych: depression Eyes: nl conjunctiva Respiratory: normal air movement Musculoskeletal: nl extremities to inspection, s/p right humerus surgery, dressings c/d/i Results Result Diagram: 04/18/17 0453 04/18/17 0453 Results 24 hrs Laboratory Tests Test 04/18/17 04:53 04/18/17 07:40 White Blood Count 7.6 Red Blood Count 3.28 L Hemoglobin 8.8 L Hematocrit 27.6 L Mean Corpuscular Volume 84.1 Mean Corpuscular Hemoglobin 26.8 L Mean Corpuscular Hemoglobin Concent 31.9 L Red Cell Distribution Width 18.7 H Platelet Count 213 Mean Platelet Volume 10.5 H Neutrophils % 71.7 Lymphocytes % 20.2 Monocytes % 5.2 Eosinophils % 0.3 Basophils % 0.4 Nucleated Red Blood Cells % 0.0 Neutrophils # 5.5 Lymphocytes # 1.5 Monocytes # 0.4 Eosinophils # 0.0 Basophils # 0.0 Nucleated Red Blood Cells # 0.0 Sodium Level 137 Potassium Level 3.4 L Chloride Level 104 Carbon Dioxide Level 29 Anion Gap 7 L Blood Urea Nitrogen 12 Creatinine 0.58 Glucose Level 85 Calcium Level 7.9 L Phosphorus Level 2.5 Magnesium Level 1.9 Lab Scanned Report REFERENCE LAB Medications Medications Current Medications Anastrozole (Arimidex) 1 mg DAILY PO Last administered on 04/17/17 10:12; Admin Dose 1 MG; Start 04/05/17 at 09:00 Lorazepam (Ativan) 0.5 mg Q6H PRN PO ANXIETY Last administered on 04/17/17 22: 30; Admin Dose 0.5 MG; Start 04/06/17 at 16:00 Metoprolol Tartrate (Lopressor) 25 mg BID PO Last administered on 04/17/17 20: 19; Admin Dose 25 MG; Start 04/06/17 at 21:00 Enoxaparin Sodium (Lovenox) 40 mg DAILY SC Last administered on 04/17/17 10:25 ; Admin Dose 40 MG; Start 04/07/17 at 14:30 Bisacodyl (Dulcolax) 10 mg DAILY PRN PO CONSTIPATION; Start 04/08/17 at 10:30 Bisacodyl (Dulcolax Supp) 10 mg DAILY PRN [place] CONSTIPATION Last administered on 04/08/17 11:25; Admin Dose 10 MG; Start 04/08/17 at 10:30 Morphine Sulfate (morphine) 2 mg Q2H PRN IV PAIN Last administered on 05:36; Admin Dose 2 MG; Start 04/11/17 at 17:30 Acetaminophen/ Hydrocodone Bitart 1 tab 1 tab Q3H PRN PO PAIN Last administered on 04/17/17 10:17; Admin Dose 1 TAB; Start 04/11/17 at 17:30 Sodium Chloride 1,000 ml @ 50 mls/hr Q20H IV Last administered on 04/16/17 16 :54; Admin Dose 50 MLS/HR; Start 04/12/17 at 16:30 Ondansetron HCl/ Sodium Chloride (Zofran Inj/NS) 54 ml @ 216 mls/hr Q8H PRN IV NAUSEA AND/OR VOMITING; Start 04/12/17 at 16:30 Hydrocortisone (Solu-Cortef) 100 mg ONCE PRN IV REACTION TO CHEMO; Start at 21:41 Diphenhydramine HCl (Benadryl) 50 mg ONCE PRN IV REACTION TO CHEMO; Start at 21:42 Polyethylene Glycol (Miralax) 17 gm DAILY PO ; Start 04/17/17 at 09:00 Ondansetron HCl (Zofran Inj) 4 mg Q6H PRN IV NAUSEA AND/OR VOMITING Last administered on 04/16/17 16:53; Admin Dose 4 MG; Start 04/16/17 at 15:30 Citric Acid/ Sodium Citrate (Bicitra) 30 ml BID PO Last administered on 22:30; Admin Dose 30 ML; Start 04/17/17 at 21:00 JUAN SHETH MD Apr 18, 2017 09:43
[2017-04-18] MEDS: ENOXAPARIN 40 MG/0.4 ML SYG SC SCH (09:44)
[2017-04-18] MEDS: SOD CHLORIDE 0.9% 1,000 ML IV SCH (11:54)
[2017-04-18] MEDS ORDERED: POTASSIUM CHLORIDE (SR) 20 MEQ TAB PO STA (12:30)
--- NOTE | 2017-04-18 12:34 | PN ---
Date/Time of Note Date/Time of Note DATE: 04/18/17 TIME: 12:31 Assessment/Plan VTE Prophylaxis VTE Prophylaxis Intervention: SCD's Lines/Catheters IV Catheter Type (from Nrs): Port-a-cath Urinary Cath still in place: No Assessment/Plan Chief Complaint/Hosp Course Chief Complaint/Hosp Course Assessment/Plan 57 yo F with stage 4 breast Ca with mets to liver, bones admitted for R arm pain 2/2 pathologic humeral fracture. sp surgical repair (nail) . #R humeral frx: f/u as per ortho s/p ORIF 04/11/17 Continue pain medication, PT OT eval and treat #stage 4 diffusely metastatic breast Ca: onc following, Started on chemo per hemeonc #brain and spine mets seen on MR imaging #hypercalcemia 2/2 metastatic ca: as per onc #Large right pleural effusion. 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 If the patient has worsening respiratory distress, will consider right thoracentesis. #s/p RHip replacement for pathologic fracture 2/2 mets 12/2016 #HTN: Well-controlled, cont home meds #transaminitis 2/2 liver mets, continue to monitor Continue supportive care and pain control [facility] but pt still requiring PT continue PT, and shoe caser consult for placement Problems: Subjective 24 Hr Interval Summary Free Text/Dictation Patient continues to complain of having right shoulder pain Max assist with ambulation Denies of any chest pain or shortness of breath Tolerating oral intake Exam/Review of Systems Vital Signs Vitals Vital Signs Date Time Temp Pulse Resp B/P Pulse Ox O2 Delivery O2 Flow Rate FiO2 04/18/17 07:18 98.7 85 19 138/75 99 Intake and Output 04/17/17 04/17/17 04/18/17 15:00 23:00 07:00 Intake Total 1294.5455 ml 420 ml Output Total 1050 ml Balance 244.5455 ml 420 ml Exam General: The patient is well-developed, Not in acute distress. HEENT: Atraumatic, normocephalic. The pupils are equal and round . Neck: Supple Chest: Normal Lungs: Clear to auscultation bilaterally Heart: Normal S1-S2, Regular rhythm and rate. Abdomen: Soft , nontender, nondistended , bowel sounds are present. Extremities: Right upper extremity surgical site is dry and clean, no edema no cyanosis Neurologic: Normal mental status,The patient is awake, alert and oriented . Results Result Diagram: 04/18/17 0453 04/18/17 0453 Results 24 hrs Laboratory Tests Test 04/18/17 04:53 04/18/17 07:40 White Blood Count 7.6 Red Blood Count 3.28 L Hemoglobin 8.8 L Hematocrit 27.6 L Mean Corpuscular Volume 84.1 Mean Corpuscular Hemoglobin 26.8 L Mean Corpuscular Hemoglobin Concent 31.9 L Red Cell Distribution Width 18.7 H Platelet Count 213 Mean Platelet Volume 10.5 H Neutrophils % 71.7 Lymphocytes % 20.2 Monocytes % 5.2 Eosinophils % 0.3 Basophils % 0.4 Nucleated Red Blood Cells % 0.0 Neutrophils # 5.5 Lymphocytes # 1.5 Monocytes # 0.4 Eosinophils # 0.0 Basophils # 0.0 Nucleated Red Blood Cells # 0.0 Sodium Level 137 Potassium Level 3.4 L Chloride Level 104 Carbon Dioxide Level 29 Anion Gap 7 L Blood Urea Nitrogen 12 Creatinine 0.58 Glucose Level 85 Calcium Level 7.9 L Phosphorus Level 2.5 Magnesium Level 1.9 Lab Scanned Report REFERENCE LAB Medications Medications Current Medications Anastrozole (Arimidex) 1 mg DAILY PO Last administered on 04/18/17 09:29; Admin Dose 1 MG; Start 04/05/17 at 09:00 Lorazepam (Ativan) 0.5 mg Q6H PRN PO ANXIETY Last administered on 04/17/17 22: 30; Admin Dose 0.5 MG; Start 04/06/17 at 16:00 Metoprolol Tartrate (Lopressor) 25 mg BID PO Last administered on 04/18/17 09: 24; Admin Dose 25 MG; Start 04/06/17 at 21:00 Enoxaparin Sodium (Lovenox) 40 mg DAILY SC Last administered on 04/18/17 09:44 ; Admin Dose 40 MG; Start 04/07/17 at 14:30 Bisacodyl (Dulcolax) 10 mg DAILY PRN PO CONSTIPATION; Start 04/08/17 at 10:30 Bisacodyl (Dulcolax Supp) 10 mg DAILY PRN [place] CONSTIPATION Last administered on 04/08/17 11:25; Admin Dose 10 MG; Start 04/08/17 at 10:30 Morphine Sulfate (morphine) 2 mg Q2H PRN IV PAIN Last administered on 05:36; Admin Dose 2 MG; Start 04/11/17 at 17:30 Acetaminophen/ Hydrocodone Bitart 1 tab 1 tab Q3H PRN PO PAIN Last administered on 04/18/17 09:25; Admin Dose 1 TAB; Start 04/11/17 at 17:30 Ondansetron HCl/ Sodium Chloride (Zofran Inj/NS) 54 ml @ 216 mls/hr Q8H PRN IV NAUSEA AND/OR VOMITING; Start 04/12/17 at 16:30 Hydrocortisone (Solu-Cortef) 100 mg ONCE PRN IV REACTION TO CHEMO; Start at 21:41 Diphenhydramine HCl (Benadryl) 50 mg ONCE PRN IV REACTION TO CHEMO; Start at 21:42 Polyethylene Glycol (Miralax) 17 gm DAILY PO ; Start 04/17/17 at 09:00 Ondansetron HCl (Zofran Inj) 4 mg Q6H PRN IV NAUSEA AND/OR VOMITING Last administered on 04/16/17 16:53; Admin Dose 4 MG; Start 04/16/17 at 15:30 Citric Acid/ Sodium Citrate (Bicitra) 30 ml BID PO Last administered on 09:26; Admin Dose 30 ML; Start 04/17/17 at 21:00 GREGG QUINONES MD Apr 18, 2017 12:34
--- NOTE | 2017-04-18 17:23 | CONS ---
Date/Time of Note Date/Time of Note DATE: 04/18/17 TIME: 17:20 Assessment/Plan Assessment/Plan Additional Assessment/Plan 1. Severe hypercalcemia with calcium level of 17.3 on admission.s/p Zometa, now normal 2. Acute kidney injury secondary to prerenal azotemia. 3. History of metastatic breast cancer, 4. Transaminitis, trending up LFTs 5. Hypokalemia Plan: K 3.4, Cr nromal, HCo3 normal Stop Bicitra S/p Zometa on 04/06/17 for hypercalcemia, now Ca mproved to normal will follow up Consultation Date/Type/Reason Admit Date/Time Apr 04, 2017 at 22:07 Initial Consult Date Type of Consultation: NEPHROLOGY Referring Provider: LEISA LANGSTON 24 HR Interval Summary Free Text/Dictation no acute events, Ca normal , K 3.4, HCo3 normal Exam/Review of Systems Vital Signs Vitals Vital Signs Date Time Temp Pulse Resp B/P Pulse Ox O2 Delivery O2 Flow Rate FiO2 04/18/17 07:18 98.7 85 19 138/75 99 Intake and Output 04/17/17 04/17/17 04/18/17 15:00 23:00 07:00 Intake Total 1294.5455 ml 420 ml Output Total 1050 ml Balance 244.5455 ml 420 ml Exam Constitutional: alert Psych: no complaints Head: normocephalic ENMT: nl external ears & nose Neck: supple Respiratory: clear to auscultation Cardiovascular: regular rate and rhythm Gastrointestinal: non-tender, soft Extremities: normal pulses Neurological: DIRECTOR OF PROGRAMMING II-XII intact, nl mental status Results Result Diagram: 04/18/17 0453 04/18/17 0453 Results 24 hrs Laboratory Tests Test 04/18/17 04:53 04/18/17 07:40 White Blood Count 7.6 Red Blood Count 3.28 L Hemoglobin 8.8 L Hematocrit 27.6 L Mean Corpuscular Volume 84.1 Mean Corpuscular Hemoglobin 26.8 L Mean Corpuscular Hemoglobin Concent 31.9 L Red Cell Distribution Width 18.7 H Platelet Count 213 Mean Platelet Volume 10.5 H Neutrophils % 71.7 Lymphocytes % 20.2 Monocytes % 5.2 Eosinophils % 0.3 Basophils % 0.4 Nucleated Red Blood Cells % 0.0 Neutrophils # 5.5 Lymphocytes # 1.5 Monocytes # 0.4 Eosinophils # 0.0 Basophils # 0.0 Nucleated Red Blood Cells # 0.0 Sodium Level 137 Potassium Level 3.4 L Chloride Level 104 Carbon Dioxide Level 29 Anion Gap 7 L Blood Urea Nitrogen 12 Creatinine 0.58 Glucose Level 85 Calcium Level 7.9 L Phosphorus Level 2.5 Magnesium Level 1.9 Lab Scanned Report REFERENCE LAB Medications Medications Current Medications Anastrozole (Arimidex) 1 mg DAILY PO Last administered on 04/18/17 09:29; Admin Dose 1 MG; Start 04/05/17 at 09:00 Lorazepam (Ativan) 0.5 mg Q6H PRN PO ANXIETY Last administered on 04/17/17 22: 30; Admin Dose 0.5 MG; Start 04/06/17 at 16:00 Metoprolol Tartrate (Lopressor) 25 mg BID PO Last administered on 04/18/17 09: 24; Admin Dose 25 MG; Start 04/06/17 at 21:00 Enoxaparin Sodium (Lovenox) 40 mg DAILY SC Last administered on 04/18/17 09:44 ; Admin Dose 40 MG; Start 04/07/17 at 14:30 Bisacodyl (Dulcolax) 10 mg DAILY PRN PO CONSTIPATION; Start 04/08/17 at 10:30 Bisacodyl (Dulcolax Supp) 10 mg DAILY PRN [place] CONSTIPATION Last administered on 04/08/17 11:25; Admin Dose 10 MG; Start 04/08/17 at 10:30 Morphine Sulfate (morphine) 2 mg Q2H PRN IV PAIN Last administered on 05:36; Admin Dose 2 MG; Start 04/11/17 at 17:30 Acetaminophen/ Hydrocodone Bitart 1 tab 1 tab Q3H PRN PO PAIN Last administered on 04/18/17 14:02; Admin Dose 1 TAB; Start 04/11/17 at 17:30 Ondansetron HCl/ Sodium Chloride (Zofran Inj/NS) 54 ml @ 216 mls/hr Q8H PRN IV NAUSEA AND/OR VOMITING; Start 04/12/17 at 16:30 Hydrocortisone (Solu-Cortef) 100 mg ONCE PRN IV REACTION TO CHEMO; Start at 21:41 Diphenhydramine HCl (Benadryl) 50 mg ONCE PRN IV REACTION TO CHEMO; Start at 21:42 Polyethylene Glycol (Miralax) 17 gm DAILY PO ; Start 04/17/17 at 09:00 Ondansetron HCl (Zofran Inj) 4 mg Q6H PRN IV NAUSEA AND/OR VOMITING Last administered on 04/16/17 16:53; Admin Dose 4 MG; Start 04/16/17 at 15:30 Citric Acid/ Sodium Citrate (Bicitra) 30 ml BID PO Last administered on 09:26; Admin Dose 30 ML; Start 04/17/17 at 21:00 HANNA KIRKLAND MD Apr 18, 2017 17:23
[2017-04-18 19:59] VITALS: BP 148/70; RESP 19
[2017-04-19 05:25] LABS: ADD SCAN DIFF NO
[2017-04-19 05:36] LABS: BASOPHILS % 0.5 % (0.0-2.0); EOSINOPHILS % 0.4 % (0.0-7.0); HEMATOCRIT 27.3 % (37.0-47.0); HEMOGLOBIN 8.8 g/dl (12.0-16.0); LYMPHOCYTES # 1.6 10^3/ul (0.8-2.9); LYMPHOCYTES % 20.8 % (15.0-51.0); MEAN CORPUSCULAR HEMOGLOBIN 27.8 pg (29.0-33.0); MEAN CORPUSCULAR HGB CONC 32.2 g/dl (32.0-37.0); MEAN CORPUSCULAR VOLUME 86.4 fl (82.0-101.0); MEAN PLATELET VOLUME 10.3 fl (7.4-10.4); MONOCYTE # 0.5 10^3/ul (0.3-0.9); NEUTROPHIL # 5.3 10^3/ul (1.6-7.5); NEUTROPHILS % 70.2 % (39.0-77.0); PLATELET COUNT 248 10^3/UL (140-415); RED BLOOD COUNT 3.16 10^6/ul (4.20-5.40); WHITE BLOOD COUNT 7.5 10^3/ul (4.8-10.8)
[2017-04-19 06:29] LABS: CALCIUM 8.7 mg/dl (8.4-10.2); CREATININE 0.59 mg/dl (0.44-1.00); POTASSIUM 3.8 mmol/L (3.5-5.1)
[2017-04-19 08:09] VITALS: BP 127/68; RESP 18
[2017-04-19] MEDS: ANASTROZOLE 1 MG TAB PO SCH (08:55)
[2017-04-19] MEDS: ENOXAPARIN 40 MG/0.4 ML SYG SC SCH (08:56)
[2017-04-19] MEDS: METOPROLOL 25 MG TAB PO SCH ×2 (08:56→21:00)
[2017-04-19] MEDS: HYDROCODONE/APAP (5/325) TAB PO PRN ×2 (08:57→13:40)
[2017-04-19] MEDS: POLYETHYLENE GLYCOL 17 GM PACKET PO SCH (08:57)
--- NOTE | 2017-04-19 09:49 | CONS ---
Date/Time of Note Date/Time of Note DATE: 04/19/17 TIME: 09:47 Assessment/Plan Assessment/Plan Chief Complaint/Hosp Course 57 year old female with a history of right breast cancer admitted for generalized weakness, decreased appetite, and confusion per her daughter and found to have hypercalcemia with calcium of 17, acute renal failure, failure to thrive ER positive 99%, IN positive 4%, HER2/gail positive by IHC 3+ based on 04/13/17 right breast mass biopsy and right axillary lymph node was 99% ER, 25% IN, HER2 equivocal by IHC 2+ and equicoval by FISH but negative by equivocal panel. During her admission, a CT of the chest showed the right breast mass, axillary, hilar and mediastinal adenopathy, multiple hepatic masses and pathologic right femoral neck fracture, consistent with metastatic cancer. On 09/01/2016 she underwent excision of metastatic cancer from femoral neck and intertrochanteric area of the right hip and hemiarthroplasty of the right hip. She was seen by Dr. Paola Nielsen for post-op radiation to the right hip which she received for 2 weeks. Path from 09/01/16 right hip surgery showed metastatic breast carcinoma, ER positive, IN negative, HER2 positive disease by IHC and FISH. She was started on arimidex 1 mg daily but per patient, only received 1 month worth of medication and then was to be treated with trastuzumab taxane pertuzumab after local radiation. # Metastatic breast cancer with elevated liver enzymes due to liver/bone mets - US liver shows that the liver is enlarged and contains numerous and confluent lesions, likely metastases, measuring up to 6.6 cm in the left lobe. The liver demonstrates increased echogenicity and coarsened echotexture which are nonspecific and suggest fatty infiltration as well as early chronic liver disease. The main portal vein is patent with proper directional flow. Trace perihepatic ascites. - CXR shows large right pleural effusion, likely malignant, consider diagnostic and therapeutic thoracentesis if symptomatic - CT CAP with contrast 04/10/17 shows 1. Significant progression of diffuse metastatic disease with target lesions as listed above. Large right breast mass is again demonstrated with severe worsening of right axillary and mediastinal lymphadenopathy. There is development of large right and trace left pleural effusions with evidence of pulmonary lymphangitic carcinomatosis. Significant worsening of diffuse hepatic and osseous metastasis seen throughout the body. There is interval right hip replacement. 2. The T6 vertebral body lesion traverses over several vertebral body levels and invades the spinal canal., consider bone scan or outpatient PET/CT. - CA 27-29 > 450, CA 15-3 607 - CT of the lumbar spine from 02/28/17 showed multiple lytic metastatic foci of the lumbar vertebral bodies, sacrum and visualized iliac bones. - MRI brain 04/06/17 showed multiple osseous metastases - MRI spine 04/06/17 showed extensive osseous metastases throughout the spine with compression fractures, at the T6 level on the right there is a soft tissue component that is causing moderate narrowing of the canal at least touching the cord, no clear cord compression. - Per neurosurgery, The patient has widespread spinal metastases, including some with ventral epidural extension into the spinal canal. However, the patient is neurologically intact. There is no role for surgical intervention whatsoever given the widespread and diffuse nature of her metastatic disease burden. - Per rad onc (Pavan Beal) agree with systemic therapy, no plan for radiation for now, given no sensory issues or neurologic deficits. May need radiation to right humerus if has surgery for humerus due to high risk of fracture. - Per ortho, for metastatic fracture of the proximal shaft of the right humerus , plan for stabilization of the pathologic fracture involving the right humerus by intramedullary nailing. This intramedullary nailing can be done as soon as the patient can be medically cleared for surgery and probably it should be done prior to any breast surgery. Now status post open reduction and internal fixation of the pathologic fracture of the proximal shaft of the right humerus utilizing intramedullary nailing technique on 04/11/17. F/U path. Discussed with Dr. Lim, will plan for herceptin and pertuzumab only as would not interfere with wound healing and right humerus fx is urgent given unstable pathologic fracture. s/p herceptin and pertuzumab 04/12/17. s/p port 04/10/17. Plan to add docetaxel later once healed from surgery. - MUGA 69% wnl. Chemo regimen Q3 weeks -H-c-m-p-z-a-x-e-l- -7-5- -m-g--/--m-2- -x- -0-.-7-5- -=- -5-6- -m-g--/--m-2- -I-V- -o-v-e-r- -1- -h-o-u-r- -(--2-5--%- -d-o-s-e- -y-a-g-k-p-w-i-o-n- -d-u-e- -t-o- -t-l-v-v-a-t-e-d- -L-F-T-s--)- Trastuzumab 8 mg/kg IV over 90 minutes cycle 1 Pertuzumab 840 mg IV over 60 minutes cycle 1 Of note, patient prefers that I not speak with family directly, and direct family questions to the patient herself as she would like to inform her family of her case. # Severe hypercalcemia, with calcium level of 17.3, resolved. - s/p calcitonin, aggressive hydration - s/p pamidronate 60 mg IV - PTH suppressed at 4, PTHrP normal at 26, Vitamin D low # Confusion and constipation, likely related to hypercalcemia, now resolved. # Acute renal failure, likely related to dehydration and hypercalcemia, resolved , continue to monitor. # Anemia: hgb low sec to malignancy with adequate B12 and ferritin. Continue to monitor, may need transfusion if Hgb < 8. Stable. # Thrombocytopenia, resolved. HIT panel negative, not consistent with DIC, HIV and hep panel negative.. Dispo: pending placement Patient should follow up with me in clinic, case management to ensure auth Problems: Consultation Date/Type/Reason Admit Date/Time Apr 04, 2017 at 22:07 Initial Consult Date 04/05/17 Type of Consultation: Oncology Referring Provider: LEISA LANGSTON 24 HR Interval Summary Free Text/Dictation Patient doing well, no complaints, pending placement. Exam/Review of Systems Vital Signs Vitals Vital Signs Date Time Temp Pulse Resp B/P Pulse Ox O2 Delivery O2 Flow Rate FiO2 04/19/17 08:09 97.7 92 18 127/68 92 Intake and Output 04/18/17 04/18/17 04/19/17 15:00 23:00 07:00 Intake Total 1760 ml 960 ml Output Total 1200 ml 850 ml Balance 560 ml 110 ml Exam Constitutional: alert, oriented Psych: depression Eyes: nl conjunctiva Respiratory: normal air movement Musculoskeletal: nl extremities to inspection, s/p right humerus surgery, dressings c/d/i Results Result Diagram: 04/19/17 0435 04/19/17 0435 Results 24 hrs Laboratory Tests Test 04/19/17 04:35 White Blood Count 7.5 Red Blood Count 3.16 L Hemoglobin 8.8 L Hematocrit 27.3 L Mean Corpuscular Volume 86.4 Mean Corpuscular Hemoglobin 27.8 L Mean Corpuscular Hemoglobin Concent 32.2 Red Cell Distribution Width 19.0 H Platelet Count 248 Mean Platelet Volume 10.3 Neutrophils % 70.2 Lymphocytes % 20.8 Monocytes % 6.0 Eosinophils % 0.4 Basophils % 0.5 Nucleated Red Blood Cells % 0.0 Neutrophils # 5.3 Lymphocytes # 1.6 Monocytes # 0.5 Eosinophils # 0.0 Basophils # 0.0 Nucleated Red Blood Cells # 0.0 Sodium Level 136 Potassium Level 3.8 Chloride Level 104 Carbon Dioxide Level 28 Anion Gap 8 Blood Urea Nitrogen 13 Creatinine 0.59 Glucose Level 86 Calcium Level 8.7 Medications Medications Current Medications Anastrozole (Arimidex) 1 mg DAILY PO Last administered on 04/19/17 08:55; Admin Dose 1 MG; Start 04/05/17 at 09:00 Lorazepam (Ativan) 0.5 mg Q6H PRN PO ANXIETY Last administered on 04/17/17 22: 30; Admin Dose 0.5 MG; Start 04/06/17 at 16:00 Metoprolol Tartrate (Lopressor) 25 mg BID PO Last administered on 04/19/17 08: 56; Admin Dose 25 MG; Start 04/06/17 at 21:00 Enoxaparin Sodium (Lovenox) 40 mg DAILY SC Last administered on 04/19/17 08:56 ; Admin Dose 40 MG; Start 04/07/17 at 14:30 Bisacodyl (Dulcolax) 10 mg DAILY PRN PO CONSTIPATION; Start 04/08/17 at 10:30 Bisacodyl (Dulcolax Supp) 10 mg DAILY PRN IN CONSTIPATION Last administered on 04/08/17 11:25; Admin Dose 10 MG; Start 04/08/17 at 10:30 Morphine Sulfate (morphine) 2 mg Q2H PRN IV PAIN Last administered on 05:36; Admin Dose 2 MG; Start 04/11/17 at 17:30 Acetaminophen/ Hydrocodone Bitart 1 tab 1 tab Q3H PRN PO PAIN Last administered on 04/19/17 08:57; Admin Dose 1 TAB; Start 04/11/17 at 17:30 Ondansetron HCl/ Sodium Chloride (Zofran Inj/NS) 54 ml @ 216 mls/hr Q8H PRN IV NAUSEA AND/OR VOMITING; Start 04/12/17 at 16:30 Hydrocortisone (Solu-Cortef) 100 mg ONCE PRN IV REACTION TO CHEMO; Start at 21:41 Diphenhydramine HCl (Benadryl) 50 mg ONCE PRN IV REACTION TO CHEMO; Start at 21:42 Polyethylene Glycol (Miralax) 17 gm DAILY PO Last administered on 04/19/17 08: 57; Admin Dose 17 GM; Start 04/17/17 at 09:00 Ondansetron HCl (Zofran Inj) 4 mg Q6H PRN IV NAUSEA AND/OR VOMITING Last administered on 04/16/17 16:53; Admin Dose 4 MG; Start 04/16/17 at 15:30 JUAN SHETH MD Apr 19, 2017 09:49
[2017-04-19] MEDS: ONDANSETRON 4 MG INJ IV PRN (13:40)
[2017-04-19] MEDS ORDERED: METO-448 PO (15:02)
--- NOTE | 2017-04-19 15:06 | DS ---
Date/Time of Note Date/Time of Note DATE: 04/19/17 TIME: 15:03 Discharge Summary Admission/Discharge Info Admit Date/Time Apr 04, 2017 at 22:07 Discharge Date/Time Patient Condition: Stable Consults oncology, nephrology, orthopedics Procedures 6.19 port placed 6.20 R intramedullary humeral nail Hx of Present Illness Chief complaint: Generalized weakness decreased appetite and confusion 57-year-old female with a history of metastatic breast cancer with bony metastases presenting to the ER for generalized weakness, decreased appetite, and confusion per her daughter. Per her daughter, she has been worsening over the past week with increasing confusion and difficulty getting out of bed. She has also had some constipation. No fevers, chills, dysuria, chest pain, shortness of breath, headache, or dizziness. She complains of uncontrolled generalized pain. Daughter states that she is unable to take care of her in this condition. Her oncologist is Dr. Vásquez. She is reportedly scheduled for mastectomy next week. As per the daughter patient was diagnosed with breast cancer approximately 7 months ago. She has received radiation therapy. Allergies: NKDA Medications: See DEC Hospital Course 57 yo F with stage 4 breast Ca with mets to liver, bones admitted for R arm pain 2/2 pathologic humeral fracture. sp surgical repair (nail) 6.20. For breast ca, pt seen by oncology and chemo administered for HTN, home BP meds continued. Transaminitis 2/2 liver mets. Pt with hypercalcemia 2/2 malignancy, seen by renal given fluids, calcitonin, pamidronate. Pt discharged to a subacute rehab for additional PT Home Meds Active Scripts Metoprolol Tartrate* (Lopressor*) 25 Mg Tab, 25 MG PO BID for 7 Days, #14 TAB Prov:IKE SAM MD 04/19/17 Reported Medications Hydrocodone/Acetaminophen ([place] 5-325 Tablet) 1 Each Tablet, 1 EACH PO TID, TAB 04/04/17 Anastrozole* (Arimidex*) 1 Mg Tablet, 1 MG PO DAILY, #30 TAB 04/04/17 Discontinued Scripts Oxycodone HCl/Acetaminophen (Percocet 5-325 mg Tablet) 1 Each Tablet, 1 EACH PO Q6, #20 TAB Prov:CHATO COYLE NP 02/28/17 Follow-up Plan oncology this week as scheduled ortho Primary Care Provider Walter Gutierrez Time spent on discharge: > 30 minutes Pending Labs Laboratory Tests Test 04/19/17 04:35 White Blood Count 7.510^3/ul (4.8-10.8) Red Blood Count 3.1610^6/ul (4.20-5.40) Hemoglobin 8.8g/dl (12.0-16.0) Hematocrit 27.3% (37.0-47.0) Mean Corpuscular Volume 86.4fl (82.0-101.0) Mean Corpuscular Hemoglobin 27.8pg (29.0-33.0) Mean Corpuscular Hemoglobin Concent 32.2g/dl (32.0-37.0) Red Cell Distribution Width 19.0% (11.5-14.5) Platelet Count 24750^3/UL (140-415) Mean Platelet Volume 10.3fl (7.4-10.4) Neutrophils % 70.2% (39.0-77.0) Lymphocytes % 20.8% (15.0-51.0) Monocytes % 6.0% (0.0-11.0) Eosinophils % 0.4% (0.0-7.0) Basophils % 0.5% (0.0-2.0) Nucleated Red Blood Cells % 0.0/100WBC (0.0-0.0) Neutrophils # 5.310^3/ul (1.6-7.5) Lymphocytes # 1.610^3/ul (0.8-2.9) Monocytes # 0.510^3/ul (0.3-0.9) Eosinophils # 0.010^3/ul (0.0-0.5) Basophils # 0.010^3/ul (0.0-0.1) Nucleated Red Blood Cells # 0.010^3/ul (0.0-0.0) Sodium Level 136mmol/L (135-144) Potassium Level 3.8mmol/L (3.5-5.1) Chloride Level 104mmol/L (97-110) Carbon Dioxide Level 28mmol/L (21-31) Anion Gap 8 (8-16) Blood Urea Nitrogen 13mg/dl (7-20) Creatinine 0.59mg/dl (0.44-1.00) Glucose Level 86mg/dl (70-220) Calcium Level 8.7mg/dl (8.4-10.2) IKE SAM MD Apr 19, 2017 15:06 Calcium Level 8.7mg/dl (8.4-10.2) IKE SAM MD Apr 19, 2017 15:06
[2017-04-19] MEDS ORDERED: HEPARIN (100 UNITS/ML) 5 ML SYG CATHETER ONE (16:30)
--- NOTE | 2017-04-19 16:51 | CONS ---
Date/Time of Note Date/Time of Note DATE: 04/19/17 TIME: 16:50 Assessment/Plan Assessment/Plan Additional Assessment/Plan 1. Severe hypercalcemia with calcium level of 17.3 on admission.s/p Zometa, now normal 2. Acute kidney injury secondary to prerenal azotemia. 3. History of metastatic breast cancer, 4. Transaminitis, trending up LFTs 5. Hypokalemia Plan: , Cr nromal, HCo3 normal Stop Bicitra S/p Zometa on 04/06/17 for hypercalcemia, now Ca mproved to normal will follow up Consultation Date/Type/Reason Admit Date/Time Apr 04, 2017 at 22:07 Initial Consult Date Type of Consultation: NEPHROLOGY Referring Provider: LEISA LANGSTON 24 HR Interval Summary Free Text/Dictation Cr normal, Ca normal Exam/Review of Systems Vital Signs Vitals Vital Signs Date Time Temp Pulse Resp B/P Pulse Ox O2 Delivery O2 Flow Rate FiO2 04/19/17 08:09 97.7 92 18 127/68 92 Intake and Output 04/18/17 04/18/17 04/19/17 15:00 23:00 07:00 Intake Total 1760 ml 960 ml Output Total 1200 ml 850 ml Balance 560 ml 110 ml Exam Constitutional: alert Psych: no complaints Head: normocephalic ENMT: nl external ears & nose Neck: supple Respiratory: clear to auscultation Cardiovascular: regular rate and rhythm Gastrointestinal: non-tender, soft Extremities: normal pulses Neurological: ASSIGNMENT EDITOR II-XII intact, nl mental status Results Result Diagram: 04/19/17 0435 04/19/17 0435 Results 24 hrs Laboratory Tests Test 04/19/17 04:35 White Blood Count 7.5 Red Blood Count 3.16 L Hemoglobin 8.8 L Hematocrit 27.3 L Mean Corpuscular Volume 86.4 Mean Corpuscular Hemoglobin 27.8 L Mean Corpuscular Hemoglobin Concent 32.2 Red Cell Distribution Width 19.0 H Platelet Count 248 Mean Platelet Volume 10.3 Neutrophils % 70.2 Lymphocytes % 20.8 Monocytes % 6.0 Eosinophils % 0.4 Basophils % 0.5 Nucleated Red Blood Cells % 0.0 Neutrophils # 5.3 Lymphocytes # 1.6 Monocytes # 0.5 Eosinophils # 0.0 Basophils # 0.0 Nucleated Red Blood Cells # 0.0 Sodium Level 136 Potassium Level 3.8 Chloride Level 104 Carbon Dioxide Level 28 Anion Gap 8 Blood Urea Nitrogen 13 Creatinine 0.59 Glucose Level 86 Calcium Level 8.7 Medications Medications Current Medications Anastrozole (Arimidex) 1 mg DAILY PO Last administered on 04/19/17 08:55; Admin Dose 1 MG; Start 04/05/17 at 09:00 Lorazepam (Ativan) 0.5 mg Q6H PRN PO ANXIETY Last administered on 04/17/17 22: 30; Admin Dose 0.5 MG; Start 04/06/17 at 16:00 Metoprolol Tartrate (Lopressor) 25 mg BID PO Last administered on 04/19/17 08: 56; Admin Dose 25 MG; Start 04/06/17 at 21:00 Enoxaparin Sodium (Lovenox) 40 mg DAILY SC Last administered on 04/19/17 08:56 ; Admin Dose 40 MG; Start 04/07/17 at 14:30 Bisacodyl (Dulcolax) 10 mg DAILY PRN PO CONSTIPATION; Start 04/08/17 at 10:30 Bisacodyl (Dulcolax Supp) 10 mg DAILY PRN DE CONSTIPATION Last administered on 04/08/17 11:25; Admin Dose 10 MG; Start 04/08/17 at 10:30 Morphine Sulfate (morphine) 2 mg Q2H PRN IV PAIN Last administered on 05:36; Admin Dose 2 MG; Start 04/11/17 at 17:30 Acetaminophen/ Hydrocodone Bitart 1 tab 1 tab Q3H PRN PO PAIN Last administered on 04/19/17 13:40; Admin Dose 1 TAB; Start 04/11/17 at 17:30 Ondansetron HCl/ Sodium Chloride (Zofran Inj/NS) 54 ml @ 216 mls/hr Q8H PRN IV NAUSEA AND/OR VOMITING; Start 04/12/17 at 16:30 Hydrocortisone (Solu-Cortef) 100 mg ONCE PRN IV REACTION TO CHEMO; Start at 21:41 Diphenhydramine HCl (Benadryl) 50 mg ONCE PRN IV REACTION TO CHEMO; Start at 21:42 Polyethylene Glycol (Miralax) 17 gm DAILY PO Last administered on 04/19/17 08: 57; Admin Dose 17 GM; Start 04/17/17 at 09:00 Ondansetron HCl (Zofran Inj) 4 mg Q6H PRN IV NAUSEA AND/OR VOMITING Last administered on 04/19/17t 13:40; Admin Dose 4 MG; Start 04/16/17 at 15:30 HANNA KIRKLAND MD Apr 19, 2017 16:51
--- NOTE | 2017-04-19 18:33 | PDOCDIS ---
Discharge Instructions CONDITION Patient Condition: Stable HOME CARE INSTRUCTIONS: Diet Instructions: Regular ACTIVITY: Activity Restrictions: Slowly Increase Activity Rest between Activity Avoid heavy lifting Avoid Heavy Housework Bathing Restrictions: Shower FOLLOW UP/APPOINTMENTS Follow-up Plan Follow up with orthopedic surgery/Dr Lim Follow up with your oncologist IKE SAM MD Apr 19, 2017 18:33
[2017-04-19 20:00] VITALS: BP 127/88; PULSE 82; RESP 18
== END 2017-04-19 21:45 | DRG 579 ==
LOC: E/R 19:14 → TEL 22:07 → MS1 04-07 20:39
PROVIDERS: ADMIT Family Medicine; ATTEND Family Medicine
PROC: 0JH60XZ Insertion of Tunneled Vascular Access Device into Chest Subcutaneous Tissue and Fascia, Open Approach (ICD-10-PCS; principal; 2017-04-10)
PROC: 02H633Z Insertion of Infusion Device into Right Atrium, Percutaneous Approach (ICD-10-PCS; 2017-04-10)
PROC: 0PSF06Z Reposition Right Humeral Shaft with Intramedullary Internal Fixation Device, Open Approach (ICD-10-PCS; 2017-04-11)
PROC: 3E04305 Introduction of Other Antineoplastic into Central Vein, Percutaneous Approach (ICD-10-PCS; 2017-04-12)
DX: C50.111 Malignant neoplasm of central portion of right female breast (principal); G93.41 Metabolic encephalopathy; N17.9 Acute kidney failure, unspecified; J90 Pleural effusion, not elsewhere classified; C78.02 Secondary malignant neoplasm of left lung; C78.01 Secondary malignant neoplasm of right lung; M84.521A Pathological fracture in neoplastic disease, right humerus, initial encounter for fracture; C78.7 Secondary malignant neoplasm of liver and intrahepatic bile duct; C79.51 Secondary malignant neoplasm of bone; E87.1 Hypo-osmolality and hyponatremia; N39.0 Urinary tract infection, site not specified; C79.2 Secondary malignant neoplasm of skin; M84.48XA Pathological fracture, other site, initial encounter for fracture; E83.52 Hypercalcemia; R62.7 Adult failure to thrive; E87.6 Hypokalemia; E86.0 Dehydration; K59.00 Constipation, unspecified; I10 Essential (primary) hypertension; E83.42 Hypomagnesemia; E83.39 Other disorders of phosphorus metabolism; D63.0 Anemia in neoplastic disease; G89.3 Neoplasm related pain (acute) (chronic); Z17.0 Estrogen receptor positive status [ER+]
CPT/HCPCS: 36415; 36430; 36561; 70450; 70553; 71010; 71260; 72156; 72157; 72158; 72170; 74177; 76705; 76942; 78472; 80048; 80053; 80061; 80307; 81001; 82140; 82306; 82330; 82607; 82728; 82746; 83010; 83036; 83540; 83615; 83735; 83970; 84100; 84439; 84443; 84484; 85025; 85045; 85049; 85362; 85384; 85610; 85730; 86022; 86300; 86703; 86704; 86709; 86803; 86850; 86900; 86901; 86920; 87086; 87340; 93005; 96361; 96372; 96374; 96375; 96376; 97116; 97162; 97530; J2430; J3487; J9355; A9560; C1713; C1788; C9113; J0131; J0360; J0690; J0696; J1170; J1200; J1642; J1644; J1650; J2250; J2270; J2370; J2405; J2765; J3010; J3475; J3480; J7030; J7040; J7050; J9306; P9016; Q9967